=== PATIENT | male | born 1990 | race Caucasian/White ===

== ENCOUNTER 2016-05-31 17:53 | Emergency (ER) | payer MEDICAID ==
[2016-05-31] MEDS ORDERED: SULFAMETH/TRIMETH DS 800/160 MG TABLET PO STA (18:11)
[2016-05-31] MEDS ORDERED: CEPHALEXIN 250 MG CAPSULE PO STA (18:11)
[2016-05-31] MEDS ORDERED: SULFAMETH/TRIMETH DS 800/160 MG TABLET PO ONE (18:14)
[2016-05-31] MEDS ORDERED: CEPHALEXIN 250 MG CAPSULE PO ONE (18:14)
== END 2016-05-31 18:27 | disposition home or self-care (01) ==
DX: L03.114 Cellulitis of left upper limb (principal); L98.9 Disorder of the skin and subcutaneous tissue, unspecified; F17.200 Nicotine dependence, unspecified, uncomplicated
CPT/HCPCS: 99283; A9270

== ENCOUNTER 2016-07-19 13:03 | Emergency (ER) | payer MEDICAID ==
[2016-07-19 13:16] VITALS: BP 138/80
--- NOTE | 2016-07-19 13:48 | ED Physician Documentation ---
PD HPI SKIN - Stated complaint Stated Complaint: SWOLLEN RT EYE - Chief complaint Chief Complaint: Heent - History obtained from History obtained from: Patient - History of Present Illness Timing - onset: How many days ago (2-3) Timing - duration: Days Timing - details: Gradual onset, Still present Location: Face (right upper eyelid with redness and local swelling, then started with some purulence last night and eyelid/periorbital redness today.) Quality / character: Painful, Discolored (red), Draining Similar symptoms before: Diagnosis (has had skin infections in other places.) Review of Systems Constitutional: denies: Fever, Chills Eyes: denies: Loss of vision, Decreased vision, Photophobia : denies: Dysuria, Discharge PD PAST MEDICAL HISTORY - Past Medical History Cardiovascular: Deep vein thrombosis, Other Respiratory: Asthma Neuro: Seizure disorder Endocrine/Autoimmune: None GI: None : None HEENT: None Psych: Depression Musculoskeletal: Chronic back pain Derm: None - Past Surgical History Past Surgical History: Yes General: Other - Present Medications Home Medications: Ambulatory Orders Medication Instructions Recorded Confirmed Chlorhexidine Gluconate [Hibiclens] 10 ml TP DAILY #473 ml 07/19/16 Neomycin Hough/Bacitra/Polymyxin 1 applic OP QID #3.5 oint...g. 07/19/16 [Vqkmxb-Jrvti-Xfxsngh Eye Oint] Sulfamethox/Trimeth 800/160 1 each PO BID #14 tablet 07/19/16 [Bactrim Ds 800/160] Tramadol HCl 50 mg PO Q6H PRN #20 tablet 07/19/16 - Allergies Allergies/Adverse Reactions: Allergies Allergy/AdvReac Type Severity Reaction Status Date / Time acetaminophen [From Vicodin] AdvReac Nausea Verified 05/31/16 17:59 hydrocodone bitartrate * AdvReac Nausea Verified 05/31/16 17:59 [From Vicodin] - Social History Does the pt smoke?: Yes Smoking Status: Current every day smoker Does the pt drink ETOH?: Yes Does the pt have substance abuse?: No - Immunizations Immunizations are current?: No Immunizations: TDAP >10years/unknown, Other immun not current - POLST Patient has POLST: No PD ED PE NORMAL - Vitals Vital signs reviewed: Yes - General General: Alert and oriented X 3, No acute distress, Well developed/nourished - HEENT HEENT: PERRL, EOMI, Other (right eyelid with focal redness and swelling, mild drainage, c/w stye infectd, and eyelid and periorbital with redness as well. Good movement of eye without pain. ) - Neck Neck: Supple, no meningeal sign, No adenopathy Results - Vitals Vitals: Vital Signs - 24 hr 07/19/16 13:14 Temperature 36.6 C Heart Rate 82 Respiratory 16 Rate Blood Pressure 138/80 H O2 Saturation 98 Oxygen O2 Source Room air PD MEDICAL DECISION MAKING - ED course Complexity details: considered differential, d/w patient Departure - Departure Disposition: 01 Home, Self Care Clinical Impression: Cellulitis of right eyelid Hordeolum externum (stye) Qualifiers: Laterality: right Eyelid: upper Qualified Code(s): H00.011 - Hordeolum externum right upper eyelid Condition: Stable Record reviewed to determine appropriate education?: Yes Instructions: ED Staph Infec Abx Tx Only Prescriptions: Sulfamethox/Trimeth 800/160 [Bactrim Ds 800/160] 1 each PO BID #14 tablet Chlorhexidine Gluconate [Hibiclens] 10 ml TP DAILY #473 ml Neomycin Hough/Bacitra/Polymyxin [Ipzecm-Kgduf-Rsdmqjx Eye Oint] 1 applic OP QID # 3.5 oint...g. Tramadol HCl 50 mg PO Q6H PRN #20 tablet PRN Reason: Pain Comments: Cleanse the eye/eyelid with warm water 4 times daily and apply antibiotic eye ointment to lid and eye. Bactrim oral antibiotic twice daily for a week. Use Hibiclens body soap head to toe with showering daily for a week. Tylenol or Ibuprofen for pains; add Tramadol if needed. Recheck if not improved over the next couple of days. Discharge Date/Time: 07/19/16 14:23
[2016-07-19] MEDS ORDERED: traMADol 50 MG TABLET PO STA (14:03)
[2016-07-19] MEDS ORDERED: SULFAMETH/TRIMETH DS 800/160 MG TABLET PO STA (14:03)
[2016-07-19] MEDS ORDERED: IBUPROFEN 600 MG TABLET PO STA (14:03)
[2016-07-19] MEDS ORDERED: IBUPROFEN 600 MG TABLET PO ONE (14:05)
[2016-07-19] MEDS ORDERED: SULFAMETH/TRIMETH DS 800/160 MG TABLET PO ONE (14:05)
[2016-07-19] MEDS ORDERED: traMADol 50 MG TABLET PO ONE (14:05)
== END 2016-07-19 14:23 | disposition home or self-care (01) ==
LOC: ED 13:03
DX: H00.011 Hordeolum externum right upper eyelid (principal); H00.031 Abscess of right upper eyelid; J45.909 Unspecified asthma, uncomplicated; Z86.718 Personal history of other venous thrombosis and embolism; F17.200 Nicotine dependence, unspecified, uncomplicated
CPT/HCPCS: 87070; 87077; 87181; 99283; A9270

== ENCOUNTER 2016-09-19 11:05 | Emergency (ER) | payer MEDICAID ==
[2016-09-19] MEDS ORDERED: LIDOCAINE 2% 10 ML MDV SUBQ STA (12:13)
[2016-09-19] MEDS ORDERED: LIDOCAINE 2% 10 ML MDV ONE (12:13)
[2016-09-19] MEDS ORDERED: SULFAMETH/TRIMETH DS 800/160 MG TABLET PO STA (12:14)
[2016-09-19] MEDS ORDERED: CEPHALEXIN 250 MG CAPSULE PO STA (12:14)
[2016-09-19] MEDS ORDERED: SULFAMETH/TRIMETH DS 800/160 MG TABLET PO ONE (12:22)
[2016-09-19] MEDS ORDERED: CEPHALEXIN 250 MG CAPSULE PO ONE (12:22)
--- NOTE | 2016-09-19 12:34 | ED Physician Documentation ---
History of Present Illness - Stated complaint Stated Complaint: LT HAND SWOLLEN - Chief complaint Chief Complaint: Ext Problem - History obtained from History obtained from: Patient - History of Present Illness Timing: How many days ago (several) Pain level max: 8 Pain level now: 6 Improved by: nothing Worsened by: movement, palpation - Additonal information Additional information: states redness and swelling to the L index finger for several days. Came for eval today. States uses heroin daily, last use today. No fevers, no vomiting. Td UTD. Pt is right handed. Review of Systems Constitutional: denies: Fever, Chills Respiratory: denies: Cough GI: denies: Nausea, Vomiting, Diarrhea Skin: denies: Rash Musculoskeletal: denies: Neck pain, Back pain Neurologic: denies: Headache PD PAST MEDICAL HISTORY - Past Medical History Cardiovascular: Deep vein thrombosis, Other Respiratory: Asthma Neuro: Seizure disorder Endocrine/Autoimmune: None GI: None : None HEENT: None Psych: Depression Musculoskeletal: Chronic back pain Derm: None - Past Surgical History Past Surgical History: Yes General: Other - Present Medications Home Medications: Ambulatory Orders Medication Instructions Recorded Confirmed Cephalexin [Keflex] 500 mg PO Q6H #28 capsule 09/19/16 Ibuprofen [Motrin] 800 mg PO Q8H PRN #30 tablet 09/19/16 Sulfamethox/Trimeth 800/160 1 each PO BID #14 tablet 09/19/16 [Bactrim Ds 800/160] - Allergies Allergies/Adverse Reactions: Allergies Allergy/AdvReac Type Severity Reaction Status Date / Time acetaminophen [From Vicodin] AdvReac Nausea Verified 09/19/16 11:16 hydrocodone bitartrate * AdvReac Nausea Verified 09/19/16 11:16 [From Vicodin] - Social History Does the pt smoke?: Yes Smoking Status: Current every day smoker Does the pt drink ETOH?: Yes Does the pt have substance abuse?: No - Immunizations Immunizations are current?: Yes Immunizations: TDAP current <10years (2010 per pt), Other immun not current - POLST Patient has POLST: No PD ED PE NORMAL - Vitals Vital signs reviewed: Yes - General General: Alert and oriented X 3, No acute distress - HEENT HEENT: Moist mucous membranes - Neck Neck: Supple, no meningeal sign - Cardiac Cardiac: RRR, No murmur - Respiratory Respiratory: No respiratory distress, Clear bilaterally - Derm Derm: Warm and dry - Extremities Extremities: Other (L index finger swollen diffusely, but does have approx 50% ROM. Limited by swelling. NVI. Small abscess of the anterior aspect of the index finger, near DIP joint. No palmar tenderness. ) - Neuro Neuro: Alert and oriented X 3 - Psych Psych: Normal mood, Normal affect Results - Vitals Vitals: Vital Signs - 24 hr 09/19/16 09/19/16 11:07 12:56 Temperature 36.1 C L 37.0 C Heart Rate 92 69 Respiratory 18 20 Rate Blood Pressure 144/87 H 153/94 H O2 Saturation 99 99 Oxygen O2 Source Room air - Labs Labs: Microbiology 09/19/16 12:30 Wound Culture - Preliminary Abscess - Rads (name of study) L index finger xray Radiology: Prelim report reviewed, EMP read contemporaneously, See rad report ( normal finger xray, no FB) Procedures - Abscess I&D (location) L index finger Preparation: Confirmed with ultrasound, Alcohol, Lidocaine 2 % Incision: Needle aspiration, Purulent drainage, Culture obtained Other: Pt tolerated well, Dressing applied, Antibiotic prescribed PD MEDICAL DECISION MAKING - ED course Complexity details: reviewed results, re-evaluated patient, considered differential, d/w patient ED course: Patient is a 25-year-old male who presents to the emergency department with an abscess and cellulitis to the left index finger. No evidence of deep space infection in the hand. No fevers. No palmar tenderness. No tenderness along the flexor tendon sheath. Neurovascularly intact. Abscess drained. Wound culture sent. Will start on Bactrim and Keflex. Did discuss drug rehab for heroin, patient declines this at this time. Patient was counseled to stop using heroin. Patient counseled regarding signs and symptoms for which I believe and urgent re-evaluation would be necessary. Patient with good understanding of and agreement to plan and is comfortable going home at this time This document was made in part using voice recognition software. While efforts are made to proofread this document, sound alike and grammatical errors may occur. Departure - Departure Disposition: 01 Home, Self Care Clinical Impression: Abscess of finger Qualifiers: Laterality: left Qualified Code(s): L02.512 - Cutaneous abscess of left hand Cellulitis Qualifiers: Site of cellulitis: extremity Site of cellulitis of extremity: upper extremity Laterality: left Qualified Code(s): L03.114 - Cellulitis of left upper limb Condition: Good Instructions: ED Abscess IandD, ED Infec Skin Cellulitis Follow-Up: return,here in 2-3 days for wound check [Other] Prescriptions: Sulfamethox/Trimeth 800/160 [Bactrim Ds 800/160] 1 each PO BID #14 tablet Cephalexin [Keflex] 500 mg PO Q6H #28 capsule Ibuprofen [Motrin] 800 mg PO Q8H PRN #30 tablet PRN Reason: PAIN &/OR FEVER Comments: Return if you worsen. You should return here in 2-3 days for wound check. Return sooner if you are worsening. Keep the wound clean. Discharge Date/Time: 09/19/16 12:56
--- NOTE | 2016-09-19 12:55 | XRAY Preliminary Report ---
Exam: XR Finger(s) LT IMPRESSION: 1. No osseous abnormality. 2. Index finger soft tissue swelling. 3. No radiopaque foreign body demonstrated. [facility] SITE ID: [id number]
--- NOTE | 2016-09-19 12:57 | XRAY Report ---
EXAM: LEFT SECOND DIGIT RADIOGRAPHY EXAM DATE: 09/19/2016 12:42 PM. CLINICAL HISTORY: L index finger swelling, poss FB. COMPARISON: None. TECHNIQUE: 3 views. FINDINGS: Bones: Normal. No fracture or bone lesion. Joints: Normal. No subluxations. Soft Tissues: Index finger diffuse soft tissue swelling. No radiopaque foreign body or cassandra soft tis jose raul gas. IMPRESSION: 1. No osseous abnormality. 2. Index finger soft tissue swelling. 3. No radiopaque foreign body demonstrated. [facility] Referring Provider Line: [phone] SITE ID: [id number]
[2016-09-19 12:58] VITALS: BP 153/94
== END 2016-09-19 12:56 | disposition home or self-care (01) ==
LOC: ED 11:05
DX: L02.512 Cutaneous abscess of left hand (principal); F17.200 Nicotine dependence, unspecified, uncomplicated; F11.90 Opioid use, unspecified, uncomplicated; Z86.718 Personal history of other venous thrombosis and embolism
CPT/HCPCS: 10060; 73140; 87070; 87077; 87181; 87205; 99282; 99283; A9270

== ENCOUNTER 2016-09-20 10:58 | Outpatient (CLI) | payer MEDICAID | END 2016-09-20 10:59 | disposition critical access hospital (66) | LOC: EMS 10:58 | PROVIDERS: ATTEND Surgery | DX: M79.642 Pain in left hand (principal) | CPT/HCPCS: A0425; A0429 ==

== ENCOUNTER 2016-09-20 11:23 | Inpatient (IN) | payer MEDICAID ==
[2016-09-20] MEDS ORDERED: KETOROLAC 60 MG/2 ML VIAL IM STA (11:44)
--- NOTE | 2016-09-20 12:14 | ED Physician Documentation ---
History of Present Illness - Stated complaint Stated Complaint: HAND SWELLING - Chief complaint Chief Complaint: Ext Problem - Additonal information Additional information: hx from pt 25 y/o IVDA to ER for L index finger infection seen yesterday for same, xray neg, had ROM, has a small fexor side abscess drained, dc on bactrim and keflex which he did nit fell because he fell asleep when he got home pain swelling worse today Review of Systems Constitutional: denies: Fever Musculoskeletal: reports: Extremity pain PD PAST MEDICAL HISTORY - Past Medical History Cardiovascular: Deep vein thrombosis, Other Respiratory: Asthma Neuro: Seizure disorder Endocrine/Autoimmune: None GI: None : None HEENT: None Psych: Depression Musculoskeletal: Chronic back pain Derm: None - Past Surgical History Past Surgical History: Yes General: Other - Present Medications Home Medications: Ambulatory Orders Medication Instructions Recorded Confirmed Cephalexin [Keflex] 500 mg PO Q6H #28 capsule 09/19/16 Ibuprofen [Motrin] 800 mg PO Q8H PRN #30 tablet 09/19/16 Sulfamethox/Trimeth 800/160 1 each PO BID #14 tablet 09/19/16 [Bactrim Ds 800/160] - Allergies Allergies/Adverse Reactions: Allergies Allergy/AdvReac Type Severity Reaction Status Date / Time acetaminophen [From Vicodin] AdvReac Nausea Verified 09/19/16 11:16 hydrocodone bitartrate * AdvReac Nausea Verified 09/19/16 11:16 [From Vicodin] - Social History Does the pt smoke?: Yes Smoking Status: Current every day smoker Does the pt drink ETOH?: Yes Does the pt have substance abuse?: No - Immunizations Immunizations are current?: Yes Immunizations: TDAP current <10years, Other immun not current - POLST Patient has POLST: No PD ED PE NORMAL - Vitals Vital signs reviewed: Yes - Extremities Extremities: Other (L index red, fusiform swelling, held slightl felxed, anable to range, senation and cap refill intact, I and D site flexor surface, hands are extremely dirty) Results - Vitals Vitals: Vital Signs - 24 hr 09/20/16 11:27 Temperature 37 C Heart Rate 90 Respiratory 18 Rate Blood Pressure 124/85 H O2 Saturation 97 Oxygen O2 Source Room air PD MEDICAL DECISION MAKING - ED course ED course: worsened since yesterday, now with flexor tenosynovitis, seen by ortho Dr West who will admit pt for surgery and antibiotics - orders written by Dr West Departure - Departure Disposition: 66 [facility] DC/[facility] Clinical Impression: Flexor tenosynovitis of finger Condition: Fair
[2016-09-20] MEDS ORDERED: VANCOMYCIN INJ 1 GM in SODIUM CHLORIDE 0.9% 250 ML IV ONE ×2 (14:00→15:15)
[2016-09-20] MEDS ORDERED: LACTATED RINGERS 1,000 ML IV ONE ×2 (15:15→17:03)
[2016-09-20] MEDS ORDERED: fentaNYL 100 MCG/2 ML VIAL IVP ONE (17:39)
[2016-09-20] MEDS ORDERED: LIDOCAINE-MPF 2% 5 ML VIAL IM ONE (17:39)
[2016-09-20] MEDS ORDERED: METOCLOPRAMIDE 10 MG/2 ML VIAL IVP ONE (17:39)
[2016-09-20] MEDS ORDERED: PROPOFOL 200 MG/20 ML VIAL IVP ONE (17:39)
[2016-09-20] MEDS ORDERED: ONDANSETRON 4 MG/2 ML VIAL IVP ONE (17:39)
[2016-09-20] MEDS ORDERED: DEXAMETHASONE 4 MG/ML VIAL IVP ONE (17:39)
[2016-09-20] MEDS ORDERED: KETOROLAC 30 MG/ML VIAL IVP ONE (17:39)
[2016-09-20] MEDS ORDERED: MIDAZOLAM 2 MG/2 ML VIAL IVP ONE (17:39)
[2016-09-20] MEDS ORDERED: ONDANSETRON 4 MG/2 ML VIAL IVP PRN (17:53)
[2016-09-20] MEDS ORDERED: PROCHLORPERAZINE 10 MG/2 ML VIAL IVP PRN (17:53)
[2016-09-20] MEDS ORDERED: SODIUM CHLORIDE FLUSH 0.9% 10 ML SYRINGE IVP PRN (17:53)
--- NOTE | 2016-09-20 19:09 | OPERATIVE REPORT ---
DATE OF SURGERY: 09/20/2016 00:00:00 PREOPERATIVE DIAGNOSIS: Left index finger infected flexor tenosynovitis. POSTOPERATIVE DIAGNOSIS: Left index finger infected flexor tenosynovitis. NAME OF PROCEDURE: Incision and drainage of right index finger flexor tenosynovitis. SURGEON: Suleman West MD ANESTHESIA: General by Mandi eKlly MD INDICATIONS FOR SURGERY: The patient is a 25-year-old male who is a heroin user and addict who over t he past 3 days developed left index finger swelling, redness and pain with drainage from a small pinp oint area at the palmar base of the pulp of the index finger. He presented to the emergency room yest erday and then returned today by ambulance with increasing hand pain and swelling where he was diagno sed as having a flexor sheath infection. I was asked to consult at this point. FINDINGS AT SURGERY: The patient had thick, purulent light grover fluid draining from a small area at t he palmar base of the pulp of the index finger. The sheath was swollen leading into that area from th e proximal phalanx to the fingertip. The finger was held in slight flexion and when awake the patien t was unable to move it and had extreme pain along the sheath. On incision the purulence was an absce ssed cavity in the pulp and also infection in the exposed sheath. There was some necrosis of tissue around the abscess cavity. At the base of the finger at a counter incision there was not found pus. DESCRIPTION OF THE OPERATIVE PROCEDURE: The patient was taken to the operating room, was given a gene ral anesthetic. His hand was cleaned and sterilely prepped and draped in standard fashion. Two incisi ons were made, one was a transverse incision at the distal flexion crease of the index finger, the ot her at the distal palmar flexion crease. The purulence was encountered at the finger and cultures sen t. The abscess cavity was drained and slightly debrided of necrotic tissue and the sheath exposed wi th retractors so that irrigation could be done from the palmar incision out the distal incision. Ther e was some delamination of skin of the distal aspect and a very minimal debridement was done of necro tic skin. A flushing was performed with about 800 mL of fluid using a syringe and an 18 gauge cathete r tip and at the conclusion soft dressings were applied with Xeroform gauze in the wounds and 4 x 4's and fluffs in the hand followed by a volar splint. The patient was taken to the recovery room in sta ble condition. ESTIMATED BLOOD LOSS: Was minimal. COMPLICATIONS: None. SPONGE AND NEEDLE COUNTS: Correct. JOB #: [id number] EXT JOB #:[id number]
[2016-09-20] MEDS ORDERED: oxyCODONE 5 MG TABLET PO SCH (20:15)
[2016-09-20] MEDS: SODIUM CHLORIDE FLUSH 0.9% 10 ML SYRINGE IVP SCH (20:34)
[2016-09-20] MEDS: LACTATED RINGERS 1,000 ML IV SCH (20:35)
[2016-09-21] MEDS: ceFAZolin 2 GM/50 ML 50 ML IV SCH ×2 (00:19→08:35)
[2016-09-21] MEDS: oxyCODONE 5 MG TABLET PO PRN ×5 (00:28→20:10)
--- NOTE | 2016-09-21 03:28 | CONSULTATION NOTE ---
Referring Provider Name of Referring Provider:: Suleman West MD Consult Date: 09/20/16 Chief Complaint - Chief Complaint Chief Complaint: Pain and swelling of the left index finger History of Present Illness - Admitted From Admitted From:: Emergency Department - History Obtained From Records Reviewed: Yes History obtained from: Patient and medical records Exam Limitations: None - History of Present Illness HPI Comment/Other: The patient is a 25 year old male with past medical history of cardiac thrombus 3 years ago and IV drug abuse who presented to the emergency department with pain and swelling of his right index finger. The patient had had swelling of the finger that was worsening over 3 days and he began to develop redness and pain with drainage from a small pinpoint area at the palmar base of the pulp of the finger. He initially presented to the emergency room on 09/19/16 and then returned again on 09/20/16 as he had increasing pain and swelling. The patient was diagnosed with flexor sheath infection and was seen by orthopedics in the emergency department. The patient was taken to the OR for incision and drainage of the right index finger flexor tenosynovitis. The patient was found to have thick purulent light grover fluid draining from a small area at the palmar base of the pulp of the index finger. The sheath was swollen leading into that area from the proximal phalanx to the fingertip. The patient underwent incision of the finger and an abscessed cavity was found in the pulp and also infection was found in the exposed sheath. There was some necrosis of the tissue around the abscess cavity. The patient is a daily heroin user and had last used the night prior to presenting to the ED. Therefore there was concern for possible heroin withdrawal post procedure and Dr West asked that we consult to help treat any heroin withdrawal as well as pain. Post procedure the patient is stable but he does feels anxious and feels he maybe going into early stages of withdrawal from heroin. He denies any fevers or chills but was having fevers prior to coming to the ER. The patient denies any chest pain or shortness of breath. He denies any cough. He denies any muscle aches. He denies any focal neurological deficits. Review of Systems - Other Findings Other Findings: A comprehensive review of systems was performed and the pertinent positives and negatives are stated above in the HPI. History - Past Medical History Cardiovascular: reports: Deep vein thrombosis, Other Respiratory: reports: Asthma Neuro: reports: Seizure disorder Endocrine/Autoimmune: reports: None GI: reports: None : reports: None HEENT: reports: None Psych: reports: Depression Musculoskeletal: reports: Chronic back pain Derm: reports: None MRSA Hx?: Yes Other Past Medical History: 1. History of cardiac thrombus 3 years ago at [facility]. The patient states that he did not follow through on treatment. He only received blood thinners while hospitalized then took them for just 1 week post hospitalization. 2. Left upper arm DVT. Did not follow up with treatment. 3. History of IV drug abuse currently using heroin last use yesterday. 4. History of Tobacco abuse. - Past Surgical History General: reports: Other - Family & Social History Family History: Mother: CAD (Mom of cardiac arrest at age 34) Family History Comment/Other: Grandfather had a pulmonary embolism. Does not know fathers history. Living arrangement: Homeless Living Situation: Alone Social History Notes: The patient is homeless and lives [place] streets in [place]. He was born and [place] [facility]. His mother when she was only 34 years old. The patient has an older brother who lives in [facility]. The patient also has family in [place] including uncles and aunts. The patient has 3 kids who all live with their mom. The patient is an IV drug user and his drug of choice is heroin. He last used yesterday. He is a daily user. He also uses meth. He occasionally uses mushrooms and marijuana. He smokes a pack per day and has been smoking for more than 10 years. He denies any alcohol use. - Substance History Use: Uses substance without health or social issues: Tobacco Abuse: Recurrent use of substance despite neg consequences: Amphetamine, Opioid Dependence: Experiences withdrawal or developed tolerances: Opioid Dependence Issues: Withdrawal Tobacco Details: Cigarettes - POLST Patient has POLST: No POLST Status: Full Code Meds/Allgy - Home Medications Home Medications: Ambulatory Orders Medication Instructions Recorded Confirmed Cephalexin [Keflex] 500 mg PO Q6H #28 capsule 09/19/16 Ibuprofen [Motrin] 800 mg PO Q8H PRN #30 tablet 09/19/16 Sulfamethox/Trimeth 800/160 1 each PO BID #14 tablet 09/19/16 [Bactrim Ds 800/160] - Allergies Allergies/Adverse Reactions: Allergies Allergy/AdvReac Type Severity Reaction Status Date / Time acetaminophen [From Vicodin] AdvReac Nausea Verified 09/19/16 11:16 hydrocodone bitartrate * AdvReac Nausea Verified 09/19/16 11:16 [From Vicodin] Exam - Vital Signs Reviewed Vital Signs: Yes Vital Signs: Vital Signs x48h Temp Pulse Resp BP Pulse Ox 09/21/16 00:07 36.8 C 74 16 122/71 100 09/20/16 19:53 37.0 C 74 16 129/75 98 - Physical Exam General Appearance: positive: No acute distress, Alert, Other (Very thin, poor hygeine, poorly kept) Eyes Bilateral: positive: Normal inspection, PERRL, EOMI, No lid inflammation, Conjunctivae nml, No scleral icterus, Other (poor dentation) ENT: positive: ENT inspection nml, Pharynx nml, Dry mucous membranes. negative : Purulent nasal drainage, Pharyngeal erythema, Oral lesions Neck: positive: Nml inspection, Thyroid nml, No JVD, Trachea midline. negative : Thyromegaly, Lymphadenopathy (R), Lymphadenopathy (L), Carotid bruit, Tracheal deviation Respiratory: positive: Chest non-tender, No respiratory distress, Breath sounds nml. negative: Wheezes, Rales, Rhonchi Cardiovascular: positive: Regular rate & rhythm, No murmur, No gallop Peripheral Pulses: positive: 2+ Abdomen: positive: Non-tender, No organomegaly, Nml bowel sounds, No distention. negative: Guarding, Rebound, Hepatomegaly Back: positive: Nml inspection Skin: positive: Other (Left finger is dressed with some drainage, swollen with mild erythema) Extremities: positive: Non-tender, Full ROM, Nml appearance, No pedal edema, Pedal edema Neurologic/Psychiatric: positive: Oriented x3, CN's nml (2-12), Motor nml, Sensation nml, Depressed mood/affect (Not very talkative. Feels as though he maybe experiencing some withdrawal) Conclusion/Plan - Diagnosis Diagnosis: 1. Tenosynovitis of the left hand. 2. Heroin Abuse. 3. Tobacco Abuse - Plan Plan: 1. Plan: Status post I&D on IV vancomycin awaiting wound cultures to de- escalate antibiotics. Patient needs 7-10 days of antibiotics and could be transitioned to PO antibiotics if WBC is improving and patient is afebrile for 24 hours and stable. We will add ceftriaxone to vanco while we await blood cultures to improve empirical coverage. 2. Plan: Patient having mild withdrawal symptoms. Will place on PO oxycodone for pain control. Will place on ativan and clonidine for anxiety. Will place on zofran for nausea. Patient counselled and will get a social work consult. 3. Plan: Patient counselled and given nicotine patch. - Diagnostic Imaging Results Diagnostic Imaging Results: positive: Final report reviewed
[2016-09-21] MEDS: VANCOMYCIN INJ 1 GM in SODIUM CHLORIDE 0.9% 250 ML IV SCH ×2 (04:32→16:28)
[2016-09-21 05:35] LABS: BASOPHILS # (AUTO) 0.1 10^3/uL (0.0-0.1); BASOPHILS % (AUTO) 0.3 %; EOSINOPHILS % (AUTO) 0.2 %; HCT - HEMATOCRIT 37.2 % (42.0-52.0); HGB - HEMOGLOBIN 12.2 g/dL (14.0-18.0); LYMPHOCYTES # (AUTO) 2.4 10^3/uL (1.5-3.5); LYMPHOCYTES % (AUTO) 14.2 %; MEAN CORPUSCULAR HEMOGLOBIN 26.3 pg (27.0-31.0); MEAN CORPUSCULAR HGB CONC 32.9 g/dL (32.0-36.0); MEAN PLATELET VOLUME 7.2 fL (7.4-11.4); MONOCYTES # (AUTO) 1.1 10^3/uL (0.0-1.0); MONOCYTES % (AUTO) 6.2 %; NEUTROPHILS # (AUTO) 13.5 10^3/uL (1.5-6.6); NEUTROPHILS % (AUTO) 79.1 %; RED BLOOD COUNT 4.65 10^6/uL (4.70-6.10); RED CELL DISTRIBUTION WIDTH 14.4 % (12.0-15.0)
[2016-09-21] MEDS: SODIUM CHLORIDE FLUSH 0.9% 10 ML SYRINGE IVP SCH ×3 (06:38→16:28)
--- NOTE | 2016-09-21 07:35 | PROVIDER PROGRESS NOTE ---
Subjective - General Admit Date: 09/20/16 Procedure Date: 09/20/16 Post Op Days: 1 Procedure Performed: I + D of left index finger tendon sheath for infected tenosynovitis - Review of Systems Wound/Incisions: positive: Dressing dry and intact General: positive: No symptoms Musculoskeletal: positive: Hand pain, Joint pain Objective - Patient Data Reviewed Vital Signs: Yes Vital Signs: Vital Signs x48h Temp Pulse Resp BP Pulse Ox 09/21/16 07:30 37.0 C 69 18 129/73 96 09/21/16 00:07 36.8 C 74 16 122/71 100 Weight: Weight 09/19/16 09/20/16 09/21/16 23:59 23:59 23:59 Weight (kg) 61 kg Intake & Output: Intake and Output Totals x24h 09/19/16 09/20/16 09/21/16 23:59 23:59 23:59 Intake Total 600 Output Total 1175 Balance 600 -1175 - Lab Results Lab Results: 09/21/16 05:18 Other Lab Results: Lab Results x24hrs 09/21/16 09/21/16 09/21/16 Range/Units 05:18 05:18 05:18 WBC 17.0 H (4.8-10.8) x10^3/uL RBC 4.65 L (4.70-6.10) 10^6/uL Hgb 12.2 L (14.0-18.0) g/dL Hct 37.2 L (42.0-52.0) % MCV 80.0 (80.0-94.0) fL MCH 26.3 L (27.0-31.0) pg MCHC 32.9 (32.0-36.0) g/dL RDW 14.4 (12.0-15.0) % Plt Count 353 (130-450) 10^3/uL MPV 7.2 L (7.4-11.4) fL Neut # 13.5 H (1.5-6.6) 10^3/uL Lymph # 2.4 (1.5-3.5) 10^3/uL Mcintosh # 1.1 H (0.0-1.0) 10^3/uL Eos # 0.0 (0.0-0.7) 10^3/uL Baso # 0.1 (0.0-0.1) 10^3/uL Absolute Nucleated RBC 0.00 x10^3/uL Nucleated RBCs 0.0 /100WBC ESR 60 H (0-15) mm/Hr C-Reactive Protein 7.4 H (0-1.0) mg/dL - Current Medications Current Medications: Current Medications Generic Name Dose Route Start Last Admin Trade Name Freq PRN Reason Stop Dose Admin Cefazolin Sodium/Dextrose 50 mls @ 100 mls/hr 09/21/16 00:00 09/21/16 00:19 Ancef 2 Gm/50 Ml IV 09/21/16 08:29 100 mls/hr Q8H MICHA Administration Lactated Ringer's 1,000 mls @ 100 mls/hr 09/20/16 18:00 09/20/16 20:35 Lr IV 100 mls/hr .Q10H MICHA Administration Vancomycin HCl 1 gm/ Sodium 250 mls @ 167 mls/hr 09/21/16 04:00 09/21/16 04:32 Chloride IV 167 mls/hr Q12H MICHA Administration Oxycodone HCl 5 mg 09/20/16 23:26 09/21/16 00:28 Roxicodone PO 5 mg Q4HR PRN Administration PAIN Sodium Chloride 10 ml 09/20/16 22:00 09/21/16 06:38 Normal Saline Flush 0.9% IVP Not Given Q8HR MICHA - Physical Exam Wound/Incisions: positive: Dressing dry and intact General Appearance: positive: No acute distress Neurologic/Psychiatric: positive: Mood/affect nml Impression/Plan - Problem List Problem List: POD #1: Pt is not having severe pain. Finger is splinted and n/v intact Await culture results. Plan for wound care consult and dressing changes to begin tomorrow AM. I will be gone, but Dr. Horn will be covering the patient over the weekend. Expectation for D/C on Sat or Sun with oral meds and dressing changes, and return to clinic next week ().
[2016-09-21] MEDS: NICOTINE 21 MG PATCH TOP SCH (08:35)
[2016-09-21] MEDS: ENOXAPARIN 40 MG/0.4 ML SYRINGE SUBQ SCH (08:36)
[2016-09-21] MEDS: LACTATED RINGERS 1,000 ML IV SCH ×2 (08:36→13:42)
[2016-09-21] MEDS: cefTRIAXone 2 GM in SODIUM CHLORIDE 0.9% MINIBAG 100 ML IV SCH (09:52)
[2016-09-21] MEDS ORDERED: SODIUM CHLORIDE FLUSH 0.9% 10 ML SYRINGE IVP ONE (16:16)
[2016-09-21] MEDS: SILVER SULFADIAZINE CREAM 25 GM TUBE TOP SCH (20:10)
[2016-09-21] MEDS: MORPHINE ER 15 MG TABLET PO PRN (21:07)
[2016-09-22] MEDS: LACTATED RINGERS 1,000 ML IV SCH ×3 (00:25→19:52)
[2016-09-22] MEDS: oxyCODONE 5 MG TABLET PO PRN ×5 (00:35→19:28)
[2016-09-22] MEDS: VANCOMYCIN INJ 1 GM in SODIUM CHLORIDE 0.9% 250 ML IV SCH ×2 (03:56→17:31)
[2016-09-22 06:00] LABS: BASOPHILS # (AUTO) 0.1 10^3/uL (0.0-0.1); BASOPHILS % (AUTO) 0.9 %; EOSINOPHILS # (AUTO) 0.1 10^3/uL (0.0-0.7); EOSINOPHILS % (AUTO) 1.5 %; HCT - HEMATOCRIT 36.5 % (42.0-52.0); HGB - HEMOGLOBIN 12.1 g/dL (14.0-18.0); LYMPHOCYTES # (AUTO) 3.3 10^3/uL (1.5-3.5); LYMPHOCYTES % (AUTO) 34.6 %; MEAN CORPUSCULAR HEMOGLOBIN 26.7 pg (27.0-31.0); MEAN CORPUSCULAR HGB CONC 33.2 g/dL (32.0-36.0); MEAN CORPUSCULAR VOLUME 80.6 fL (80.0-94.0); MEAN PLATELET VOLUME 7.3 fL (7.4-11.4); MONOCYTES # (AUTO) 0.7 10^3/uL (0.0-1.0); MONOCYTES % (AUTO) 6.9 %; NEUTROPHILS # (AUTO) 5.4 10^3/uL (1.5-6.6); NEUTROPHILS % (AUTO) 56.1 %; NUCLEATED RED BLOOD CELLS AUTO 0.1 /100WBC; RED BLOOD COUNT 4.53 10^6/uL (4.70-6.10); RED CELL DISTRIBUTION WIDTH 14.9 % (12.0-15.0); UNCORRECTED WHITE BLOOD COUNT 9.5 x10^3/uL; WHITE BLOOD COUNT 9.5 x10^3/uL (4.8-10.8)
[2016-09-22] MEDS: SODIUM CHLORIDE FLUSH 0.9% 10 ML SYRINGE IVP SCH ×3 (06:02→19:28)
[2016-09-22 06:10] LABS: ALBUMIN/GLOBULIN RATIO 0.9 (1.0-2.2); BILIRUBIN,TOTAL 0.4 mg/dL (0.2-1.0); BUN - BLOOD UREA NITROGEN 13 mg/dL (6-20); CALCIUM 8.7 mg/dL (8.5-10.3); CARBON DIOXIDE - CO2 26 mmol/L (21-32); CHLORIDE 106 mmol/L (101-111); CREATININE 0.6 mg/dL (0.6-1.2); GFR - MDRD 164 (>89); GLUCOSE 101 mg/dL (70-100); POTASSIUM 4.4 mmol/L (3.5-5.0); SODIUM 140 mmol/L (135-145); TOTAL PROTEIN 6.4 g/dL (6.7-8.2)
[2016-09-22] MEDS: ENOXAPARIN 40 MG/0.4 ML SYRINGE SUBQ SCH (07:54)
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
[2016-09-22] MEDS: NICOTINE 21 MG PATCH TOP SCH (08:35)
[2016-09-22] MEDS: MORPHINE ER 15 MG TABLET PO PRN ×2 (08:37→21:26)
[2016-09-22] MEDS: cefTRIAXone 2 GM in SODIUM CHLORIDE 0.9% MINIBAG 100 ML IV SCH (10:42)
[2016-09-22] MEDS: SILVER SULFADIAZINE CREAM 25 GM TUBE TOP SCH ×2 (10:51→21:27)
[2016-09-23] MEDS: SULFAMETH/TRIMETH DS 800/160 MG TABLET PO SCH ×2 (00:16→08:54)
[2016-09-23 05:58] LABS: BASOPHILS # (AUTO) 0.1 10^3/uL (0.0-0.1); BASOPHILS % (AUTO) 0.8 %; EOSINOPHILS # (AUTO) 0.2 10^3/uL (0.0-0.7); EOSINOPHILS % (AUTO) 1.9 %; HCT - HEMATOCRIT 39.4 % (42.0-52.0); LYMPHOCYTES # (AUTO) 2.6 10^3/uL (1.5-3.5); LYMPHOCYTES % (AUTO) 32.2 %; MEAN CORPUSCULAR HEMOGLOBIN 26.6 pg (27.0-31.0); MEAN CORPUSCULAR VOLUME 80.6 fL (80.0-94.0); MEAN PLATELET VOLUME 7.4 fL (7.4-11.4); MONOCYTES # (AUTO) 0.6 10^3/uL (0.0-1.0); MONOCYTES % (AUTO) 6.8 %; NEUTROPHILS # (AUTO) 4.7 10^3/uL (1.5-6.6); NEUTROPHILS % (AUTO) 58.3 %; NUCLEATED RED BLOOD CELLS AUTO 0.1 /100WBC; RED BLOOD COUNT 4.89 10^6/uL (4.70-6.10); RED CELL DISTRIBUTION WIDTH 14.9 % (12.0-15.0); UNCORRECTED WHITE BLOOD COUNT 8.1 x10^3/uL; WHITE BLOOD COUNT 8.1 x10^3/uL (4.8-10.8)
[2016-09-23 06:09] LABS: ALBUMIN/GLOBULIN RATIO 0.8 (1.0-2.2); BILIRUBIN,TOTAL 0.5 mg/dL (0.2-1.0); BUN - BLOOD UREA NITROGEN 11 mg/dL (6-20); CARBON DIOXIDE - CO2 25 mmol/L (21-32); CHLORIDE 105 mmol/L (101-111); CREATININE 0.6 mg/dL (0.6-1.2); GFR - MDRD 164 (>89); GLUCOSE 93 mg/dL (70-100); SODIUM 139 mmol/L (135-145)
[2016-09-23] MEDS: SODIUM CHLORIDE FLUSH 0.9% 10 ML SYRINGE IVP SCH (06:42)
[2016-09-23 07:18] VITALS: BP 129/71
--- NOTE | 2016-09-23 07:49 | Discharge Plan ---
Discharge Plan Disposition: 01 Home, Self Care Condition: Fair Prescriptions: oxyCODONE [Roxicodone] 5 mg PO Q4HR PRN #30 tablet PRN Reason: Pain Sulfamethox/Trimeth 800/160 [Bactrim Ds] 1 tab PO BID #14 tablet Diet: Regular Activity Restrictions: Activity as Tolerated Shower Restrictions: Yes (keep hand dry, may clean with soap and water but dry immediately. no soakin) Additional Instructions or Follow Up instructions: You were added for a infection of the tendon of your left index finger. This required surgical debridement. the bacteria that was present in the infection was methicillin resisant Staph aureus (MRSA). Please complete the antibiotics we have given you to finish the treatment of the infection. Please refrain from using ANY opiates other than the once prescribed by a physician. We are asking you to stop using heroin and our Maintenance Department Manager in the hospital has given you some resources to use to help you stop. Follow up with Dr. Matteo West or Yosef Horn MD, the orthopedic surgeon who operated on your finger/hand. One of them will see you later on this week. We would strongly recommend that you find a primary care provider and establish yourself as a patient. Keep your affected hand clean and dry. Wash with soap and water on a daily basis. Do not soak your hand with things like washing dishes, cleaning a car, and do not keep it in a glove. No Smoking: If you smoke, Please STOP! Call for help. Follow-up with: Samir Horn MD [Provider Admit Priv/Credential] -
[2016-09-23] MEDS: ENOXAPARIN 40 MG/0.4 ML SYRINGE SUBQ SCH (08:00)
[2016-09-23] MEDS: SILVER SULFADIAZINE CREAM 25 GM TUBE TOP SCH (08:01)
[2016-09-23] MEDS: NICOTINE 21 MG PATCH TOP SCH (08:01)
[2016-09-23] MEDS: oxyCODONE 5 MG TABLET PO PRN (08:07)
--- NOTE | 2016-09-24 07:45 | DISCHARGE SUMMARY ---
DATE OF ADMISSION: 09/20/2016 DATE OF DISCHARGE: 09/23/2016 DISCHARGE DIAGNOSES 1. Left index finger tendon sheath flexor tenosynovitis with infection. 2. Methicillin-resistant Staphylococcus aureus infection. 3. Heroin abuse. 4. Tobacco abuse. DISCHARGE MEDICATIONS 1. Oxycodone 5 mg p.o. q.4 hours p.r.n. #30. 2. Bactrim double strength 1 p.o. b.i.d. 3. Motrin 800 mg p.o. q.8 hours p.r.n. PRINCIPAL PROCEDURES 1. Incision and debridement of infected flexor tenosynovitis of left index finger. 2. Wound cultures showing methicillin-resistant Staphylococcus aureus. HOSPITAL COURSE: The patient was seen in the emergency room 09/20/[address] Grant, and then admit nery by Dr. Suleman West. He asked us to consult on the patient while he was in the hospital. He h ad pain and swelling of the left index finger that had occurred 3 days prior to admission and was get ting steadily worse. He developed redness and pain with drainage of a small pinpoint area at the [place] base of the pulp of the finger. He came to the emergency room 09/19/2016, treated; then returned again 09/20/2016 because of increasing pain and swelling. He was diagnosed with a flexor sheath inf ection and was seen by Orthopedics in the emergency room. He was taken to the operating room for inc ision and drainage of the left index finger flexor tenosynovitis. An abscess cavity was found in the pulp, and infection found in the exposed sheath. Necrosis of tissue around the abscess cavity. The patient is a daily heroin user and last used the day before admission. Because of concern for heroin withdrawal post procedure, Dr. West asked that patient be consulted by our service, and for pain control. In the postoperative state, the patient remained afebrile. Pain was moderately controlled with oral opioids. Throughout his stay he remained afebrile. Initial white cell count was 17 and at discharge was 8.1 after IV vancomycin. Once cultures and sensitivities were obtained, the patient was transit ioned to oral antibiotics and had no further recurrence of his fever over 12-14 hours. He was sent h [facility] on minimum oral opioid use. Counseled to please stop heroin abuse. He spoke to [employer], who gave him numerous options for therapy and counseling. During his stay, nicotine withdrawal was also an issue, and he is doing a nicotine patch. PHYSICAL EXAMINATION VITAL SIGNS: On the day of discharge, temperature 36.5, pulse is 80, blood pressure 134/76, respirat ions 18, 99% on room air. GENERAL: He is a thin, cachectic, disheveled young white male who looks much older than stated age. HEENT: Severe dental caries, poor oral hygiene. NECK: Shotty neck adenopathy. LUNGS: Clear. HEART: Regular rate and rhythm. ABDOMEN: Benign. EXTREMITIES: His hand is covered in a bandage. Bandage itself is dry and clean. Patient was seen initially by Dr. West in the immediate postoperative setting, and then seen by Dr Ayla Horn. Orders for wound care changes were written by Orthopedic Surgery. Dr. Horn says that he would like to see the patient in the next week. Patient was told to keep the hand clean and dry. H e could use soap and water to wash it, but then dry it immediately; not to soak his hand or get it di rty in such things as dishwashing, gardening, et cetera. JOB #: [id number] EXT JOB #:[id number]
== END 2016-09-23 09:01 | disposition home or self-care (01) | DRG 513 ==
LOC: EDUNIT# → ED 11:23 → SDS 12:20 → MS2 12:20
PROVIDERS: ADMIT Orthopaedic Surgery; ATTEND Specialist
PROC: 0JBK0ZZ Excision of Left Hand Subcutaneous Tissue and Fascia, Open Approach (ICD-10-PCS; principal; 2016-09-20 15:30)
DX: M65.142 Other infective (teno)synovitis, left hand (principal); I96 Gangrene, not elsewhere classified; F11.23 Opioid dependence with withdrawal; A49.02 Methicillin resistant Staphylococcus aureus infection, unspecified site; T40.1X1A Poisoning by heroin, accidental (unintentional), initial encounter; F17.210 Nicotine dependence, cigarettes, uncomplicated; K02.9 Dental caries, unspecified; Z59.0 Homelessness
CPT/HCPCS: 36415; 80053; 80306; 85025; 85651; 86140; 87070; 87077; 87205; 87640; 96372; 99283; 99284

== ENCOUNTER 2017-01-12 14:43 | Outpatient (CLI) | payer MEDICAID | END 2017-01-12 14:44 | disposition critical access hospital (66) | LOC: EMS 14:43 | PROVIDERS: ATTEND Surgery | DX: R07.89 Other chest pain (principal); S80.211A Abrasion, right knee, initial encounter; V13.4XXA Pedal cycle driver injured in collision with car, pick-up truck or van in traffic accident, initial encounter; Y92.414 Local residential or business street as the place of occurrence of the external cause | CPT/HCPCS: A0425; A0429 ==

== ENCOUNTER 2017-01-12 15:01 | Emergency (ER) | payer MEDICAID ==
--- NOTE | 2017-01-12 16:07 | XRAY Preliminary Report ---
Exam: XR CHEST 1 VIEW IMPRESSION: Unremarkable single view chest. [facility] SITE ID: [id number]
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
--- NOTE | 2017-01-12 16:15 | XRAY Preliminary Report ---
Exam: XR KNEE 3 VIEW RT IMPRESSION: Normal knee radiography. [facility] SITE ID: [id number]
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
[2017-01-12 16:58] VITALS: BP 129/81
== END 2017-01-12 17:12 | disposition home or self-care (01) ==
LOC: EDUNIT# → ED 15:01
DX: S20.211A Contusion of right front wall of thorax, initial encounter (principal); S80.01XA Contusion of right knee, initial encounter; V13.4XXA Pedal cycle driver injured in collision with car, pick-up truck or van in traffic accident, initial encounter; Y92.488 Other paved roadways as the place of occurrence of the external cause; Z86.718 Personal history of other venous thrombosis and embolism; J45.909 Unspecified asthma, uncomplicated; F17.200 Nicotine dependence, unspecified, uncomplicated
CPT/HCPCS: 71010; 93005; 99283

== ENCOUNTER 2017-01-20 13:33 | Outpatient (CLI) | payer MEDICAID | END 2017-01-20 13:34 | disposition critical access hospital (66) | LOC: EMS 13:33 | PROVIDERS: ATTEND Surgery | DX: R07.9 Chest pain, unspecified (principal) | CPT/HCPCS: A0425; A0429 ==

== ENCOUNTER 2017-01-20 13:53 | Emergency (ER) | payer MEDICAID ==
--- NOTE | 2017-01-20 14:41 | XRAY Preliminary Report ---
Exam: XR CHEST 2 VIEW PA/LAT IMPRESSION: No acute cardiopulmonary abnormality. [facility] SITE ID: [id number]
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
--- NOTE | 2017-01-20 14:44 | XRAY Report ---
EXAM: CHEST RADIOGRAPHY EXAM DATE: 01/20/2017 02:28 PM. CLINICAL HISTORY: Chest pain . COMPARISON: 01/12/2017. TECHNIQUE: 2 views. FINDINGS: Lungs/Pleura: No focal opacities evident. No pleural effusion. No pneumothorax. Normal volumes. Mediastinum: Heart and mediastinal contours are unremarkable. Other: Pectus excavatum appears to be present. Old mid thoracic vertebral compression deformity. IMPRESSION: No acute cardiopulmonary abnormality. [facility] Referring Provider Line: [phone] SITE ID: [id number]
[2017-01-20] MEDS ORDERED: DEXAMETHASONE 10 MG/ML VIAL IVP STA (14:49)
[2017-01-20] MEDS ORDERED: KETOROLAC 60 MG/2 ML VIAL IVP STA (14:49)
[2017-01-20] MEDS ORDERED: cefTRIAXone 1 GM in SODIUM CHLORIDE 0.9% MINIBAG 100 ML IV STA (14:49)
[2017-01-20] MEDS ORDERED: SODIUM CHLORIDE 0.9% 1,000 ML IV ONE (14:49)
[2017-01-20] MEDS ORDERED: cefTRIAXone 1 GM VIAL ONE (15:08)
[2017-01-20] MEDS ORDERED: KETOROLAC 30 MG/ML VIAL ONE (15:08)
[2017-01-20] MEDS ORDERED: DEXAMETHASONE 10 MG/ML VIAL ONE (15:08)
[2017-01-20 15:16] LABS: ALBUMIN/GLOBULIN RATIO 0.9 (1.0-2.2); BILIRUBIN,TOTAL 0.6 mg/dL (0.2-1.0); CALCIUM 9.2 mg/dL (8.5-10.3); CREATININE 0.8 mg/dL (0.6-1.2); POTASSIUM 4.7 mmol/L (3.5-5.0); TOTAL PROTEIN 8.1 g/dL (6.7-8.2)
[2017-01-20 15:24] LABS: BASOPHILS % (AUTO) 0.6 %; EOSINOPHILS # (AUTO) 0.1 10^3/uL (0.0-0.7); HCT - HEMATOCRIT 43.6 % (42.0-52.0); LYMPHOCYTES # (AUTO) 0.7 10^3/uL (1.5-3.5); LYMPHOCYTES % (AUTO) 9.5 %; MEAN CORPUSCULAR HEMOGLOBIN 27.3 pg (27.0-31.0); MEAN CORPUSCULAR HGB CONC 34.4 g/dL (32.0-36.0); MEAN CORPUSCULAR VOLUME 79.3 fL (80.0-94.0); MEAN PLATELET VOLUME 7.6 fL (7.4-11.4); MONOCYTES # (AUTO) 0.5 10^3/uL (0.0-1.0); MONOCYTES % (AUTO) 7.2 %; NEUTROPHILS # (AUTO) 6.1 10^3/uL (1.5-6.6); NEUTROPHILS % (AUTO) 81.7 %; NUCLEATED RED BLOOD CELLS AUTO 0.1 /100WBC; RED CELL DISTRIBUTION WIDTH 15.5 % (12.0-15.0); UNCORRECTED WHITE BLOOD COUNT 7.4 x10^3/uL; WHITE BLOOD COUNT 7.4 x10^3/uL (4.8-10.8)
[2017-01-20 16:01] LABS: BILIRUBIN,URINE NEGATIVE (NEGATIVE)
[2017-01-20 16:11] LABS: UA CHARGE (STRIP ONLY) YES; UR CULTURE IF IND NOT INDICATED
[2017-01-20 16:16] VITALS: BP 120/68
== END 2017-01-20 16:17 | disposition home or self-care (01) ==
LOC: EDUNIT# → ED 13:53
DX: S20.211A Contusion of right front wall of thorax, initial encounter (principal); V13.4XXA Pedal cycle driver injured in collision with car, pick-up truck or van in traffic accident, initial encounter; H66.003 Acute suppurative otitis media without spontaneous rupture of ear drum, bilateral; R00.0 Tachycardia, unspecified; F17.200 Nicotine dependence, unspecified, uncomplicated
CPT/HCPCS: 36415; 71020; 80053; 81001; 81003; 83690; 84484; 85025; 87086; 93005; 96365; 96375; 99284

== ENCOUNTER 2017-04-29 16:54 | Emergency (ER) | payer MEDICAID ==
--- NOTE | 2017-04-29 17:42 | ED Physician Documentation ---
PD HPI SKIN - Stated complaint Stated Complaint: R ARM INFECTION - Chief complaint Chief Complaint: Wound - History obtained from History obtained from: Patient - History of Present Illness Timing - onset: How many days ago (1-2) Timing - duration: Days Timing - details: Gradual onset, Still present Location: RUE (nursing notes say left arm, but it is the right.) Quality / character: Painful, Discolored (red) Associated symptoms: Myalgias. No: Fever, Joint pain, N/V/D Contributing factors: Other (does do IV drugs often, last was a few days ago.) Similar symptoms before: Diagnosis (staph infections) Review of Systems Constitutional: reports: Myalgias. denies: Fever Cardiac: denies: Chest pain / pressure Respiratory: denies: Dyspnea GI: denies: Nausea, Vomiting, Diarrhea Skin: reports: Rash, Lesions PD PAST MEDICAL HISTORY - Past Medical History Past Medical History: No Cardiovascular: Deep vein thrombosis, Other Respiratory: Asthma Neuro: Seizure disorder Endocrine/Autoimmune: None GI: None : None HEENT: None Psych: Depression Musculoskeletal: Chronic back pain Derm: None Other Past Medical History: Last seizure a couple of years ago - Past Surgical History Past Surgical History: Yes General: Other - Present Medications Home Medications: Ambulatory Orders Medication Instructions Recorded Confirmed Chlorhexidine Gluconate [Hibiclens] 10 ml TP DAILY #473 ml 04/29/17 Mupirocin 1 applic TP TID #15 oint...g. 04/29/17 Oxycodone HCl/Acetaminophen 1 each PO Q6H PRN #15 tablet 04/29/17 [Percocet 5-325 mg Tablet] Sulfamethox/Trimeth 800/160 1 each PO BID #14 tablet 04/29/17 [Bactrim Ds 800/160] - Allergies Allergies/Adverse Reactions: Allergies Allergy/AdvReac Type Severity Reaction Status Date / Time acetaminophen [From Vicodin] AdvReac Nausea Verified 04/29/17 17:14 hydrocodone bitartrate * AdvReac Nausea Verified 04/29/17 17:14 [From Vicodin] - Social History Does the pt smoke?: Yes Smoking Status: Current every day smoker Does the pt drink ETOH?: No Does the pt have substance abuse?: No Substance Use and Type: Heroin - Immunizations Immunizations are current?: No Immunizations: TDAP current <10years, Other immun not current - POLST Patient has POLST: No POLST Status: Full Code PD ED PE NORMAL - Vitals Vital signs reviewed: Yes - General General: Alert and oriented X 3, Well developed/nourished, Other (appears in pain from arm) - Neck Neck: Supple, no meningeal sign, No adenopathy - Cardiac Cardiac: RRR, No murmur - Respiratory Respiratory: Clear bilaterally - Abdomen Abdomen: Soft, Non tender - Derm Derm: Normal color, Warm and dry, Other (right volar forearm with firm indurated area with central purple color, surrounded by redness of much of forearm. He is able to flex and extend wrist and fingers without much pain. Passive ROM of the fingers does not hurt. ) - Extremities Extremities: Other (abscess right forearm.) - Neuro Neuro: No motor deficit, No sensory deficit Results - Vitals Vitals: Oxygen O2 Source Room air Procedures - Abscess I&D (location) right forearm Preparation: Confirmed with ultrasound, Lidocaine 1%, Marcaine 0.5%, With epi Incision: Incised with scalpel, Purulent drainage, Irrigated. No: Packed, Culture obtained Other: Pt tolerated well, Dressing applied, Antibiotic prescribed PD MEDICAL DECISION MAKING - ED course Complexity details: considered differential (arm abscess and cellulitis but does not appear septic. Will try to manage outpatient, though I know his hygeine is not so good. ), d/w patient Departure - Departure Disposition: 01 Home, Self Care Clinical Impression: Abscess of forearm, right, Right forearm cellulitis Condition: Stable Record reviewed to determine appropriate education?: Yes Instructions: ED Abscess IandD Prescriptions: Chlorhexidine Gluconate [Hibiclens] 10 ml TP DAILY #473 ml Mupirocin 1 applic TP TID #15 oint...g. Oxycodone HCl/Acetaminophen [Percocet 5-325 mg Tablet] 1 each PO Q6H PRN #15 tablet PRN Reason: Pain Sulfamethox/Trimeth 800/160 [Bactrim Ds 800/160] 1 each PO BID #14 tablet Comments: Clean and dress the area of the infection 2-3 times a day and apply antibiotic ointment mupirocin at that time. Cleanse her whole body shower and bathe if you can with Hibiclens antiseptic. Bactrim twice daily antibiotic for the infection. Add Percocet if needed for pain. Recheck here in the ER in 1-2 days for reevaluation. Return sooner if worsening. Discharge Date/Time: 04/29/17 19:32
[2017-04-29] MEDS ORDERED: oxyCOD/ACETAMIN 5 MG/325 MG TABLET PO STA (17:59)
[2017-04-29] MEDS ORDERED: SULFAMETH/TRIMETH DS 800/160 MG TABLET PO STA (18:00)
[2017-04-29 19:29] VITALS: BP 121/69
== END 2017-04-29 19:32 | disposition home or self-care (01) ==
LOC: ED 16:54
DX: L02.413 Cutaneous abscess of right upper limb (principal); L03.113 Cellulitis of right upper limb; F17.200 Nicotine dependence, unspecified, uncomplicated
CPT/HCPCS: 10060; 99283; A9270

== ENCOUNTER 2017-07-12 09:02 | Emergency (ER) | payer MEDICAID ==
[2017-07-12 09:10] VITALS: BP 122/74
[2017-07-12] MEDS ORDERED: SULFAMETH/TRIMETH DS 800/160 MG TABLET PO STA (09:18)
[2017-07-12] MEDS ORDERED: BACITRACIN OINT TOP STA (09:18)
--- NOTE | 2017-07-12 09:20 | ED Physician Documentation ---
History of Present Illness - Stated complaint Stated Complaint: L ARM SWELLING - Chief complaint Chief Complaint: Laceration - History obtained from History obtained from: Patient - History of Present Illness Timing: How many days ago (several) Pain level max: 2 Pain level now: 2 Improved by: nothing Worsened by: nothing - Additonal information Additional information: L wrist wound for past several days. Does use IV drugs, but states has not injected at that site. He does not recall any injuries. No fevers. No drainage. States his tetanus is up-to-date Review of Systems Ten Systems: 10 systems reviewed and negative Constitutional: denies: Fever, Chills Ears: denies: Ear pain Nose: denies: Rhinorrhea / runny nose, Congestion Throat: denies: Sore throat Cardiac: denies: Chest pain / pressure Respiratory: denies: Cough GI: denies: Abdominal Pain, Nausea, Vomiting, Diarrhea Skin: denies: Rash Musculoskeletal: denies: Neck pain, Back pain Neurologic: denies: Headache PD PAST MEDICAL HISTORY - Past Medical History Cardiovascular: Deep vein thrombosis, Other Respiratory: Asthma Endocrine/Autoimmune: None GI: None : None HEENT: None Psych: Depression Musculoskeletal: Chronic back pain Derm: None - Past Surgical History Past Surgical History: Yes General: Other - Present Medications Home Medications: Ambulatory Orders Medication Instructions Recorded Confirmed Sulfamethox/Trimeth 800/160 1 each PO BID #14 tablet 07/12/17 [Bactrim Ds 800/160] - Allergies Allergies/Adverse Reactions: Allergies Allergy/AdvReac Type Severity Reaction Status Date / Time acetaminophen [From Vicodin] AdvReac Nausea Verified 07/12/17 09:11 hydrocodone bitartrate * AdvReac Nausea Verified 07/12/17 09:11 [From Vicodin] - Social History Does the pt smoke?: Yes Smoking Status: Current every day smoker Does the pt drink ETOH?: No Does the pt have substance abuse?: No - Immunizations Immunizations are current?: No Immunizations: TDAP current <10years, Other immun not current - POLST Patient has POLST: No POLST Status: Full Code PD ED PE NORMAL - Vitals Vital signs reviewed: Yes - General General: Alert and oriented X 3, No acute distress - Derm Derm: Warm and dry - Extremities Extremities: Other (L wrist - 1x1cm, open wound. mild cellulitis. no abscess. ) - Neuro Neuro: Alert and oriented X 3 Results - Vitals Vitals: Vital Signs - 24 hr 07/12/17 09:07 Temperature 36.0 C L Heart Rate 86 Respiratory 18 Rate Blood Pressure 122/74 O2 Saturation 100 Oxygen O2 Source Room air PD MEDICAL DECISION MAKING - ED course Complexity details: reviewed old records, considered differential, d/w patient ED course: Patient is a 26-year-old male with a wound to the left wrist. This was cleansed and bandaged. Tetanus is up-to-date. Mild cellulitis will place on antibiotics. We will have him follow-up closely with his doctor for repeat evaluation or return here if he is unable to be seen. He is well-appearing, nontoxic. No evidence of abscess. No evidence of deep space infection in the hand. NVI. Compartments are soft. Patient counseled regarding signs and symptoms for which I believe and urgent re-evaluation would be necessary. Patient with good understanding of and agreement to plan and is comfortable going home at this time This document was made in part using voice recognition software. While efforts are made to proofread this document, sound alike and grammatical errors may occur. Departure - Departure Disposition: 01 Home, Self Care Clinical Impression: Wound of skin Condition: Good Instructions: ED Wound Care Follow-Up: your,doctor in 3 days for wound check [Other] Prescriptions: Sulfamethox/Trimeth 800/160 [Bactrim Ds 800/160] 1 each PO BID #14 tablet Comments: Take all antibiotics until gone. Return if you worsen including redness, swelling or drainage from the wound. Also return for fevers. You should follow -up with your doctor in 3 days for a wound check or return here so we can reevaluate your wound at that time.
== END 2017-07-12 09:41 | disposition home or self-care (01) ==
LOC: ED 09:02
DX: S61.502A Unspecified open wound of left wrist, initial encounter (principal); X58.XXXA Exposure to other specified factors, initial encounter; L03.114 Cellulitis of left upper limb; F17.200 Nicotine dependence, unspecified, uncomplicated
CPT/HCPCS: 99283; A9270

== ENCOUNTER 2017-07-18 16:55 | Outpatient (CLI) | payer MEDICAID | END 2017-07-18 16:56 | disposition critical access hospital (66) | LOC: EMS 16:55 | PROVIDERS: ATTEND Surgery | DX: R07.89 Other chest pain (principal); R53.1 Weakness; M79.602 Pain in left arm; Z72.89 Other problems related to lifestyle | CPT/HCPCS: A0425; A0429 ==

== ENCOUNTER 2017-07-18 17:07 | Inpatient (IN) | payer MEDICAID ==
--- NOTE | 2017-07-18 17:17 | ED Physician Documentation ---
PD HPI OVERDOSE - Stated complaint Stated Complaint: OD - Chief complaint Chief Complaint: General - History obtained from History obtained from: Patient, EMS - History of Present Illness Timing - onset: How many days ago (few days not feeling well.) Subtance(s) ingested: Single, Narcotic (he injected heroin and just few minutes after he started feeling weak, shivering, lightheaded and nauseated. He does though say he has been feeling ill and nauseated the past few days as well.) Associated symptoms: Agitated, NVD Contributing factors: No: Depresssed, Suicidal Similar symptoms before: Has not had sx before (he does heroin regularly and does not get this type of reaction.) Recently seen: Emergency Dept (about a week ago for arm injury and skin infection.) Review of Systems Constitutional: reports: Fever (subjective over the past few days), Chills, Myalgias Nose: denies: Rhinorrhea / runny nose, Congestion Throat: denies: Sore throat Cardiac: denies: Chest pain / pressure Respiratory: reports: Dyspnea. denies: Cough GI: reports: Nausea. denies: Abdominal Pain, Vomiting, Diarrhea : denies: Dysuria, Frequency Skin: reports: Rash (redness right forearm for past few days) Musculoskeletal: denies: Neck pain, Back pain Neurologic: reports: Generalized weakness, Near syncope. denies: Focal weakness , Numbness, Syncope, Altered mental status, Headache Psychiatric: denies: Depressed, Suicidal PD PAST MEDICAL HISTORY - Past Medical History Cardiovascular: Deep vein thrombosis, Other Respiratory: Asthma Endocrine/Autoimmune: None GI: None : None HEENT: None Psych: Depression Musculoskeletal: Chronic back pain Derm: None - Past Surgical History Past Surgical History: Yes General: Other - Present Medications Home Medications: Ambulatory Orders Medication Instructions Recorded Confirmed Sulfamethox/Trimeth 800/160 1 each PO BID #14 tablet 07/12/17 [Bactrim Ds 800/160] - Allergies Allergies/Adverse Reactions: Allergies Allergy/AdvReac Type Severity Reaction Status Date / Time acetaminophen [From Vicodin] AdvReac Nausea Verified 07/12/17 09:11 hydrocodone bitartrate * AdvReac Nausea Verified 07/18/17 17:12 [From Vicodin] - Social History Does the pt smoke?: Yes Smoking Status: Current every day smoker Does the pt drink ETOH?: No Does the pt have substance abuse?: No - Immunizations Immunizations are current?: No Immunizations: TDAP current <10years, Other immun not current - POLST Patient has POLST: No POLST Status: Full Code PD ED PE NORMAL - Vitals Vital signs reviewed: Yes (very tachycardic and with minimal fever initially. ) - General General: Alert and oriented X 3. No: Well developed/nourished (somewhat thin and frail appearing) - HEENT HEENT: Moist mucous membranes, Pharynx benign. No: Dentition benign - Neck Neck: Supple, no meningeal sign, No adenopathy - Cardiac Cardiac: No murmur. No: RRR (tachycardic but regular) - Respiratory Respiratory: No: Clear bilaterally (some wheezing noted bilaterally. Mild coarse sounds left side. ) - Abdomen Abdomen: Normal bowel sounds, Soft, Non tender, Non distended - Male Male : Deferred - Rectal Rectal: Deferred - Back Back: No CVA TTP - Derm Derm: Normal color, Warm and dry - Extremities Extremities: No deformity, No tenderness to palpate, Normal ROM s pain, No edema , No calf tenderness / cord - Neuro Neuro: Alert and oriented X 3 (but is somewhat anxious and not focused. ), No motor deficit, Normal speech Results - Vitals Vitals: Vital Signs - 24 hr 07/18/17 07/18/17 07/18/17 17:07 17:31 19:16 Temperature 38 C H 38.2 C H Heart Rate 149 H 122 H 135 H Respiratory 24 20 33 H Rate Blood Pressure 163/87 H 152/51 H 159/78 H O2 Saturation 98 93 94 07/18/17 19:49 Temperature 40.6 C H Heart Rate 132 H Respiratory 33 H Rate Blood Pressure 151/64 H O2 Saturation 93 Oxygen O2 Source Room air - Labs Labs: Laboratory Tests 07/18/17 07/18/17 07/18/17 17:15 17:15 17:45 WBC 4.1 L RBC 4.68 L Hgb 12.5 L Hct 37.2 L MCV 79.6 L MCH 26.7 L MCHC 33.6 RDW 17.0 H Plt Count 222 MPV 7.7 Neut # 3.8 Lymph # 0.1 L [place] # 0.0 Eos # 0.1 Baso # 0.1 Absolute Nucleated RBC 0.01 Nucleated RBC % 0.2 Sodium 134 L Potassium 3.6 Chloride 102 Carbon Dioxide 22 Anion Gap 10.0 BUN 17 Creatinine 0.8 Estimated GFR (MDRD) 117 Glucose 124 H Lactic Acid 3.6 H* Calcium 8.5 Magnesium 1.3 L Total Bilirubin 1.1 H AST 55 H ALT 28 Alkaline Phosphatase 93 Total Protein 7.2 Albumin 3.6 Globulin 3.6 Albumin/Globulin Ratio 1.0 Lipase 39 Urine Color Urine Clarity Urine pH Ur Specific [place] Urine Protein Urine Glucose (UA) Urine Ketones Urine Occult Blood Urine Nitrite Urine Bilirubin Urine Urobilinogen Ur Leukocyte Esterase Ur Microscopic Review Urine Culture Comments Urine Opiates Screen Ur Oxycodone Screen Urine Methadone Screen Ur Propoxyphene Screen Ur Barbiturates Screen Ur Tricyclics Screen Ur Phencyclidine Scrn Ur Amphetamine Screen U Methamphetamines Scrn U Benzodiazepines Scrn Urine Cocaine Screen U Cannabinoids Screen 07/18/17 07/18/17 19:30 19:30 WBC RBC Hgb Hct MCV MCH MCHC RDW Plt Count MPV Neut # Lymph # [place] # Eos # Baso # Absolute Nucleated RBC Nucleated RBC % Sodium Potassium Chloride Carbon Dioxide Anion Gap BUN Creatinine Estimated GFR (MDRD) Glucose Lactic Acid Calcium Magnesium Total Bilirubin AST ALT Alkaline Phosphatase Total Protein Albumin Globulin Albumin/Globulin Ratio Lipase Urine Color YELLOW Urine Clarity CLEAR Urine pH 5.0 Ur Specific [place] 1.020 Urine Protein NEGATIVE Urine Glucose (UA) NEGATIVE Urine Ketones NEGATIVE Urine Occult Blood NEGATIVE Urine Nitrite NEGATIVE Urine Bilirubin NEGATIVE Urine Urobilinogen 0.2 (NORMAL) Ur Leukocyte Esterase NEGATIVE Ur Microscopic Review NOT INDICATED Urine Culture Comments NOT INDICATED Urine Opiates Screen POSITIVE H Ur Oxycodone Screen NEGATIVE Urine Methadone Screen NEGATIVE Ur Propoxyphene Screen NEGATIVE Ur Barbiturates Screen NEGATIVE Ur Tricyclics Screen NEGATIVE Ur Phencyclidine Scrn NEGATIVE Ur Amphetamine Screen POSITIVE H U Methamphetamines Scrn POSITIVE H U Benzodiazepines Scrn NEGATIVE Urine Cocaine Screen NEGATIVE U Cannabinoids Screen NEGATIVE - Rads (name of study) chest Radiology: Prelim report reviewed, EMP read contemporaneously (no infiltrates) PD MEDICAL DECISION MAKING - ED course Complexity details: re-evaluated patient (still tachy, and with elevating temp. Lactate elevated. Concern for sepsis. Onset after IVDU, so bacteremia or toxicity are possible. ), considered differential (he is tachycardic, anxious, with mild temp that increases soon in the ED to 40 degrees. He has redness of right arm, so consider cellulitis source for infection. Does not feel like abscess in the area and not having tenderness to suggest necfasc. Chest xray is clear despite some coughing. UA is clear. He has history of IVDU so bacteremia, endocarditis, septic phlebitis considerations. ), d/w patient Departure - Departure Disposition: 66 [facility] DC/Xfer Clinical Impression: Sepsis Qualifiers: Sepsis type: sepsis due to unspecified organism Qualified Code(s): A41.9 - Sepsis, unspecified organism Condition: Serious Record reviewed to determine appropriate education?: Yes Discharge Date/Time: 07/18/17 22:04
[2017-07-18] MEDS ORDERED: LORazepam 2 MG/ML VIAL IVP STA ×2 (17:19→18:28)
[2017-07-18] MEDS ORDERED: SODIUM CHLORIDE 0.9% 1,000 ML IV ONE ×3 (17:19→18:28)
[2017-07-18] MEDS ORDERED: ONDANSETRON 4 MG/2 ML VIAL IVP STA (17:19)
[2017-07-18] MEDS ORDERED: KETOROLAC 60 MG/2 ML VIAL IVP STA (17:20)
[2017-07-18 17:43] LABS: BASOPHILS # (AUTO) 0.1 10^3/uL (0.0-0.1); BASOPHILS % (AUTO) 2.6 %; EOSINOPHILS # (AUTO) 0.1 10^3/uL (0.0-0.7); EOSINOPHILS % (AUTO) 1.3 %; HGB - HEMOGLOBIN 12.5 g/dL (14.0-18.0); LYMPHOCYTES # (AUTO) 0.1 10^3/uL (1.5-3.5); LYMPHOCYTES % (AUTO) 2.8 %; MEAN CORPUSCULAR HEMOGLOBIN 26.7 pg (27.0-31.0); MEAN CORPUSCULAR HGB CONC 33.6 g/dL (32.0-36.0); MEAN CORPUSCULAR VOLUME 79.6 fL (80.0-94.0); MEAN PLATELET VOLUME 7.7 fL (7.4-11.4); MONOCYTES % (AUTO) 0.4 %; NEUTROPHILS # (AUTO) 3.8 10^3/uL (1.5-6.6); NEUTROPHILS % (AUTO) 92.9 %; PLT - PLATELET COUNT 222 10^3/uL (130-450); RED BLOOD COUNT 4.68 10^6/uL (4.70-6.10); WHITE BLOOD COUNT 4.1 x10^3/uL (4.8-10.8)
[2017-07-18 17:55] LABS: ALBUMIN 3.6 g/dL (3.2-5.5); BILIRUBIN,TOTAL 1.1 mg/dL (0.2-1.0); CALCIUM 8.5 mg/dL (8.5-10.3); CREATININE 0.8 mg/dL (0.6-1.2); MAGNESIUM 1.3 mg/dL (1.7-2.8); TOTAL PROTEIN 7.2 g/dL (6.7-8.2)
[2017-07-18] MEDS ORDERED: AMPICILLIN/SULBACTAM 1.5 GM in SODIUM CHLORIDE 0.9% MINIBAG 100 ML IV STA (19:33)
[2017-07-18 19:50] LABS: BILIRUBIN,URINE NEGATIVE (NEGATIVE); CLARITY,URINE CLEAR (CLEAR); GLUCOSE, URINE (UA) NEGATIVE (NEGATIVE); KETONES,URINE (UA) NEGATIVE (NEGATIVE); LEUKOCYTE ESTERASE, URINE NEGATIVE (NEGATIVE); NITRITE,URINE NEGATIVE (NEGATIVE); OCCULT BLOOD,URINE NEGATIVE (NEGATIVE); PROTEIN,URINE NEGATIVE (NEGATIVE); UROBILINOGEN,URINE 0.2 (NORMAL) E.U./dL (NORMAL)
[2017-07-18] MEDS ORDERED: VANCOMYCIN INJ 1 GM in SODIUM CHLORIDE 0.9% 500 ML IV STA (19:52)
[2017-07-18] MEDS ORDERED: ACETAMINOPHEN 1,000 MG/100 ML 100 ML IV STA (19:52)
[2017-07-18] MEDS ORDERED: ONDANSETRON 4 MG/2 ML VIAL IVP PRN (20:28)
[2017-07-18] MEDS ORDERED: ONDANSETRON ODT 4 MG TABLET TL PRN (20:28)
[2017-07-18] MEDS ORDERED: ACETAMINOPHEN 325 MG TABLET PO PRN (20:28)
--- NOTE | 2017-07-18 20:37 | HISTORY & PHYSICAL EXAMINATION ---
Chief Complaint - Chief Complaint Chief Complaint: nausea, "not feeling good" History of Present Illness - Admitted From Admitted From:: ER/Homeless - History Obtained From Records Reviewed: [facility] History obtained from: Dr. Ferrer and Patient Exam Limitations: none - History of Present Illness HPI Comment/Other: Mr. Pina is an unfortunate 26-year-old white male who is a heroin abuser, homeless. He was last admitted to the hospital with an infected finger and infected hand. It is unclear if he completed antibiotic therapy for that. He is still homeless and still injects heroin daily. He has not been feeling "good " in the last few days but can't be more specific. He was in the ER for a wrist wound 07/12 and it was found to be superficial. No infection. Tetanus up to date. He hurts all over. Has no appetite. Can't tell me if he has had fevers but denies rigors. Sometimes he gets DVT's of extremities but denies any new extremity swelling or pain, no joint pain. He has cuts and scratches on his legs and arms but none appear to bother him greatly. Denies dysuria, urgency, frequency, flank pain. Today he had severe nausea but no emesis. No change in BM and can't remember last BM. After injecting heroin that he "found in the [place]ogt" today he felt worse nausea, all over aches and came to ER thinking he injected "bad shit". In the ER he has glazed eyes, a fever to 40, tachypnea and waxing and waning alertness. Exam has the superficial abrasions on arms and legs. Lungs clear. Tachy RRR but no murmur. Abd benign. His CXR is clear of pneumonia. No signs of joint or skin infection. BP is sustained. Labs show elevated WBC and elevated lactic acid. Admit to Med Surg after empiric broad spectrum abx given in ER. 2 sets of blood cultures have been done. History - Past Medical History Cardiovascular: reports: Deep vein thrombosis, Other Respiratory: reports: Asthma Endocrine/Autoimmune: reports: None GI: reports: None : reports: None HEENT: reports: None Psych: reports: Depression Musculoskeletal: reports: Chronic back pain Derm: reports: None MRSA Hx?: Yes Other Past Medical History: 1. History of cardiac thrombus [address] [facility]. The patient states that he did not follow through on treatment. He only received blood thinners while hospitalized then took them for just 1 week post hospitalization. 2. Left upper arm DVT. Did not follow up with treatment. 3. History of IV drug abuse currently using heroin last use today 4. History of Tobacco abuse. - Past Surgical History General: reports: Other Ortho: reports: Other (left finger tendon sheath I&D 2018) - Family & Social History Family History Comment/Other: Mom of cardiac arrest in her 30's. Didn't know dad. Brother lives in [place]. 3 children live with their mom, he doesn't see them Living arrangement: Homeless Living Situation: Alone Social History Notes: The patient is homeless and lives [place] streets in [place]. He was born and raised on [facility]. His mother when she was only 34 years old. The patient has an older brother who lives in [place]. The patient also has family in [place] including uncles and aunts. The patient has 3 kids who all live with their mom. The patient is an IV drug user and his drug of choice is heroin. He last used yesterday. He is a daily user. He also uses meth. He occasionally uses mushrooms and marijuana. He smokes a pack per day and has been smoking for more than 10 years. He denies any alcohol use. - Substance History Use: Uses substance without health or social issues: Tobacco Abuse: Recurrent use of substance despite neg consequences: Opioid Abuse Issues: Intoxication Dependence: Experiences withdrawal or developed tolerances: Opioid - POLST Patient has POLST: No POLST Status: Full Code Meds/Allgy - Home Medications Home Medications: Ambulatory Orders Medication Instructions Recorded Confirmed Sulfamethox/Trimeth 800/160 1 each PO BID #14 tablet 07/12/17 [Bactrim Ds 800/160] - Allergies Allergies/Adverse Reactions: Allergies Allergy/AdvReac Type Severity Reaction Status Date / Time acetaminophen [From Vicodin] AdvReac Nausea Verified 07/12/17 09:11 hydrocodone bitartrate * AdvReac Nausea Verified 07/18/17 17:12 [From Vicodin] Review of Systems - Constitutional Constitutional: reports: Fatigue, Malaise, Weakness, Poor appetite, Diaphoresis - Eyes Eyes: reports: Blurred vision. denies: Pain, Irritation, Amaurosis - Ears, Nose & Throat Ears, Nose & Throat: denies: Ear pain, Vertigo, Nasal pain, Nasal discharge, Nasal obstruction, Nasal congestion - Cardiovascular Cariovascular: reports: Lightheadedness. denies: Palpitations, Chest pain, Edema, Exertional dyspnea - Respiratory Respiratory: denies: Cough, Sputum production, Wheezing, Hemoptysis - Gastrointestinal Gastrointestinal: denies: Abdominal pain, Abdominal distention, Constipation, Diarrhea, Change in bowel habits - Genitourinary Genitourinary: denies: Dysuria, Frequency, Urgency, Hematuria - Musculoskeletal Musculoskeletal: reports: Muscle pain, Back pain, Muscle aches - Integumentary Integumentary: reports: Pruritis (everywhere). denies: Rash - Neurological Neurological: reports: General weakness, Headache. denies: Focal weakness, Dizziness, Numbness - Psychiatric Psychiatric: reports: Depression, Anxiety - Endocrine Endocrine: denies: Polyuria, Polydypsia, Polyphagia - Hematologic/Lymphatic Hematologic/Lymphatic: reports: Bruising, Blood clots. denies: Anemia Exam - Vital Signs Reviewed Vital Signs: Yes Vital Signs: Vital Signs x48h Temp Pulse Resp BP Pulse Ox 07/18/17 19:49 40.6 C H 132 H 33 H 151/64 H 93 07/18/17 19:16 38.2 C H 135 H 33 H 159/78 H 94 07/18/17 17:31 122 H 20 152/51 H 93 07/18/17 17:07 38 C H 149 H 24 163/87 H 98 - Physical Exam General Appearance: positive: Mild distress, Lethargic, Other (thin white male, glazed eyes, incoherent murmuring alternating with eyes open, asking me for a Dr. Pepper but accepts a negotiated cola. It takes me multiple, multiple attempts to get him to do a ROS.) Eyes Bilateral: positive: PERRL, EOMI, Conjunctivae nml ENT: positive: Dry mucous membranes, Other (poor poor teeth) Neck: positive: No JVD, Lymphadenopathy (R) (shotty), Lymphadenopathy (L) ( shotty). negative: Stiff neck, Carotid bruit Respiratory: positive: Chest non-tender, Other (but fast shallow respiration with the high fever). negative: Wheezes, Rales, Rhonchi Cardiovascular: positive: Regular rate & rhythm, Tachycardia, Other (pectus excavatum. Accessory nipple right chest but true nipple gone? Sternum deformed and right anterior chest rises higher than left anterior chest wall.). negative : Systolic murmur, Gallop/S4, Friction rub Peripheral Pulses: positive: 1+ Abdomen: positive: Non-tender, No organomegaly, Nml bowel sounds, No distention. negative: Guarding, Rebound Skin: positive: Warm, Diaphoresis, Other (cheeks flushed. He has numerous scratches on his shins, around ankles. A few dime sized loss of skin abrasions on forearms, and left anterior auguste.) Extremities: positive: Full ROM (on passive ROM check). negative: Pedal edema, Calf tenderness, Joint swelling, Meredith's sign/cords Neurologic/Psychiatric: positive: CN's nml (2-12), Motor nml, Disoriented to time, Weakness, Slurred/abnml speech (at times.) Reflexes: Bicep (R): 1+, Bicep (L): 1+, Knee (R): 1+, Knee (L): 1+ Babinski Reflex: Right: Down, Left: Down Conclusion/Plan - Problem List (1) Sepsis Conclusion/Plan: Not finding a definite source in this young white male who uses heroin, metaphetamines. His previous HIV status was negative in 2016. Hep C positive at that time. HIs ROS doesn't point me towards an involved organ system. DD for him would include endocarditis. Plan: Admit inpatient status Watch closely for worsening status, specifically hypotension treat fever with IV tylenol and ibuprofen round the clock IVF at 125 cc/hr and he's received 3 liters in ER. empiric abx to cover for endocarditis with zosyn and vancomycin continue to do serial exams to see if source reveals itself. blood cultures x 2 sets done in ER before abx. Get UA Order ECHO Lactic acid q3h x 3 sets. Qualifiers: Sepsis type: sepsis due to unspecified organism Qualified Code(s): A41.9 - Sepsis, unspecified organism (2) Heroin abuse Conclusion/Plan: some of his symptoms worsened with recent injection. Plan: check urine tox screen. monitor for symptoms of withdrawal if worsens: methadone IM prn -clonidine prn anxiety, restlessness, dysphoria with elevated BP -diazepam prn anxiety -promethazine 25 IM prn nausea or emesis -loperamide for stomach cramps (3) Hepatitis C antibody positive in blood Conclusion/Plan: recheck hepatitis panel looking for B check liver US check Hep C RNA (4) Hypomagnesemia Conclusion/Plan: 1 gram of mag sulfate now. - Lab Results Fish Bones: 07/18/17 17:15 07/18/17 17:15 - Diagnostic Imaging Results Diagnostic Imaging Results: positive: Final report reviewed Diagnostic Imaging Results Comments: Chest xray negative. Core Measures - Anticipated LOS I expect patient to be DC'd or transferred within 96 hours.: Yes - DVT/VTE - Prophylaxis VTE/DVT Device ordered at admit?: Yes
--- NOTE | 2017-07-18 20:40 | XRAY Report ---
EXAM: CHEST RADIOGRAPHY EXAM DATE: 07/18/2017 07:53 PM. CLINICAL HISTORY: Fever and congestion. COMPARISON: 01/20/17. TECHNIQUE: 2 views. FINDINGS: Lungs/Pleura:Evaluation limited by AP technique and decreased inspiratory effort since the prior. Mil d increased hazy opacification in the medial upper lungs bilaterally most likely to be artifactual. N o large effusion or pneumothorax. No pulmonary edema. Mediastinum: Heart and mediastinal contours are unremarkable. Other: Pectus deformity is present. IMPRESSION: No definite acute radiographic abnormalities. [facility] Referring Provider Line: [phone] SITE ID: [id number]
[2017-07-18] MEDS ORDERED: VANCOMYCIN PER PHARMACY 0.1 GM in SODIUM CHLORIDE 0.9% 250 ML IV SCH (21:00)
[2017-07-18] MEDS ORDERED: MAGNESIUM SULFATE 1 GM in SODIUM CHLORIDE 0.9% 50 ML IV SCH (21:22)
[2017-07-18 21:51] LABS: MUDS CUTOFF CONCENTRATIONS CUTOFF CONC BELOW:
[2017-07-18 22:03] LABS: AMPHETAMINE SCREEN,URINE POSITIVE (NEGATIVE); BENZODIAZEPINES SCREEN, URINE NEGATIVE (NEGATIVE); COCAINE SCREEN URINE NEGATIVE (NEGATIVE); METHADONE SCREEN, URINE NEGATIVE (NEGATIVE); METHAMPHETAMINES SCREEN, URINE POSITIVE (NEGATIVE); OPIATE SCREEN, URINE POSITIVE (NEGATIVE); OXYCODONE SCREEN, URINE NEGATIVE (NEGATIVE); PROPOXYPHENE SCREEN, URINE NEGATIVE (NEGATIVE); TRICYCLIC ANTIDEPRESSANT,URINE NEGATIVE (NEGATIVE)
[2017-07-18] MEDS: ACETAMINOPHEN 1,000 MG/100 ML 100 ML IV SCH (22:30)
[2017-07-18] MEDS: SODIUM CHLORIDE 0.9% 1,000 ML IV SCH (22:44)
[2017-07-18] MEDS: PIPERACILLIN/TAZOBACTAM 3.375 GM in SODIUM CHLORIDE 0.9% MINIBAG 100 ML IV SCH (22:45)
[2017-07-18] MEDS: diphenhydrAMINE INJ 50 MG/ML VIAL IVP PRN (22:47)
[2017-07-18] MEDS: IBUPROFEN 600 MG TABLET PO SCH (22:47)
[2017-07-19] MEDS: SODIUM CHLORIDE FLUSH 0.9% 10 ML SYRINGE IVP SCH ×3 (02:51→17:31)
[2017-07-19] MEDS: PIPERACILLIN/TAZOBACTAM 3.375 GM in SODIUM CHLORIDE 0.9% MINIBAG 100 ML IV SCH ×4 (03:03→20:37)
[2017-07-19] MEDS ORDERED: VANCOMYCIN INJ 0.75 GM in SODIUM CHLORIDE 0.9% 250 ML IV SCH (04:00)
--- NOTE | 2017-07-19 04:04 | Ultrasound Preliminary Report ---
Exam: US ABDOMEN COMPLETE IMPRESSION: 1. Gallbladder wall thickening is noted. This could be due to third spacing of fluid and/or hepatocel lular dysfunction from known hepatitis C. 2. No gallstones are demonstrate. 3. No ultrasound evidence of cirrhosis at this time. Nonspecific moderate hepatomegaly. [facility] SITE ID: [id number]
--- NOTE | 2017-07-19 04:11 | Ultrasound Report ---
EXAM: ABDOMEN ULTRASOUND EXAM DATE: 07/19/2017 02:36 AM. CLINICAL HISTORY: Hepatitis C, elevated bilirubin. COMPARISON: No priors.. TECHNIQUE: Real-time scanning was performed with static images obtained. FINDINGS: Liver: Normal in size and echotexture. 20.4 cm. Main portal vein flow: Hepatopetal. Gallbladder: Partially contracted gallbladder. No evident gallstone. There is severe gallbladder wall thickening. Fundal adenomyomatosis. Biliary System: Common bile duct measures 2.0 mm. No intrahepatic or extrahepatic ductal dilatation. Pancreas: Visualized portion is unremarkable. Kidneys: Right: 11.9 cm longitudinally. Normal. No contour-deforming mass, stones, or hydronephrosis. Left: 12.5 cm longitudinally. Normal. No contour-deforming mass, stones, or hydronephrosis. Spleen: 13.5 x 4.5 x 8.9 cm. Mildly enlarged. No suspicious lesion. Aorta and Inferior Vena Cava: Unremarkable. Other: Small-volume ascites. IMPRESSION: 1. Gallbladder wall thickening is noted. This could be due to third spacing of fluid and/or hepatocel lular dysfunction from known hepatitis C. 2. No gallstones are demonstrated. 3. No ultrasound evidence of cirrhosis noted at this time. Nonspecific moderate hepatomegaly. [facility] Referring Provider Line: [phone] SITE ID: [id number]
[2017-07-19] MEDS: ACETAMINOPHEN 1,000 MG/100 ML 100 ML IV SCH ×4 (04:30→21:40)
[2017-07-19 04:36] LABS: BASOPHILS % (AUTO) 0.3 %; HGB - HEMOGLOBIN 11.2 g/dL (14.0-18.0); LYMPHOCYTES % (AUTO) 1.4 %; MEAN CORPUSCULAR HEMOGLOBIN 25.6 pg (27.0-31.0); MEAN CORPUSCULAR HGB CONC 32.5 g/dL (32.0-36.0); MEAN PLATELET VOLUME 7.7 fL (7.4-11.4); MONOCYTES % (AUTO) 2.4 %; NEUTROPHILS % (AUTO) 95.9 %; PLT - PLATELET COUNT 148 10^3/uL (130-450); RED BLOOD COUNT 4.36 10^6/uL (4.70-6.10); RED CELL DISTRIBUTION WIDTH 17.4 % (12.0-15.0); WHITE BLOOD COUNT 17.1 x10^3/uL (4.8-10.8)
[2017-07-19 04:38] LABS: ABNORMAL LYMPHS % (MANUAL) 0 %
[2017-07-19 04:39] LABS: CALCIUM 7.3 mg/dL (8.5-10.3); CREATININE 0.9 mg/dL (0.6-1.2)
[2017-07-19] MEDS: IBUPROFEN 600 MG TABLET PO SCH ×4 (05:41→23:36)
[2017-07-19 06:05] LABS: BAND NEUTROPHILS % (MANUAL) 20 %; DIFFERENTIAL COMMENT MANUAL DIFFERENTIAL; LYMPHOCYTES # (MANUAL) 0.9 10^3/uL (1.5-3.5); LYMPHOCYTES % (MANUAL) 5 %; MONOCYTES # (MANUAL) 1.2 10^3/uL (0.0-1.0); NEUTROPHILS % (MANUAL) 68 %; PLATELET ESTIMATE, MANUAL NORMAL (130-450,000) (NORMAL); RBC MORPHOLOGY (MULTIPLE) NORMAL APPEARANCE (NORMAL)
[2017-07-19] MEDS ORDERED: ENOXAPARIN 40 MG/0.4 ML SYRINGE SUBQ SCH (09:00)
[2017-07-19] MEDS: SODIUM CHLORIDE 0.9% 1,000 ML IV SCH (09:44)
[2017-07-19] MEDS: POLYETHYLENE GLYCOL 3350 17 GM PACKET PO SCH (10:19)
[2017-07-19] MEDS: VANCOMYCIN INJ 1 GM in SODIUM CHLORIDE 0.9% 250 ML IV SCH ×2 (10:48→17:41)
[2017-07-19] MEDS ORDERED: MAGNESIUM SULFATE 2 GRAM 2 GM/50 ML BAG IV ONE (14:36)
--- NOTE | 2017-07-19 14:40 | PROVIDER PROGRESS NOTE ---
Assessment/Plan - Problem List (1) Sepsis Qualifiers: Sepsis type: sepsis due to unspecified organism Qualified Code(s): A41.9 - Sepsis, unspecified organism Assessment/Plan: Lactic acid was elevated and HR elevated. Improved with iv saline hydration and starting antibiotics. Fever max was 40.6 and patient on iv Acetominophen. No positive cultures yet. Continue empiric antibiotics and await culture results. Echo also ordered (and pending) to check for endocarditis. (2) IV drug abuse Assessment/Plan: Pt has various scrapes and possible track fowler. None appear warm or fluctuant. Watch for Heroine, Meth withdrawal. Currently he is somnolent. Continue iv fluids. Advance diet when awake. Pt refused Lovenox. Will cancel and order SCDs. (3) Hypomagnesemia Assessment/Plan: Replace. (4) Dehydration Assessment/Plan: Will change saline to D5NS with KCl, since he is not taking in nutrition. Will increase rate, since mucosa dry. Monitor electrolytes, BUN/creat and Mg. (5) Hepatitis C antibody positive in blood Assessment/Plan: Noted in history, but normal LFTs. - Current Meds Current Meds: Current Medications Generic Name Dose Route Start Last Admin Trade Name Freq PRN Reason Stop Dose Admin Diphenhydramine HCl 25 mg 07/18/17 22:15 07/18/17 22:47 Benadryl Inj IVP 25 mg Q6H PRN Administration Allergy Symptoms Piperacillin Sod/Tazobactam 100 mls @ 200 mls/hr 07/18/17 21:00 07/19/17 09: 55 Sod 3.375 gm/ Sodium Chloride IV Infused Q6H MICHA Infusion Acetaminophen 100 mls @ 400 mls/hr 07/18/17 22:00 07/19/17 10:45 Ofirmev IV Infused Q6H MICHA Infusion Vancomycin HCl 1 gm/ Sodium 250 mls @ 166.667 mls/hr 07/19/17 10:00 07/19/17 12:25 Chloride IV Infused Q8H MICHA Infusion Ibuprofen 600 mg 07/18/17 22:00 07/19/17 11:57 Motrin PO Not Given Q6HR MICHA Polyethylene Glycol 17 gm 07/19/17 09:00 07/19/17 10:19 Miralax PO Not Given DAILY MICHA Sodium Chloride 10 ml 07/19/17 01:00 07/19/17 10:52 Normal Saline Flush 0.9% IVP Not Given 0100,0900,1700 MICHA - Lab Result Fish Bone Diagrams: 07/19/17 04:25 07/19/17 04:25 - Additional Planning My Orders: My Active Orders 07/19/17 14:34 SCDs [RC] QSHIFT 07/19/17 14:36 MAGNESIUM SULFATE 2 GRAMS IV X1 Magnesium Sulfate 2 Gram [Magnesium Sulfate] 2 gm in 50 ml IV ONCE 07/19/17 15:00 D5ns W/20 Meq KCl 1,000 ml IV 150 mls/hr 07/19/17 Dinner DIET [Dysphagia Puree Diet] [DIET] 07/20/17 09:30 VANCOMYCIN TROUGH [CHEM] Timed Subjective - Subjective Patient Reports: Resting Comfortably, Other (Some snoring. Was awoken and spoke briefly then returned to sleep.) Nursing Reports: Other (Pt asking for food, refused Lovenox.) Objective Vital Signs: Vital Signs - 24 hr 07/18/17 07/18/17 07/19/17 20:37 22:15 00:00 Temperature 38.2 C H 37.7 C H 36.3 C L Heart Rate 125 H Heart Rate [ 103 H 106 H Monitoring electrodes] Respiratory 19 20 16 Rate Blood Pressure 131/47 H Blood Pressure 103/55 L 108/52 L [Right Brachial artery] O2 Saturation 94 97 98 07/19/17 07/19/17 04:00 09:30 Temperature 36.7 C 37.2 C Heart Rate Heart Rate [ 98 77 Monitoring electrodes] Respiratory 19 13 Rate Blood Pressure Blood Pressure 107/70 95/55 L [Right Brachial artery] O2 Saturation 100 98 Oxygen O2 Source Room air I&O (Last 24 Hrs): Intake and Output Totals x24h 07/17/17 07/18/17 07/19/17 23:59 23:59 23:59 Intake Total 700 2078.667 Output Total 1140 Balance 700 938.667 General: Other (Somnolent but awakens. Disheveled.) HEENT: Other (Wide set eyes. Dry oral mucosa.) Neck: Supple, No JVD Neuro: Other (Lethargic, unable to assess, but moves all extremities.) Cardiovascular: Regular rate, No murmurs Respiratory: Chest non-tender, No respiratory distress, Breath sounds nml Abdomen: Soft Extremities: No edema, Other (Scattered scrapes, small dry ulcer over anterior R auguste.) - Results Results: Laboratory Results WBC 17.1 x10^3/uL (4.8-10.8) H 07/19/17 04:25 RBC 4.36 10^6/uL (4.70-6.10) L 07/19/17 04:25 Hgb 11.2 g/dL (14.0-18.0) L 07/19/17 04:25 Hct 34.4 % (42.0-52.0) L 07/19/17 04:25 MCV 79.0 fL (80.0-94.0) L 07/19/17 04:25 MCH 25.6 pg (27.0-31.0) L 07/19/17 04:25 MCHC 32.5 g/dL (32.0-36.0) 07/19/17 04:25 RDW 17.4 % (12.0-15.0) H 07/19/17 04:25 Plt Count 148 10^3/uL (130-450) 07/19/17 04:25 MPV 7.7 fL (7.4-11.4) 07/19/17 04:25 Neut # Not Reportable 07/19/17 04:25 Lymph # Not Reportable 07/19/17 04:25 Mason # Not Reportable 07/19/17 04:25 Eos # Not Reportable 07/19/17 04:25 Baso # Not Reportable 07/19/17 04:25 Absolute Nucleated RBC Not Reportable 07/19/17 04:25 Total Counted 100 07/19/17 04:25 Band Neuts % (Manual) 20 % (0-10) H 07/19/17 04:25 Abnorm Lymph % (Manual) 0 % 07/19/17 04:25 Nucleated RBC % Not Reportable 07/19/17 04:25 Neutrophils # (Manual) 15.0 10^3/uL (1.5-6.6) H 07/19/17 04:25 Lymphocytes # (Manual) 0.9 10^3/uL (1.5-3.5) L 07/19/17 04:25 Monocytes # (Manual) 1.2 10^3/uL (0.0-1.0) H 07/19/17 04:25 Eosinophils # (Manual) 0.0 10^3/uL (0-0.7) 07/19/17 04:25 Basophils # (Manual) 0.0 10^3/uL (0-0.1) 07/19/17 04:25 Differential Comment MANUAL DIFFERENTIAL 07/19/17 04:25 Platelet Estimate NORMAL (130-450,000) (NORMAL) 07/19/17 04:25 RBC Morph Micro Appear NORMAL APPEARANCE (NORMAL) 07/19/17 04:25 Sodium 137 mmol/L (135-145) 07/19/17 04:25 Potassium 3.8 mmol/L (3.5-5.0) 07/19/17 04:25 Chloride 110 mmol/L (101-111) 07/19/17 04:25 Carbon Dioxide 20 mmol/L (21-32) L 07/19/17 04:25 Anion Gap 7.0 (6-13) 07/19/17 04:25 BUN 16 mg/dL (6-20) 07/19/17 04:25 Creatinine 0.9 mg/dL (0.6-1.2) 07/19/17 04:25 Estimated GFR (MDRD) 102 (>89) 07/19/17 04:25 Glucose 120 mg/dL (70-100) H 07/19/17 04:25 Lactic Acid 2.2 mmol/L (0.5-2.2) 07/19/17 04:25 Calcium 7.3 mg/dL (8.5-10.3) L 07/19/17 04:25 Magnesium 1.6 mg/dL (1.7-2.8) L 07/19/17 04:15 Total Bilirubin 1.1 mg/dL (0.2-1.0) H 07/18/17 17:15 AST 55 IU/L (10-42) H 07/18/17 17:15 ALT 28 IU/L (10-60) 07/18/17 17:15 Alkaline Phosphatase 93 IU/L (42-121) 07/18/17 17:15 Total Protein 7.2 g/dL (6.7-8.2) 07/18/17 17:15 Albumin 3.6 g/dL (3.2-5.5) 07/18/17 17:15 Globulin 3.6 g/dL (2.1-4.2) 07/18/17 17:15 Albumin/Globulin Ratio 1.0 (1.0-2.2) 07/18/17 17:15 Lipase 39 U/L (22-51) 07/18/17 17:15 Urine Color YELLOW 07/18/17 19:30 Urine Clarity CLEAR (CLEAR) 07/18/17 19:30 Urine pH 5.0 PH (5.0-7.5) 07/18/17 19:30 Ur Specific [place] 1.020 (1.002-1.030) 07/18/17 19:30 Urine Protein NEGATIVE mg/dL (NEGATIVE) 07/18/17 19:30 Urine Glucose (UA) NEGATIVE mg/dL (NEGATIVE) 07/18/17 19:30 Urine Ketones NEGATIVE mg/dL (NEGATIVE) 07/18/17 19:30 Urine Occult Blood NEGATIVE (NEGATIVE) 07/18/17 19:30 Urine Nitrite NEGATIVE (NEGATIVE) 07/18/17 19:30 Urine Bilirubin NEGATIVE (NEGATIVE) 07/18/17 19:30 Urine Urobilinogen 0.2 (NORMAL) E.U./dL (NORMAL) 07/18/17 19:30 Ur Leukocyte Esterase NEGATIVE (NEGATIVE) 07/18/17 19:30 Ur Microscopic Review NOT INDICATED 07/18/17 19:30 Urine Culture Comments NOT INDICATED 07/18/17 19:30 Urine Opiates Screen POSITIVE (NEGATIVE) H 07/18/17 19:30 Ur Oxycodone Screen NEGATIVE (NEGATIVE) 07/18/17 19:30 Urine Methadone Screen NEGATIVE (NEGATIVE) 07/18/17 19:30 Ur Propoxyphene Screen NEGATIVE (NEGATIVE) 07/18/17 19:30 Ur Barbiturates Screen NEGATIVE (NEGATIVE) 07/18/17 19:30 Ur Tricyclics Screen NEGATIVE (NEGATIVE) 07/18/17 19:30 Ur Phencyclidine Scrn NEGATIVE (NEGATIVE) 07/18/17 19:30 Ur Amphetamine Screen POSITIVE (NEGATIVE) H 07/18/17 19:30 U Methamphetamines Scrn POSITIVE (NEGATIVE) H 07/18/17 19:30 U Benzodiazepines Scrn NEGATIVE (NEGATIVE) 07/18/17 19:30 Urine Cocaine Screen NEGATIVE (NEGATIVE) 07/18/17 19:30 U Cannabinoids Screen NEGATIVE (NEGATIVE) 07/18/17 19:30 - Procedures Procedures: Procedures EXCISION OF L HAND SUBCU/FASCIA, OPEN APPROACH (09/20/16)
[2017-07-19] MEDS: D5NS W/20 MEQ KCL 1,000 ML IV SCH ×2 (15:04→22:51)
[2017-07-20] MEDS: SODIUM CHLORIDE FLUSH 0.9% 10 ML SYRINGE IVP SCH ×4 (01:19→22:16)
[2017-07-20] MEDS: VANCOMYCIN INJ 1 GM in SODIUM CHLORIDE 0.9% 250 ML IV SCH ×3 (01:50→18:22)
[2017-07-20] MEDS: PIPERACILLIN/TAZOBACTAM 3.375 GM in SODIUM CHLORIDE 0.9% MINIBAG 100 ML IV SCH ×4 (03:37→20:29)
[2017-07-20] MEDS: ACETAMINOPHEN 1,000 MG/100 ML 100 ML IV SCH ×2 (04:47→09:50)
[2017-07-20 05:40] LABS: BASOPHILS # (AUTO) 0.1 10^3/uL (0.0-0.1); BASOPHILS % (AUTO) 0.4 %; EOSINOPHILS # (AUTO) 0.1 10^3/uL (0.0-0.7); EOSINOPHILS % (AUTO) 0.8 %; HGB - HEMOGLOBIN 10.7 g/dL (14.0-18.0); LYMPHOCYTES # (AUTO) 1.9 10^3/uL (1.5-3.5); LYMPHOCYTES % (AUTO) 10.4 %; MEAN CORPUSCULAR HEMOGLOBIN 25.8 pg (27.0-31.0); MEAN CORPUSCULAR HGB CONC 32.4 g/dL (32.0-36.0); MEAN CORPUSCULAR VOLUME 79.7 fL (80.0-94.0); MONOCYTES # (AUTO) 0.9 10^3/uL (0.0-1.0); MONOCYTES % (AUTO) 4.9 %; NEUTROPHILS # (AUTO) 15.3 10^3/uL (1.5-6.6); NEUTROPHILS % (AUTO) 83.5 %; PLT - PLATELET COUNT 126 10^3/uL (130-450); RED BLOOD COUNT 4.13 10^6/uL (4.70-6.10); WHITE BLOOD COUNT 18.3 x10^3/uL (4.8-10.8)
[2017-07-20 05:41] LABS: CALCIUM 7.7 mg/dL (8.5-10.3); CREATININE 0.8 mg/dL (0.6-1.2)
[2017-07-20] MEDS: IBUPROFEN 600 MG TABLET PO SCH (06:01)
[2017-07-20] MEDS: D5NS W/20 MEQ KCL 1,000 ML IV SCH (06:01)
[2017-07-20] MEDS: POLYETHYLENE GLYCOL 3350 17 GM PACKET PO SCH (08:30)
[2017-07-20] MEDS ORDERED: D5NS W/20 MEQ KCL 1,000 ML IV SCH (08:31)
[2017-07-20 09:23] LABS: VANCOMYCIN,TROUGH 13.4 ug/mL (5.0-15.0)
[2017-07-20] MEDS: MAGNESIUM OXIDE 400 MG TABLET PO SCH ×2 (10:43→20:28)
[2017-07-20] MEDS: CALCIUM CARBONATE CHEW 500 MG TABLET PO SCH ×2 (10:44→20:29)
[2017-07-20] MEDS: KETOROLAC 10 MG TABLET PO PRN ×2 (12:20→18:22)
[2017-07-20 12:52] LABS: HEPATITIS A IGM NON-REACTIVE (NON-REACTIVE); HEPATITIS B CORE ANTIBODY IGM NON-REACTIVE (NON-REACTIVE); HEPATITIS B SURFACE ANTIGEN NON-REACTIVE (NON-REACTIVE); HEPATITIS C ANTIBODY REACTIVE (NON-REACTIVE)
--- NOTE | 2017-07-20 13:29 | PROVIDER PROGRESS NOTE ---
Assessment/Plan - Problem List (1) Sepsis Qualifiers: Sepsis type: sepsis due to unspecified organism Qualified Code(s): A41.9 - Sepsis, unspecified organism Assessment/Plan: No growth on cultures, source of sepsis unclear. Echo showed low-normal LVEF and mild thickening of mitral valve, but no cassandra shaggy mass to suggest endocarditis. WBC has increased. HR no longer tachycardic. Continue empiric broad spectrum antibiotics. Follow WBC. (2) IV drug abuse Assessment/Plan: Pt's likeliest source is skin heriberto. He is on antibiotics for this. Meth and amphetamine was pos as well as narcotics. Pt has been sleeping 2 days, consistent with Meth withdrawal. Watch for narcotic withdrawal. "Body aches all over" will be treated with Toradol, acetominiphen was stopped due to Hepatitis. (3) Hypomagnesemia Assessment/Plan: Correct and monitor Mg daily. (4) Dehydration Assessment/Plan: Pt now hydrating po. Will decrease then stop iv fluid hydration today. (5) Hepatitis C antibody positive in blood Assessment/Plan: Noted in labs. Hepatotoxic meds held. - Current Meds Current Meds: Current Medications Generic Name Dose Route Start Last Admin Trade Name Freq PRN Reason Stop Dose Admin Calcium Carbonate/Glycine 500 mg 07/20/17 09:00 07/20/17 10:44 Tums PO 500 mg BID MICHA Administration Diphenhydramine HCl 25 mg 07/18/17 22:15 07/18/17 22:47 Benadryl Inj IVP 25 mg Q6H PRN Administration Allergy Symptoms Piperacillin Sod/Tazobactam 100 mls @ 200 mls/hr 07/18/17 21:00 07/20/17 08: 59 Sod 3.375 gm/ Sodium Chloride IV Infused Q6H MICHA Infusion Vancomycin HCl 1 gm/ Sodium 250 mls @ 166.667 mls/hr 07/19/17 10:00 07/20/17 12:14 Chloride IV Infused Q8H MICHA Infusion Ketorolac Tromethamine 10 mg 07/20/17 10:33 07/20/17 12:20 Toradol PO 07/25/17 10:32 10 mg Q6HR PRN Administration PAIN Magnesium Oxide 400 mg 07/20/17 09:00 07/20/17 10:43 Mag Ox PO 400 mg BID MICHA Administration Polyethylene Glycol 17 gm 07/19/17 09:00 07/20/17 08:30 Miralax PO 17 gm DAILY MICHA Administration Sodium Chloride 10 ml 07/19/17 01:00 07/20/17 08:07 Normal Saline Flush 0.9% IVP Not Given 0100,0900,1700 MICHA - Lab Result Fish Bone Diagrams: 07/20/17 05:03 07/20/17 05:03 - Additional Planning My Orders: My Active Orders 07/19/17 14:34 SCDs [RC] QSHIFT 07/19/17 Dinner DIET [Regular Diet] [DIET] 07/20/17 09:00 Calcium Carbonate [Tums] 500 mg PO BID Magnesium Oxide [Mag Ox] 400 mg PO BID 07/20/17 10:33 Ketorolac [Toradol] 10 mg PO Q6HR PRN 07/21/17 05:00 BMP - BASIC METABOLIC PANEL [CHEM] DAILYLAB CALCIUM [CHEM] DAILYLAB MAGNESIUM [CHEM] DAILYLAB 07/22/17 05:00 BMP - BASIC METABOLIC PANEL [CHEM] DAILYLAB CALCIUM [CHEM] DAILYLAB MAGNESIUM [CHEM] DAILYLAB 07/23/17 05:00 BMP - BASIC METABOLIC PANEL [CHEM] DAILYLAB CALCIUM [CHEM] DAILYLAB MAGNESIUM [CHEM] DAILYLAB Subjective - Subjective Patient Reports: Resting Comfortably Nursing Reports: Other (Sat up to eat Reg diet) Objective Vital Signs: Vital Signs - 24 hr 07/19/17 07/19/17 07/20/17 15:19 23:56 08:00 Temperature 37.1 C 37 C 36.5 C Heart Rate [ 92 90 Monitoring electrodes] Heart Rate [ 97 Pulse Ox] Respiratory 16 20 22 Rate Blood Pressure 110/76 102/64 138/99 H [Right Brachial artery] O2 Saturation 100 96 95 Oxygen O2 Source Room air I&O (Last 24 Hrs): Intake and Output Totals x24h 07/18/17 07/19/17 07/20/17 23:59 23:59 23:59 Intake Total 700 5155.000 3662.0 Output Total 2265 1075 Balance 700 2890.000 2587.0 General: Other (Somnolent but awakens) HEENT: Other (Dysmorphic facies with wide-set eyes) Neck: Supple Neuro: Non Focal Cardiovascular: Regular rate Respiratory: No respiratory distress, Breath sounds nml Abdomen: Soft Extremities: No edema, Other (Scattered scrapes) - Results Results: Laboratory Results WBC 18.3 x10^3/uL (4.8-10.8) H 07/20/17 05:03 RBC 4.13 10^6/uL (4.70-6.10) L 07/20/17 05:03 Hgb 10.7 g/dL (14.0-18.0) L 07/20/17 05:03 Hct 32.9 % (42.0-52.0) L 07/20/17 05:03 MCV 79.7 fL (80.0-94.0) L 07/20/17 05:03 MCH 25.8 pg (27.0-31.0) L 07/20/17 05:03 MCHC 32.4 g/dL (32.0-36.0) 07/20/17 05:03 RDW 18.0 % (12.0-15.0) H 07/20/17 05:03 Plt Count 126 10^3/uL (130-450) L 07/20/17 05:03 MPV 8.0 fL (7.4-11.4) 07/20/17 05:03 Neut # 15.3 10^3/uL (1.5-6.6) H 07/20/17 05:03 Lymph # 1.9 10^3/uL (1.5-3.5) 07/20/17 05:03 [place] # 0.9 10^3/uL (0.0-1.0) 07/20/17 05:03 Eos # 0.1 10^3/uL (0.0-0.7) 07/20/17 05:03 Baso # 0.1 10^3/uL (0.0-0.1) 07/20/17 05:03 Absolute Nucleated RBC 0.01 x10^3/uL 07/20/17 05:03 Total Counted 100 07/19/17 04:25 Band Neuts % (Manual) 20 % (0-10) H 07/19/17 04:25 Abnorm Lymph % (Manual) 0 % 07/19/17 04:25 Nucleated RBC % 0.1 /100WBC 07/20/17 05:03 Neutrophils # (Manual) 15.0 10^3/uL (1.5-6.6) H 07/19/17 04:25 Lymphocytes # (Manual) 0.9 10^3/uL (1.5-3.5) L 07/19/17 04:25 Monocytes # (Manual) 1.2 10^3/uL (0.0-1.0) H 07/19/17 04:25 Eosinophils # (Manual) 0.0 10^3/uL (0-0.7) 07/19/17 04:25 Basophils # (Manual) 0.0 10^3/uL (0-0.1) 07/19/17 04:25 Differential Comment MANUAL DIFFERENTIAL 07/19/17 04:25 Platelet Estimate NORMAL (130-450,000) (NORMAL) 07/19/17 04:25 RBC Morph Micro Appear NORMAL APPEARANCE (NORMAL) 07/19/17 04:25 Sodium 137 mmol/L (135-145) 07/20/17 05:03 Potassium 4.1 mmol/L (3.5-5.0) 07/20/17 05:03 Chloride 111 mmol/L (101-111) 07/20/17 05:03 Carbon Dioxide 20 mmol/L (21-32) L 07/20/17 05:03 Anion Gap 6.0 (6-13) 07/20/17 05:03 BUN 16 mg/dL (6-20) 07/20/17 05:03 Creatinine 0.8 mg/dL (0.6-1.2) 07/20/17 05:03 Estimated GFR (MDRD) 117 (>89) 07/20/17 05:03 Glucose 115 mg/dL (70-100) H 07/20/17 05:03 Lactic Acid 2.2 mmol/L (0.5-2.2) 07/19/17 04:25 Calcium 7.7 mg/dL (8.5-10.3) L 07/20/17 05:03 Magnesium 1.6 mg/dL (1.7-2.8) L 07/19/17 04:15 Total Bilirubin 1.1 mg/dL (0.2-1.0) H 07/18/17 17:15 AST 55 IU/L (10-42) H 07/18/17 17:15 ALT 28 IU/L (10-60) 07/18/17 17:15 Alkaline Phosphatase 93 IU/L (42-121) 07/18/17 17:15 Total Protein 7.2 g/dL (6.7-8.2) 07/18/17 17:15 Albumin 3.6 g/dL (3.2-5.5) 07/18/17 17:15 Globulin 3.6 g/dL (2.1-4.2) 07/18/17 17:15 Albumin/Globulin Ratio 1.0 (1.0-2.2) 07/18/17 17:15 Lipase 39 U/L (22-51) 07/18/17 17:15 Urine Color YELLOW 07/18/17 19:30 Urine Clarity CLEAR (CLEAR) 07/18/17 19:30 Urine pH 5.0 PH (5.0-7.5) 07/18/17 19:30 Ur Specific [place] 1.020 (1.002-1.030) 07/18/17 19:30 Urine Protein NEGATIVE mg/dL (NEGATIVE) 07/18/17 19:30 Urine Glucose (UA) NEGATIVE mg/dL (NEGATIVE) 07/18/17 19:30 Urine Ketones NEGATIVE mg/dL (NEGATIVE) 07/18/17 19:30 Urine Occult Blood NEGATIVE (NEGATIVE) 07/18/17 19:30 Urine Nitrite NEGATIVE (NEGATIVE) 07/18/17 19:30 Urine Bilirubin NEGATIVE (NEGATIVE) 07/18/17 19:30 Urine Urobilinogen 0.2 (NORMAL) E.U./dL (NORMAL) 07/18/17 19:30 Ur Leukocyte Esterase NEGATIVE (NEGATIVE) 07/18/17 19:30 Ur Microscopic Review NOT INDICATED 07/18/17 19:30 Urine Culture Comments NOT INDICATED 07/18/17 19:30 Last Dose Date UNKNOWN 07/20/17 09:10 Last Dose Time UNKNOWN 07/20/17 09:10 Vancomycin Trough 13.4 ug/mL (5.0-15.0) 07/20/17 09:10 Urine Opiates Screen POSITIVE (NEGATIVE) H 07/18/17 19:30 Ur Oxycodone Screen NEGATIVE (NEGATIVE) 07/18/17 19:30 Urine Methadone Screen NEGATIVE (NEGATIVE) 07/18/17 19:30 Ur Propoxyphene Screen NEGATIVE (NEGATIVE) 07/18/17 19:30 Ur Barbiturates Screen NEGATIVE (NEGATIVE) 07/18/17 19:30 Ur Tricyclics Screen NEGATIVE (NEGATIVE) 07/18/17 19:30 Ur Phencyclidine Scrn NEGATIVE (NEGATIVE) 07/18/17 19:30 Ur Amphetamine Screen POSITIVE (NEGATIVE) H 07/18/17 19:30 U Methamphetamines Scrn POSITIVE (NEGATIVE) H 07/18/17 19:30 U Benzodiazepines Scrn NEGATIVE (NEGATIVE) 07/18/17 19:30 Urine Cocaine Screen NEGATIVE (NEGATIVE) 07/18/17 19:30 U Cannabinoids Screen NEGATIVE (NEGATIVE) 07/18/17 19:30 Hepatitis A IgM Ab NON-REACTIVE (NON-REACTIVE) 07/18/17 17:15 Hep Bs Antigen NON-REACTIVE (NON-REACTIVE) 07/18/17 17:15 Hep B Core IgM Ab NON-REACTIVE (NON-REACTIVE) 07/18/17 17:15 Hepatitis C Antibody REACTIVE (NON-REACTIVE) A 07/18/17 17:15 Hep C Ab Signal/Cutoff 31.00 (<1.00) H 07/18/17 17:15 - Procedures Procedures: Procedures EXCISION OF L HAND SUBCU/FASCIA, OPEN APPROACH (09/20/16)
[2017-07-20] MEDS: oxyCODONE 5 MG TABLET PO PRN ×2 (15:36→20:01)
[2017-07-20 17:01] LABS: HIV AG/AB 4TH GEN NON-REACTIVE (NON-REACTIVE)
[2017-07-20] MEDS: NICOTINE 21 MG PATCH TOP SCH (17:33)
[2017-07-20] MEDS: SODIUM CHLORIDE FLUSH 0.9% 10 ML SYRINGE IVP PRN (18:22)
[2017-07-20] MEDS: diphenhydrAMINE INJ 50 MG/ML VIAL IVP PRN (20:01)
[2017-07-20] MEDS ORDERED: TEMAZEPAM 15 MG CAPSULE PO PRN (20:51)
[2017-07-21] MEDS: VANCOMYCIN INJ 1 GM in SODIUM CHLORIDE 0.9% 250 ML IV SCH ×2 (01:35→10:57)
[2017-07-21] MEDS: SODIUM CHLORIDE FLUSH 0.9% 10 ML SYRINGE IVP SCH ×2 (01:36→09:12)
[2017-07-21] MEDS: KETOROLAC 10 MG TABLET PO PRN ×2 (03:06→09:11)
[2017-07-21] MEDS: diphenhydrAMINE INJ 50 MG/ML VIAL IVP PRN (03:25)
[2017-07-21] MEDS: PIPERACILLIN/TAZOBACTAM 3.375 GM in SODIUM CHLORIDE 0.9% MINIBAG 100 ML IV SCH ×2 (03:30→09:12)
[2017-07-21 04:40] LABS: BASOPHILS # (AUTO) 0.1 10^3/uL (0.0-0.1); BASOPHILS % (AUTO) 0.5 %; EOSINOPHILS # (AUTO) 0.1 10^3/uL (0.0-0.7); HGB - HEMOGLOBIN 10.9 g/dL (14.0-18.0); LYMPHOCYTES # (AUTO) 2.2 10^3/uL (1.5-3.5); LYMPHOCYTES % (AUTO) 18.5 %; MEAN CORPUSCULAR HGB CONC 32.7 g/dL (32.0-36.0); MEAN CORPUSCULAR VOLUME 79.5 fL (80.0-94.0); MEAN PLATELET VOLUME 8.2 fL (7.4-11.4); MONOCYTES # (AUTO) 0.6 10^3/uL (0.0-1.0); MONOCYTES % (AUTO) 4.7 %; NEUTROPHILS # (AUTO) 8.9 10^3/uL (1.5-6.6); NEUTROPHILS % (AUTO) 75.3 %; PLT - PLATELET COUNT 147 10^3/uL (130-450); RED BLOOD COUNT 4.19 10^6/uL (4.70-6.10); RED CELL DISTRIBUTION WIDTH 18.1 % (12.0-15.0); WHITE BLOOD COUNT 11.8 x10^3/uL (4.8-10.8)
[2017-07-21 04:50] LABS: CALCIUM 8.2 mg/dL (8.5-10.3); CREATININE 0.7 mg/dL (0.6-1.2); MAGNESIUM 1.7 mg/dL (1.7-2.8)
[2017-07-21] MEDS ORDERED: IOPAMIDOL-300 100 ML VIAL ONE (06:51)
[2017-07-21] MEDS ORDERED: IOPAMIDOL-300 100 ML VIAL IVP ONE (07:22)
--- NOTE | 2017-07-21 08:18 | CT Report ---
EXAM: CT ANGIOGRAM CHEST EXAM DATE: 07/21/2017 07:22 AM. CLINICAL HISTORY: C/o chest pain, shortness of breath. COMPARISON: Chest radiographs 07/18/2017.. TECHNIQUE: Routine helical imaging was performed through the chest in the pulmonary arterial phase. I V Contrast: 80 cc Isovue 300. Reconstructions: Coronal 3-D MIP reconstructions.Sagittal and coronal. In accordance with CT protocol optimization, one or more of the following dose reduction techniques w ere utilized for this exam: automated exposure control, adjustment of mA and/or KV based on patient s ize, or use of iterative reconstructive technique. FINDINGS: Pulmonary Arteries: Diagnostic quality: Adequate through the segmental arteries. No evidence for acute or chronic pulmona ry emboli. RV/LV is within normal limits. There is no interventricular septal bowing. There is no reflux of cont rast material in the IVC. Lungs/Pleura: There are moderate bilateral pleural effusions with bilateral basilar compressive atele ctasis. There are multifocal bilateral patchy and nodular groundglass opacities. No pneumothorax. Mediastinum: Normal. No cardiac enlargement or adenopathy. Thoracic Aorta: Unremarkable. Upper Abdomen: Unremarkable. Other: No acute osseous abnormality. IMPRESSION: 1. No pulmonary emboli through the level of the segmental pulmonary arteries. 2. Multifocal bilateral patchy and nodular groundglass opacities suspicious for multifocal pneumonia or septic emboli. 3. Moderate bilateral pleural effusions. [facility] Referring Provider Line: [phone] SITE ID: [id number]
--- NOTE | 2017-07-21 08:18 | CT Preliminary Report ---
Exam: CT CHEST ANGIO (PE) IMPRESSION: 1. No pulmonary emboli through the level of the segmental pulmonary arteries. 2. Multifocal bilateral patchy and nodular groundglass opacities suspicious for multifocal pneumonia or septic emboli. 3. Moderate bilateral pleural effusions. [facility] SITE ID: [id number]
[2017-07-21] MEDS ORDERED: HYDROmorphone 1 MG/ML SYRINGE IVP STA (09:10)
[2017-07-21] MEDS ORDERED: PROCHLORPERAZINE INJ 10 MG in SODIUM CHLORIDE 0.9% 50 ML IV PRN (09:11)
[2017-07-21] MEDS: POLYETHYLENE GLYCOL 3350 17 GM PACKET PO SCH (09:12)
[2017-07-21] MEDS: CALCIUM CARBONATE CHEW 500 MG TABLET PO SCH (09:12)
[2017-07-21] MEDS: NICOTINE 21 MG PATCH TOP SCH (09:12)
[2017-07-21] MEDS: MAGNESIUM OXIDE 400 MG TABLET PO SCH (09:12)
[2017-07-21] MEDS ORDERED: PROCHLORPERAZINE 10 MG/2 ML VIAL IVP PRN (09:13)
[2017-07-21] MEDS: SODIUM CHLORIDE FLUSH 0.9% 10 ML SYRINGE IVP PRN (10:59)
--- NOTE | 2017-07-21 11:27 | Discharge Plan ---
Discharge Plan Disposition: 02 Transfer Acute Care Hosp Condition: Serious No Smoking: If you smoke, Please STOP! Call for help.
[2017-07-21 12:03] VITALS: BP 143/88
--- NOTE | 2017-07-21 13:19 | XRAY Preliminary Report ---
Exam: XR CHEST 1 VIEW X-RAY IMPRESSION: 1. Mild pulmonary vascular congestion. 2. New bilateral diffuse interstitial opacities with perihilar predominance suggestive of interstitia l edema. 3. New small left pleural effusion. [facility] SITE ID: [id number]
--- NOTE | 2017-07-21 13:19 | XRAY Report ---
EXAM: CHEST RADIOGRAPHY EXAM DATE: 07/21/2017 10:16 AM. CLINICAL HISTORY: Desaturations, R pleuritic chest pain. COMPARISON: 07/18/2017. TECHNIQUE: 1 view. FINDINGS: Lungs/Pleura: There is mild pulmonary vascular congestion. There are new bilateral diffuse interstiti al opacities with perihilar predominance, suggestive of edema. There is a new small left pleural effu alberto. No pneumothorax. Mediastinum: Within exam limitations, the cardiomediastinal contour is normal. Other: No acute osseous abnormality. IMPRESSION: 1. Mild pulmonary vascular congestion. 2. New bilateral diffuse interstitial opacities with perihilar predominance suggestive of interstitia l edema. 3. New small left pleural effusion. [facility] Referring Provider Line: [phone] SITE ID: [id number]
--- NOTE | 2017-07-25 02:52 | DISCHARGE SUMMARY ---
Physician: Yasmeen Nunez MD DATE OF ADMISSION: 07/18/2017 DATE OF DISCHARGE: 07/21/2017 HISTORY OF PRESENT ILLNESS: This is a 26-year-old white male who has a history of IV drug abuse with heroin, prior DVT of the left arm, homeless, admitted here in the past for infection of his fingers. The patient presented at this time with complaints of "hurting all over" and a fever of 40.6 centigrade. He was tachypneic; his alertness was waxing and waning and he was tachycardic. He was admitted for management of sepsis. HOSPITAL COURSE AND DISCHARGE DIAGNOSES 1. Pleuritic chest pain. On the day of transfer to [facility], he began to complain of right pleuritic chest pain and his exam showed diminished breath sounds in the right base. A D-dimer was greater than [address] angio of his chest that morning. The results showed no evidence of pulmonary emboli, but presence of multiple nodular opacities suspicious for multifocal pneumonia or septic emboli. The chest x-ray at admission was within normal limits and the chest x-ray on day of discharge showed mild pulmonary vascular congestion, bilateral diffuse interstitial opacities with perihilar predominance suggesting interstitial edema and a new small left pleural effusion. Because of probable septic emboli, possible right-sided endocarditis as the source and worsening saturations that day, with tachypnea and symptomatic pleuritic pain, he was accepted and transferred to [facility] for higher level of care. 2. Septic pulmonary emboli. This was noted by imaging on the day of transfer after his complaints as above. 3. Ectopic atrial/bradycardic rhythm. On the day of admission, he was tachycardic with heart rates of 150, which then slowly improved to 120s, 100 and 70-90. However, on the day of transfer, he was found to have ectopic atrial bradycardia at a rate of 44. This was concerning for a possible mycotic infection near his sinus node. He was transferred via [facility] ambulance on telemetry. 4. Intravenous drug abuse. His admission urine toxicology was positive for opiates, amphetamines and methamphetamines. The patient had multiple scrapes and abrasions on his body diffusely as well as small track fowler, mostly of the left upper extremity. None appeared infected. 5. Pulmonary hypertension. Part of the initial workup for source of fever was an Echocardiogram to rule out endocarditis. The Echo showed mildly thickened mitral and tricuspid valves with mild mitral and tricuspid regurgitation and pulmonary pressure elevated at 50 mmHg (this was reported to be increased slightly from a prior exam of 42 mmHg). The right heart had normal size and function. The left ventricle had a low normal EF of 50%, which was also different than a prior echo done in 2016 when the EF was reported at 60-65% previously. We have no FAVIOLA at this facility to evaluate more closely for endocarditis. 6. Hepatitis C. The patient underwent blood tests, which showed a white count of 4.1, which increased to 18.3 two days later. Hemoglobin was 12.5, which decreased to 10.9 after IV fluids at the time of transfer. Platelet count was normal. His serology was positive for hepatitis C antibody. HIV was negative. Hepatitis A and B were negative. LABORATORY AND IMAGING: Reviewed and summarized above. ALLERGIES: HYDROCODONE. MEDICATIONS AT THE TIME OF TRANSFER 1. IV saline 2. Ativan p.r.n. 3. Zofran p.r.n. 4. Toradol p.r.n. 5. Unasyn 1.5 grams iv daily. 6. Ofirmev p.r.n. 7. Vancomycin IV q8h. 8. Tylenol p.o. p.r.n. 9. Roxicodone p.r.n. 10. Zosyn 3.375 mg IV q6h. 11. Magnesium sulfate. 12. Motrin p.r.n. 13. Benadryl p.r.n. 14. Lovenox 40 mg subcutaneous daily. 15. MiraLAX daily. 16. Tums 500 mg b.i.d. 17. Nicotine patch 21 mg topically daily. 18. Restoril p.r.n. 19. Compazine p.r.n. PHYSICAL EXAMINATION AT THE TIME OF DISCHARGE VITAL SIGNS: Blood pressure 140/80, heart rate 44 in sinus bradycardia or ectopic atrial rhythm with a short [place] interval. HEENT: Unremarkable except that he has low and wide set eyes. Oral mucosa shows poor dentition. NECK: Without JVD or carotid bruits. CHEST: Diminished breath sounds on the right. The left is clear. 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 Cardiac sounds are normal. No audible murmur. ABDOMEN: Soft, nontender. EXTREMITIES: No edema. There are various abrasions and scars and the fowler as described above. NEUROLOGIC: He is obtunded, but awakens and grossly intact. FOLLOWUP: This will be determined after his stay at [facility]. CODE STATUS: FULL CODE. Time required to complete this entire discharge, chart review, medication orders , referral to [facility]: 60 minutes. TD: 07/24/2017 16:57 [place]
== END 2017-07-21 13:40 | disposition short-term general hospital (02) | DRG 871 ==
LOC: EDUNIT# → ED 17:07 → ICU 20:28
PROVIDERS: ADMIT Specialist; ATTEND Internal Medicine
DX: A41.9 Sepsis, unspecified organism (principal); I26.90 Septic pulmonary embolism without acute cor pulmonale; I38 Endocarditis, valve unspecified; F11.10 Opioid abuse, uncomplicated; I27.22 Pulmonary hypertension due to left heart disease; B19.20 Unspecified viral hepatitis C without hepatic coma; F32.9 Major depressive disorder, single episode, unspecified; E83.42 Hypomagnesemia; E86.0 Dehydration; R78.4 Finding of other drugs of addictive potential in blood; J45.909 Unspecified asthma, uncomplicated; G89.29 Other chronic pain; M54.9 Dorsalgia, unspecified; F17.210 Nicotine dependence, cigarettes, uncomplicated; S80.812D Abrasion, left lower leg, subsequent encounter; S80.811D Abrasion, right lower leg, subsequent encounter; S40.812D Abrasion of left upper arm, subsequent encounter; S40.811D Abrasion of right upper arm, subsequent encounter; Z91.19 Patient's noncompliance with other medical treatment and regimen; Z59.0 Homelessness; Z86.718 Personal history of other venous thrombosis and embolism; I25.2 Old myocardial infarction
CPT/HCPCS: 36415; 71045; 71046; 71275; 76700; 80048; 80053; 80074; 80306; 81001; 81003; 83605; 83690; 83735; 84484; 85025; 85379; 87040; 87086; 87389; 87640; 93005; 93306; 96361; 96365; 96367; 96375; 96376; 99284; 99285

== ENCOUNTER 2017-07-23 22:04 | Outpatient (CLI) | payer MEDICAID | END 2017-07-23 22:05 | disposition critical access hospital (66) | LOC: EMS 22:04 | PROVIDERS: ATTEND Surgery | DX: R07.89 Other chest pain (principal) | CPT/HCPCS: A0425; A0429 ==

== ENCOUNTER 2017-07-23 22:22 | Emergency (ER) | payer MEDICAID ==
[2017-07-23] MEDS ORDERED: MORPHINE 2 MG/ML SYRINGE IVP STA (23:04)
[2017-07-23] MEDS ORDERED: KETOROLAC 60 MG/2 ML VIAL IVP STA (23:32)
[2017-07-23 23:41] LABS: BASOPHILS # (AUTO) 0.1 10^3/uL (0.0-0.1); BASOPHILS % (AUTO) 0.7 %; EOSINOPHILS # (AUTO) 0.2 10^3/uL (0.0-0.7); EOSINOPHILS % (AUTO) 2.1 %; HGB - HEMOGLOBIN 11.8 g/dL (14.0-18.0); LYMPHOCYTES # (AUTO) 2.7 10^3/uL (1.5-3.5); LYMPHOCYTES % (AUTO) 26.5 %; MEAN CORPUSCULAR HEMOGLOBIN 25.5 pg (27.0-31.0); MEAN CORPUSCULAR HGB CONC 32.5 g/dL (32.0-36.0); MEAN CORPUSCULAR VOLUME 78.4 fL (80.0-94.0); MEAN PLATELET VOLUME 8.4 fL (7.4-11.4); MONOCYTES # (AUTO) 0.8 10^3/uL (0.0-1.0); MONOCYTES % (AUTO) 7.5 %; NEUTROPHILS # (AUTO) 6.4 10^3/uL (1.5-6.6); NEUTROPHILS % (AUTO) 63.2 %; PLT - PLATELET COUNT 219 10^3/uL (130-450); RED BLOOD COUNT 4.62 10^6/uL (4.70-6.10); RED CELL DISTRIBUTION WIDTH 17.4 % (12.0-15.0); WHITE BLOOD COUNT 10.1 x10^3/uL (4.8-10.8)
[2017-07-23 23:45] LABS: ALBUMIN 3.2 g/dL (3.2-5.5); ALBUMIN/GLOBULIN RATIO 0.9 (1.0-2.2); BILIRUBIN,TOTAL 0.6 mg/dL (0.2-1.0); CALCIUM 8.5 mg/dL (8.5-10.3); TOTAL PROTEIN 6.9 g/dL (6.7-8.2)
--- NOTE | 2017-07-23 23:52 | XRAY Report ---
EXAM: CHEST RADIOGRAPHY EXAM DATE: 07/23/2017 11:17 PM. CLINICAL HISTORY: Chest pain. COMPARISON: 07/21/2017. TECHNIQUE: 1 view. FINDINGS: Lungs/Pleura: Left retrocardiac haziness, otherwise no focal opacities evident. No pleural effusion. No pneumothorax. Mediastinum: Within exam limitations, the cardiomediastinal contour is normal. Other: No bony abnormality noted. IMPRESSION: Persistent left retrocardiac atelectasis/infiltrate. [facility] Referring Provider Line: [phone] SITE ID: [id number]
[2017-07-24] MEDS ORDERED: LIDOCAINE 1% 2 ML VIAL SUBQ ONE (00:34)
[2017-07-24] MEDS ORDERED: SULFAMETH/TRIMETH DS 800/160 MG TABLET PO STA (00:34)
[2017-07-24] MEDS ORDERED: metroNIDAZOLE 250 MG TABLET PO STA (00:34)
[2017-07-24] MEDS ORDERED: cefTRIAXone 1 GM VIAL IM STA (00:34)
--- NOTE | 2017-07-24 00:39 | ED Physician Documentation ---
History of Present Illness - Stated complaint Stated Complaint: SOA, INCREASING CHEST PAIN S/P AMA - Chief complaint Chief Complaint: Resp - History obtained from History obtained from: Patient - History of Present Illness Timing: How many weeks ago (1) Pain level max: 8 Pain level now: 6 Improved by: rest Worsened by: walking - Additonal information Additional information: Patient with continued shortness of breath and not feeling well since leaving [facility] today. He states that he was admitted to the hospital here for pneumonia and possible sepsis. He states that they transferred him to [facility] for possible blood clots in the lungs. He states that he was not treated well by the nursing staff there and so left [facility] this morning. He states he is not feeling well tonight. No fevers, but has increased pain. Review of Systems Ten Systems: 10 systems reviewed and negative Constitutional: denies: Fever, Chills Ears: denies: Ear pain Nose: denies: Rhinorrhea / runny nose, Congestion Throat: denies: Sore throat Cardiac: reports: Chest pain / pressure (states hurts to cough). denies: Palpitations Respiratory: reports: Cough, Hemoptysis. denies: Wheezing GI: denies: Abdominal Pain, Nausea, Vomiting : denies: Dysuria Skin: denies: Rash Musculoskeletal: denies: Neck pain, Back pain Neurologic: denies: Headache PD PAST MEDICAL HISTORY - Past Medical History Past Medical History: Yes Cardiovascular: Deep vein thrombosis, Other Respiratory: Asthma Endocrine/Autoimmune: None GI: None : None HEENT: None Psych: Depression Musculoskeletal: Chronic back pain Derm: None - Past Surgical History Past Surgical History: Yes General: Other Ortho: Other - Present Medications Home Medications: Ambulatory Orders Medication Instructions Recorded Confirmed Sulfamethox/Trimeth 800/160 1 each PO BID #14 tablet 18 07/19/17 [Bactrim Ds 800/160] Cefdinir 300 mg PO BID #14 capsule 07/24/17 Meloxicam [Mobic] 15 mg PO DAILY PRN #20 tablet 07/24/17 Metronidazole [Flagyl] 500 mg PO TID #21 tablet 07/24/17 Sulfamethox/Trimeth 800/160 1 each PO BID #14 tablet 07/24/17 [Bactrim Ds 800/160] - Allergies Allergies/Adverse Reactions: Allergies Allergy/AdvReac Type Severity Reaction Status Date / Time hydrocodone bitartrate * AdvReac Nausea Verified 07/18/17 17:12 [From Vicodin] - Social History Does the pt smoke?: Yes Smoking Status: Current every day smoker Does the pt drink ETOH?: No Does the pt have substance abuse?: No - Immunizations Immunizations are current?: No Immunizations: TDAP current <10years, Other immun not current - POLST Patient has POLST: No POLST Status: Full Code PD ED PE NORMAL - Vitals Vital signs reviewed: Yes - General General: Alert and oriented X 3, No acute distress, Well developed/nourished - HEENT HEENT: PERRL, Moist mucous membranes - Neck Neck: Supple, no meningeal sign - Cardiac Cardiac: RRR, Strong equal pulses - Respiratory Respiratory: No respiratory distress, Clear bilaterally - Abdomen Abdomen: Soft, Non tender, Non distended - Derm Derm: Warm and dry, No rash - Extremities Extremities: No edema, No calf tenderness / cord - Neuro Neuro: Alert and oriented X 3 - Psych Psych: Normal mood, Normal affect Results - Vitals Vitals: Vital Signs - 24 hr 07/23/17 07/23/17 07/23/17 22:25 22:40 22:47 Temperature 36.7 C Heart Rate 62 65 80 Respiratory 18 18 25 H Rate Blood Pressure 158/92 H 134/84 H 148/91 H O2 Saturation 98 98 97 07/23/17 07/23/17 07/24/17 23:39 23:51 00:25 Temperature Heart Rate 76 73 71 Respiratory 23 26 H 16 Rate Blood Pressure 141/90 H 141/90 H 147/88 H O2 Saturation 95 95 95 07/24/17 01:13 Temperature 36.0 C L Heart Rate 72 Respiratory 20 Rate Blood Pressure 152/85 H O2 Saturation 96 Oxygen O2 Source Room air - Labs Labs: Laboratory Tests 07/23/17 07/23/17 07/23/17 23:24 23:24 23:24 WBC 10.1 RBC 4.62 L Hgb 11.8 L Hct 36.2 L MCV 78.4 L MCH 25.5 L MCHC 32.5 RDW 17.4 H Plt Count 219 MPV 8.4 Neut # 6.4 Lymph # 2.7 [place] # 0.8 Eos # 0.2 Baso # 0.1 Absolute Nucleated RBC 0.00 Nucleated RBC % 0.0 Sodium 140 Potassium 4.1 Chloride 105 Carbon Dioxide 26 Anion Gap 9.0 BUN 12 Creatinine 1.0 Estimated GFR (MDRD) 90 Glucose 84 Lactic Acid 1.0 Calcium 8.5 Total Bilirubin 0.6 AST 24 ALT 47 Alkaline Phosphatase 89 Total Protein 6.9 Albumin 3.2 Globulin 3.7 Albumin/Globulin Ratio 0.9 L Lipase 52 H - Rads (name of study) cxr Radiology: Prelim report reviewed, EMP read contemporaneously, See rad report ( Persistent left retrocardiac atelectasis/infiltrate. ) PD MEDICAL DECISION MAKING - ED course Complexity details: reviewed old records (No septic pulmonary emboli. No endocarditis. Negative blood cultures), reviewed results, re-evaluated patient, considered differential, d/w patient, d/w data security consultant ED course: Patient is a 26-year-old male who presents to the emergency department with continued chest pain and shortness of breath after leaving [facility] AGAINST MEDICAL ADVICE earlier today. I was able to obtain records from [facility] and reviewed these along with the records from here with the hospitalist, Dr. Sheridan. It appears that [facility] in [place] did not feel he had septic pulmonary emboli and were not even sure if there was a infection present. They were considering discharging him without antibiotics, but he signed out AMA before the final decision was made. Here he is very well- appearing, nontoxic. Afebrile. White count is normal. No hypoxia. No respiratory distress. Pain well controlled with Toradol. Infectious disease at one point have discussing how he progressed on a regimen of vancomycin, cefepime and Flagyl. Therefore we will place him on Bactrim, cefdinir and Flagyl as an outpatient. We will also prescribe meloxicam for pain. Does not appear to require admission at this time. Patient counseled regarding signs and symptoms for which I believe and urgent re-evaluation would be necessary. Patient with good understanding of and agreement to plan and is comfortable going home at this time This document was made in part using voice recognition software. While efforts are made to proofread this document, sound alike and grammatical errors may occur. Departure - Departure Disposition: 01 Home, Self Care Clinical Impression: Heroin abuse Pneumonia Qualifiers: Pneumonia type: due to unspecified organism Laterality: left Lung location: lower lobe of lung Qualified Code(s): J18.1 - Lobar pneumonia, unspecified organism Condition: Good Instructions: ED Pneumonia Adult Follow-Up: your,doctor in 3 days [Other] Prescriptions: Cefdinir 300 mg PO BID #14 capsule Meloxicam [Mobic] 15 mg PO DAILY PRN #20 tablet PRN Reason: pain Metronidazole [Flagyl] 500 mg PO TID #21 tablet Sulfamethox/Trimeth 800/160 [Bactrim Ds 800/160] 1 each PO BID #14 tablet Comments: Return if you worsen. Take all antibiotics as prescribed. Follow up with your doctor in 3 days for recheck. Discharge Date/Time: 07/24/17 01:19
[2017-07-24 01:15] VITALS: BP 152/85
== END 2017-07-24 01:19 | disposition home or self-care (01) ==
LOC: EDUNIT# → ED 22:22
DX: J18.9 Pneumonia, unspecified organism (principal); F11.10 Opioid abuse, uncomplicated; J45.909 Unspecified asthma, uncomplicated; F17.200 Nicotine dependence, unspecified, uncomplicated; Z86.718 Personal history of other venous thrombosis and embolism
CPT/HCPCS: 36415; 71045; 80053; 83605; 83690; 85025; 96372; 96374; 96375; 99284; A9270; J2270

== ENCOUNTER 2017-08-12 17:47 | Emergency (ER) | payer MEDICAID ==
[2017-08-12 17:56] VITALS: BP 127/80
[2017-08-12] MEDS ORDERED: cephALEXin 250 MG CAPSULE PO STA (18:18)
[2017-08-12] MEDS ORDERED: SULFAMETH/TRIMETH DS 800/160 MG TABLET PO STA (18:18)
[2017-08-12] MEDS ORDERED: BACITRACIN OINT TOP STA (18:18)
[2017-08-12] MEDS ORDERED: IBUPROFEN 800 MG TABLET PO STA (18:22)
--- NOTE | 2017-08-12 18:23 | ED Physician Documentation ---
History of Present Illness - Stated complaint Stated Complaint: ANKLE PX - Chief complaint Chief Complaint: Ext Problem - History obtained from History obtained from: Patient - History of Present Illness Timing: How many days ago (several) Pain level max: 7 Pain level now: 4 - Additonal information Additional information: Patient is a 26-year-old male with a right leg wound that he has scratched and now is concerned it is becoming infected. This is been ongoing for the past several days. No fevers. No vomiting. Review of Systems Constitutional: denies: Fever, Chills Ears: denies: Ear pain Nose: denies: Rhinorrhea / runny nose, Congestion Throat: denies: Sore throat Respiratory: denies: Cough GI: denies: Nausea, Vomiting, Diarrhea Skin: denies: Rash Musculoskeletal: denies: Neck pain, Back pain Neurologic: denies: Headache PD PAST MEDICAL HISTORY - Past Medical History Past Medical History: Yes Cardiovascular: Deep vein thrombosis, Other Respiratory: Asthma Endocrine/Autoimmune: None GI: None : None HEENT: None Psych: Depression Musculoskeletal: Chronic back pain Derm: None - Past Surgical History Past Surgical History: Yes General: Other Ortho: Other - Present Medications Home Medications: Ambulatory Orders Medication Instructions Recorded Confirmed Cephalexin [Keflex] 500 mg PO Q6H #28 capsule 08/12/17 Ibuprofen [Motrin] 800 mg PO Q8H PRN #30 tablet 08/12/17 Sulfamethox/Trimeth 800/160 1 each PO BID #14 tablet 08/12/17 [Bactrim Ds 800/160] - Allergies Allergies/Adverse Reactions: Allergies Allergy/AdvReac Type Severity Reaction Status Date / Time hydrocodone bitartrate * AdvReac Nausea Verified 08/12/17 17:56 [From Vicodin] - Social History Does the pt smoke?: Yes Smoking Status: Current every day smoker Does the pt drink ETOH?: No Does the pt have substance abuse?: No - Immunizations Immunizations are current?: No Immunizations: TDAP current <10years, Other immun not current - POLST Patient has POLST: No POLST Status: Full Code PD ED PE NORMAL - Vitals Vital signs reviewed: Yes - General General: Alert and oriented X 3 - HEENT HEENT: Moist mucous membranes - Neck Neck: Supple, no meningeal sign - Cardiac Cardiac: RRR - Respiratory Respiratory: No respiratory distress, Clear bilaterally - Derm Derm: Warm and dry - Extremities Extremities: Other (2x2cm open wound with surrounding cellulitis lower R leg. no drainage. no fluctuance.) - Neuro Neuro: Alert and oriented X 3 Results - Vitals Vitals: Vital Signs - 24 hr 08/12/17 17:51 Temperature 36.4 C L Heart Rate 86 Respiratory 16 Rate Blood Pressure 127/80 O2 Saturation 97 Oxygen O2 Source Room air PD MEDICAL DECISION MAKING - ED course Complexity details: considered differential, d/w patient ED course: Patient is a 26-year-old male with an open wound to the right lower extremity. Cleansed and bandaged. Will place on antibiotics for home. No abscess. No necrotizing infection. No fevers. No evidence of osteomyelitis. Patient counseled regarding signs and symptoms for which I believe and urgent re- evaluation would be necessary. Patient with good understanding of and agreement to plan and is comfortable going home at this time This document was made in part using voice recognition software. While efforts are made to proofread this document, sound alike and grammatical errors may occur. - Sepsis Event Vital Signs: Vital Signs - 24 hr 08/12/17 17:51 Temperature 36.4 C L Heart Rate 86 Respiratory 16 Rate Blood Pressure 127/80 O2 Saturation 97 Oxygen O2 Source Room air Departure - Departure Disposition: 01 Home, Self Care Clinical Impression: Cellulitis Qualifiers: Site of cellulitis: extremity Site of cellulitis of extremity: lower extremity Laterality: right Qualified Code(s): L03.115 - Cellulitis of right lower limb Condition: Good Instructions: ED Infec Skin Cellulitis Follow-Up: your,doctor in 1 week [Other] Prescriptions: Cephalexin [Keflex] 500 mg PO Q6H #28 capsule Ibuprofen [Motrin] 800 mg PO Q8H PRN #30 tablet PRN Reason: PAIN &/OR FEVER Sulfamethox/Trimeth 800/160 [Bactrim Ds 800/160] 1 each PO BID #14 tablet Comments: Take all antibiotics until gone. Return if you worsen. Discharge Date/Time: 08/12/17 18:34
== END 2017-08-12 18:34 | disposition home or self-care (01) ==
LOC: ED 17:47
DX: L03.115 Cellulitis of right lower limb (principal); J45.909 Unspecified asthma, uncomplicated; Z86.718 Personal history of other venous thrombosis and embolism; F17.200 Nicotine dependence, unspecified, uncomplicated
CPT/HCPCS: 99283; A9270

== ENCOUNTER 2017-08-21 11:04 | Outpatient (CLI) | payer MEDICAID | END 2017-08-21 11:05 | disposition critical access hospital (66) | LOC: EMS 11:04 | PROVIDERS: ATTEND Surgery | DX: S91.051A Open bite, right ankle, initial encounter (principal) | CPT/HCPCS: A0425; A0427 ==

== ENCOUNTER 2017-08-21 11:26 | Inpatient (IN) | payer MEDICAID ==
[2017-08-21] MEDS ORDERED: KETOROLAC 60 MG/2 ML VIAL IVP STA (12:31)
--- NOTE | 2017-08-21 12:43 | ED Physician Documentation ---
History of Present Illness - Stated complaint Stated Complaint: ANKLE PX - Chief complaint Chief Complaint: Wound - History obtained from History obtained from: Patient - History of Present Illness Timing: How many weeks ago (2) Pain level max: 10 Pain level now: 10 Quality: "it hurts" Improved by: nothing Worsened by: palpation, walking - Additonal information Additional information: 27 year old male with a longstanding history of heroin abuse, presents with 2 weeks of R LE wound, worsening per patient. Increasing pain. States was on bactrim and keflex for past week without improvement in his symptoms. No fevers. No chills. No vomiting. no diarrhea. Review of Systems Ten Systems: 10 systems reviewed and negative Constitutional: denies: Fever, Chills Ears: denies: Ear pain Nose: denies: Rhinorrhea / runny nose, Congestion Throat: denies: Sore throat Cardiac: denies: Chest pain / pressure GI: denies: Nausea, Vomiting, Diarrhea Musculoskeletal: denies: Neck pain, Back pain Neurologic: denies: Headache PD PAST MEDICAL HISTORY - Past Medical History Cardiovascular: Deep vein thrombosis, Other Respiratory: Asthma Endocrine/Autoimmune: None GI: None : None HEENT: None Psych: Depression Musculoskeletal: Chronic back pain Derm: None - Past Surgical History Past Surgical History: Yes General: Other Ortho: Other - Present Medications Home Medications: Ambulatory Orders Medication Instructions Recorded Confirmed Ibuprofen [Motrin] 800 mg PO Q8H PRN #30 tablet 08/12/17 08/21/17 - Allergies Allergies/Adverse Reactions: Allergies Allergy/AdvReac Type Severity Reaction Status Date / Time hydrocodone bitartrate * AdvReac Nausea Verified 08/21/17 11:40 [From Vicodin] - Social History Does the pt smoke?: Yes Smoking Status: Current every day smoker Does the pt drink ETOH?: No Does the pt have substance abuse?: No - Immunizations Immunizations are current?: No Immunizations: TDAP current <10years, Other immun not current - POLST Patient has POLST: No POLST Status: Full Code PD ED PE NORMAL - Vitals Vital signs reviewed: Yes - General General: Alert and oriented X 3, Other (appears in pain) - HEENT HEENT: PERRL, Moist mucous membranes - Neck Neck: Supple, no meningeal sign - Cardiac Cardiac: RRR, Strong equal pulses - Respiratory Respiratory: No respiratory distress, Clear bilaterally - Abdomen Abdomen: Soft, Non tender, Non distended - Derm Derm: Warm and dry - Extremities Extremities: Other (R LE - 8x6cm erythematous scaling area with yellow drainage. mild surrounding cellulitis. ) - Neuro Neuro: Alert and oriented X 3 Results - Vitals Vitals: Vital Signs - 24 hr 08/21/17 11:35 Temperature 37.1 C Heart Rate 98 Respiratory 18 Rate Blood Pressure 151/79 H O2 Saturation 99 Oxygen O2 Source Room air - Labs Labs: Laboratory Tests 08/21/17 08/21/17 08/21/17 12:40 12:40 12:40 WBC 11.4 H RBC 5.11 Hgb 13.4 L Hct 40.8 L MCV 79.8 L MCH 26.2 L MCHC 32.8 RDW 16.0 H Plt Count 308 MPV 7.4 Neut # (Auto) 9.0 H Lymph # (Auto) 1.7 Story # (Auto) 0.5 Eos # (Auto) 0.0 Baso # (Auto) 0.1 Absolute Nucleated RBC 0.00 Nucleated RBC % 0.0 ESR 23 H Sodium 137 Potassium 3.9 Chloride 103 Carbon Dioxide 24 Anion Gap 10.0 BUN 9 Creatinine 0.6 Estimated GFR (MDRD) 163 Glucose 92 Calcium 8.8 Total Bilirubin 0.7 AST 21 ALT 16 Alkaline Phosphatase 85 C-Reactive Protein 8.7 H Total Protein 8.2 Albumin 3.9 Globulin 4.3 H Albumin/Globulin Ratio 0.9 L Lipase 35 - Rads (name of study) tib/fib xray Radiology: Prelim report reviewed, EMP read contemporaneously, See rad report ( No acute osseous abnormality) PD MEDICAL DECISION MAKING - ED course Complexity details: reviewed old records, reviewed results, re-evaluated patient , considered differential, d/w patient ED course: Patient is a 26-year-old male with a nonhealing wound appears to be worsening despite being on antibiotics for the past week. We will admit him for IV antibiotics at this point. Does have a leukocytosis as well. The wound was cultured. Discussed the case with the hospitalist, Dr. Ramirez who accepts. This document was made in part using voice recognition software. While efforts are made to proofread this document, sound alike and grammatical errors may occur. - Sepsis Event Vital Signs: Vital Signs - 24 hr 08/21/17 11:35 Temperature 37.1 C Heart Rate 98 Respiratory 18 Rate Blood Pressure 151/79 H O2 Saturation 99 Oxygen O2 Source Room air Departure - Departure Disposition: 66 [facility] DC/Xfer Clinical Impression: Wound of skin Cellulitis Qualifiers: Site of cellulitis: extremity Site of cellulitis of extremity: lower extremity Laterality: right Qualified Code(s): L03.115 - Cellulitis of right lower limb Leukocytosis Qualifiers: Leukocytosis type: unspecified Qualified Code(s): D72.829 - Elevated white blood cell count, unspecified Discharge Date/Time: 08/21/17 15:19
[2017-08-21 12:45] LABS: BASOPHILS # (AUTO) 0.1 10^3/uL (0.0-0.1); BASOPHILS % (AUTO) 0.6 %; EOSINOPHILS % (AUTO) 0.1 %; HGB - HEMOGLOBIN 13.4 g/dL (14.0-18.0); LYMPHOCYTES # (AUTO) 1.7 10^3/uL (1.5-3.5); LYMPHOCYTES % (AUTO) 14.8 %; MEAN CORPUSCULAR HEMOGLOBIN 26.2 pg (27.0-31.0); MEAN CORPUSCULAR HGB CONC 32.8 g/dL (32.0-36.0); MEAN CORPUSCULAR VOLUME 79.8 fL (80.0-94.0); MEAN PLATELET VOLUME 7.4 fL (7.4-11.4); MONOCYTES # (AUTO) 0.5 10^3/uL (0.0-1.0); MONOCYTES % (AUTO) 4.8 %; NEUTROPHILS % (AUTO) 79.7 %; PLT - PLATELET COUNT 308 10^3/uL (130-450); RED BLOOD COUNT 5.11 10^6/uL (4.70-6.10); WHITE BLOOD COUNT 11.4 x10^3/uL (4.8-10.8)
[2017-08-21] MEDS ORDERED: MORPHINE 10 MG/ML VIAL IVP STA (12:58)
[2017-08-21 13:05] LABS: ALBUMIN 3.9 g/dL (3.2-5.5); ALBUMIN/GLOBULIN RATIO 0.9 (1.0-2.2); BILIRUBIN,TOTAL 0.7 mg/dL (0.2-1.0); CALCIUM 8.8 mg/dL (8.5-10.3); CREATININE 0.6 mg/dL (0.6-1.2); CRP - C-REACTIVE PROTEIN 8.7 mg/dL (0-1.0); TOTAL PROTEIN 8.2 g/dL (6.7-8.2)
[2017-08-21] MEDS ORDERED: VANCOMYCIN INJ 1 GM in SODIUM CHLORIDE 0.9% 500 ML IV STA (13:30)
[2017-08-21] MEDS ORDERED: AMPICILLIN/SULBACTAM 3 GM in SODIUM CHLORIDE 0.9% MINIBAG 100 ML IV STA (13:30)
--- NOTE | 2017-08-21 13:44 | XRAY Report ---
Procedure Date: 08/21/2017 Accession Number: [id number] / [id number] Procedure: XR - Tib/Fib RT CPT Code: FULL RESULT: EXAM: RIGHT TIBIA/FIBULA RADIOGRAPHY EXAM DATE: 08/21/2017 01:23 PM. CLINICAL HISTORY: R LE pain, wound. COMPARISON: None. TECHNIQUE: 2 views. FINDINGS: Bones: No acute fracture. Joints: Normally aligned. Soft Tissues: Mild soft tissue swelling. IMPRESSION: No acute osseus abnormality. RADIA
[2017-08-21] MEDS ORDERED: ONDANSETRON 4 MG/2 ML VIAL IVP PRN (14:16)
--- NOTE | 2017-08-21 14:21 | HISTORY & PHYSICAL EXAMINATION ---
Chief Complaint - Chief Complaint Chief Complaint: right low extremity wound infection History of Present Illness - Admitted From Admitted From:: ER - History Obtained From History obtained from: Pt - History of Present Illness HPI Comment/Other: Mr. Patel is a 26-year-old white male with hx of heroin abuser, homeless, who present ER complaint of wound infetion at the auguste of right lower extremity close to ankle area. He state he was bited by a insect. The area became itching , and he scratched the area and then he became infected. He report this happened couples of week ago. He report he is still homeless and still injects heroin daily, and smokes cigarette as well. He denies he had fever, chill. He was last admitted to the hospital with an infected finger and infected hand. He has not been feeling "good" in the last few days but can't be more specific. he denies chest pain, shortness of breath, cough, headache, abdominal pain, nausea , vomiting, diarrhea. Today in ER, pt is afebrile, pt has slight elevated WBC at 11.4. Xray of right lower extremity reveals no bony infection, and mild soft tissue swelling, no abscess. Pt is admitted for wound infection. History - Past Medical History Cardiovascular: reports: Deep vein thrombosis, Other Respiratory: reports: Asthma Endocrine/Autoimmune: reports: None GI: reports: None : reports: None HEENT: reports: None Psych: reports: Depression Musculoskeletal: reports: Chronic back pain Derm: reports: None MRSA Hx?: Yes - Past Surgical History General: reports: Other Ortho: reports: Other - Family & Social History Family History: Mother: (pt did not know his father condition), CAD Family History Comment/Other: Mom of cardiac arrest in her 30's. Didn't know dad. Brother lives in [place]. 3 children live with their mom, he doesn't see them Social History Notes: The patient is homeless and lives on streets in [place]. He was born and raised on [facility]. His mother when she was only 34 years old. The patient has an older brother who lives in [place]. The patient also has family in [place] including uncles and aunts. The patient has 3 kids who all live with their mom. The patient is an IV drug user and his drug of choice is heroin. He last used yesterday. He is a daily user. He also uses meth. He occasionally uses mushrooms and marijuana. He smokes a pack per day and has been smoking for more than 10 years. He denies any alcohol use. - Substance History Use: Uses substance without health or social issues: Tobacco Abuse: Recurrent use of substance despite neg consequences: Other (heroin) - POLST Patient has POLST: No POLST Status: Full Code Meds/Allgy - Home Medications Home Medications: Ambulatory Orders Medication Instructions Recorded Confirmed Ibuprofen [Motrin] 800 mg PO Q8H PRN #30 tablet 08/12/17 08/21/17 - Allergies Allergies/Adverse Reactions: Allergies Allergy/AdvReac Type Severity Reaction Status Date / Time hydrocodone bitartrate * AdvReac Nausea Verified 08/21/17 11:40 [From Vicodin] Review of Systems - Constitutional Constitutional: denies: Fatigue, Fever, Chills, Malaise, Weakness, Poor appetite , Diaphoresis, Night sweats - Eyes Eyes: denies: Pain, Irritation, Amaurosis, Blurred vision, Spots in vision, Field loss, Vision loss, Dipolpia - Ears, Nose & Throat Ears, Nose & Throat: denies: Ear pain, Hearing loss, Tinnitus, Vertigo, Nasal pain, Nasal discharge, Nosebleeds, Nasal obstruction, Nasal congestion, Postnasal drainage, Dentures, Sore throat, Mouth lesions, Bleeding gums - Cardiovascular Cariovascular: denies: Irregular heart rate, Palpitations, Chest pain, Edema, Lightheadedness, Syncope, Exertional dyspnea, Decr. exercise tolerance - Respiratory Respiratory: denies: Cough, Sputum production, Wheezing, Snoring, Hemoptysis, Orthopnea, SOB at rest, SOB with exertion - Gastrointestinal Gastrointestinal: denies: Abdominal pain, Abdominal distention, Constipation, Diarrhea, Change in bowel habits, Rectal bleeding, Black stools, Nausea, Vomiting, Bile emesis, Lam blood emesis, Coffee grounds emesis, Reflux/ heartburn, Bloating, Poor appetite - Genitourinary Genitourinary: denies: Dysuria, Frequency, Urgency, Hematuria, Incontinence, Flank pain - Musculoskeletal Musculoskeletal: denies: Muscle pain, Back pain, Muscle aches, Stiffness, Limited range of motion, Muscle weakness, Gout, Joint pain - Integumentary Integumentary: reports: Lesions. denies: Rash, Pruritis, Acne, Pigment changes , Nail changes - Neurological Neurological: denies: General weakness, Focal weakness, Headache, Dizziness, Numbness, Memory problems, Pre-existing deficit, Abnormal gait, Seizures, Incoordination, Slurred speech - Psychiatric Psychiatric: denies: Depression, Anxiety, Suicidal, Delusions, Hallucinations, Homicidal - Endocrine Endocrine: denies: Polyuria, Polydypsia, Polyphagia, Intolerance to cold - Hematologic/Lymphatic Hematologic/Lymphatic: reports: Recurrent infections. denies: Anemia, Bruising , Petechiae, Blood clots, Lymphadenopathy, Bleeding tendencies Exam - Vital Signs Reviewed Vital Signs: Yes Vital Signs: Vital Signs x48h Temp Pulse Resp BP Pulse Ox 08/21/17 11:35 37.1 C 98 18 151/79 H 99 - Physical Exam General Appearance: positive: No acute distress, Alert. negative: Lethargic Eyes Bilateral: positive: Normal inspection, PERRL, No lid inflammation, Conjunctivae nml ENT: positive: ENT inspection nml, Pharynx nml, No signs of dehydration. negative: Purulent nasal drainage, Pharyngeal erythema, Oral lesions Neck: positive: Nml inspection, Thyroid nml, No JVD, Trachea midline. negative : Thyromegaly, Lymphadenopathy (R), Lymphadenopathy (L), Stiff neck, Swelling/ bruising, Tracheal deviation Respiratory: positive: Chest non-tender, No respiratory distress, Breath sounds nml. negative: Wheezes, Rales, Rhonchi Cardiovascular: positive: Regular rate & rhythm, No murmur, No gallop. negative : Irregularly irregular, Extrasystoles, Tachycardia, Bradycardia, JVD present, Systolic murmur, Diastolic murmur Peripheral Pulses: positive: 2+ Abdomen: positive: Non-tender, No organomegaly, Nml bowel sounds, No distention. negative: Tenderness, Guarding, Rebound Back: positive: Nml inspection. negative: CVA tenderness (R), CVA tenderness (L ) Skin: positive: Warm, Dry, Laceration (cm), Other (wound infection at the anterior of right lower extremity close to ankle area). negative: Cyanosis, Diaphoresis, Pallor Extremities: positive: Non-tender, Full ROM, Nml appearance. negative: Calf tenderness, Joint swelling, Meredith's sign/cords Neurologic/Psychiatric: positive: Oriented x3, Motor nml, Sensation nml. 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 advise and consult to pt to quit (3) Currently smokes tobacco Conclusion/Plan: advise pt quit and order Nicotin patch (4) DVT prophylaxis Conclusion/Plan: SCD, Lovenox (5) Full code status Conclusion/Plan: pt request full code status - Lab Results Fish Bones: 08/21/17 12:40 08/21/17 12:40 Core Measures - Anticipated LOS I expect patient to be DC'd or transferred within 96 hours.: Yes - DVT/VTE - Prophylaxis VTE/DVT Device ordered at admit?: Yes VTE/DVT Prophylaxis med ordered at admit?: Yes
[2017-08-21] MEDS ORDERED: VANCOMYCIN PER PHARMACY 1.5 GM in SODIUM CHLORIDE 0.9% 250 ML IV SCH (15:00)
[2017-08-21] MEDS: SODIUM CHLORIDE FLUSH 0.9% 10 ML SYRINGE IVP SCH ×2 (18:01→23:56)
[2017-08-21] MEDS: NICOTINE 14 MG PATCH TOP SCH (18:01)
[2017-08-21] MEDS: SODIUM CHLORIDE 0.9% 1,000 ML IV SCH (18:01)
[2017-08-21] MEDS: MORPHINE 2 MG/ML SYRINGE IVP PRN (18:09)
[2017-08-21] MEDS: ENOXAPARIN 40 MG/0.4 ML SYRINGE SUBQ SCH (18:09)
[2017-08-21] MEDS: ACETAMINOPHEN 325 MG TABLET PO PRN (18:10)
[2017-08-21] MEDS: KETOROLAC 15 MG/ML VIAL IVP PRN (18:10)
[2017-08-21] MEDS: AMPICILLIN/SULBACTAM 3 GM in SODIUM CHLORIDE 0.9% MINIBAG 100 ML IV SCH (19:10)
[2017-08-21 19:35] LABS: MUDS CUTOFF CONCENTRATIONS CUTOFF CONC BELOW:
[2017-08-21 19:44] LABS: AMPHETAMINE SCREEN,URINE NEGATIVE (NEGATIVE); BENZODIAZEPINES SCREEN, URINE NEGATIVE (NEGATIVE); COCAINE SCREEN URINE NEGATIVE (NEGATIVE); METHADONE SCREEN, URINE NEGATIVE (NEGATIVE); METHAMPHETAMINES SCREEN, URINE POSITIVE (NEGATIVE); OPIATE SCREEN, URINE POSITIVE (NEGATIVE); OXYCODONE SCREEN, URINE NEGATIVE (NEGATIVE); PROPOXYPHENE SCREEN, URINE NEGATIVE (NEGATIVE); TRICYCLIC ANTIDEPRESSANT,URINE NEGATIVE (NEGATIVE)
[2017-08-21] MEDS ORDERED: BACITRACIN OINT TOP PRN (19:57)
[2017-08-21] MEDS: VANCOMYCIN INJ 1 GM in SODIUM CHLORIDE 0.9% 250 ML IV SCH (22:12)
[2017-08-22] MEDS: SODIUM CHLORIDE FLUSH 0.9% 10 ML SYRINGE IVP PRN ×2 (00:05→05:41)
[2017-08-22] MEDS: MORPHINE 2 MG/ML SYRINGE IVP PRN ×8 (00:05→21:27)
[2017-08-22] MEDS: AMPICILLIN/SULBACTAM 3 GM in SODIUM CHLORIDE 0.9% MINIBAG 100 ML IV SCH ×4 (00:30→18:53)
[2017-08-22] MEDS: SODIUM CHLORIDE 0.9% 1,000 ML IV SCH ×3 (03:14→21:27)
[2017-08-22] MEDS: VANCOMYCIN INJ 1 GM in SODIUM CHLORIDE 0.9% 250 ML IV SCH ×2 (05:29→14:05)
[2017-08-22 06:00] LABS: BASOPHILS % (AUTO) 0.3 %; EOSINOPHILS # (AUTO) 0.1 10^3/uL (0.0-0.7); EOSINOPHILS % (AUTO) 0.9 %; HGB - HEMOGLOBIN 12.1 g/dL (14.0-18.0); LYMPHOCYTES # (AUTO) 1.6 10^3/uL (1.5-3.5); LYMPHOCYTES % (AUTO) 15.8 %; MEAN CORPUSCULAR HEMOGLOBIN 26.8 pg (27.0-31.0); MEAN CORPUSCULAR HGB CONC 33.2 g/dL (32.0-36.0); MEAN CORPUSCULAR VOLUME 80.8 fL (80.0-94.0); MEAN PLATELET VOLUME 7.5 fL (7.4-11.4); MONOCYTES # (AUTO) 0.6 10^3/uL (0.0-1.0); MONOCYTES % (AUTO) 6.2 %; NEUTROPHILS # (AUTO) 7.8 10^3/uL (1.5-6.6); NEUTROPHILS % (AUTO) 76.8 %; PLT - PLATELET COUNT 269 10^3/uL (130-450); RED BLOOD COUNT 4.53 10^6/uL (4.70-6.10); RED CELL DISTRIBUTION WIDTH 15.7 % (12.0-15.0); WHITE BLOOD COUNT 10.2 x10^3/uL (4.8-10.8)
[2017-08-22 06:10] LABS: ALBUMIN 2.9 g/dL (3.2-5.5); ALBUMIN/GLOBULIN RATIO 0.8 (1.0-2.2); BILIRUBIN,TOTAL 0.3 mg/dL (0.2-1.0); CALCIUM 8.5 mg/dL (8.5-10.3); CREATININE 0.7 mg/dL (0.6-1.2); MAGNESIUM 1.8 mg/dL (1.7-2.8); TOTAL PROTEIN 6.6 g/dL (6.7-8.2)
[2017-08-22] MEDS: FAMOTIDINE 20 MG TABLET PO SCH (08:05)
[2017-08-22] MEDS: NICOTINE 14 MG PATCH TOP SCH (08:05)
[2017-08-22] MEDS: ENOXAPARIN 40 MG/0.4 ML SYRINGE SUBQ SCH (08:05)
[2017-08-22] MEDS: POLYETHYLENE GLYCOL 3350 17 GM PACKET PO SCH (08:06)
[2017-08-22] MEDS: SODIUM CHLORIDE FLUSH 0.9% 10 ML SYRINGE IVP SCH ×2 (09:32→17:08)
[2017-08-22 13:43] LABS: VANCOMYCIN,TROUGH 9.4 ug/mL (10.0-20.0)
[2017-08-22] MEDS ORDERED: VANCOMYCIN INJ 500 MG in SODIUM CHLORIDE 0.9% MINIBAG 100 ML IV ONE (15:30)
[2017-08-22] MEDS: KETOROLAC 15 MG/ML VIAL IVP PRN (16:10)
--- NOTE | 2017-08-22 18:36 | PROVIDER PROGRESS NOTE ---
Subjective - Prog Note Date Prog Note Date: 08/22/17 - Subjective Pt reports feeling: Improved Subjective: pt is comfortable sleeping at the bed, no complaint. Current Medications - Current Medications Current Medications: Active Medications Acetaminophen (Tylenol) 650 mg PO Q4HR PRN PRN Reason: Pain 1 to 4 Last Admin: 08/21/17 18:10 Dose: 650 mg Bacitracin (Bacitracin) 1 packet TOP PRN PRN PRN Reason: Skin Care Last Admin: 08/22/17 00:13 Dose: 1 packet Famotidine (Pepcid) 20 mg PO DAILY [facility] Last Admin: 08/22/17 08:05 Dose: 20 mg Ampicillin Sodium/Sulbactam (Sodium 3 gm/ Sodium Chloride) 100 mls @ 200 mls/ hr IV Q6H [facility] Last Admin: 08/22/17 18:53 Dose: 200 mls/hr Sodium Chloride (Normal Saline 0.9%) 1,000 mls @ 100 mls/hr IV .Q10H [facility] Last Admin: 08/22/17 09:31 Dose: 100 mls/hr Vancomycin HCl 1 gm/Vancomycin HCl 500 mg/ Sodium Chloride 500 mls @ 250 mls/ hr IV Q8H [facility] Ketorolac Tromethamine (Toradol Inj (15mg)) 15 mg IVP Q6HR PRN PRN Reason: PAIN Stop: 08/26/17 14:18 Last Admin: 08/22/17 16:10 Dose: 15 mg Morphine Sulfate (Morphine) 2 mg IVP Q2H PRN PRN Reason: PAIN Last Admin: 08/22/17 18:54 Dose: 2 mg Nicotine (Nicoderm) 1 patch TOP DAILY [facility] Last Admin: 08/22/17 08:05 Dose: 1 patch Ondansetron HCl (Zofran Inj) 4 mg IVP Q6HR PRN PRN Reason: Nausea / Vomiting Polyethylene Glycol (Miralax) 17 gm PO DAILY [facility] Last Admin: 08/22/17 08:06 Dose: Not Given Sodium Chloride (Normal Saline Flush 0.9%) 10 ml IVP PRN PRN PRN Reason: NEEDED PER PROVIDER ORDERS Last Admin: 08/22/17 05:41 Dose: 10 ml Sodium Chloride (Normal Saline Flush 0.9%) 10 ml IVP 0100,0900,1700 [facility] Last Admin: 08/22/17 17:08 Dose: Not Given Objective - Vital Signs/Intake & Output Reviewed Vital Signs: Yes Vital Signs: Vital Signs x48h Temp Pulse Resp BP Pulse Ox 08/22/17 16:05 36.5 C 70 20 145/78 H 100 Intake & Output: Intake & Output 08/19/17 08/20/17 08/21/17 08/22/17 23:59 23:59 23:59 23:59 Intake Total 2395.000 3665 Output Total 400 3100 Balance 1995.000 565 - Objective General Appearance: positive: No acute distress, Alert. negative: Lethargic Eyes Bilateral: positive: Normal inspection, PERRL, No lid inflammation, Conjunctivae nml ENT: positive: ENT inspection nml, Pharynx nml, No signs of dehydration. negative: Purulent nasal drainage, Pharyngeal erythema, Oral lesions Neck: positive: Nml inspection, Thyroid nml, No JVD, Trachea midline. negative : Thyromegaly, Lymphadenopathy (R), Lymphadenopathy (L), Stiff neck, Carotid bruit, Swelling/bruising, Tracheal deviation Respiratory: positive: Chest non-tender, No respiratory distress, Breath sounds nml. negative: Wheezes, Rales, Rhonchi Cardiovascular: positive: Regular rate & rhythm, No murmur, No gallop. negative : Irregularly irregular, Extrasystoles, Tachycardia, Bradycardia, JVD present, Systolic murmur, Diastolic murmur Peripheral Pulses: 2+ Radial (R), 2+ Radial (L), 2+ Dorsalis pedis (R), 2+ Dorsalis pedis (L) Abdomen: positive: Non-tender, Nml bowel sounds, No distention. negative: Tenderness, Guarding, Rebound Back: positive: Nml inspection. negative: CVA tenderness (R), CVA tenderness (L ) Skin: positive: Warm, Dry, Laceration (cm). negative: Cyanosis, Diaphoresis, Pallor Extremities: positive: Non-tender, Full ROM, Nml appearance. negative: Calf tenderness, Joint swelling, Meredith's sign/cords Neurologic/Psychiatric: positive: Oriented x3, Motor nml, Sensation nml, Mood/ affect nml. negative: Sensory loss, Facial droop, Slurred/abnml speech, Depressed mood/affect - Lab Results Fish Bones: 08/22/17 05:44 08/22/17 05:44 Other Labs: Lab Results x24hrs 08/22/17 08/22/17 08/22/17 Range/Units 13:30 05:44 05:44 WBC 10.2 (4.8-10.8) x10^3/uL RBC 4.53 L (4.70-6.10) 10^6/uL Hgb 12.1 L (14.0-18.0) g/dL Hct 36.5 L (42.0-52.0) % MCV 80.8 (80.0-94.0) fL MCH 26.8 L (27.0-31.0) pg MCHC 33.2 (32.0-36.0) g/dL RDW 15.7 H (12.0-15.0) % Plt Count 269 (130-450) 10^3/uL MPV 7.5 (7.4-11.4) fL Neut # (Auto) 7.8 H (1.5-6.6) 10^3/uL Lymph # (Auto) 1.6 (1.5-3.5) 10^3/uL [place] # (Auto) 0.6 (0.0-1.0) 10^3/uL Eos # (Auto) 0.1 (0.0-0.7) 10^3/uL Baso # (Auto) 0.0 (0.0-0.1) 10^3/uL Absolute Nucleated RBC 0.00 x10^3/uL Nucleated RBC % 0.0 /100WBC Sodium 141 (135-145) mmol/L Potassium 3.5 (3.5-5.0) mmol/L Chloride 108 (101-111) mmol/L Carbon Dioxide 25 (21-32) mmol/L Anion Gap 8.0 (6-13) BUN 11 (6-20) mg/dL Creatinine 0.7 (0.6-1.2) mg/dL Estimated GFR (MDRD) 136 (>89) Glucose 119 H (70-100) mg/dL Calcium 8.5 (8.5-10.3) mg/dL Magnesium 1.8 (1.7-2.8) mg/dL Total Bilirubin 0.3 (0.2-1.0) mg/dL AST 20 (10-42) IU/L ALT 13 (10-60) IU/L Alkaline Phosphatase 65 (42-121) IU/L Total Protein 6.6 L (6.7-8.2) g/dL Albumin 2.9 L (3.2-5.5) g/dL Globulin 3.7 (2.1-4.2) g/dL Albumin/Globulin Ratio 0.8 L (1.0-2.2) Last Dose Date 08/22/17 Last Dose Time 0800 Vancomycin Trough 9.4 L (10.0-20.0) ug/mL Urine Opiates Screen (NEGATIVE) Ur Oxycodone Screen (NEGATIVE) Urine Methadone Screen (NEGATIVE) Ur Propoxyphene Screen (NEGATIVE) Ur Barbiturates Screen (NEGATIVE) Ur Tricyclics Screen (NEGATIVE) Ur Phencyclidine Scrn (NEGATIVE) Ur Amphetamine Screen (NEGATIVE) U Methamphetamines Scrn (NEGATIVE) U Benzodiazepines Scrn (NEGATIVE) Urine Cocaine Screen (NEGATIVE) U Cannabinoids Screen (NEGATIVE) 08/21/17 Range/Units 19:20 WBC (4.8-10.8) x10^3/uL RBC (4.70-6.10) 10^6/uL Hgb (14.0-18.0) g/dL Hct (42.0-52.0) % MCV (80.0-94.0) fL MCH (27.0-31.0) pg MCHC (32.0-36.0) g/dL RDW (12.0-15.0) % Plt Count (130-450) 10^3/uL MPV (7.4-11.4) fL Neut # (Auto) (1.5-6.6) 10^3/uL Lymph # (Auto) (1.5-3.5) 10^3/uL [place] # (Auto) (0.0-1.0) 10^3/uL Eos # (Auto) (0.0-0.7) 10^3/uL Baso # (Auto) (0.0-0.1) 10^3/uL Absolute Nucleated RBC x10^3/uL Nucleated RBC % /100WBC Sodium (135-145) mmol/L Potassium (3.5-5.0) mmol/L Chloride (101-111) mmol/L Carbon Dioxide (21-32) mmol/L Anion Gap (6-13) BUN (6-20) mg/dL Creatinine (0.6-1.2) mg/dL Estimated GFR (MDRD) (>89) Glucose (70-100) mg/dL Calcium (8.5-10.3) mg/dL Magnesium (1.7-2.8) mg/dL Total Bilirubin (0.2-1.0) mg/dL AST (10-42) IU/L ALT (10-60) IU/L Alkaline Phosphatase (42-121) IU/L Total Protein (6.7-8.2) g/dL Albumin (3.2-5.5) g/dL Globulin (2.1-4.2) g/dL Albumin/Globulin Ratio (1.0-2.2) Last Dose Date Last Dose Time Vancomycin Trough (10.0-20.0) ug/mL Urine Opiates Screen POSITIVE H (NEGATIVE) Ur Oxycodone Screen NEGATIVE (NEGATIVE) Urine Methadone Screen NEGATIVE (NEGATIVE) Ur Propoxyphene Screen NEGATIVE (NEGATIVE) Ur Barbiturates Screen NEGATIVE (NEGATIVE) Ur Tricyclics Screen NEGATIVE (NEGATIVE) Ur Phencyclidine Scrn NEGATIVE (NEGATIVE) Ur Amphetamine Screen NEGATIVE (NEGATIVE) U Methamphetamines Scrn POSITIVE H (NEGATIVE) U Benzodiazepines Scrn NEGATIVE (NEGATIVE) Urine Cocaine Screen NEGATIVE (NEGATIVE) U Cannabinoids Screen NEGATIVE (NEGATIVE) ABX Reporting Has patient been on IV antibiotics over the past 48 hours?: Yes Assessment/Plan - Problem List (1) Wound of skin Impression: Conclusion/Plan: 08/22 [facility] wound consult with pt's wound , will follow up WBC is normal. 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 advise and consult to pt to quit (3) Currently smokes tobacco Conclusion/Plan: advise pt quit and order Nicotin patch
[2017-08-22] MEDS: ACETAMINOPHEN 325 MG TABLET PO PRN (21:50)
[2017-08-22] MEDS: VANCOMYCIN INJ 1 GM, VANCOMYCIN INJ 500 MG in SODIUM CHLORIDE 0.9% 500 ML IV SCH (21:50)
[2017-08-23] MEDS: SODIUM CHLORIDE FLUSH 0.9% 10 ML SYRINGE IVP SCH ×3 (02:33→16:49)
[2017-08-23] MEDS: AMPICILLIN/SULBACTAM 3 GM in SODIUM CHLORIDE 0.9% MINIBAG 100 ML IV SCH ×4 (02:36→18:44)
[2017-08-23] MEDS: KETOROLAC 15 MG/ML VIAL IVP PRN ×2 (02:48→20:20)
[2017-08-23 05:58] LABS: BASOPHILS # (AUTO) 0.1 10^3/uL (0.0-0.1); BASOPHILS % (AUTO) 0.9 %; EOSINOPHILS # (AUTO) 0.2 10^3/uL (0.0-0.7); EOSINOPHILS % (AUTO) 2.4 %; HGB - HEMOGLOBIN 11.5 g/dL (14.0-18.0); LYMPHOCYTES # (AUTO) 2.3 10^3/uL (1.5-3.5); LYMPHOCYTES % (AUTO) 35.8 %; MEAN CORPUSCULAR HEMOGLOBIN 26.2 pg (27.0-31.0); MEAN PLATELET VOLUME 7.7 fL (7.4-11.4); MONOCYTES # (AUTO) 0.5 10^3/uL (0.0-1.0); MONOCYTES % (AUTO) 7.6 %; NEUTROPHILS # (AUTO) 3.5 10^3/uL (1.5-6.6); NEUTROPHILS % (AUTO) 53.3 %; PLT - PLATELET COUNT 224 10^3/uL (130-450); RED BLOOD COUNT 4.39 10^6/uL (4.70-6.10); RED CELL DISTRIBUTION WIDTH 16.3 % (12.0-15.0); WHITE BLOOD COUNT 6.5 x10^3/uL (4.8-10.8)
[2017-08-23] MEDS: VANCOMYCIN INJ 1 GM, VANCOMYCIN INJ 500 MG in SODIUM CHLORIDE 0.9% 500 ML IV SCH ×2 (06:04→16:09)
[2017-08-23] MEDS: MORPHINE 2 MG/ML SYRINGE IVP PRN ×6 (06:05→21:19)
[2017-08-23 06:10] LABS: ALBUMIN 2.9 g/dL (3.2-5.5); ALBUMIN/GLOBULIN RATIO 0.9 (1.0-2.2); BILIRUBIN,TOTAL 0.2 mg/dL (0.2-1.0); CALCIUM 8.3 mg/dL (8.5-10.3); CREATININE 0.7 mg/dL (0.6-1.2); TOTAL PROTEIN 6.1 g/dL (6.7-8.2)
[2017-08-23] MEDS: NICOTINE 14 MG PATCH TOP SCH (09:22)
[2017-08-23] MEDS: FAMOTIDINE 20 MG TABLET PO SCH (09:22)
[2017-08-23] MEDS: POLYETHYLENE GLYCOL 3350 17 GM PACKET PO SCH (09:23)
--- NOTE | 2017-08-23 14:43 | PROVIDER PROGRESS NOTE ---
Subjective - Prog Note Date Prog Note Date: 08/23/17 - Subjective Pt reports feeling: Improved Subjective: pt feels better, and no complaint. Ther is still some drainage in The wound site. dress changing instruction per MAC recommend. Current Medications - Current Medications Current Medications: Active Medications Acetaminophen (Tylenol) 650 mg PO Q4HR PRN PRN Reason: Pain 1 to 4 Last Admin: 08/22/17 21:50 Dose: 650 mg Bacitracin (Bacitracin) 1 packet TOP PRN PRN PRN Reason: Skin Care Last Admin: 08/22/17 00:13 Dose: 1 packet Famotidine (Pepcid) 20 mg PO DAILY [facility] Last Admin: 08/23/17 09:22 Dose: 20 mg Ampicillin Sodium/Sulbactam (Sodium 3 gm/ Sodium Chloride) 100 mls @ 200 mls/ hr IV Q6H [facility] Last Infusion: 08/23/17 15:18 Dose: Infused Sodium Chloride (Normal Saline 0.9%) 1,000 mls @ 100 mls/hr IV .Q10H [facility] Last Admin: 08/23/17 15:27 Dose: 100 mls/hr Vancomycin HCl 1 gm/Vancomycin HCl 500 mg/ Sodium Chloride 500 mls @ 250 mls/ hr IV Q8H [facility] Last Admin: 08/23/17 16:09 Dose: 250 mls/hr Ketorolac Tromethamine (Toradol Inj (15mg)) 15 mg IVP Q6HR PRN PRN Reason: PAIN Stop: 08/26/17 14:18 Last Admin: 08/23/17 02:48 Dose: 15 mg Morphine Sulfate (Morphine) 2 mg IVP Q2H PRN PRN Reason: PAIN Last Admin: 08/23/17 16:09 Dose: 2 mg Multivitamins (Theragran) 1 tab PO DAILYWM [facility] Last Admin: 08/23/17 15:27 Dose: 1 tab Mupirocin (Bactroban 2% Oint) 1 applic TOP BID [facility] Nicotine (Nicoderm) 1 patch TOP DAILY [facility] Last Admin: 08/23/17 09:22 Dose: 1 patch Ondansetron HCl (Zofran Inj) 4 mg IVP Q6HR PRN PRN Reason: Nausea / Vomiting Polyethylene Glycol (Miralax) 17 gm PO DAILY [facility] Last Admin: 06/29/18 09:23 Dose: Not Given Sodium Chloride (Normal Saline Flush 0.9%) 10 ml IVP PRN PRN PRN Reason: NEEDED PER PROVIDER ORDERS Last Admin: 08/22/17 05:41 Dose: 10 ml Sodium Chloride (Normal Saline Flush 0.9%) 10 ml IVP 0100,0900,1700 [facility] Last Admin: 08/23/17 09:23 Dose: Not Given Objective - Vital Signs/Intake & Output Reviewed Vital Signs: Yes Vital Signs: Vital Signs x48h Temp Pulse Resp BP Pulse Ox 08/23/17 12:09 36.5 C 65 20 139/96 H 99 Intake & Output: Intake & Output 08/20/17 08/21/17 08/22/17 08/23/17 23:59 23:59 23:59 23:59 Intake Total 2395.000 6408.333 700 Output Total 400 3600 2075 Balance 0195.838 6433.333 -1615 - Objective General Appearance: positive: No acute distress, Alert. negative: Lethargic Eyes Bilateral: positive: Normal inspection, PERRL, No lid inflammation, Conjunctivae nml ENT: positive: ENT inspection nml, Pharynx nml, No signs of dehydration. negative: Purulent nasal drainage, Pharyngeal erythema, Oral lesions Neck: positive: Nml inspection, Thyroid nml, No JVD, Trachea midline. negative : Thyromegaly, Lymphadenopathy (R), Lymphadenopathy (L), Stiff neck, Swelling/ bruising, Tracheal deviation Respiratory: positive: Chest non-tender, No respiratory distress, Breath sounds nml. negative: Wheezes, Rales, Rhonchi Cardiovascular: positive: Regular rate & rhythm, No murmur, No gallop. negative : Irregularly irregular, Extrasystoles, Tachycardia, Bradycardia, JVD present, Systolic murmur, Diastolic murmur Peripheral Pulses: 2+ Radial (R), 2+ Radial (L), 2+ Dorsalis pedis (R), 2+ Dorsalis pedis (L) Abdomen: positive: Non-tender, No organomegaly, Nml bowel sounds, No distention. negative: Tenderness, Guarding, Rebound Back: positive: Nml inspection. negative: CVA tenderness (R), CVA tenderness (L ) Skin: positive: Warm, Dry, Laceration (cm), Other (per MAC picture and prescribtion. There is still some drainage from the wound.). negative: Cyanosis , Diaphoresis, Pallor Extremities: positive: Non-tender, Full ROM, Nml appearance. negative: Calf tenderness, Joint swelling, Meredith's sign/cords Neurologic/Psychiatric: positive: Oriented x3, Motor nml, Sensation nml, Mood/ affect nml. negative: Weakness, Sensory loss, Facial droop, Slurred/abnml speech, Depressed mood/affect - Lab Results Fish Bones: 08/23/17 05:46 08/23/17 05:46 Other Labs: Lab Results x24hrs 08/23/17 08/23/17 08/23/17 Range/Units 05:46 05:46 05:46 WBC 6.5 (4.8-10.8) x10^3/uL RBC 4.39 L (4.70-6.10) 10^6/uL Hgb 11.5 L (14.0-18.0) g/dL Hct 36.0 L (42.0-52.0) % MCV 82.0 (80.0-94.0) fL MCH 26.2 L (27.0-31.0) pg MCHC 32.0 (32.0-36.0) g/dL RDW 16.3 H (12.0-15.0) % Plt Count 224 (130-450) 10^3/uL MPV 7.7 (7.4-11.4) fL Neut # (Auto) 3.5 (1.5-6.6) 10^3/uL Lymph # (Auto) 2.3 (1.5-3.5) 10^3/uL [place] # (Auto) 0.5 (0.0-1.0) 10^3/uL Eos # (Auto) 0.2 (0.0-0.7) 10^3/uL Baso # (Auto) 0.1 (0.0-0.1) 10^3/uL Absolute Nucleated RBC 0.00 x10^3/uL Nucleated RBC % 0.0 /100WBC ESR 28 H (0-15) mm/Hr Sodium 137 (135-145) mmol/L Potassium 4.1 (3.5-5.0) mmol/L Chloride 108 (101-111) mmol/L Carbon Dioxide 25 (21-32) mmol/L Anion Gap 4.0 L (6-13) BUN 11 (6-20) mg/dL Creatinine 0.7 (0.6-1.2) mg/dL Estimated GFR (MDRD) 136 (>89) Glucose 102 H (70-100) mg/dL Calcium 8.3 L (8.5-10.3) mg/dL Total Bilirubin 0.2 (0.2-1.0) mg/dL AST 15 (10-42) IU/L ALT 11 (10-60) IU/L Alkaline Phosphatase 59 (42-121) IU/L Total Protein 6.1 L (6.7-8.2) g/dL Albumin 2.9 L (3.2-5.5) g/dL Globulin 3.2 (2.1-4.2) g/dL Albumin/Globulin Ratio 0.9 L (1.0-2.2) ABX Reporting Has patient been on IV antibiotics over the past 48 hours?: Yes Assessment/Plan - Problem List (1) Wound of skin Impression: Impression: 08/23 would culture preliminary reveals heavy growth of staphy, following up susceptibility study order bactroban ointment, dressing change instruction per MAC recommend, dressing change per shift. Call [facility] clinic to assess pt as needed continue antibiotics 08/22 [facility] wound consult with pt's wound , will follow up WBC is normal. pt did not complaint pain when I assessed pt continue Unasyn and vancomycin dressing change consult with wound care, follow up dressing change antibiotics: Unasyn and vancomycin blood culture and wound culture, following up daily and vital monitor (2) Heroin abuse Conclusion/Plan: 08/23 discuss pt and advise pt quit illicit drug again. 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 advise and consult to pt to quit (3) Currently smokes tobacco Conclusion/Plan: advise pt quit and order Nicotin patch
[2017-08-23 15:00] LABS: VANCOMYCIN,TROUGH 18.4 ug/mL (10.0-20.0)
[2017-08-23] MEDS: MULTIVITAMIN TABLET PO SCH (15:27)
[2017-08-23] MEDS: SODIUM CHLORIDE 0.9% 1,000 ML IV SCH ×2 (15:27→16:49)
[2017-08-23] MEDS: MUPIROCIN 2% OINT 22 GM TUBE TOP SCH (16:48)
[2017-08-23] MEDS: SODIUM CHLORIDE FLUSH 0.9% 10 ML SYRINGE IVP PRN (21:19)
[2017-08-24] MEDS: VANCOMYCIN INJ 1 GM, VANCOMYCIN INJ 500 MG in SODIUM CHLORIDE 0.9% 500 ML IV SCH ×2 (00:06→10:22)
[2017-08-24] MEDS: SODIUM CHLORIDE FLUSH 0.9% 10 ML SYRINGE IVP SCH ×2 (00:19→08:41)
[2017-08-24] MEDS: MORPHINE 2 MG/ML SYRINGE IVP PRN ×3 (00:19→08:34)
[2017-08-24] MEDS: AMPICILLIN/SULBACTAM 3 GM in SODIUM CHLORIDE 0.9% MINIBAG 100 ML IV SCH ×2 (02:30→08:36)
[2017-08-24] MEDS: MUPIROCIN 2% OINT 22 GM TUBE TOP SCH ×2 (05:18→13:37)
[2017-08-24 05:45] LABS: BASOPHILS # (AUTO) 0.1 10^3/uL (0.0-0.1); BASOPHILS % (AUTO) 0.9 %; EOSINOPHILS # (AUTO) 0.1 10^3/uL (0.0-0.7); EOSINOPHILS % (AUTO) 2.3 %; HGB - HEMOGLOBIN 11.6 g/dL (14.0-18.0); LYMPHOCYTES # (AUTO) 2.3 10^3/uL (1.5-3.5); LYMPHOCYTES % (AUTO) 37.3 %; MEAN CORPUSCULAR HEMOGLOBIN 26.8 pg (27.0-31.0); MEAN CORPUSCULAR HGB CONC 33.2 g/dL (32.0-36.0); MEAN CORPUSCULAR VOLUME 80.8 fL (80.0-94.0); MEAN PLATELET VOLUME 7.5 fL (7.4-11.4); MONOCYTES # (AUTO) 0.4 10^3/uL (0.0-1.0); MONOCYTES % (AUTO) 6.7 %; NEUTROPHILS # (AUTO) 3.2 10^3/uL (1.5-6.6); NEUTROPHILS % (AUTO) 52.8 %; PLT - PLATELET COUNT 260 10^3/uL (130-450); RED BLOOD COUNT 4.32 10^6/uL (4.70-6.10); RED CELL DISTRIBUTION WIDTH 15.8 % (12.0-15.0); WHITE BLOOD COUNT 6.2 x10^3/uL (4.8-10.8)
[2017-08-24 06:01] LABS: ALBUMIN 2.7 g/dL (3.2-5.5); ALBUMIN/GLOBULIN RATIO 0.8 (1.0-2.2); BILIRUBIN,TOTAL 0.4 mg/dL (0.2-1.0); CALCIUM 8.2 mg/dL (8.5-10.3); CREATININE 0.9 mg/dL (0.6-1.2); TOTAL PROTEIN 5.9 g/dL (6.7-8.2)
[2017-08-24] MEDS: SODIUM CHLORIDE 0.9% 1,000 ML IV SCH (06:50)
[2017-08-24] MEDS: MULTIVITAMIN TABLET PO SCH (08:40)
[2017-08-24] MEDS: NICOTINE 14 MG PATCH TOP SCH (08:40)
[2017-08-24] MEDS: FAMOTIDINE 20 MG TABLET PO SCH (08:40)
[2017-08-24] MEDS: POLYETHYLENE GLYCOL 3350 17 GM PACKET PO SCH (08:41)
[2017-08-24 08:54] VITALS: BP 141/75
--- NOTE | 2017-08-24 10:51 | Discharge Plan ---
Discharge Plan Disposition: Home, Self Care Condition: Good Prescriptions: Clindamycin HCl [Clindamycin 150MG CAP] 450 mg PO TID 10 Days #90 capsule Multivitamin [Theragran] 1 tab PO DAILYWM #30 tablet Nicotine 14 mg Patch [Nicoderm] 1 patch TOP DAILY #7 patch oxyCODONE [Roxicodone] 5 mg PO Q4H PRN #12 tablet PRN Reason: Pain Saccharomyces Boulardii [Florastor] 250 mg PO BID #40 capsule Diet: Regular Activity Restrictions: No Restrictions Shower Restrictions: No Driving Restrictions: No Weight Bearing: Full Weight Instruction Topics: Infec Wound Recognize Tx, Wound Care Dc Additional Instructions or Follow Up instructions: You were admitted for a right leg wound that improved with IV antibiotics. You should continue daily wound care. You will need more antibiotics to be taken orally for another 10 days. You should also take a probiotic. You requested pain medications, and I suggest NSAIDS such as Naproxen, or ibuprofen. You need to see a regular, Primary doctor within one week to check on your wound and overall wellness. Wound cultures showed a +MRSA, so Clindamycin was sent to pharmacy. A message was left to [facility] pharmacy @ [phone] by me with this update to treatment AND to cancel the previous antibiotics that were sent earlier. Follow-Up Care: [facility] - Wound/Ostomy No Smoking: If you smoke, Please STOP! Call for help.
--- NOTE | 2017-08-24 11:31 | DISCHARGE SUMMARY ---
Discharge Summary Admit Date: 08/21/17 Discharge Date: 08/24/17 Discharging Provider: EUGENE Levi Primary Care Provider: none Code Status: Attempt Resuscitation Condition at Discharge: Good Discharge Disposition: 01 Home, Self Care - DIAGNOSES Admission Diagnoses: Cellulitis, unspecified (L03.90) Opioid abuse, uncomplicated (F11.10) Nicotine dependence, unspecified, uncomplicated (F17.200) Homelessness (Z59.0) Discharge Diagnoses with Status of Each Condition: Cellulitis of right lower extremity (L03.115) new on this admit, treatment to continue. Heroin abuse (F11.10) chronic, patient refused resources. Homeless (Z59.0) chronic, patient refused resources. Currently smokes tobacco (F17.200) chronic, refused nicotine patches. - HPI History of Present Illness: Misael Patel is a 26-year-old white male with history of heroin dependence, homelessness, and previous cellulitis. He presented to the ER complaints of wound infection that developed from a mosquito bite located on the anterior right leg extending down to the ankle area. He states that he spends most of his time out side and frequently gets insect bites. The area became irritated after he scratched the area and then he became infected. He report this happened couples of week ago. He report he is still homeless and still injects heroin daily, and smokes cigarettes as well. He was last admitted to the hospital with an infected finger and infected hand. He has not been feeling "good" in the last few days but can't be more specific. He denies chest pain, shortness of breath, cough, headache, abdominal pain, nausea, vomiting, diarrhea , fever or chills. Today in the ER, pt is afebrile, pt has slight elevated WBC at 11.4. Xray of right lower extremity reveals no bony infection, and mild soft tissue swelling, no abscess. Pt is admitted for wound infection. - HOSPITAL COURSE Hospital Course: The following diagnoses were prevalent during this hospital stay: (1) Wound of skin A wound culture was obtained on 08/23 would culture preliminary reveals heavy growth of staph, following up susceptibility study, which grew out +MRSA. Bacitracin ointment was ordered, dressing changes per MAC recommendations. The patient was started on Unasyn and vancomycin IV, and discharged on Clindamycin PO to be continued for at least 10 days. All blood cultures were negative. It is recommended that the patient follow up with PCP, although with is ongoing homelessness, the ED is often used for primary care. (2) Heroin abuse At the time of admission, the patient was counseled about his chronic heroin use , and was given resources for addition. He has a long history of this, and continues to remain in an environment conducive to use including social circles , living situation and lack of mental/medical care. (3) Currently smokes tobacco The patient admits to at least 10 years of tobacco dependence with no interest in cessation. He was offered a nicotine patch, but refused. Disposition: The patient was offered resources, and sent home with a few dressing supplies. Prescription for antibiotic was changed based on +MRSA wound culture results. - ALLERGIES Allergies/Adverse Reactions: Allergies Allergy/AdvReac Type Severity Reaction Status Date / Time hydrocodone bitartrate * AdvReac Nausea Verified 08/28/17 04:29 [From Vicodin] - MEDICATIONS Home Medications: Ambulatory Orders Medication Instructions Recorded Confirmed Ibuprofen [Motrin] 800 mg PO Q8H PRN #30 tablet 08/12/17 08/28/17 Clindamycin HCl [Clindamycin 150MG 450 mg PO TID 10 Days #90 capsule 08/24/17 CAP] Multivitamin [Theragran] 1 tab PO DAILYWM #30 tablet 08/24/17 08/28/17 Nicotine 14 mg Patch [Nicoderm] 1 patch TOP DAILY #7 patch 08/24/17 08/28/17 Saccharomyces Boulardii [Florastor] 250 mg PO BID #40 capsule 08/24/17 08/28/17 oxyCODONE [Roxicodone] 5 mg PO Q4H PRN #12 tablet 08/24/17 08/28/17 - PHYSICAL EXAM AT DISCHARGE General Appearance: positive: No acute distress, Alert, Lethargic Eyes Bilateral: positive: Normal inspection, PERRL ENT: positive: ENT inspection nml, Pharynx nml, No signs of dehydration Neck: positive: Nml inspection, Thyroid nml, No JVD, Trachea midline Respiratory: positive: Chest non-tender, No respiratory distress, Breath sounds nml Cardiovascular: positive: Regular rate & rhythm, No murmur, No gallop Peripheral Pulses: positive: 2+ Abdomen: positive: Non-tender, No organomegaly, Nml bowel sounds Back: positive: Nml inspection Skin: positive: No rash, Warm, Dry Extremities: positive: Full ROM, Other (generalized RLE swelling, due to acute infection, +pulses.) Neurologic/Psychiatric: positive: Oriented x3, CN's nml (2-12), Motor nml, Sensation nml, Depressed mood/affect Reflexes: Bicep (R): 3+, Bicep (L): 3+ - LABS Result Diagrams: 08/24/17 05:30 08/24/17 05:30 - DIAGNOSTIC IMAGING Diagnostic Imaging Results: Final report reviewed - FOLLOW UP Follow Up: Disposition: Home, Self Care Condition: Good Prescriptions: Clindamycin HCl [Clindamycin 150MG CAP] 450 mg PO TID 10 Days #90 capsule Multivitamin [Theragran] 1 tab PO DAILYWM #30 tablet Nicotine 14 mg Patch [Nicoderm] 1 patch TOP DAILY #7 patch oxyCODONE [Roxicodone] 5 mg PO Q4H PRN #12 tablet PRN Reason: Pain Saccharomyces Boulardii [Florastor] 250 mg PO BID #40 capsule Diet: Regular Activity Restrictions: No Restrictions Shower Restrictions: No Driving Restrictions: No Weight Bearing: Full Weight Instruction Topics: Infec Wound Recognize Tx, Wound Care Dc Additional Instructions or Follow Up instructions: You were admitted for a right leg wound that improved with IV antibiotics. You should continue daily wound care. You will need more antibiotics to be taken orally for another 10 days. You should also take a probiotic. You requested pain medications, and I suggest NSAIDS such as Naproxen, or ibuprofen. You need to see a regular, Primary doctor within one week to check on your wound and overall wellness. Wound cultures showed a +MRSA, so Clindamycin was sent to pharmacy. A message was left to [facility] pharmacy @ [phone] by me with this update to treatment AND to cancel the previous antibiotics that were sent earlier. - TIME SPENT Time Spent in Discharge (Minutes): 45
--- NOTE | 2017-08-24 13:46 | ED Physician Documentation ---
ED Addendum - Addendum Addendum: 08/24/17 13:46 Took call from [facility] regarding positive MRSA culture with heavy growth, note that it is resistant to Cipro, which is what he went home on a couple of hours ago. This information was passed to the hospitalist team, since he was an inpatient, specifically I told Dr. Young at 1:46 PM.
== END 2017-08-24 13:36 | disposition home or self-care (01) | DRG 603 ==
LOC: EDUNIT# → ED 11:26 → MS2 14:16
PROVIDERS: ADMIT Nurse Practitioner Gerontology; ATTEND Nurse Practitioner
DX: L03.115 Cellulitis of right lower limb (principal); F11.20 Opioid dependence, uncomplicated; B95.62 Methicillin resistant Staphylococcus aureus infection as the cause of diseases classified elsewhere; F17.210 Nicotine dependence, cigarettes, uncomplicated; G89.29 Other chronic pain; M54.9 Dorsalgia, unspecified; S90.561S Insect bite (nonvenomous), right ankle, sequela; W57.XXXS Bitten or stung by nonvenomous insect and other nonvenomous arthropods, sequela; Z59.0 Homelessness
CPT/HCPCS: 36415; 80053; 80202; 80306; 83690; 83735; 85025; 85651; 86140; 87040; 87640; 96365; 96375; 99283; 99284

== ENCOUNTER 2017-08-28 03:52 | Outpatient (CLI) | payer MEDICAID | END 2017-08-28 03:53 | disposition critical access hospital (66) | LOC: EMS 03:52 | PROVIDERS: ATTEND Surgery | DX: S80.811A Abrasion, right lower leg, initial encounter (principal); W22.8XXA Striking against or struck by other objects, initial encounter | CPT/HCPCS: A0425; A0429; A0999 ==

== ENCOUNTER 2017-08-28 04:10 | Emergency (ER) | payer MEDICAID ==
[2017-08-28 04:29] VITALS: BP 133/81
--- NOTE | 2017-08-28 04:54 | ED Physician Documentation ---
PD HPI LOWER EXT INJURY - Stated complaint Stated Complaint: ABRASION - Chief complaint Chief Complaint: Wound - History obtained from History obtained from: Patient - History of Present Illness PD HPI LOW EXT INJURY LOCATION: Right, Lower leg Type of injury: Other (abrasion) Where injury occurred: Street Timing - onset: How many hours ago (approximately 1-2 hours [employer]) Timing - details: Abrupt onset Recently seen: Admitted - Additional information Additional information: discharged from this hospital 4 days ago after inpatient stay to treat RLE cellulitis. He says that the wound had "scabbed over", but that tonight, he was walking on a sidewalk and his leg scraped against some rocks that caused the scab to tear off. Review of Systems Constitutional: denies: Fever, Chills Skin: reports: Abrasion (s) Neurologic: denies: Focal weakness, Numbness PD PAST MEDICAL HISTORY - Past Medical History Cardiovascular: Deep vein thrombosis, Other Respiratory: Asthma Endocrine/Autoimmune: None GI: None : None HEENT: None Psych: Depression Musculoskeletal: Chronic back pain Derm: None - Past Surgical History Past Surgical History: Yes General: Other Ortho: Other - Present Medications Home Medications: Ambulatory Orders Medication Instructions Recorded Confirmed Ibuprofen [Motrin] 800 mg PO Q8H PRN #30 tablet 08/12/17 08/28/17 Clindamycin HCl [Clindamycin 150MG 450 mg PO TID 10 Days #90 capsule 08/24/17 CAP] Multivitamin [Theragran] 1 tab PO DAILYWM #30 tablet 08/24/17 08/28/17 Nicotine 14 mg Patch [Nicoderm] 1 patch TOP DAILY #7 patch 08/24/17 08/28/17 Saccharomyces Boulardii [Florastor] 250 mg PO BID #40 capsule 08/24/17 08/28/17 oxyCODONE [Roxicodone] 5 mg PO Q4H PRN #12 tablet 08/24/17 08/28/17 - Allergies Allergies/Adverse Reactions: Allergies Allergy/AdvReac Type Severity Reaction Status Date / Time hydrocodone bitartrate * AdvReac Nausea Verified 08/28/17 04:29 [From Vicodin] - Social History Does the pt smoke?: Yes Smoking Status: Current every day smoker Does the pt drink ETOH?: No Does the pt have substance abuse?: No - Immunizations Immunizations are current?: No Immunizations: TDAP current <10years, Other immun not current - POLST Patient has POLST: No POLST Status: Full Code PD ED PE NORMAL - Vitals Vital signs reviewed: Yes - General General: Alert and oriented X 3, No acute distress, Well developed/nourished - Extremities Extremities: Normal ROM s pain, No edema PD ED PE EXPANDED - Extremities JASEN LE visual: 1 - abrasion (large abrasion with clean, sharp margins. there is no visible FB , dirt, or grit in the abrasion and the underlying dermis and the surrounding skin appears healthy and viable. no bony tenderness, erythema, fluctuance, or discharge.) Results - Vitals Vitals: Oxygen O2 Source Room air PD MEDICAL DECISION MAKING - ED course ED course: patient was concerned that the wound's scab had suddenly come off and wanted the wound evaluated. he does not have any pain c/o on my H+P, appears to be in NAD, and there is no evidence of infection of the RLE at this time. He says he is still taking antibiotics as prescribed when he was discharged from [facility]. I emphasized the importance of continuing to take the antibiotics as prescribed until the prescription is finished, and he acknowledges this and says he will do so. - Sepsis Event Vital Signs: Oxygen O2 Source Room air Departure - Departure Disposition: 01 Home, Self Care Clinical Impression: Abrasion Condition: Good Instructions: ED Abrasion Follow-Up: [facility] [Provider Group] [facility] [Provider Group] Comments: It is very important that you finish the antibiotics that were prescribed for you when you were discharged from the hospital. Discharge Date/Time: 08/28/17 08:51
[2017-08-28] MEDS ORDERED: BACITRACIN OINT TOP STA (05:05)
== END 2017-08-28 08:51 | disposition home or self-care (01) ==
LOC: EDUNIT# → ED 04:10
DX: S80.811A Abrasion, right lower leg, initial encounter (principal); X58.XXXA Exposure to other specified factors, initial encounter; Y92.410 Unspecified street and highway as the place of occurrence of the external cause; F17.200 Nicotine dependence, unspecified, uncomplicated; Z86.718 Personal history of other venous thrombosis and embolism
CPT/HCPCS: 99283; A9270

== ENCOUNTER 2017-09-06 21:36 | Emergency (ER) | payer MEDICAID ==
--- NOTE | 2017-09-06 21:46 | ED Physician Documentation ---
History of Present Illness - Stated complaint Stated Complaint: LEG PX - History obtained from History obtained from: Patient - History of Present Illness Timing: Yesterday Pain level now: 8 Improved by: rest Worsened by: movement, weight-bearing, palpation - Additonal information Additional information: recent inpatient [facility] stay for RLE cellulitis, d/c 08/24/17 and T+R from [facility] ED 08/28 for issue related to same, presents tonight due to worsening RLE pain since yesterday with discharge x 2 days from wound. Review of Systems Constitutional: reports: Reviewed and negative Cardiac: reports: Reviewed and negative Respiratory: reports: Reviewed and negative GI: reports: Reviewed and negative Skin: reports: Rash Musculoskeletal: reports: Extremity pain, Extremity swelling Neurologic: denies: Generalized weakness, Focal weakness, Numbness PD PAST MEDICAL HISTORY - Past Medical History Cardiovascular: Deep vein thrombosis, Other Respiratory: Asthma Endocrine/Autoimmune: None GI: None : None HEENT: None Psych: Depression Musculoskeletal: Chronic back pain Derm: None - Past Surgical History Past Surgical History: Yes General: Other Ortho: Other - Present Medications Home Medications: Ambulatory Orders Medication Instructions Recorded Confirmed Ibuprofen [Motrin] 800 mg PO Q8H PRN #30 tablet 08/12/17 08/28/17 Clindamycin HCl [Clindamycin 150MG 450 mg PO TID 10 Days #90 capsule 08/24/17 CAP] Multivitamin [Theragran] 1 tab PO DAILYWM #30 tablet 08/24/17 08/28/17 Nicotine 14 mg Patch [Nicoderm] 1 patch TOP DAILY #7 patch 08/24/17 08/28/17 Saccharomyces Boulardii [Florastor] 250 mg PO BID #40 capsule 08/24/17 08/28/17 oxyCODONE [Roxicodone] 5 mg PO Q4H PRN #12 tablet 08/24/17 08/28/17 Sulfamethox/Trimeth 800/160 1 each PO BID #19 tablet 09/06/17 [Bactrim Ds 800/160] oxyCODONE/ACET 5/325 [Percocet 5 1 - 2 each PO Q6H PRN #12 tablet 09/06/17 mg/325 mg] - Allergies Allergies/Adverse Reactions: Allergies Allergy/AdvReac Type Severity Reaction Status Date / Time hydrocodone bitartrate * AdvReac Nausea Verified 08/28/17 04:29 [From Vicodin] - Social History Does the pt smoke?: Yes Smoking Status: Current every day smoker Does the pt drink ETOH?: No Does the pt have substance abuse?: No - Immunizations Immunizations are current?: No Immunizations: TDAP current <10years, Other immun not current - POLST Patient has POLST: No POLST Status: Full Code PD ED PE NORMAL - Vitals Vital signs reviewed: Yes - General General: Alert and oriented X 3, No acute distress, Well developed/nourished - Cardiac Cardiac: RRR, No murmur - Respiratory Respiratory: No respiratory distress, Clear bilaterally - Extremities Extremities: No edema - Neuro Neuro: Alert and oriented X 3, No motor deficit, No sensory deficit PD ED PE EXPANDED - Extremities JASEN LE visual: 1 - tenderness (Sharply marginated erythema with early scarring and granulomatous tissue. There is scant/mild purple to discharge oozing from cranial aspect without fluctuance or abnormal tactile warmth/heat) Results - Vitals Vitals: Oxygen O2 Source Room air - Labs Labs: Microbiology 09/06/17 21:50 Wound Culture - Final Leg - Right Methicillin Resist S. Aureus Laboratory Tests 09/06/17 09/06/17 09/06/17 22:05 22:05 22:05 WBC 9.6 RBC 4.53 L Hgb 12.1 L Hct 35.8 L MCV 79.2 L MCH 26.8 L MCHC 33.9 RDW 15.6 H Plt Count 421 MPV 6.9 L Neut # (Auto) 6.1 Lymph # (Auto) 2.7 [place] # (Auto) 0.7 Eos # (Auto) 0.1 Baso # (Auto) 0.1 Absolute Nucleated RBC 0.01 Nucleated RBC % 0.1 Sodium 134 L Potassium 3.6 Chloride 100 L Carbon Dioxide 26 Anion Gap 8.0 BUN 11 Creatinine 0.7 Estimated GFR (MDRD) 136 Glucose 68 L Lactic Acid 1.2 Calcium 8.6 PD MEDICAL DECISION MAKING - ED course Complexity details: reviewed old records, reviewed results, re-evaluated patient , considered differential, d/w patient ED course: As with previous ED visit (I was ED physician that evaluated him 08/28 visit), he says he is taking antibiotic as prescribed. He says he does not have it on him; he is homeless and says it is in his tent. Discharge summary indicates 10 day course of Clindamycin had been prescribed at discharge, and thus he should have finished this by now had he taken it as prescribed. When I point this out to him , he says he may have missed some doses. He also says he ran out of wound care supplies until yesterday and thus wound dressing had not been changed for several days. There is scant/small pus discharge from cranial aspect of the wound but the wound margins are similar to previous visit and the tissue within the confines of the wound margins appear to be healing appropriately. Blood tests results are reassuring. Give bactrim in ED and rx for same. As with previous visit, I strongly emphasized the importance of taking this antibiotic exactly as prescribed. I instructed him to finish any doses of previous antibiotic as per the prescription labels instructions. He asked for pain medication late in ED stay, and give the purulence noted on exam (indicative of ongoing, possibly recurrent, infectious process), morphine and rx for percocet given. Patient was pleasant and cooperative during ED stay. - Sepsis Event Vital Signs: Oxygen O2 Source Room air Departure - Departure Disposition: 01 Home, Self Care Clinical Impression: Cellulitis of right leg Condition: Good Instructions: ED Infec Skin Cellulitis Follow-Up: [facility] [Provider Group] - Within 1 week Prescriptions: oxyCODONE/ACET 5/325 [Percocet 5 mg/325 mg] 1 - 2 each PO Q6H PRN #12 tablet PRN Reason: Pain Sulfamethox/Trimeth 800/160 [Bactrim Ds 800/160] 1 each PO BID #19 tablet Discharge Date/Time: 09/07/17 00:14
[2017-09-06] MEDS ORDERED: KETOROLAC 60 MG/2 ML VIAL IVP STA (22:03)
[2017-09-06 22:11] LABS: BASOPHILS # (AUTO) 0.1 10^3/uL (0.0-0.1); BASOPHILS % (AUTO) 0.6 %; EOSINOPHILS # (AUTO) 0.1 10^3/uL (0.0-0.7); EOSINOPHILS % (AUTO) 1.4 %; HGB - HEMOGLOBIN 12.1 g/dL (14.0-18.0); LYMPHOCYTES # (AUTO) 2.7 10^3/uL (1.5-3.5); LYMPHOCYTES % (AUTO) 28.2 %; MEAN CORPUSCULAR HEMOGLOBIN 26.8 pg (27.0-31.0); MEAN CORPUSCULAR HGB CONC 33.9 g/dL (32.0-36.0); MEAN CORPUSCULAR VOLUME 79.2 fL (80.0-94.0); MEAN PLATELET VOLUME 6.9 fL (7.4-11.4); MONOCYTES # (AUTO) 0.7 10^3/uL (0.0-1.0); MONOCYTES % (AUTO) 6.9 %; NEUTROPHILS # (AUTO) 6.1 10^3/uL (1.5-6.6); NEUTROPHILS % (AUTO) 62.9 %; PLT - PLATELET COUNT 421 10^3/uL (130-450); RED BLOOD COUNT 4.53 10^6/uL (4.70-6.10); RED CELL DISTRIBUTION WIDTH 15.6 % (12.0-15.0); WHITE BLOOD COUNT 9.6 x10^3/uL (4.8-10.8)
[2017-09-06 22:21] LABS: CALCIUM 8.6 mg/dL (8.5-10.3); CREATININE 0.7 mg/dL (0.6-1.2)
[2017-09-06] MEDS ORDERED: MORPHINE 10 MG/ML VIAL IVP STA (22:36)
[2017-09-06] MEDS ORDERED: SULFAMETH/TRIMETH DS 800/160 MG TABLET PO STA (23:05)
[2017-09-07] MEDS ORDERED: BACITRACIN OINT TOP STA (00:05)
[2017-09-07 00:14] VITALS: BP 148/82
== END 2017-09-07 00:14 | disposition home or self-care (01) ==
LOC: ED 21:36
DX: L03.115 Cellulitis of right lower limb (principal); F17.200 Nicotine dependence, unspecified, uncomplicated; Z86.718 Personal history of other venous thrombosis and embolism
CPT/HCPCS: 36415; 80048; 83605; 85025; 87070; 87181; 87205; 96374; 96375; 99283; 99284; A9270

== ENCOUNTER 2017-09-27 01:42 | Outpatient (CLI) | payer OTHER, MEDICAID | END 2017-09-27 01:43 | disposition home or self-care (01) | LOC: LAB 01:42 | PROVIDERS: ATTEND Pathology Blood Banking & Transfusion Medicine | DX: Z01.89 Encounter for other specified special examinations (principal) | CPT/HCPCS: 36415 ==

== ENCOUNTER 2017-11-03 02:20 | Outpatient (CLI) | payer MEDICAID | END 2017-11-03 02:21 | disposition critical access hospital (66) | LOC: EMS 02:20 | PROVIDERS: ATTEND Surgery | DX: M79.661 Pain in right lower leg (principal) | CPT/HCPCS: A0425; A0429; A0999 ==

== ENCOUNTER 2017-11-03 02:36 | Emergency (ER) | payer MEDICAID ==
[2017-11-03 02:46] VITALS: BP 138/82
[2017-11-03] MEDS ORDERED: DOXYCYCLINE 100 MG TABLET PO STA (02:49)
[2017-11-03] MEDS ORDERED: MUPIROCIN 2% OINT 1 GM TOP STA (02:50)
--- NOTE | 2017-11-03 02:54 | ED Physician Documentation ---
PD HPI LOWER EXT INJURY - Stated complaint Stated Complaint: RLE Infection - Chief complaint Chief Complaint: Ext Problem - History obtained from History obtained from: Patient - Additional information Additional information: 27-year-old male presents the emergency department for evaluation of chronic skin infection. The patient has chronic skin ulcers on his bilateral lower extremities the right greater than the left and his upper extremity. The patient scratches himself consistently secondary to his drug abuse. The patient presents the emergency department for evaluation of the chronic ulcers. The patient has no fever. No significant change in his chronic condition. No swelling of the extremities. No fever or chills. Symptoms are described as moderate. The patient has not followed up as recommended. No other associated symptoms Review of Systems Constitutional: denies: Fever, Chills Eyes: denies: Discharge Ears: denies: Ear pain Nose: denies: Congestion Throat: denies: Sore throat Cardiac: denies: Chest pain / pressure Respiratory: denies: Dyspnea, Cough GI: denies: Vomiting Skin: reports: Lesions Neurologic: denies: Generalized weakness PD PAST MEDICAL HISTORY - Past Medical History Cardiovascular: Deep vein thrombosis, Other Respiratory: Asthma Endocrine/Autoimmune: None GI: None : None HEENT: None Psych: Depression Musculoskeletal: Chronic back pain Derm: None - Past Surgical History Past Surgical History: Yes General: Other Ortho: Other - Present Medications Home Medications: Ambulatory Orders Medication Instructions Recorded Confirmed Ibuprofen [Motrin] 800 mg PO Q8H PRN #30 tablet 08/12/17 08/28/17 Clindamycin HCl [Clindamycin 150MG 450 mg PO TID 10 Days #90 capsule 08/24/17 CAP] Multivitamin [Theragran] 1 tab PO DAILYWM #30 tablet 08/24/17 08/28/17 Nicotine 14 mg Patch [Nicoderm] 1 patch TOP DAILY #7 patch 08/24/17 08/28/17 Saccharomyces Boulardii [Florastor] 250 mg PO BID #40 capsule 08/24/17 08/28/17 oxyCODONE [Roxicodone] 5 mg PO Q4H PRN #12 tablet 08/24/17 08/28/17 Sulfamethox/Trimeth 800/160 1 each PO BID #19 tablet 09/06/17 [Bactrim Ds 800/160] oxyCODONE/ACET 5/325 [Percocet 5 1 - 2 each PO Q6H PRN #12 tablet 09/06/17 mg/325 mg] Doxycycline Hyclate 100 mg PO BID #20 capsule 11/03/17 Mupirocin 22 gm TP BID 7 Days #1 oint...g. 11/03/17 - Allergies Allergies/Adverse Reactions: Allergies Allergy/AdvReac Type Severity Reaction Status Date / Time hydrocodone bitartrate * AdvReac Nausea Verified 11/03/17 02:39 [From Vicodin] - Social History Does the pt smoke?: Yes Smoking Status: Current every day smoker Does the pt drink ETOH?: No Does the pt have substance abuse?: No - Immunizations Immunizations are current?: No Immunizations: TDAP current <10years, Other immun not current - POLST Patient has POLST: No POLST Status: Full Code PD ED PE NORMAL - General General: Alert and oriented X 3, Other (27-year-old male who appears disheveled with extremely bad hygiene) - HEENT HEENT: Atraumatic, PERRL, EOMI, Ears normal - Neck Neck: Supple, no meningeal sign - Cardiac Cardiac: RRR, Strong equal pulses - Respiratory Respiratory: No respiratory distress - Derm Derm: Other (The patient has multiple areas of chronic ulcerations from picking of his skin. There is multiple areas of superimposed erythematous changes. The patient mostly has the ulcerations in the right lower extremity below the knee. But there is lesions on the left. The patient has areas of excoriation in the right shoulder and upper extremity. There is no evidence of abscess. The patient has no swelling of the extremities. There is no crepitus or subcutaneous emphysema. The patient has normal bilateral dorsalis pedis pulses and radial pulses. There is normal cap refill.) - Extremities Extremities: Normal ROM s pain, No edema - Neuro Neuro: Alert and oriented X 3 Results - Vitals Vitals: Vital Signs - 24 hr 11/03/17 02:39 Temperature 36.9 C Heart Rate 93 Respiratory 18 Rate Blood Pressure 138/82 H O2 Saturation 99 Oxygen O2 Source Room air PD MEDICAL DECISION MAKING - ED course ED course: The patient has chronic ulcerations which appear to have a superimposed infection. On physical exam there is no evidence of necrotizing fasciitis, abscess, sepsis, vascular involvement or bony involvement to suggest osteomyelitis. Currently, the patient appears appropriate for outpatient management. I have advised follow-up. I have advised smoking cessation. I discussed warning signs and recommended returning to the emergency department immediately for worsening or any concerns - Sepsis Event Vital Signs: Vital Signs - 24 hr 11/03/17 02:39 Temperature 36.9 C Heart Rate 93 Respiratory 18 Rate Blood Pressure 138/82 H O2 Saturation 99 Oxygen O2 Source Room air Departure - Departure Disposition: Home, Self Care Clinical Impression: Wound of skin Chronic ulcer of leg Qualifiers: Laterality: unspecified laterality Non-pressure ulcer stage: limited to breakdown of skin Qualified Code(s): L97.901 - Non-pressure chronic ulcer of unspecified part of unspecified lower leg limited to breakdown of skin Condition: Good Instructions: ED Wound Care Follow-Up: [facility] [Provider Group] Prescriptions: Doxycycline Hyclate 100 mg PO BID #20 capsule Mupirocin 22 gm TP BID 7 Days #1 oint...g. Comments: Please follow-up with primary care for further management of your chronic condition. Please return to the emergency department for any worsening or any concerns
== END 2017-11-03 03:08 | disposition home or self-care (01) ==
LOC: EDUNIT# → ED 02:36
DX: L97.819 Non-pressure chronic ulcer of other part of right lower leg with unspecified severity (principal); L98.9 Disorder of the skin and subcutaneous tissue, unspecified; F42.4 Excoriation (skin-picking) disorder; Z86.718 Personal history of other venous thrombosis and embolism; F17.200 Nicotine dependence, unspecified, uncomplicated
CPT/HCPCS: 99283; A9270

== ENCOUNTER 2017-11-19 00:44 | Outpatient (CLI) | payer MEDICAID | END 2017-11-19 00:45 | disposition critical access hospital (66) | LOC: EMS 00:44 | PROVIDERS: ATTEND Surgery | DX: M79.661 Pain in right lower leg (principal) | CPT/HCPCS: A0425; A0429; A0999 ==

== ENCOUNTER 2017-11-19 01:02 | Emergency (ER) | payer MEDICAID ==
[2017-11-19] MEDS ORDERED: hydrOXYzine PAMOATE 25 MG CAPSULE PO STA ×2 (01:32→02:29)
--- NOTE | 2017-11-19 02:20 | ED Physician Documentation ---
History of Present Illness - Stated complaint Stated Complaint: R LEG INFECTION - Chief complaint Chief Complaint: Ext Problem - History obtained from History obtained from: Patient - History of Present Illness Timing: Chronic (worse x past several hours) Pain level max: 10 Pain level now: 10 Improved by: nothing Worsened by: palpation - Additonal information Additional information: c/o ongoing RLE pain associated with recurrent/healing infection for which he has been evaluated several times in this ED as well as inpatient setting. he presents via ambulance c/o worsening pain over past several hours, no injury. 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 denies: Fever, Chills GI: reports: Reviewed and negative Skin: reports: Rash Musculoskeletal: reports: Extremity pain. denies: Pain with weight bearing Neurologic: denies: Focal weakness, Numbness PD PAST MEDICAL HISTORY - Past Medical History Cardiovascular: Deep vein thrombosis, Other Respiratory: Asthma Endocrine/Autoimmune: None GI: None : None HEENT: None Psych: Depression Musculoskeletal: Chronic back pain Derm: None - Past Surgical History Past Surgical History: Yes General: Other Ortho: Other - Present Medications Home Medications: Ambulatory Orders Medication Instructions Recorded Confirmed Ibuprofen [Motrin] 800 mg PO Q8H PRN #30 tablet 08/12/17 08/28/17 Clindamycin HCl [Clindamycin 150MG 450 mg PO TID 10 Days #90 capsule 08/24/17 08/28/17 CAP] Multivitamin [Theragran] 1 tab PO DAILYWM #30 tablet 08/24/17 08/28/17 Nicotine 14 mg Patch [Nicoderm] 1 patch TOP DAILY #7 patch 08/24/17 08/28/17 Saccharomyces Boulardii [Florastor] 250 mg PO BID #40 capsule 08/24/17 08/28/17 oxyCODONE [Roxicodone] 5 mg PO Q4H PRN #12 tablet 08/24/17 08/28/17 Sulfamethox/Trimeth 800/160 1 each PO BID #19 tablet 09/06/17 [Bactrim Ds 800/160] oxyCODONE/ACET 5/325 [Percocet 5 1 - 2 each PO Q6H PRN #12 tablet 09/06/17 mg/325 mg] Doxycycline Hyclate 100 mg PO BID #20 capsule 11/03/17 Mupirocin 22 gm TP BID 7 Days #1 oint...g. 11/03/17 Sulfamethoxazole/Trimethoprim 1 each PO BID #19 tablet 11/19/17 [Sulfamethoxazole-Tmp Ds Tablet] hydrOXYzine PAMOATE [Vistaril] 25 - 50 mg PO Q6H PRN #14 capsule 11/19/17 oxyCODONE/ACET 5/325 [Percocet 5 1 - 2 each PO Q6H PRN #10 tablet 11/19/17 mg/325 mg] - Allergies Allergies/Adverse Reactions: Allergies Allergy/AdvReac Type Severity Reaction Status Date / Time hydrocodone bitartrate * AdvReac Nausea Verified 11/19/17 01:08 [From Vicodin] - Social History Does the pt smoke?: Yes Smoking Status: Current every day smoker Does the pt drink ETOH?: No Does the pt have substance abuse?: Yes Substance Use and Type: Heroin - Immunizations Immunizations are current?: No Immunizations: TDAP current <10years, Other immun not current - POLST Patient has POLST: No POLST Status: Full Code PD ED PE NORMAL - Vitals Vital signs reviewed: Yes - General General: Alert and oriented X 3, Well developed/nourished, Other (frequently moaning in pain, occasionallly yells out briefly in pain; he is restless but cooperative and polite) - Cardiac Cardiac: RRR, No murmur - Respiratory Respiratory: No respiratory distress, Clear bilaterally - Extremities Extremities: No edema - Neuro Neuro: Alert and oriented X 3 PD ED PE EXPANDED - Extremities Extremities: Pedal Pulses Present (right DP pulse is strong with brisk toe capillary refill) JASEN LE visual: 1 - tenderness (patchy erythema and tenderness with healing ulcerations; no fluctuance, no discharge. erythema is more s/o healing wound than active infection. There is scant fresh blood on one of the ulcerations) Results - Vitals Vitals: Vital Signs - 24 hr 11/19/17 11/19/17 01:03 03:51 Temperature 36.6 C 36.8 C Heart Rate 100 71 Respiratory 16 14 Rate Blood Pressure 140/105 H 144/88 H O2 Saturation 99 99 Oxygen O2 Source Room air PD MEDICAL DECISION MAKING - ED course Complexity details: reviewed old records, considered differential, d/w patient ED course: compared to the last time I evaluated this patient (couple of months ago), the RLE looks significantly improved and, at this time, has appearance that is most c/w healing and scarring phase than active/acute infection. Will cover with antibiotic, as this patient has exhibited poor compliance with f/u and wound care. - Sepsis Event Vital Signs: Vital Signs - 24 hr 11/19/17 11/19/17 01:03 03:51 Temperature 36.6 C 36.8 C Heart Rate 100 71 Respiratory 16 14 Rate Blood Pressure 140/105 H 144/88 H O2 Saturation 99 99 Oxygen O2 Source Room air Departure - Departure Disposition: 01 Home, Self Care Clinical Impression: Cellulitis of right leg Condition: Good Instructions: ED Infec Skin Cellulitis Follow-Up: [facility] [Provider Group] [facility] [Provider Group] Prescriptions: hydrOXYzine PAMOATE [Vistaril] 25 - 50 mg PO Q6H PRN #14 capsule PRN Reason: Itching oxyCODONE/ACET 5/325 [Percocet 5 mg/325 mg] 1 - 2 each PO Q6H PRN #10 tablet PRN Reason: Pain Sulfamethoxazole/Trimethoprim [Sulfamethoxazole-Tmp Ds Tablet] 1 each PO BID #19 tablet Discharge Date/Time: 11/19/17 04:10
[2017-11-19] MEDS ORDERED: oxyCODONE 5 MG TABLET PO STA (02:28)
--- NOTE | 2017-11-19 03:06 | XRAY Report ---
Reason: chronic wound Procedure Date: 11/19/2017 Accession Number: [id number] / [id number] Procedure: XR - Tib/Fib RT CPT Code: FULL RESULT: EXAM: RIGHT TIBIA/FIBULA RADIOGRAPHY EXAM DATE: 11/19/2017 02:35 AM. CLINICAL HISTORY: Chronic wound. COMPARISON: LEG LOWER RT 08/21/2017 1:12 PM. TECHNIQUE: 2 views. FINDINGS: Bones: No fracture seen. No focal area of bone destruction. Joints: No dislocation seen. Joints appear intact as imaged. Soft Tissues: Soft tissue swelling. IMPRESSION: 1. No acute osseous abnormality seen. 2. Soft tissue swelling. RADIA
[2017-11-19] MEDS ORDERED: oxyCODONE/ACET 5/325 Prepack 4 PO STA (03:31)
[2017-11-19] MEDS ORDERED: SULFAMETH/TRIMETH DS 800/160 MG TABLET PO STA (03:32)
[2017-11-19 03:53] VITALS: BP 144/88
== END 2017-11-19 04:10 | disposition home or self-care (01) ==
LOC: EDUNIT# → ED 01:02
DX: L03.115 Cellulitis of right lower limb (principal); F17.200 Nicotine dependence, unspecified, uncomplicated; G89.29 Other chronic pain; Z86.718 Personal history of other venous thrombosis and embolism
CPT/HCPCS: 73590; 99283; 99284; A9270

== ENCOUNTER 2018-02-22 14:43 | Emergency (ER) | payer MEDICAID ==
[2018-02-22] MEDS ORDERED: IBUPROFEN 800 MG TABLET PO STA (15:02)
--- NOTE | 2018-02-22 15:08 | ED Physician Documentation ---
PD HPI UPPER EXT INJURY - Stated complaint Stated Complaint: MASS L ARM - Chief complaint Chief Complaint: Ext Problem - History obtained from History obtained from: Patient - History of Present Illness Location: Left, Arm Type of injury: Other (IVDA) Where injury occurred: Home Timing - onset: How many days ago (4) Timing - duration: Days (4) Timing - details: Gradual onset, Still present Pain level max: 8 Pain level now: 8 Improved by: Nothing Worsened by: Palpating Associated symptoms: Swelling. No: Weakness, Numbness, Tingling, Discolored Contributing factors: Other (IVDA heroin). 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 Patient stated he did inject heroin at this area 6 days ago. Denies any fever, shortness of breath. States has chronic intermittent chest discomfort related to his concave chest wall. Review of Systems Ten Systems: 10 systems reviewed and negative Constitutional: denies: Fever, Chills, Myalgias Cardiac: reports: Chest pain / pressure (Chronic). denies: Palpitations Respiratory: denies: Dyspnea, Cough Skin: reports: Lesions (Left arm). denies: Rash, Abrasion (s), Bite / sting Musculoskeletal: denies: Neck pain, Back pain, Extremity pain, Joint pain, Extremity swelling Neurologic: denies: Generalized weakness, Focal weakness, Numbness PD PAST MEDICAL HISTORY - Past Medical History Cardiovascular: Deep vein thrombosis, Other Respiratory: Asthma Endocrine/Autoimmune: None GI: None : None HEENT: None Psych: Depression Musculoskeletal: Chronic back pain Derm: None - Past Surgical History Past Surgical History: Yes General: Other Ortho: Other - Present Medications Home Medications: Ambulatory Orders Medication Instructions Recorded Confirmed Clindamycin HCl [Clindamycin 300MG 300 mg PO Q6H #28 capsule 02/22/18 CAP] - Allergies Allergies/Adverse Reactions: Allergies Allergy/AdvReac Type Severity Reaction Status Date / Time hydrocodone bitartrate * AdvReac Nausea Verified 02/22/18 15:20 [From Vicodin] - Social History Does the pt smoke?: Yes Smoking Status: Current every day smoker Does the pt drink ETOH?: No Does the pt have substance abuse?: Yes - Immunizations Immunizations are current?: No Immunizations: TDAP current <10years, Other immun not current - POLST Patient has POLST: No POLST Status: Full Code PD ED PE NORMAL - Vitals Vital signs reviewed: Yes - General General: Alert and oriented X 3, No acute distress, Well developed/nourished - HEENT HEENT: Pharynx benign - Neck Neck: Supple, no meningeal sign, No adenopathy - Cardiac Cardiac: RRR, No murmur - Respiratory Respiratory: Clear bilaterally - Abdomen Abdomen: Normal bowel sounds, Soft, Non tender, Non distended - Derm Derm: Normal color, Warm and dry, No rash, Other (Left Left arm with multiple needle tracks. Left bicep with hard mass that appears ecchymotic about 1 inch x 1-1/2 inches. Below this is a round pinkish with beach collar about less than 1 cm in size that is soft. There is no increase in warmth. Arm neurovascularly intact.) - Extremities Extremities: No deformity, Normal ROM s pain, No edema - Neuro Neuro: Alert and oriented X 3, Normal speech - Psych Psych: Normal mood, Normal affect Results - Vitals Vitals: Vital Signs - 24 hr 02/22/18 14:48 Temperature 36.1 C L Heart Rate 109 H Respiratory 18 Rate Blood Pressure 184/150 H O2 Saturation 99 Oxygen O2 Source Room air PD MEDICAL DECISION MAKING - ED course Complexity details: reviewed results, re-evaluated patient, considered differential (Hematoma, abscess, thrombophlebitis, DVT IVDA), d/w patient ED course: 1610 patient not in the room went for ultrasound. 1655 patient laying in bed in no acute distress and nontoxic-appearing. Patient stated that he had an ultrasound of his left arm only.Ultrasound is read as no DVT, hematoma versus abscess. Patient states only wants antibiotic And does not want I&D. We will discharged on clindamycin To cover for MRSA and history of IVDA.Instructed to return if having fever and left arm is getting worse.Patient stated his tetanus shot is up-to-date. Departure - Departure Disposition: 01 Home, Self Care Clinical Impression: Abscess, IV drug abuse, Hematoma Condition: Stable Instructions: ED Hematoma, ED Abscess Abx Tx Only Ch Prescriptions: Clindamycin HCl [Clindamycin 300MG CAP] 300 mg PO Q6H #28 capsule Comments: Stop using IV drugs that can cause infection on your veins that can go to your heart and blood. Take the antibiotic as prescribed. If your left arm is worse and you are having fever return to the emergency room. Otherwise follow-up with your primary doctor this week for reevaluation.
--- NOTE | 2018-02-22 16:39 | Ultrasound Report ---
Reason: left arm pain r/o dvt Procedure Date: 02/22/2018 Accession Number: [id number] / [id number] Procedure: US - Duplex Ext Veins Left CPT Code: FULL RESULT: EXAM: LEFT LOWER EXTREMITY VENOUS ULTRASOUND EXAM DATE: 02/22/2018 03:44 PM. CLINICAL HISTORY: Left arm pain. COMPARISON: None. TECHNIQUE: Real-time sonographic vascular imaging was performed by the elastic assembler through the lower extremity utilizing both color-flow and Doppler spectral analysis. Multiple special service representative static images were saved for review. FINDINGS: Common Femoral Vein (CFV): Normal. CFV-GSV Junction: Normal. Profunda Femoral Vein (PFV): Normal. Femoral Vein (FV) Prox: Normal. Femoral Vein (FV) Mid: Normal. Femoral Vein (FV) Dist: Normal. Popliteal Vein: Normal. Posterior Tibial Veins: Normal. Peroneal Veins: Normal. IMPRESSION: No evidence for deep venous thrombosis. RADIA
--- NOTE | 2018-02-22 16:42 | Ultrasound Report ---
Reason: left arm mass, hx IVDA r/o abscess vs hematoma Procedure Date: 02/22/2018 Accession Number: [id number] / [id number] Procedure: US - Ext Limited Non Vascular CPT Code: FULL RESULT: EXAM: LEFT UPPER EXTREMITY ULTRASOUND - LIMITED EXAM DATE: 02/22/2018 04:17 PM. CLINICAL HISTORY: Left arm mass. History of IVDA. Abscess vs hematoma. COMPARISON: None. TECHNIQUE: Real-time scanning was performed with static images obtained. FINDINGS: Complex hypoechoic abnormality without internal vascularity in the deep subcutaneous fat corresponding to the palpable mass 3.5 x 1.8 x 1.4 cm. IMPRESSION: Complex abnormality in the deep subcutaneous fat corresponding to the palpable mass, hematoma versus abscess. RADIA
[2018-02-22] MEDS ORDERED: CLINDAMYCIN 150 MG CAPSULE PO STA (17:07)
[2018-02-22 17:23] VITALS: BP 132/92
== END 2018-02-22 17:24 | disposition home or self-care (01) ==
LOC: ED 14:43
DX: L02.414 Cutaneous abscess of left upper limb (principal); S40.022A Contusion of left upper arm, initial encounter; Y28.8XXA Contact with other sharp object, undetermined intent, initial encounter; Y93.89 Activity, other specified; F11.10 Opioid abuse, uncomplicated; R07.9 Chest pain, unspecified; G89.29 Other chronic pain; F17.200 Nicotine dependence, unspecified, uncomplicated
CPT/HCPCS: 76882; 93971; 99283; A9270

== ENCOUNTER 2018-03-09 13:00 | Outpatient (CLI) | payer MEDICAID | END 2018-03-09 13:01 | disposition critical access hospital (66) | LOC: EMS 13:00 | PROVIDERS: ATTEND Surgery | DX: R07.9 Chest pain, unspecified (principal) | CPT/HCPCS: A0425; A0427; A0999 ==

== ENCOUNTER 2018-03-09 13:20 | Emergency (ER) | payer MEDICAID ==
[2018-03-09] MEDS ORDERED: MORPHINE 2 MG/ML CARPUJECT IVP STA (13:25)
--- NOTE | 2018-03-09 13:30 | ED Physician Documentation ---
PD HPI CHEST PAIN - Stated complaint Stated Complaint: CP - Chief complaint Chief Complaint: General - History obtained from History obtained from: Patient, EMS - History of Present Illness Timing - onset: Other (27-year-old gentleman with history of homelessness, heroin abuse, MRSA. He also says he has a history of pulmonary embolism and was at [facility] for same but signed out AMA. This was about 6 months ago. He is not currently anticoagulated. He has 3 days of constant sharp left-sided chest pain that is worse with deep breathing but he also has a productive cough. He denies fevers or chills and has no pedal edema or calf pain.) Review of Systems Ten Systems: 10 systems reviewed and negative Constitutional: denies: Fever, Chills Nose: denies: Rhinorrhea / runny nose, Congestion Throat: denies: Sore throat Cardiac: reports: Chest pain / pressure. denies: Palpitations, Pedal edema, Calf pain Respiratory: reports: Cough. denies: Dyspnea PD PAST MEDICAL HISTORY - Past Medical History Cardiovascular: Deep vein thrombosis, Other Respiratory: Asthma Endocrine/Autoimmune: None GI: None : None HEENT: None Psych: Depression Musculoskeletal: Chronic back pain Derm: None - Past Surgical History Past Surgical History: Yes General: Other Ortho: Other - Present Medications Home Medications: Ambulatory Orders Medication Instructions Recorded Confirmed Clindamycin HCl [Clindamycin 300MG 300 mg PO Q6H #28 capsule 02/22/18 CAP] Amoxicillin 500 mg PO TID #30 capsule 03/09/18 Azithromycin [Zithromax] 1 tab PO DAILY #6 tablet 03/09/18 - Allergies Allergies/Adverse Reactions: Allergies Allergy/AdvReac Type Severity Reaction Status Date / Time hydrocodone bitartrate * AdvReac Nausea Verified 02/22/18 15:20 [From Vicodin] - Social History Does the pt smoke?: Yes Smoking Status: Current every day smoker Does the pt drink ETOH?: No Does the pt have substance abuse?: Yes - Family History Family history: reports: Non contributory - Immunizations Immunizations are current?: No Immunizations: TDAP current <10years, Other immun not current - POLST Patient has POLST: No POLST Status: Full Code PD ED PE NORMAL - Vitals Vital signs reviewed: Yes - General General: Alert and oriented X 3, No acute distress - HEENT HEENT: PERRL, EOMI - Neck Neck: Supple, no meningeal sign, No bony TTP - Cardiac Cardiac: RRR, No murmur - Respiratory Respiratory: Other (Pectus excavatum, coarse crackles at the left base. Nonlabored.) - Abdomen Abdomen: Soft, Non tender - Back Back: No CVA TTP, No spinal TTP - Derm Derm: Normal color, Warm and dry - Extremities Extremities: No edema, No calf tenderness / cord - Neuro Neuro: Alert and oriented X 3, Normal speech Results - Vitals Vitals: Vital Signs - 24 hr 03/09/18 13:26 Temperature 36.9 C Heart Rate 98 Respiratory 16 Rate Blood Pressure 125/74 O2 Saturation 99 Oxygen O2 Source Room air - EKG (time done) 1326 Rate: Rate (enter#) (104) Rhythm: Sinus tachycardia (104) [place]: Normal Intervals: Normal [place] QRS: Normal Ischemia: ST elevation c/w repol Computer interpretation: Agree with computer - Labs Labs: Laboratory Tests 03/09/18 03/09/18 03/09/18 13:35 13:35 13:35 WBC 12.9 H RBC 4.63 L Hgb 11.2 L Hct 33.5 L MCV 72.4 L MCH 24.1 L MCHC 33.3 RDW 18.2 H Plt Count 349 MPV 7.4 Neut # (Auto) 11.4 H Lymph # (Auto) 0.7 L Gaines # (Auto) 0.7 Eos # (Auto) 0.0 Baso # (Auto) 0.0 Absolute Nucleated RBC 0.00 Nucleated RBC % 0.0 PT 15.8 H INR 1.4 H Sodium 134 L Potassium 4.0 Chloride 100 L Carbon Dioxide 24 Anion Gap 10.0 BUN 12 Creatinine 0.5 L Estimated GFR (MDRD) 199 Glucose 102 H Calcium 8.6 Total Bilirubin 0.3 AST 25 ALT 12 Alkaline Phosphatase 92 Troponin I Total Protein 7.8 Albumin 3.1 L Globulin 4.7 H Albumin/Globulin Ratio 0.7 L Lipase 35 03/09/18 13:35 WBC RBC Hgb Hct MCV MCH MCHC RDW Plt Count MPV Neut # (Auto) Lymph # (Auto) Gaines # (Auto) Eos # (Auto) Baso # (Auto) Absolute Nucleated RBC Nucleated RBC % PT INR Sodium Potassium Chloride Carbon Dioxide Anion Gap BUN Creatinine Estimated GFR (MDRD) Glucose Calcium Total Bilirubin AST ALT Alkaline Phosphatase Troponin I < 0.04 Total Protein Albumin Globulin Albumin/Globulin Ratio Lipase - Rads (name of study) CTPA Radiology: EMP read contemporaneously (Left lower lobe pneumonia with small pleural effusion) PD MEDICAL DECISION MAKING - ED course ED course: This is a 27-year-old gentleman with history of pulmonary embolism although I do not find evidence of this in our chart who presents with left-sided pleuritic chest pain of 3 days duration associated with a productive cough and clinical pneumonia. Pulmonary embolism was also in the differential and therefore a CT pulmonary angiogram was done showing only the pneumonia for which she was treated in the department with Rocephin and Zithromax. Departure - Departure Disposition: 01 Home, Self Care Clinical Impression: Cough Chest pain Qualifiers: Chest pain type: chest pain on breathing Qualified Code(s): R07.1 - Chest pain on breathing; R07.81 - Pleurodynia Pneumonia Qualifiers: Pneumonia type: due to unspecified organism Laterality: left Lung location: lower lobe of lung Qualified Code(s): J18.1 - Lobar pneumonia, unspecified organism Condition: Good Record reviewed to determine appropriate education?: Yes Instructions: ED Pneumonia Adult Prescriptions: Amoxicillin 500 mg PO TID #30 capsule Azithromycin [Zithromax] 1 tab PO DAILY #6 tablet Comments: Call your doctor to arrange a follow-up appointment, make the next available appointment. In the interim, return anytime if worse or if new symptoms develop.
[2018-03-09] MEDS ORDERED: IOVERSOL 320 100 ML VIAL IVP ONE ×2 (13:36→17:49)
[2018-03-09 13:42] LABS: BASOPHILS % (AUTO) 0.3 %; EOSINOPHILS % (AUTO) 0.1 %; HGB - HEMOGLOBIN 11.2 g/dL (14.0-18.0); LYMPHOCYTES # (AUTO) 0.7 10^3/uL (1.5-3.5); LYMPHOCYTES % (AUTO) 5.7 %; MEAN CORPUSCULAR HEMOGLOBIN 24.1 pg (27.0-31.0); MEAN CORPUSCULAR HGB CONC 33.3 g/dL (32.0-36.0); MEAN CORPUSCULAR VOLUME 72.4 fL (80.0-94.0); MEAN PLATELET VOLUME 7.4 fL (7.4-11.4); MONOCYTES # (AUTO) 0.7 10^3/uL (0.0-1.0); MONOCYTES % (AUTO) 5.2 %; NEUTROPHILS # (AUTO) 11.4 10^3/uL (1.5-6.6); NEUTROPHILS % (AUTO) 88.7 %; PLT - PLATELET COUNT 349 10^3/uL (130-450); RED BLOOD COUNT 4.63 10^6/uL (4.70-6.10); RED CELL DISTRIBUTION WIDTH 18.2 % (12.0-15.0); WHITE BLOOD COUNT 12.9 x10^3/uL (4.8-10.8)
[2018-03-09 13:48] LABS: INR 1.4 (0.8-1.2); PT - PROTHROMBIN TIME 15.8 secs (9.9-12.6)
[2018-03-09 13:54] LABS: ALBUMIN 3.1 g/dL (3.2-5.5); ALBUMIN/GLOBULIN RATIO 0.7 (1.0-2.2); BILIRUBIN,TOTAL 0.3 mg/dL (0.2-1.0); CALCIUM 8.6 mg/dL (8.5-10.3); CREATININE 0.5 mg/dL (0.6-1.2); TOTAL PROTEIN 7.8 g/dL (6.7-8.2)
[2018-03-09] MEDS ORDERED: cefTRIAXone 2 GM in SODIUM CHLORIDE 0.9% MINIBAG 100 ML IV STA (14:32)
[2018-03-09] MEDS ORDERED: AZITHROMYCIN 250 MG TABLET PO STA (14:32)
[2018-03-09] MEDS ORDERED: cefTRIAXone 2 GM VIAL ONE (14:46)
--- NOTE | 2018-03-09 14:56 | CT Report ---
Reason: chest pain, H/O PE Procedure Date: 03/09/2018 Accession Number: [id number] / [id number] Procedure: CT - Chest Angio (PE) CPT Code: FULL RESULT: EXAM: CT ANGIOGRAM CHEST EXAM DATE: 03/09/2018 02:17 PM. CLINICAL HISTORY: Chest pain, H/O PE. COMPARISON: CHEST ANGIO 07/21/2017 7:11 AM. TECHNIQUE: Routine helical imaging was performed through the chest in the pulmonary arterial phase. IV Contrast: OPTI 320 80mL. Reconstructions: Coronal 3-D MIP reconstructions.Sagittal and coronal. In accordance with CT protocol optimization, one or more of the following dose reduction techniques were utilized for this exam: automated exposure control, adjustment of mA and/or KV based on patient size, or use of iterative reconstructive technique. FINDINGS: Pulmonary Arteries: Diagnostic quality: Adequate through the segmental arteries. No evidence for acute or chronic pulmonary emboli. Lungs/Pleura: Extensive infiltrates are noted in the left lower lobe of the lung. There is a small left pleural effusion. Mediastinum: No mediastinal mass is identified. Thoracic Aorta: The thoracic aorta is without evidence of aneurysmal dilatation or dissection. Upper Abdomen: No enhancing lesion is seen within the upper abdomen. IMPRESSION: No evidence of a pulmonary embolus. Left lower lobe infiltrates that most likely represent pneumonia. Small left pleural effusion. RADIA
[2018-03-09 15:18] VITALS: BP 121/76
== END 2018-03-09 15:40 | disposition home or self-care (01) ==
LOC: EDUNIT# → ED 13:20
DX: J18.1 Lobar pneumonia, unspecified organism (principal); R00.0 Tachycardia, unspecified; R07.81 Pleurodynia; F17.200 Nicotine dependence, unspecified, uncomplicated; Z86.711 Personal history of pulmonary embolism
CPT/HCPCS: 36415; 71275; 80053; 83690; 84484; 85025; 85610; 93005; 96365; 96375; 99284; A9270; Q9967

== ENCOUNTER 2018-07-20 09:14 | Emergency (ER) | payer MEDICAID ==
[2018-07-20] MEDS ORDERED: KETOROLAC 30 MG/ML VIAL IVP STA (09:39)
[2018-07-20] MEDS ORDERED: IOVERSOL 320 100 ML VIAL IVP ONE ×2 (09:50→10:58)
[2018-07-20 10:19] LABS: BASOPHILS # (AUTO) 0.1 10^3/uL (0.0-0.1); BASOPHILS % (AUTO) 0.5 %; EOSINOPHILS # (AUTO) 0.1 10^3/uL (0.0-0.7); EOSINOPHILS % (AUTO) 0.4 %; HGB - HEMOGLOBIN 10.1 g/dL (14.0-18.0); LYMPHOCYTES # (AUTO) 2.4 10^3/uL (1.5-3.5); LYMPHOCYTES % (AUTO) 14.4 %; MEAN CORPUSCULAR HEMOGLOBIN 27.5 pg (27.0-31.0); MEAN CORPUSCULAR HGB CONC 33.9 g/dL (32.0-36.0); MEAN CORPUSCULAR VOLUME 81.3 fL (80.0-94.0); MONOCYTES % (AUTO) 6.2 %; NEUTROPHILS # (AUTO) 13.2 10^3/uL (1.5-6.6); NEUTROPHILS % (AUTO) 78.5 %; PLT - PLATELET COUNT 684 10^3/uL (130-450); RED BLOOD COUNT 3.67 10^6/uL (4.70-6.10); RED CELL DISTRIBUTION WIDTH 16.5 % (12.0-15.0); WHITE BLOOD COUNT 16.8 x10^3/uL (4.8-10.8)
[2018-07-20 10:30] LABS: ALBUMIN 3.1 g/dL (3.2-5.5); ALBUMIN/GLOBULIN RATIO 0.5 (1.0-2.2); BILIRUBIN,TOTAL 0.6 mg/dL (0.2-1.0); CREATININE 0.9 mg/dL (0.6-1.2); TOTAL PROTEIN 9.6 g/dL (6.7-8.2)
[2018-07-20] MEDS ORDERED: SULFAMETH/TRIMETH DS 800/160 MG TABLET PO STA (11:02)
--- NOTE | 2018-07-20 11:34 | CT Report ---
Reason: umbilical cellulitis, poss abscess? Procedure Date: 07/20/2018 Accession Number: [id number] / [id number] Procedure: CT - Abdomen/Pelvis W CPT Code: FULL RESULT: EXAM: CT ABDOMEN AND PELVIS EXAM DATE: 07/20/2018 10:56 AM. CLINICAL HISTORY: Umbilical cellulitis, poss abscess?. COMPARISONS: CT chest 07/21/2017. TECHNIQUE: Routine helical CT imaging was performed through the abdomen and pelvis. IV contrast: OPTI 320 80 ML. Enteric contrast: No. Reconstructions: Coronal and sagittal. In accordance with CT protocol optimization, one or more of the following dose reduction techniques were utilized for this exam: automated exposure control, adjustment of mA and/or KV based on patient size, or use of iterative reconstructive technique. FINDINGS: Lung Bases: Diffuse nodular opacities/reticulonodular opacities with alveolar tree-in-bud densities and hazy groundglass densities greatest inferiorly. This involves all of the visualized left lower lobe. A few faint tiny reticulonodular densities are seen elsewhere in lingula, right middle lobe and right lower lobe. Liver: Hepatomegaly with right lobe 19 cm superior to inferior. Mild central intrahepatic duct dilation. Otherwise unremarkable. Gallbladder/Bile Ducts: Gallbladder appears unremarkable. Extrahepatic ducts are nondilated. No radiopaque stone seen Spleen: Upper limits normal in size measuring 13 cm longitudinally. Otherwise unremarkable. Pancreas: Unremarkable Adrenal Glands: Unremarkable Kidneys: Unremarkable Peritoneal Cavity/Bowel: Large volume of stool is seen throughout the colon. No free fluid, free air or adenopathy. No masses or acute inflammatory process. Pelvic Organs: Normal. The bladder and visualized pelvic organs are within normal limits. Vasculature: No aneurysms or other significant abnormality. Bones: No significant abnormality. Other: Dermal thickening and increased attenuation in subdermal/subcutaneous fat at level of umbilicus. No abscess. No air in soft tissues. Underlying musculature unremarkable. IMPRESSION: 1. Soft tissue edema and dermal thickening around the umbilicus consistent with clinically submitted history of cellulitis. No abscess. 2. Diffusely abnormal appearance of left lower lobe with predominant reticulonodular/nodular pattern of both airspace and interstitial opacities. Minimal reticulonodular opacities are seen elsewhere in the visualized lungs. No pleural effusion. Pneumonia including atypical pneumonia is a primary consideration. Given nodular character of opacities, atypical infectious etiology including mycobacterial or fungal disease are potential considerations. Follow-up is recommended to assess for resolution. 3. Hepatomegaly with nonspecific mild intrahepatic duct dilation. No extrahepatic duct dilation, radiopaque gallstone or gallbladder inflammatory changes seen on CT. 4. Probable liver cyst or small hemangioma subcapsular adjacent to gallbladder fossa. This is incompletely characterized 5. Examination otherwise as detailed above. RADIA
[2018-07-20 11:36] VITALS: BP 126/66
--- NOTE | 2018-07-20 11:42 | ED Physician Documentation ---
History of Present Illness - Stated complaint Stated Complaint: ABD PX/BELLY BUTTON - Chief complaint Chief Complaint: Wound - History obtained from History obtained from: Patient - History of Present Illness Timing: How many weeks ago (2) Pain level max: 6 Pain level now: 5 - Additonal information Additional information: Patient states redness and swelling around his bellybutton for the past few weeks. Has been in long-term and has not had this looked at. He was placed on Augmentin 2 days ago for an ear infection. Nothing makes it better or worse. Review of Systems Constitutional: denies: Fever, Chills Respiratory: reports: Cough GI: denies: Vomiting, Diarrhea Skin: denies: Rash Musculoskeletal: denies: Neck pain, Back pain Neurologic: denies: Headache PD PAST MEDICAL HISTORY - Past Medical History Past Medical History: Yes Cardiovascular: Deep vein thrombosis, Other Respiratory: Asthma Neuro: None, Other Endocrine/Autoimmune: None GI: None : None HEENT: None Psych: Depression Musculoskeletal: Chronic back pain, Other Derm: None - Past Surgical History Past Surgical History: Yes General: Other Ortho: Other - Present Medications Home Medications: Ambulatory Orders Medication Instructions Recorded Confirmed Amox/Clav 875/125 [Augmentin 1 tab PO BID 07/20/18 07/20/18 875/125] Ciproflox/Dexameth Otic Drops 4 drops OT BID 07/20/18 07/20/18 [Ciprodex] Ibuprofen [Motrin] 800 mg PO Q8H PRN #30 tablet 07/20/18 Sulfamethox/Trimeth 800/160 1 each PO BID #20 tablet 07/20/18 [Bactrim Ds 800/160] - Allergies Allergies/Adverse Reactions: Allergies Allergy/AdvReac Type Severity Reaction Status Date / Time hydrocodone bitartrate * AdvReac Nausea Verified 07/20/18 09:25 [From Vicodin] - Social History Does the pt smoke?: Yes Smoking Status: Current every day smoker Does the pt drink ETOH?: No Does the pt have substance abuse?: No - Immunizations Immunizations are current?: Yes Immunizations: TDAP current <10years, Other immun not current - POLST Patient has POLST: No POLST Status: Full Code PD ED PE NORMAL - Vitals Vital signs reviewed: Yes - General General: Alert and oriented X 3, No acute distress, Well developed/nourished - HEENT HEENT: Moist mucous membranes - Neck Neck: Supple, no meningeal sign - Cardiac Cardiac: RRR - Respiratory Respiratory: No respiratory distress, Clear bilaterally - Abdomen Abdomen: Soft, Non distended, Other (Mild diffuse tenderness to palpation. Umbilicus is erythematous, swollen. No drainage. There is approximately 2 cm of erythema surrounding the umbilicus) - Derm Derm: Warm and dry - Neuro Neuro: Alert and oriented X 3 - Psych Psych: Normal mood, Normal affect Results - Vitals Vitals: Vital Signs - 24 hr 07/20/18 07/20/18 09:22 11:36 Temperature 36.0 C L 36.4 C L Heart Rate 65 104 H Respiratory 14 16 Rate Blood Pressure 114/84 H 126/66 O2 Saturation 95 94 Oxygen O2 Source Room air - Labs Labs: Laboratory Tests 07/20/18 07/20/18 10:19 10:19 WBC 16.8 H RBC 3.67 L Hgb 10.1 L Hct 29.8 L MCV 81.3 MCH 27.5 MCHC 33.9 RDW 16.5 H Plt Count 684 H MPV 7.0 L Neut # (Auto) 13.2 H Lymph # (Auto) 2.4 Martin # (Auto) 1.0 Eos # (Auto) 0.1 Baso # (Auto) 0.1 Absolute Nucleated RBC 0.00 Nucleated RBC % 0.0 Sodium 130 L Potassium 4.8 Chloride 91 L Carbon Dioxide 28 Anion Gap 11.0 BUN 31 H Creatinine 0.9 Estimated GFR (MDRD) 101 Glucose 113 H Calcium 9.0 Total Bilirubin 0.6 AST 38 ALT 16 Alkaline Phosphatase 78 Total Protein 9.6 H Albumin 3.1 L Globulin 6.5 H Albumin/Globulin Ratio 0.5 L Lipase 29 - Rads (name of study) CT abdomen pelvis Radiology: Prelim report reviewed, EMP read contemporaneously, See rad report (IMPRESSION: 1. Soft tissue edema and dermal thickening around the umbilicus consistent with clinically submitted history of cellulitis. No abscess. 2. Diffusely abnormal appearance of left lower lobe with predominant reticulonodular/nodular pattern of both airspace and interstitial opacities. Minimal reticulonodular opacities are seen elsewhere in the visualized lungs. No pleural effusion. Pneumonia including atypical pneumonia is a primary consideration. Given nodular character of opacities, atypical infectious etiology including mycobacterial or fungal disease are potential considerations. Follow-up is recommended to assess for resolution. 3. Hepatomegaly with nonspecific mild intrahepatic duct dilation. No extrahepatic duct dilation, radiopaque gallstone or gallbladder inflammatory changes seen on CT. 4. Probable liver cyst or small hemangioma subcapsular adjacent to gallbladder fossa. This is incompletely characterized 5. Examination otherwise as detailed above. ) PD MEDICAL DECISION MAKING - ED course Complexity details: reviewed results, re-evaluated patient, considered differential, d/w patient ED course: 27-year-old male with a umbilicus cellulitis. No abscess. He was counseled regarding the abnormal CT findings and the need for follow-up. We will add Bactrim to his Augmentin. We will follow-up with his doctor for repeat chest x- ray. Patient counseled regarding signs and symptoms for which I believe and urgent re-evaluation would be necessary. Patient with good understanding of and agreement to plan and is comfortable going home at this time This document was made in part using voice recognition software. While efforts are made to proofread this document, sound alike and grammatical errors may occur. Departure - Departure Disposition: 01 Home, Self Care Clinical Impression: Pneumonia Qualifiers: Pneumonia type: due to unspecified organism Laterality: right Lung location: lower lobe of lung Qualified Code(s): J18.1 - Lobar pneumonia, unspecified organism Cellulitis Qualifiers: Site of cellulitis: trunk Site of cellulitis of trunk: umbilicus Qualified Code(s): L03.316 - Cellulitis of umbilicus Condition: Good Instructions: ED Infec Skin Cellulitis, ED Pneumonia Adult Follow-Up: your,doctor in 3days [Other] Prescriptions: Ibuprofen [Motrin] 800 mg PO Q8H PRN #30 tablet PRN Reason: PAIN &/OR FEVER Sulfamethox/Trimeth 800/160 [Bactrim Ds 800/160] 1 each PO BID #20 tablet Comments: Continue the Augmentin at home. Add the Bactrim. Follow-up with your doctor for further care. You should have a repeat chest x-ray in about a week to ensure the pneumonia is clearing. You should be seen in 3 to 4 days by your doctor to ensure that your bellybutton is healing as well Discharge Date/Time: 07/20/18 11:58
== END 2018-07-20 11:58 | disposition home or self-care (01) ==
LOC: ED 09:14
DX: L03.316 Cellulitis of umbilicus (principal); J18.1 Lobar pneumonia, unspecified organism; F17.200 Nicotine dependence, unspecified, uncomplicated
CPT/HCPCS: 36415; 74177; 80053; 83690; 85025; 96374; 99283; 99284; A9270; Q9967

== ENCOUNTER 2018-09-25 08:51 | Emergency (ER) | payer MEDICAID ==
[2018-09-25 09:03] VITALS: BP 129/85
--- NOTE | 2018-09-25 09:17 | ED Physician Documentation ---
PD HPI GI BLEED - Stated complaint Stated Complaint: BLOOD IN STOOL - Chief complaint Chief Complaint: Abd Pain - History obtained from History obtained from: Patient - History of Present Illness Timing - onset: How many months ago (About one month.) Timing - details: Intermittant Associated symptoms: BRBPR Similar symptoms before: Has not had sx before - Additional information Additional information: Patient is a 27-year-old male who presents with bright red blood per rectum that has been occurring intermittently for the past month or more. This morning after straining to have a bowel movement he had another episode of bright red blood on the toilet paper. He denies any associated rectal pain. He does report mild lower abdominal discomfort. He reports mild nausea, without vomiting. He denies fever or dysuria. He denies history of similar symptoms in the past. Past surgical history is significant for hernia repair at age 3. He also has history of IV drug abuse. Review of Systems Constitutional: denies: Fever Nose: denies: Congestion Throat: denies: Sore throat Cardiac: denies: Chest pain / pressure Respiratory: denies: Dyspnea, Cough GI: reports: Abdominal Pain (mild lower abdomen), Nausea (mild), Constipation, Bloody / black stool. denies: Vomiting, Diarrhea : denies: Dysuria Skin: denies: Rash Musculoskeletal: denies: Neck pain Neurologic: denies: Headache PD PAST MEDICAL HISTORY - Past Medical History Cardiovascular: Deep vein thrombosis, Other Respiratory: Asthma Neuro: None, Other Endocrine/Autoimmune: None GI: None : None HEENT: None Psych: Depression Musculoskeletal: Chronic back pain, Other Derm: None - Past Surgical History Past Surgical History: Yes General: Other Ortho: Other - Allergies Allergies/Adverse Reactions: Allergies Allergy/AdvReac Type Severity Reaction Status Date / Time hydrocodone bitartrate * AdvReac Nausea Verified 09/25/18 09:03 [From Vicodin] - Social History Does the pt smoke?: Yes Smoking Status: Current every day smoker Does the pt drink ETOH?: No Does the pt have substance abuse?: No - Immunizations Immunizations are current?: Yes Immunizations: TDAP current <10years, Other immun not current - POLST Patient has POLST: No POLST Status: Full Code PD ED PE NORMAL - Vitals Vital signs reviewed: Yes (normal) - General General: Alert and oriented X 3, Well developed/nourished - HEENT HEENT: Atraumatic, Pharynx benign, Other (Widespread dental decay.) - Neck Neck: No adenopathy - Cardiac Cardiac: RRR - Respiratory Respiratory: No respiratory distress, Clear bilaterally - Abdomen Abdomen: Soft, Non tender - Rectal Rectal: Other (Rectal exam reveals heme-negative stool. No external hemorrhoids are detected.) - Back Back: No CVA TTP - Derm Derm: No rash - Extremities Extremities: No edema, No calf tenderness / cord - Neuro Neuro: Alert and oriented X 3, No motor deficit, Normal speech Results - Vitals Vitals: Vital Signs - 24 hr 09/25/18 09:01 Temperature 37.5 C Heart Rate 108 H Respiratory 20 Rate Blood Pressure 129/85 H O2 Saturation 97 Oxygen O2 Source Room air - Labs Labs: Laboratory Tests 09/25/18 09:28 WBC 7.0 RBC 5.01 Hgb 12.5 L Hct 39.4 L MCV 78.6 L MCH 25.0 L MCHC 31.7 L RDW 15.4 H Plt Count 257 MPV 9.6 Neut # (Auto) 4.9 Lymph # (Auto) 1.6 Ashe # (Auto) 0.5 Eos # (Auto) 0.0 Baso # (Auto) 0.0 Absolute Nucleated RBC 0.00 Nucleated RBC % 0.0 PD MEDICAL DECISION MAKING - ED course Complexity details: reviewed old records, reviewed results, re-evaluated patient, considered differential, d/w patient ED course: The patient's presentation is most consistent with internal hemorrhoid, causing painless rectal bleeding. There is no evidence of external hemorrhoid on physical examination. I doubt diverticular bleed. Constipation is a likely underlying risk factor for his developmental internal hemorrhoid. His chronic heroin use is the likely etiology of his constipation. I discussed with him the diagnosis, symptomatic treatment and outpatient follow-up, as well as potentially worrisome signs or symptoms that should prompt reevaluation in the emergency department. I discussed treatment options for his drug addiction, and he expressed a preference to seek help at the methadone clinic. Departure - Departure Disposition: 01 Home, Self Care Clinical Impression: Internal hemorrhoid, Heroin addiction Constipation Qualifiers: Constipation type: unspecified constipation type Qualified Code(s): K59.00 - Constipation, unspecified Condition: Stable Instructions: ED Constipation, ED Hemorrhoids Comments: Try to refrain from heroin and other opiate or narcotic medication. Drink plenty of fluids. Eat fruits and drink fruit juices. Follow-up with your primary physician within 2 weeks. Call to schedule appointment. Return to the emergency department if you develop increasing abdominal pain, increasing rectal bleeding, or otherwise worsening symptoms. Discharge Date/Time: 09/25/18 10:04
[2018-09-25 09:34] LABS: BASOPHILS % (AUTO) 0.3 %; EOSINOPHILS % (AUTO) 0.4 %; HGB - HEMOGLOBIN 12.5 g/dL (14.0-18.0); LYMPHOCYTES # (AUTO) 1.6 10^3/uL (1.5-3.5); LYMPHOCYTES % (AUTO) 22.2 %; MEAN CORPUSCULAR HGB CONC 31.7 g/dL (32.0-36.0); MEAN CORPUSCULAR VOLUME 78.6 fL (80.0-94.0); MEAN PLATELET VOLUME 9.6 fL (7.4-11.4); MONOCYTES # (AUTO) 0.5 10^3/uL (0.0-1.0); MONOCYTES % (AUTO) 6.8 %; NEUTROPHILS # (AUTO) 4.9 10^3/uL (1.5-6.6); PLT - PLATELET COUNT 257 10^3/uL (130-450); RED BLOOD COUNT 5.01 10^6/uL (4.70-6.10); RED CELL DISTRIBUTION WIDTH 15.4 % (12.0-15.0)
== END 2018-09-25 10:04 | disposition home or self-care (01) ==
LOC: ED 08:51
DX: K64.8 Other hemorrhoids (principal); K59.00 Constipation, unspecified; F11.20 Opioid dependence, uncomplicated; F17.200 Nicotine dependence, unspecified, uncomplicated
CPT/HCPCS: 36415; 85025; 99283; 99284

== ENCOUNTER 2019-05-28 00:14 | Emergency (ER) | payer MEDICAID ==
--- NOTE | 2019-05-28 00:30 | ED Physician Documentation ---
PD HPI CHEST PAIN - Stated complaint Stated Complaint: CP - Chief complaint Chief Complaint: Cardiac - History obtained from History obtained from: Patient - History of Present Illness Timing - onset: Enter time (729), Yesterday Timing - onset during: Rest Timing - duration: Hours Timing - details: Abrupt onset, Still present Quality: Sharp, Pain Location: Left chest Radiation: Back. No: Jaw, Neck, Abdominal, Left upper extremity, Right upper extremity Improved by: Rest Worsened by: Exertion, Inspiration, Movement, Palpation Associated symptoms: Cough. No: Shortness of air, Diaphoresis, Nausea, Vomiting, Feeling faint / dizzy, General Weakness, Palpitations Similar symptoms before: Diagnosis (pneumonia) Recently seen: Not recently seen - Additional information Additional information: 28-year-old male with a history of homelessness, heroin addiction and multiple medical problems related to heroin use including upper extremity DVT and pneumonia has developed a sharp pain in his left chest at about 7:30 in the morning. He was sitting at rest he states it was like a lightening bolt that hit him in the left chest. He has had persistent pain since that time. He has some increase with inspiration and some increase with movement and some increase with direct palpation. He thinks there may be a component of worsening with exertion. He has not had fever but he has had a cough and congestion. He states his last time he used heroin was 3 days ago and he has not been using on a regular basis. Review of Systems Constitutional: denies: Fever, Chills, Myalgias, Fatigue Eyes: denies: Decreased vision Ears: denies: Ear pain Nose: reports: Rhinorrhea / runny nose, Congestion Throat: denies: Sore throat Cardiac: reports: Chest pain / pressure. denies: Palpitations, Pedal edema, Calf pain Respiratory: reports: Cough. denies: Dyspnea GI: denies: Abdominal Pain, Nausea, Vomiting : denies: Dysuria, Frequency Skin: denies: Rash Musculoskeletal: denies: Neck pain, Back pain, Extremity pain Neurologic: denies: Generalized weakness, Focal weakness, Numbness PD PAST MEDICAL HISTORY - Past Medical History Past Medical History: Yes Cardiovascular: Deep vein thrombosis, Other Respiratory: Asthma Neuro: Other Endocrine/Autoimmune: None GI: None : None HEENT: None Psych: Depression Musculoskeletal: Chronic back pain, Other Derm: None - Past Surgical History Past Surgical History: Yes General: Other Ortho: Other - Present Medications Home Medications: Ambulatory Orders Medication Instructions Recorded Confirmed Azithromycin [Zithromax] 250 mg PO DAILY #4 tablet 05/28/19 Methadone 05/28/19 - Allergies Allergies/Adverse Reactions: Allergies Allergy/AdvReac Type Severity Reaction Status Date / Time hydrocodone bitartrate * AdvReac Nausea Verified 05/28/19 00:22 [From Vicodin] - Social History Does the pt smoke?: Yes Smoking Status: Current every day smoker Does the pt drink ETOH?: No Does the pt have substance abuse?: No - Immunizations Immunizations are current?: Yes Immunizations: TDAP current <10years, Other immun not current - POLST Patient has POLST: No POLST Status: Full Code PD ED PE NORMAL - Vitals Vital signs reviewed: Yes (hypertensive mild ) - General General: Alert and oriented X 3, Well developed/nourished, Other (Unkempt 28-year-old male with multiple scars on both of his arms and close that are in need of laundering is withdrawn and speaks quietly.) - HEENT HEENT: Atraumatic, PERRL, EOMI, Other (right TM is erthematous with distortion of the landmarks and the left is clear. The pharynx is with swelling to the right side only. ) - Neck Neck: Supple, no meningeal sign, No bony TTP - Cardiac Cardiac: RRR, No murmur - Respiratory Respiratory: No respiratory distress, Other (diminished breath sounds more so on the left base. 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, No motor deficit, No sensory deficit, Normal speech Eye Opening: Spontaneous Motor: Obeys Commands Verbal: Oriented GCS Score: 15 - Psych Psych: Other (mood is withdrawn and the affect is flat) Results - Vitals Vitals: Vital Signs - 24 hr 05/28/19 05/28/19 00:15 00:30 Temperature 36.5 C Heart Rate 73 86 Respiratory 18 18 Rate Blood Pressure 139/83 H 129/83 H O2 Saturation 100 100 Oxygen O2 Source Room air - EKG (time done) 0024 Rate: Rate (enter#) (78) Rhythm: NSR Compare to prior EKG: Changed from prior EKG (SPT 03-09-2018 rate has decreased ) Computer interpretation: Agree with computer - Labs Labs: Laboratory Tests 05/28/19 05/28/19 05/28/19 00:25 00:25 00:25 WBC 11.3 H RBC 4.89 Hgb 12.5 L Hct 39.0 L MCV 79.8 L MCH 25.6 L MCHC 32.1 RDW 15.4 H Plt Count 430 MPV 9.5 Neut # (Auto) 8.9 H Lymph # (Auto) 1.6 Crook # (Auto) 0.6 Eos # (Auto) 0.1 Baso # (Auto) 0.1 Absolute Nucleated RBC 0.00 Nucleated RBC % 0.0 D-Dimer Sodium 137 Potassium 4.5 Chloride 100 L Carbon Dioxide 28 Anion Gap 9.0 BUN 17 Creatinine 0.7 Estimated GFR (MDRD) 134 Glucose 108 H Calcium 8.8 Total Bilirubin 0.4 AST 18 ALT 13 Alkaline Phosphatase 100 Troponin I High Sens 2.5 Total Protein 8.4 H Albumin 3.7 Globulin 4.7 H Albumin/Globulin Ratio 0.8 L Lipase 34 05/28/19 00:25 WBC RBC Hgb Hct MCV MCH MCHC RDW Plt Count MPV Neut # (Auto) Lymph # (Auto) Crook # (Auto) Eos # (Auto) Baso # (Auto) Absolute Nucleated RBC Nucleated RBC % D-Dimer 391.6 H Sodium Potassium Chloride Carbon Dioxide Anion Gap BUN Creatinine Estimated GFR (MDRD) Glucose Calcium Total Bilirubin AST ALT Alkaline Phosphatase Troponin I High Sens Total Protein Albumin Globulin Albumin/Globulin Ratio Lipase - Rads (name of study) chest Radiology: Prelim report reviewed (Impression: Bilateral lower lung predominant airspace opacities likely represent an atypical viral infection.), EMP read indepedently, See rad report PD MEDICAL DECISION MAKING - ED course Complexity details: reviewed results, re-evaluated patient, considered differential, d/w patient ED course: 28-year-old male with acute onset of chest pain and dyspnea today has a chest x- ray concerning for atypical viral pneumonia. He has otitis on exam and he is administered Rocephin and Zithromax as well as dexamethasone. Departure - Departure Disposition: 01 Home, Self Care Clinical Impression: Atypical pneumonia Otitis media Qualifiers: Otitis media type: suppurative Chronicity: acute Laterality: bilateral Recurrence: non-recurrent Spontaneous tympanic membrane rupture: without spontaneous rupture Qualified Code(s): H66.003 - Acute suppurative otitis media without spontaneous rupture of ear drum, bilateral Condition: Stable Instructions: ED Otitis Media Acute Adult, ED Pneumonia Adult, COVID-19 [facility], COVID-19 [facility] Department Statement, Flu and Cold: Nutrition, Prevention and Treatment Tips Follow-Up: [facility] [Provider Group] Prescriptions: Azithromycin [Zithromax] 250 mg PO DAILY #4 tablet Comments: Today you were tested for coronavirus and your chest x-ray is concerning for the possibility of this viral infection. Follow the state guidelines for quarantine and expect results of your test in 2 to 3 days. If you worsen with increasing shortness of breath fever and difficulty breathing return to the emergency department. It is possible you could get sick with this illness.
--- NOTE | 2019-05-28 01:18 | XRAY Report ---
Reason: chest pain Procedure Date: 05/28/2019 Accession Number: [id number] / [id number] Procedure: XR - Chest 1 View X-Ray CPT Code: 99580 Final Report FULL RESULT: EXAM: CHEST RADIOGRAPHY EXAM DATE: 05/28/2019 01:06 AM. CLINICAL HISTORY: Chest pain. COMPARISON: CHEST 1 VIEW 07/23/2017 11:06 PM. TECHNIQUE: 1 view. FINDINGS: The mediastinal and cardiac silhouettes are normal. Airspace opacities are present in the right upper and bilateral lower lobes. There is no pleural effusion or pneumothorax. An upper thoracic levocurvature is seen. IMPRESSION: Bilateral lower lung predominant airspace opacities likely represents an atypical viral infection. RADIA
[2019-05-28 01:19] LABS: BASOPHILS # (AUTO) 0.1 10^3/uL (0.0-0.1); BASOPHILS % (AUTO) 0.5 %; EOSINOPHILS # (AUTO) 0.1 10^3/uL (0.0-0.7); EOSINOPHILS % (AUTO) 1.1 %; HGB - HEMOGLOBIN 12.5 g/dL (14.0-18.0); LYMPHOCYTES # (AUTO) 1.6 10^3/uL (1.5-3.5); LYMPHOCYTES % (AUTO) 14.1 %; MEAN CORPUSCULAR HEMOGLOBIN 25.6 pg (27.0-31.0); MEAN CORPUSCULAR HGB CONC 32.1 g/dL (32.0-36.0); MEAN CORPUSCULAR VOLUME 79.8 fL (80.0-94.0); MEAN PLATELET VOLUME 9.5 fL (7.4-11.4); MONOCYTES # (AUTO) 0.6 10^3/uL (0.0-1.0); MONOCYTES % (AUTO) 5.2 %; NEUTROPHILS # (AUTO) 8.9 10^3/uL (1.5-6.6); NEUTROPHILS % (AUTO) 78.6 %; PLT - PLATELET COUNT 430 10^3/uL (130-450); RED BLOOD COUNT 4.89 10^6/uL (4.70-6.10); RED CELL DISTRIBUTION WIDTH 15.4 % (12.0-15.0); WHITE BLOOD COUNT 11.3 x10^3/uL (4.8-10.8)
[2019-05-28 01:26] LABS: ALBUMIN 3.7 g/dL (3.2-5.5); ALBUMIN/GLOBULIN RATIO 0.8 (1.0-2.2); BILIRUBIN,TOTAL 0.4 mg/dL (0.2-1.0); CALCIUM 8.8 mg/dL (8.5-10.3); CREATININE 0.7 mg/dL (0.6-1.2); TOTAL PROTEIN 8.4 g/dL (6.7-8.2)
[2019-05-28] MEDS ORDERED: CHERRY SYRUP 10 ML UDC PO ONE (01:31)
[2019-05-28] MEDS ORDERED: DEXAMETHASONE 10 MG/ML VIAL PO STA (01:31)
[2019-05-28] MEDS ORDERED: cefTRIAXone 1 GM VIAL IM STA (01:34)
[2019-05-28] MEDS ORDERED: AZITHROMYCIN 250 MG TABLET PO STA (01:34)
[2019-05-28] MEDS ORDERED: LIDOCAINE 1% 2 ML VIAL MC ONE (01:34)
[2019-05-28 01:58] VITALS: BP 128/67
== END 2019-05-28 02:03 | disposition home or self-care (01) ==
LOC: ED 00:14
DX: J18.9 Pneumonia, unspecified organism (principal); H66.003 Acute suppurative otitis media without spontaneous rupture of ear drum, bilateral; F17.200 Nicotine dependence, unspecified, uncomplicated; Z59.0 Homelessness
CPT/HCPCS: 36415; 71045; 80053; 81599; 83690; 84484; 85025; 85379; 93005; 96372; 99284; A9270

== ENCOUNTER 2019-07-04 04:28 | Emergency (ER) | payer MEDICAID ==
--- NOTE | 2019-07-04 04:34 | ED Physician Documentation ---
History of Present Illness - Stated complaint Stated Complaint: ARM PX/REDNESS - History obtained from History obtained from: Patient (Patient is a 28-year-old male who is an IV drug user and reports multiple skin infections presents tonight with redness to his left upper extremity.Patient denies fevers.) Review of Systems Constitutional: reports: Reviewed and negative Eyes: reports: Reviewed and negative Ears: reports: Reviewed and negative Nose: reports: Reviewed and negative Throat: reports: Reviewed and negative Cardiac: reports: Reviewed and negative Respiratory: reports: Reviewed and negative GI: reports: Reviewed and negative : reports: Reviewed and negative Skin: reports: Lesions Musculoskeletal: reports: Reviewed and negative Neurologic: reports: Reviewed and negative Psychiatric: reports: Reviewed and negative Endocrine: reports: Reviewed and negative Immunocompromised: reports: Reviewed and negative PD PAST MEDICAL HISTORY - Past Medical History Cardiovascular: Deep vein thrombosis, Other Respiratory: Asthma Neuro: Other Endocrine/Autoimmune: None GI: None : None HEENT: None Psych: Depression Musculoskeletal: Chronic back pain, Other Derm: None - Past Surgical History Past Surgical History: Yes General: Other Ortho: Other - Present Medications Home Medications: Ambulatory Orders Medication Instructions Recorded Confirmed Methadone 05/28/19 Clindamycin HCl [Clindamycin 300MG 300 mg PO QID 10 Days #40 capsule 07/04/19 CAP] - Allergies Allergies/Adverse Reactions: Allergies Allergy/AdvReac Type Severity Reaction Status Date / Time hydrocodone bitartrate * AdvReac Nausea Verified 07/04/19 04:41 [From Vicodin] - Social History Does the pt smoke?: Yes Smoking Status: Current every day smoker Does the pt drink ETOH?: No Does the pt have substance abuse?: No - Immunizations Immunizations are current?: Yes Immunizations: TDAP current <10years, Other immun not current - POLST Patient has POLST: No POLST Status: Full Code PD ED PE NORMAL - Vitals Vital signs reviewed: Yes - General General: No acute distress, Well developed/nourished - HEENT HEENT: PERRL - Neck Neck: Supple, no meningeal sign - Cardiac Cardiac: RRR, Strong equal pulses - Respiratory Respiratory: No respiratory distress, Clear bilaterally - Abdomen Abdomen: Normal bowel sounds, Soft, Non tender, Non distended - Derm Derm: Other (Left upper extremity just proximal to the antecubital fossa has approximately 3 x 3 cm of erythema without fluctuance or streaking, compartments are soft neurovascularly intact radial pulses are 2+ and symmetric no axillary or supraclavicular lymphadenopathy. Radian, median, ulnar motor and sensory exam are intact flat cutter strength is 5 out of 5.) - Extremities Extremities: No deformity - Neuro Neuro: Alert and oriented X 3, bundler 2-12 intact, No motor deficit, No sensory deficit, Normal speech - Psych Psych: Normal mood, Normal affect Results - Vitals Vitals: Vital Signs - 24 hr 07/04/19 04:32 Temperature 36.8 C Heart Rate 102 H Respiratory 16 Rate Blood Pressure 138/86 H O2 Saturation 98 Oxygen O2 Source Room air PD MEDICAL DECISION MAKING - ED course Complexity details: considered differential (Exams consistent with cellulitis no obvious abscess for incision and drainage at this time will initiate treatment with clindamycin for cellulitis and encourage close follow-up.) Departure - Departure Disposition: 01 Home, Self Care Clinical Impression: Cellulitis Qualifiers: Site of cellulitis: extremity Site of cellulitis of extremity: upper extremity Laterality: left Qualified Code(s): L03.114 - Cellulitis of left upper limb Condition: Stable Instructions: ED Infec Skin Cellulitis Follow-Up: your, doctor [Other] Prescriptions: Clindamycin HCl [Clindamycin 300MG CAP] 300 mg PO QID 10 Days #40 capsule Comments: take antibiotics as directed.
[2019-07-04 04:41] VITALS: BP 138/86
[2019-07-04] MEDS ORDERED: CLINDAMYCIN 150 MG CAPSULE PO STA (05:05)
== END 2019-07-04 05:41 | disposition home or self-care (01) ==
LOC: ED 04:28
DX: L03.114 Cellulitis of left upper limb (principal); F17.200 Nicotine dependence, unspecified, uncomplicated
CPT/HCPCS: 99282; 99284; A9270

== ENCOUNTER 2019-10-21 14:08 | Emergency (ER) | payer MEDICAID ==
[2019-10-21 14:18] VITALS: BP 128/72
[2019-10-21] MEDS ORDERED: PROPARACAINE 0.5% OPHTH DROPS 15 ML RIGHTEYE STA (14:48)
[2019-10-21] MEDS ORDERED: cefTRIAXone 1 GM VIAL IM STA (15:20)
[2019-10-21] MEDS ORDERED: LIDOCAINE 1% 2 ML VIAL MC ONE (15:20)
--- NOTE | 2019-10-21 15:20 | ED Physician Documentation ---
History of Present Illness - Stated complaint Stated Complaint: FB LT EYE - Chief complaint Chief Complaint: Heent - Additonal information Additional information: 29-year-old male comes to the emergency department for evaluation of a left eye injury. He reports that 3 days ago he was chopping bushes in order to secure the straps for his tent. He felt something landed in between his left eye and the upper eyelid. He reports that he tried flushing the eye and the pain improved but over the last 3 days he has had progressive swelling of the upper eyelid as well as a large amount of mucopurulent drainage. The eyelid itself is quite tender to touch. He does not wear contacts or corrective lenses. No history of previous injury. He denies loss of vision. This gentleman has exceedingly poor hygiene and is currently living on a tent on a friend's property. Review of Systems Constitutional: denies: Fever, Chills Eyes: reports: Discharge, Irritation. denies: Loss of vision, Decreased vision, Photophobia Ears: denies: Loss of hearing Nose: denies: Rhinorrhea / runny nose, Congestion Throat: denies: Dental pain / toothache, Oral lesions / sores Cardiac: denies: Chest pain / pressure, Palpitations, Pedal edema, Calf pain Respiratory: denies: Dyspnea, Cough, Hemoptysis GI: denies: Abdominal Pain, Abdominal Swelling, Nausea, Constipation, Diarrhea : denies: Dysuria, Frequency Skin: denies: Rash, Lesions Musculoskeletal: denies: Neck pain, Back pain PD PAST MEDICAL HISTORY - Past Medical History Past Medical History: Yes Cardiovascular: Deep vein thrombosis, Other Respiratory: Asthma Neuro: Other Endocrine/Autoimmune: None GI: None : None HEENT: None Psych: Depression Musculoskeletal: Chronic back pain, Other Derm: None - Past Surgical History Past Surgical History: Yes General: Other Ortho: Other - Present Medications Home Medications: Ambulatory Orders Medication Instructions Recorded Confirmed Erythromycin Base [Erythromycin 3.5 gm OP TID #1 oint...g. 10/21/19 Ophthalmic Ointment] Sulfamethox/Trimeth 800/160 1 each PO BID #14 tablet 10/21/19 [Bactrim Ds 800/160] - Allergies Allergies/Adverse Reactions: Allergies Allergy/AdvReac Type Severity Reaction Status Date / Time hydrocodone bitartrate * AdvReac Nausea Verified 10/21/19 14:18 [From Vicodin] - Social History Does the pt smoke?: Yes Smoking Status: Current every day smoker Does the pt drink ETOH?: No Does the pt have substance abuse?: No - Immunizations Immunizations are current?: Yes Immunizations: TDAP current <10years, Other immun not current - POLST Patient has POLST: No POLST Status: Full Code PD ED PE NORMAL - HEENT HEENT: Atraumatic, EOMI, Ears normal, Moist mucous membranes, Pharynx benign, Dentition benign, Other (left upper eye lid erythematous with moderatous purulent drainage bialterally. Fluorsceine stain negative. EOMI intact withotu eye pain. no bulge of the eye) - Neck Neck: Supple, no meningeal sign, No adenopathy - Cardiac Cardiac: RRR, No murmur, No gallop - Respiratory Respiratory: No: No respiratory distress, Clear bilaterally Results - Vitals Vitals: Vital Signs - 24 hr 10/21/19 14:14 Temperature 36.5 C Heart Rate 75 Respiratory 16 Rate Blood Pressure 128/72 O2 Saturation 97 Oxygen O2 Source Room air PD MEDICAL DECISION MAKING - ED course Complexity details: reviewed results, considered differential, d/w patient ED course: 29-year-old male presents the emergency department with a left upper eyelid swelling and erythema after getting a debris from chopping up holguin bushes in his eye. A fluorescein stain was completed and there does not appear to be any corneal abrasion or ulceration. The left upper eyelid is markedly erythematous and he has been having some mucopurulent drainage. I do suspect that he has a cellulitis of the with antibiotics. I do not believe that this gentleman has an orbital cellulitis as he has no pain with no bulging of the eye itself. I will also prescribe some antibiotic ointment for the left eye to help soothe it. I spent quite a bit of time examining the eye and everting the lids without any findings of foreign body. I also did perform a little bit of irrigation of the eye without any negative findings seen Follow-up with this gentleman will be difficult as he does appear to be homeless. I have encouraged him to return to the emergency department if his symptoms are not markedly better Departure - Departure Disposition: 01 Home, Self Care Clinical Impression: Cellulitis of left upper eyelid Condition: Stable Record reviewed to determine appropriate education?: Yes Instructions: Cellulitis Dc Prescriptions: Sulfamethox/Trimeth 800/160 [Bactrim Ds 800/160] 1 each PO BID #14 tablet Erythromycin Base [Erythromycin Ophthalmic Ointment] 3.5 gm OP TID #1 oint...g. Comments: Misael I do not see a cut or ulceration on your eye itself. It does appear that you do have an infection of the upper eyelid. I have given you an injection of an antibiotic today and I am writing a prescription for some antibiotics for you to take twice a day for the next week. I do recommend that you place a warm compress over your left eye for 10 minutes 3 times a day. I also have prescribed an antibiotic ointment for you to use in your eye 3 times a day for the next week. If at any point you find that your eye pain is worsening you have increased swelling or redness despite these treatment measures return to the emergency department
== END 2019-10-21 15:36 | disposition home or self-care (01) ==
LOC: ED 14:08
DX: H00.034 Abscess of left upper eyelid (principal); F17.200 Nicotine dependence, unspecified, uncomplicated; Z59.0 Homelessness
CPT/HCPCS: 96372; 99283; 99284; J3490

== ENCOUNTER 2019-11-07 23:06 | Emergency (ER) | payer MEDICAID ==
--- NOTE | 2019-11-07 23:13 | ED Physician Documentation ---
History of Present Illness - Stated complaint Stated Complaint: L EYE SWELLING - History obtained from History obtained from: Patient - Additonal information Additional information: The patient is a 29-year-old male who presents with a chief complaint of left eye redness and discharge. The patient is a 29-year-old IV drug user who was seen here 20 days ago and was given a prescription for oral antibiotics and erythromycin ointment. He reports he did not use the ointment and did not fill his prescription for antibiotics. The patient reports that he currently is undomiciled.He denies any new injury to the eye. He reports initially he came in after his left eye was scratched by a branch.He reports that he supposed to wear corrective lenses but does not. He denies any visual loss or foreign body sensation.He denies any photophobia. Review of Systems Constitutional: reports: Reviewed and negative Eyes: reports: Discharge, Irritation Ears: reports: Reviewed and negative Nose: reports: Reviewed and negative Throat: reports: Reviewed and negative Cardiac: reports: Reviewed and negative Respiratory: reports: Reviewed and negative GI: reports: Reviewed and negative : reports: Reviewed and negative Skin: reports: Reviewed and negative Musculoskeletal: reports: Reviewed and negative Neurologic: reports: Reviewed and negative Psychiatric: reports: Reviewed and negative Endocrine: reports: Reviewed and negative Immunocompromised: reports: Reviewed and negative PD PAST MEDICAL HISTORY - Past Medical History Cardiovascular: Deep vein thrombosis, Other Respiratory: Asthma Neuro: Other Endocrine/Autoimmune: None GI: None : None HEENT: None Psych: Depression Musculoskeletal: Chronic back pain, Other Derm: None - Past Surgical History Past Surgical History: Yes General: Other Ortho: Other - Present Medications Home Medications: Ambulatory Orders Medication Instructions Recorded Confirmed Erythromycin Base [Erythromycin 3.5 gm OP TID #1 oint...g. 10/21/19 Ophthalmic Ointment] Sulfamethox/Trimeth 800/160 1 each PO BID #14 tablet 10/21/19 [Bactrim Ds 800/160] - Allergies Allergies/Adverse Reactions: Allergies Allergy/AdvReac Type Severity Reaction Status Date / Time hydrocodone bitartrate * AdvReac Nausea Verified 11/07/19 23:19 [From Vicodin] - Social History Does the pt smoke?: Yes Smoking Status: Current every day smoker Does the pt drink ETOH?: No Does the pt have substance abuse?: No - Immunizations Immunizations are current?: Yes Immunizations: TDAP current <10years, Other immun not current - POLST Patient has POLST: No POLST Status: Full Code PD ED PE NORMAL - Vitals Vital signs reviewed: Yes - General General: Alert and oriented X 3, No acute distress - HEENT HEENT: PERRL, EOMI - Neck Neck: Supple, no meningeal sign - Cardiac Cardiac: RRR, No murmur - Respiratory Respiratory: Clear bilaterally - Abdomen Abdomen: Normal bowel sounds, Soft, Non tender, Non distended - Derm Derm: Warm and dry - Extremities Extremities: No deformity - Neuro Neuro: Alert and oriented X 3 - Psych Psych: Normal mood, Normal affect - Free text exam Free text exam: Eye exam:Visual acuity is OD 20/50, OS 20/50, OU 20/50. pupils are equal and round and reactive to light, visual guo are all intact, extraocular movements within normal limits, lid lashes show purulent crusted discharge, conjunctiva and sclera are erythematous and injected, cornea shows no fluorescein uptake, anterior chambers deep and quiet, iris is round and reactive, lenses clear, retina sharp disc margins. Results - Vitals Vitals: Vital Signs - 24 hr 11/07/19 11/07/19 23:10 23:21 Temperature 36.7 C 36.7 C Heart Rate 99 99 Respiratory 18 18 Rate Blood Pressure 130/80 130/80 O2 Saturation 97 97 Oxygen O2 Source Room air PD MEDICAL DECISION MAKING - ED course Complexity details: reviewed results, re-evaluated patient, considered differential (Bacterial conjunctivitis.), d/w patient ED course: 29-year-old male who is undomiciled the drug abuser presents with left eye bacterial conjunctivitis. We will treat him empirically with Rocephin and azithromycin as well as topical Polytrim.Patient given a referral to ophthalmology as well. Departure - Departure Disposition: 01 Home, Self Care Clinical Impression: Bacterial conjunctivitis of left eye Condition: Stable Instructions: ED Conjunctivitis Bacterial Follow-Up: Michael Lind MD [Provider Admit [facility]] - Comments: call the Property Inspector on Saturday. Applied 1-2 antibiotic drops to your left eye every 3 hours while awake for the next 7 to 10 days.
[2019-11-07] MEDS ORDERED: PROPARACAINE 0.5% OPHTH DROPS 15 ML LEFTEYE STA (23:27)
[2019-11-07] MEDS ORDERED: POLYMYXIN B/TRIMETH OPHTH DROPS LEFTEYE STA (23:41)
[2019-11-07] MEDS ORDERED: AZITHROMYCIN 250 MG TABLET PO STA (23:42)
[2019-11-07] MEDS ORDERED: KETOROLAC 30 MG/ML VIAL IM STA (23:42)
[2019-11-07] MEDS ORDERED: LIDOCAINE 1% 2 ML VIAL MC ONE (23:52)
[2019-11-07] MEDS ORDERED: cefTRIAXone 1 GM VIAL IM STA (23:52)
[2019-11-08 00:07] VITALS: BP 132/78
== END 2019-11-08 00:07 | disposition home or self-care (01) ==
LOC: ED 23:06
DX: H10.89 Other conjunctivitis (principal); F19.10 Other psychoactive substance abuse, uncomplicated; F17.200 Nicotine dependence, unspecified, uncomplicated; Z59.0 Homelessness
CPT/HCPCS: 96372; 99283; 99284; A9270; J3490

== ENCOUNTER 2019-11-19 03:49 | Outpatient (CLI) | payer MEDICAID | END 2019-11-19 03:50 | disposition critical access hospital (66) | LOC: EMS 03:49 | PROVIDERS: ATTEND Surgery | DX: M25.569 Pain in unspecified knee (principal) | CPT/HCPCS: A0425; A0429 ==

== ENCOUNTER 2019-11-19 04:10 | Emergency (ER) | payer MEDICAID ==
[2019-11-19] MEDS ORDERED: KETOROLAC 60 MG/2 ML VIAL IM STA (04:27)
--- NOTE | 2019-11-19 04:32 | ED Physician Documentation ---
History of Present Illness - Stated complaint Stated Complaint: KNEE PX - Chief complaint Chief Complaint: Ext Problem - History obtained from History obtained from: Patient - Additonal information Additional information: Patient comes emergency department complaining of bilateral knee pain. He states that he just noticed it while lying in his tenths. He denies any specific trauma. No history of trauma previously. No swelling. He states both knees just hurt "inside". Patient states that he was possibly doing a little more walking yesterday than usual. He denies any fevers or chills. No body aches. No redness. No other complaints at this time. Review of Systems Ten Systems: 10 systems reviewed and negative Constitutional: reports: Reviewed and negative Eyes: reports: Reviewed and negative Ears: reports: Reviewed and negative Nose: reports: Reviewed and negative Throat: reports: Reviewed and negative Cardiac: reports: Reviewed and negative Respiratory: reports: Reviewed and negative GI: reports: Reviewed and negative : reports: Reviewed and negative Skin: reports: Reviewed and negative Musculoskeletal: reports: Joint pain. denies: Joint swelling Neurologic: reports: Reviewed and negative Psychiatric: reports: Reviewed and negative Endocrine: reports: Reviewed and negative Immunocompromised: reports: Reviewed and negative PD PAST MEDICAL HISTORY - Past Medical History Past Medical History: Yes Cardiovascular: Deep vein thrombosis, Other Respiratory: Asthma Neuro: Other Endocrine/Autoimmune: None GI: None : None HEENT: None Psych: Depression Musculoskeletal: Chronic back pain, Other Derm: None - Past Surgical History Past Surgical History: Yes General: Other Ortho: Other - Present Medications Home Medications: Ambulatory Orders Medication Instructions Recorded Confirmed Erythromycin Base [Erythromycin 3.5 gm OP TID #1 oint...g. 10/21/19 Ophthalmic Ointment] Sulfamethox/Trimeth 800/160 1 each PO BID #14 tablet 10/21/19 [Bactrim Ds 800/160] - Allergies Allergies/Adverse Reactions: Allergies Allergy/AdvReac Type Severity Reaction Status Date / Time hydrocodone bitartrate * AdvReac Nausea Verified 11/07/19 23:19 [From Vicodin] - Social History Does the pt smoke?: Yes Smoking Status: Current every day smoker Does the pt drink ETOH?: No Does the pt have substance abuse?: No - Immunizations Immunizations are current?: Yes Immunizations: TDAP current <10years, Other immun not current - POLST Patient has POLST: No POLST Status: Full Code PD ED PE NORMAL - Vitals Vital signs reviewed: Yes - General General: Alert and oriented X 3, No acute distress, Other (Disheveled) - HEENT HEENT: Atraumatic, PERRL, EOMI, Moist mucous membranes - Neck Neck: Supple, no meningeal sign - Cardiac Cardiac: RRR, No murmur, Strong equal pulses - Respiratory Respiratory: No respiratory distress, Clear bilaterally - Derm Derm: Normal color, Warm and dry, No rash - Extremities Extremities: No deformity, No edema, No calf tenderness / cord - Neuro Neuro: Alert and oriented X 3, No motor deficit, No sensory deficit - Psych Psych: Other (Patient is anxious and tearful) Results - Vitals Vitals: Vital Signs - 24 hr 11/19/19 04:17 Temperature 37.2 C Heart Rate 125 H Respiratory 18 Rate Blood Pressure 143/95 H O2 Saturation 100 Oxygen O2 Source Room air PD MEDICAL DECISION MAKING - ED course Complexity details: reviewed old records, considered differential, d/w patient ED course: I discussed with the patient That at this time, I do not know why he has knee pain. The patient has not had any trauma or even any excessive activity or repetitive movement that should cause his knees to hurt. He is 29 years old and should not have arthritis at this age. Additionally, he has no swelling and does not have any bruising to suggest trauma or erythema to suggest infection. I discussed with the patient that it may be that the heroin that he used yesterday afternoon has worn off to the point where his nerves are awakening, as patient is a chronic heroin user. I have discussed with the patient that I will give him a dose of Toradol, but that I will not be giving him any narcotic pain medication. He is advised to follow-up with his primary doctor. Departure - Departure Disposition: 01 Home, Self Care Clinical Impression: Knee pain, bilateral Qualifiers: Chronicity: acute Qualified Code(s): M25.561 - Pain in right knee; M25.562 - Pain in left knee Condition: Stable Instructions: Knee Pain
[2019-11-19 05:02] VITALS: BP 136/84
== END 2019-11-19 05:12 | disposition home or self-care (01) ==
LOC: EDBD → EDUNIT# → ED 04:10
DX: M25.561 Pain in right knee (principal); M25.562 Pain in left knee; F11.90 Opioid use, unspecified, uncomplicated; F17.200 Nicotine dependence, unspecified, uncomplicated; Z86.718 Personal history of other venous thrombosis and embolism
CPT/HCPCS: 96372; 99282; 99283

== ENCOUNTER 2020-03-24 08:29 | Emergency (ER) | payer MEDICAID ==
[2020-03-24 08:53] VITALS: BP 125/66
[2020-03-24] MEDS ORDERED: BACITRACIN ZINC OINT 1 PACKET TOP STA (09:05)
[2020-03-24] MEDS ORDERED: SULFAMETH/TRIMETH DS 800/160 MG TABLET PO STA (09:05)
--- NOTE | 2020-03-24 09:16 | ED Physician Documentation ---
PD HPI SKIN - Stated complaint Stated Complaint: LT ANKLE SWOLLEN/RASH - Chief complaint Chief Complaint: Wound - History obtained from History obtained from: Patient - Additional information Additional information: Patient comes emergency department chief complaint of left ankle wound, redness, and swelling that started over the last week. Patient states that the wound started small, but he believes his socks and boots rubbed on the area and made the wound bigger. He states that yesterday, he noticed that his ankle and foot had gotten quite swollen and red around the heel. Patient denies any fevers or chills. No redness or pain going up his leg. Patient had a history of methamphetamine abuse and does pick at his skin quite a bit. No other complaints at this time. Review of Systems Ten Systems: 10 systems reviewed and negative Constitutional: reports: Reviewed and negative Eyes: reports: Reviewed and negative Ears: reports: Reviewed and negative Nose: reports: Reviewed and negative Throat: reports: Reviewed and negative Cardiac: reports: Reviewed and negative Respiratory: reports: Reviewed and negative GI: reports: Reviewed and negative : reports: Reviewed and negative Skin: reports: Rash (Redness, swelling), Lesions, Abrasion (s) Musculoskeletal: reports: Reviewed and negative Neurologic: reports: Reviewed and negative Psychiatric: reports: Reviewed and negative Endocrine: reports: Reviewed and negative Immunocompromised: reports: Reviewed and negative PD PAST MEDICAL HISTORY - Past Medical History Past Medical History: Yes Cardiovascular: Deep vein thrombosis, Other Respiratory: Asthma Neuro: Other Endocrine/Autoimmune: None GI: None : None HEENT: None Psych: Depression Musculoskeletal: Chronic back pain, Other Derm: None - Past Surgical History Past Surgical History: Yes General: Other Ortho: Other - Present Medications Home Medications: Ambulatory Orders Medication Instructions Recorded Confirmed Sulfamethox/Trimeth 800/160 1 each PO BID #14 tablet 03/24/20 [Bactrim Ds 800/160] - Allergies Allergies/Adverse Reactions: Allergies Allergy/AdvReac Type Severity Reaction Status Date / Time hydrocodone bitartrate * AdvReac Nausea Verified 03/24/20 08:52 [From Vicodin] - Social History Does the pt smoke?: Yes Smoking Status: Current every day smoker Does the pt drink ETOH?: No Does the pt have substance abuse?: Yes Substance Use and Type: Heroin - Immunizations Immunizations are current?: Yes Immunizations: TDAP current <10years, Other immun not current - POLST Patient has POLST: No POLST Status: Full Code PD ED PE NORMAL - Vitals Vital signs reviewed: Yes - General General: Alert and oriented X 3, No acute distress - HEENT HEENT: Atraumatic, PERRL, EOMI, Moist mucous membranes - Neck Neck: Supple, no meningeal sign - Cardiac Cardiac: Strong equal pulses - Respiratory Respiratory: No respiratory distress - Derm Derm: Warm and dry, Other (Patient has multiple scabbed lesions of varying sizes over his exposed skin, but has a much larger abrasion/skin breakdown over the medial aspect of his left ankle. There is sanguinous drainage. Distal skin around the medial malleolus and heel shows moderate edema and erythema.) - Extremities Extremities: No deformity, Other (Moderate edema left ankle and posterior foot/heel.No fluctuance or induration.) - Neuro Neuro: Alert and oriented X 3 - Psych Psych: Normal mood, Normal affect Results - Vitals Vitals: Vital Signs - 24 hr 03/24/20 08:42 Temperature 36.5 C Heart Rate 97 Respiratory 16 Rate Blood Pressure 125/66 O2 Saturation 100 Oxygen O2 Source Room air PD MEDICAL DECISION MAKING - ED course Complexity details: considered differential, d/w patient ED course: The patient did appear to have developed a cellulitis associated with his left ankle abrasion, and I felt he should be started on antibiotics for this. He was given a dose of Bactrim here. His wounds were also dressed with bacitracin and a nonstick dressing. I have advised the patient that the dressing should be changed on a daily basis to prevent further breakdown of the skin and further environment for bacterial growth. We have discussed the need to take his antibiotics as directed until the course is complete. We have discussed the usual indications for return. Departure - Departure Disposition: 01 Home, Self Care Clinical Impression: Cellulitis Qualifiers: Site of cellulitis: extremity Site of cellulitis of extremity: lower extremity Laterality: left Qualified Code(s): L03.116 - Cellulitis of left lower limb Condition: Stable Instructions: ED Infec Skin Cellulitis Prescriptions: Sulfamethox/Trimeth 800/160 [Bactrim Ds 800/160] 1 each PO BID #14 tablet Comments: It appears that the wound around your ankle has developed some skin infection, as evidenced by the redness and swelling associated with it. It is very important that you keep the wound clean and dry, and keep it wrapped up Until the wound heals. Please change the dressing on a daily basis so that it does not harbor more bacteria. Please take your antibiotics every day, as directed, until the entire course is complete.
== END 2020-03-24 09:23 | disposition home or self-care (01) ==
LOC: ED 08:29
DX: L03.116 Cellulitis of left lower limb (principal); S90.512A Abrasion, left ankle, initial encounter; X58.XXXA Exposure to other specified factors, initial encounter; F17.200 Nicotine dependence, unspecified, uncomplicated
CPT/HCPCS: 99282; 99284; A9270

== ENCOUNTER 2020-04-14 11:28 | Emergency (ER) | payer MEDICAID ==
[2020-04-14 11:47] VITALS: BP 146/79
--- NOTE | 2020-04-14 12:16 | ED Physician Documentation ---
PD HPI LOWER EXT INJURY - Stated complaint Stated Complaint: RT KNEE PX - Chief complaint Chief Complaint: Wound - History obtained from History obtained from: Patient - History of Present Illness PD HPI LOW EXT INJURY LOCATION: Right, Knee Type of injury: Other (abscess has been unroofed.) Where injury occurred: Home Timing - onset: How many days ago (3) Timing - duration: Days (3) Timing - details: Gradual onset, Still present Improved by: Rest Worsened by: Moving, Palpating Contributing factors: No: Anticoagulated Similar symptoms before: Diagnosis (healing abcess) Recently seen: Not recently seen - Additional information Additional information: 29-year-old male with a history of methamphetamine abuse has developed an abscess on the lateral aspect of his right knee he has unroofed this and drained pus from it and today he is here in the emergency department with persistence of pain wanting treatment. He has been on antibiotics prior for a similar injury to his left ankle. He has not had fever cough or chills. Review of Systems Constitutional: denies: Fever Eyes: denies: Decreased vision Ears: denies: Ear pain Nose: denies: Congestion Throat: denies: Sore throat Cardiac: denies: Chest pain / pressure, Palpitations Respiratory: denies: Dyspnea, Cough GI: denies: Vomiting Skin: reports: Lesions Musculoskeletal: reports: Extremity pain. denies: Neck pain, Back pain PD PAST MEDICAL HISTORY - Past Medical History Cardiovascular: Deep vein thrombosis, Other Respiratory: Asthma Neuro: Other Endocrine/Autoimmune: None GI: None : None HEENT: None Psych: Depression Musculoskeletal: Chronic back pain, Other Derm: None - Past Surgical History Past Surgical History: Yes General: Other Ortho: Other - Present Medications Home Medications: Ambulatory Orders Medication Instructions Recorded Confirmed Sulfamethox/Trimeth 800/160 1 each PO BID #14 tab 04/14/20 [Bactrim Ds] - Allergies Allergies/Adverse Reactions: Allergies Allergy/AdvReac Type Severity Reaction Status Date / Time hydrocodone bitartrate * AdvReac Nausea Verified 04/14/20 12:06 [From Vicodin] - Social History Does the pt smoke?: Yes Smoking Status: Current every day smoker Does the pt drink ETOH?: No Does the pt have substance abuse?: Yes - Immunizations Immunizations are current?: Yes Immunizations: TDAP current <10years, Other immun not current - POLST Patient has POLST: No POLST Status: Full Code PD ED PE NORMAL - Vitals Vital signs reviewed: Yes (hypertensive ) - General General: No acute distress, Well developed/nourished, Other (quiet with avoident gaze, the patients clothes are covered in mud. ) - HEENT HEENT: Atraumatic, PERRL, EOMI - Respiratory Respiratory: No respiratory distress - Derm Derm: Normal color, Warm and dry, No rash - Extremities Extremities: Other (There is an area to the lateral aspect of the right knee with an open wound with granulation and surrounding erythema. There is tenderness to the middle of this without mass of fluctuance. 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, No motor deficit, No sensory deficit, Normal speech Eye Opening: Spontaneous Motor: Obeys Commands Verbal: Oriented GCS Score: 15 - Psych Psych: Normal mood, Normal affect Results - Vitals Vitals: Vital Signs - 24 hr 04/14/20 11:43 Temperature 36.9 C Heart Rate 83 Respiratory 16 Rate Blood Pressure 146/79 H O2 Saturation 97 Oxygen O2 Source Room air PD MEDICAL DECISION MAKING - ED course Complexity details: considered differential, d/w patient ED course: 29-year-old male with a history of methamphetamine abuse has an area to the right lateral aspect of the knee that appears to be a resolving abscess. There is granulation tissue there is an erythematous base and persistence of symptoms. We will put him back onto some antibiotic have him use warm compress and expect resolution. Departure - Departure Disposition: 01 Home, Self Care Clinical Impression: Abscess of skin of right knee Condition: Stable Instructions: ED Staph Infec Abx Tx Only Follow-Up: [facility] [Provider Group] Prescriptions: Sulfamethox/Trimeth 800/160 [Bactrim Ds] 1 each PO BID #14 tab
== END 2020-04-14 12:46 | disposition home or self-care (01) ==
LOC: ED 11:28
DX: L02.415 Cutaneous abscess of right lower limb (principal); F17.200 Nicotine dependence, unspecified, uncomplicated
CPT/HCPCS: 99282; 99284

== ENCOUNTER 2020-05-04 13:00 | Inpatient (IN) | payer MEDICAID ==
[2020-05-04] MEDS ORDERED: SODIUM CHLORIDE 0.9% 1,000 ML IV STA (14:38)
[2020-05-04] MEDS ORDERED: HYDROmorphone 1 MG/ML CARPUJECT IVP STA ×2 (14:38→16:39)
--- NOTE | 2020-05-04 14:38 | ED Physician Documentation ---
History of Present Illness - Stated complaint Stated Complaint: LFT LEG INFECTION - Chief complaint Chief Complaint: Ext Problem - Additonal information Additional information: 29-year-old male presents the emergency department for evaluation of the right leg pain and knee pain. He has been seen similarly for knee and leg cellulitis the last few weeks. He was seen 04/14/2020 and started on a 14-day course of Bactrim. Patient reports that he finished the full course of Bactrim last week but since then has had progressive pain in the knee and inability to bear weight. Denies fevers. This gentleman has an extensive history of intravenous methamphetamine abuse. Reports last use 3 to 4 days ago. He appears homeless with very poor hygiene and disheveled clothing. Review of Systems Constitutional: reports: Myalgias. denies: Fever Eyes: reports: Reviewed and negative Nose: reports: Reviewed and negative Throat: reports: Reviewed and negative Cardiac: denies: Chest pain / pressure, Palpitations Respiratory: denies: Dyspnea, Cough GI: denies: Abdominal Pain, Nausea, Vomiting : denies: Dysuria, Frequency, Hesitancy Skin: reports: Rash, Lesions (Right lateral knee lower leg with multiple open shallow wounds in various stages of healing with white and yellow eschar. Significant surrounding erythema and tenderness.) Musculoskeletal: reports: Joint pain (right knee) PD PAST MEDICAL HISTORY - Past Medical History Cardiovascular: Deep vein thrombosis, Other Respiratory: Asthma Neuro: Other Endocrine/Autoimmune: None GI: None : None HEENT: None Psych: Depression Musculoskeletal: Chronic back pain, Other Derm: None - Past Surgical History Past Surgical History: Yes General: Other Ortho: Other - Present Medications Home Medications: Ambulatory Orders Medication Instructions Recorded Confirmed Sulfamethox/Trimeth 800/160 1 each PO BID #14 tab 04/14/20 [Bactrim Ds] - Allergies Allergies/Adverse Reactions: Allergies Allergy/AdvReac Type Severity Reaction Status Date / Time hydrocodone bitartrate * AdvReac Nausea Verified 05/04/20 13:18 [From Vicodin] - Social History Does the pt smoke?: Yes Smoking Status: Current every day smoker Does the pt drink ETOH?: No Does the pt have substance abuse?: Yes - Immunizations Immunizations are current?: Yes Immunizations: TDAP current <10years, Other immun not current - POLST Patient has POLST: No POLST Status: Full Code PD ED PE EXPANDED - General General: Disheveled, poorly kept, In Pain, In distress, Other (poor hygeine, homeless appearance) - HEENT HEENT: PERRL - Neck Neck: Supple w/out meningeal sx. No: Adenopathy - Cardiac Cardiac: Regular Rate, Radial strong equal, Pedal strong equal, Cap refill < 2 sec. No: Murmur Present - Respiratory Respiratory: Clear to ausultation lakshmi. No: Distress, Labored - Abdomen Abdomen: Normal Bowel sounds. No: Tender to palpation - Extremities Extremities: Right knee (Swelling of the right knee with micromotion tenderness. Patient unable to bear weight on the right knee.), Right leg (Multiple open shallow lesions on the right lateral leg in various stages of healing with white and yellow eschar base. Significant surrounding erythema and induration.) - Neuro Neuro: Alert and Oriented X 3, CNII-XII intact - GCS Eye Opening: Spontaneous Motor: Obeys Commands Verbal: Oriented Total: 15 Results - Vitals Vitals: Vital Signs - 24 hr 05/04/20 05/04/20 05/04/20 13:13 14:48 15:00 Temperature 36.8 C Heart Rate 90 97 103 H Respiratory 16 16 16 Rate Blood Pressure 152/84 H 160/118 H 160/118 H O2 Saturation 99 99 99 05/04/20 05/04/20 05/04/20 15:30 16:00 16:30 Temperature Heart Rate 76 81 82 Respiratory 14 15 18 Rate Blood Pressure 127/96 H 153/99 H 148/94 H O2 Saturation 99 99 100 05/04/20 17:30 Temperature Heart Rate 80 Respiratory 19 Rate Blood Pressure 156/94 H O2 Saturation 100 Oxygen O2 Source Room air - Labs Labs: Microbiology 05/04/20 15:58 Body Fluid Culture - Preliminary Other - Wound Laboratory Tests 05/04/20 05/04/20 05/04/20 14:56 14:56 14:56 WBC 10.1 RBC 4.32 L Hgb 10.7 L Hct 33.9 L MCV 78.5 L MCH 24.8 L MCHC 31.6 L RDW 15.9 H Plt Count 385 MPV 9.1 Neut # (Auto) 7.1 H Lymph # (Auto) 1.9 Collin # (Auto) 0.8 Eos # (Auto) 0.2 Baso # (Auto) 0.1 Absolute Nucleated RBC 0.00 Nucleated RBC % 0.0 ESR Sodium 139 Potassium 3.9 Chloride 104 Carbon Dioxide 26 Anion Gap 9.0 BUN 16 Creatinine 0.7 Estimated GFR (MDRD) 133 Glucose 80 Lactic Acid 1.5 Calcium 8.6 Total Bilirubin 0.2 AST 18 ALT 16 Alkaline Phosphatase 80 C-Reactive Protein Total Protein 7.9 Albumin 3.5 Globulin 4.4 H Albumin/Globulin Ratio 0.8 L Fluid Source Fluid Color Fluid Clarity Fluid WBC Fluid RBC Fluid Neutrophils % Fluid Lymphocytes % Fld Mesothelial Cell % Fluid Crystals 05/04/20 05/04/20 05/04/20 14:56 15:00 15:58 WBC RBC Hgb Hct MCV MCH MCHC RDW Plt Count MPV Neut # (Auto) Lymph # (Auto) Collin # (Auto) Eos # (Auto) Baso # (Auto) Absolute Nucleated RBC Nucleated RBC % ESR 77 H Sodium Potassium Chloride Carbon Dioxide Anion Gap BUN Creatinine Estimated GFR (MDRD) Glucose Lactic Acid Calcium Total Bilirubin AST ALT Alkaline Phosphatase C-Reactive Protein 6.2 H Total Protein Albumin Globulin Albumin/Globulin Ratio Fluid Source KNEE Fluid Color BLOODY Fluid Clarity BLOODY Fluid WBC TNP Fluid RBC TNP Fluid Neutrophils % 58.0 Fluid Lymphocytes % 42.0 Fld Mesothelial Cell % 0 Fluid Crystals 05/04/20 15:58 WBC RBC Hgb Hct MCV MCH MCHC RDW Plt Count MPV Neut # (Auto) Lymph # (Auto) Collin # (Auto) Eos # (Auto) Baso # (Auto) Absolute Nucleated RBC Nucleated RBC % ESR Sodium Potassium Chloride Carbon Dioxide Anion Gap BUN Creatinine Estimated GFR (MDRD) Glucose Lactic Acid Calcium Total Bilirubin AST ALT Alkaline Phosphatase C-Reactive Protein Total Protein Albumin Globulin Albumin/Globulin Ratio Fluid Source Fluid Color Fluid Clarity Fluid WBC Fluid RBC Fluid Neutrophils % Fluid Lymphocytes % Fld Mesothelial Cell % Fluid Crystals NONE SEEN - Rads (name of study) right knee Radiology: Final report received (Mild to moderate effusion. No visualized acu te fracture or dislocation) CT right leg Radiology: Final report received (no abscess. moderate subcutaneous edema vs cellulitis. no osseous abnormality) Procedures - Arthrocentesis Joint: Knee Preparation: Consent obtained, Sterile prep and drape Anesthesia: Lidocaine 1% Fluid: Sent for cell count, Sent for crystals, Fluid obtained - cc (2.5), Sent for gram stain Aftercare: Dressing applied, No complications PD MEDICAL DECISION MAKING - ED course Complexity details: reviewed results, re-evaluated patient, considered differential, d/w patient ED course: 29 year old male presents to the ED with cc of worsening right leg pain and knee pain. Unable to bear weight on the right knee. recently tx with a course of bactrim for right leg cellulitis. completed abx last week. he has multiple open sores on the lateral leg with surrounding erythema. In addition micromotion tenderness right knee. CRP elevated at 6.5 and sed rate > 70. . I did perform an arthrocentesis of the right knee. It was initially clear viscous fluid, but then became bloody. Unfortunately the differential could not be completed as it clotted in the lavender tube. Gram stain shows Rare wbc's and no organisms. My suspicion given the clear arthrocentesis as well as the Gram stain is that this gentleman does not have an infected joint. However he has failed 2 courses of outpatient antibiotics for treatment of this right leg cellulitis. CT of the right leg c/w cellulitis. We will bring him into the hospital for further evaluation and treatment. Initial dose of IV vancomycin has been ordered. I have spoken with Dr. Valente pena who agrees to see and evaluate the patient. Departure - Departure Disposition: 66 [facility] DC/[facility] Clinical Impression: Cellulitis of right leg, Methamphetamine abuse
[2020-05-04 15:07] LABS: BASOPHILS # (AUTO) 0.1 10^3/uL (0.0-0.1); BASOPHILS % (AUTO) 0.5 %; EOSINOPHILS # (AUTO) 0.2 10^3/uL (0.0-0.7); EOSINOPHILS % (AUTO) 1.6 %; HCT - HEMATOCRIT 33.9 % (42.0-52.0); HGB - HEMOGLOBIN 10.7 g/dL (14.0-18.0); LYMPHOCYTES # (AUTO) 1.9 10^3/uL (1.5-3.5); LYMPHOCYTES % (AUTO) 18.8 %; MEAN CORPUSCULAR HEMOGLOBIN 24.8 pg (27.0-31.0); MEAN CORPUSCULAR HGB CONC 31.6 g/dL (32.0-36.0); MEAN CORPUSCULAR VOLUME 78.5 fL (80.0-94.0); MEAN PLATELET VOLUME 9.1 fL (7.4-11.4); MONOCYTES # (AUTO) 0.8 10^3/uL (0.0-1.0); MONOCYTES % (AUTO) 7.7 %; NEUTROPHILS # (AUTO) 7.1 10^3/uL (1.5-6.6); PLT - PLATELET COUNT 385 10^3/uL (130-450); RED BLOOD COUNT 4.32 10^6/uL (4.70-6.10); RED CELL DISTRIBUTION WIDTH 15.9 % (12.0-15.0); WHITE BLOOD COUNT 10.1 x10^3/uL (4.8-10.8)
[2020-05-04 15:22] LABS: ALBUMIN 3.5 g/dL (3.2-5.5); ALBUMIN/GLOBULIN RATIO 0.8 (1.0-2.2); BILIRUBIN,TOTAL 0.2 mg/dL (0.2-1.0); CALCIUM 8.6 mg/dL (8.5-10.3); CREATININE 0.7 mg/dL (0.6-1.2); POTASSIUM 3.9 mmol/L (3.5-5.0); TOTAL PROTEIN 7.9 g/dL (6.7-8.2)
--- NOTE | 2020-05-04 15:29 | XRAY Report ---
PROCEDURE: Knee 2 View RT INDICATIONS: eval for effusion TECHNIQUE: 2 views of the right knee(s) were acquired. COMPARISON: X-ray knee 01/12/2017 FINDINGS: Bones: No fractures or dislocations. No suspicious bony lesions. Soft tissues: Mild to moderate joint effusion. No suspicious soft tissue calcifications. IMPRESSION: Mild to moderate effusion. No visualized acute fracture or dislocation. However, occult injury cannot be excluded. Recommend short interval imaging follow-up in 7-10 days as clinically naif cated for additional evaluation. Reviewed by: Gita Morel MD on 05/04/2020 3:28 PM PST Approved by: Gita Morel MD on 05/04/2020 3:28 PM PST Station ID: [id number]
[2020-05-04] MEDS ORDERED: diphenhydrAMINE INJ 50 MG/ML VIAL IVP STA (16:29)
[2020-05-04] MEDS ORDERED: IOVERSOL 320 100 ML VIAL IVP ONE ×2 (16:52→17:46)
[2020-05-04 16:54] LABS: BF CLARITY BLOODY; BF SOURCE KNEE
[2020-05-04 16:55] LABS: BF COLOR BLOODY
[2020-05-04 17:24] LABS: MESOTHELIAL %, BF 0 %
[2020-05-04] MEDS ORDERED: VANCOMYCIN INJ 1.25 GM in SODIUM CHLORIDE 0.9% 500 ML IV STA (17:47)
[2020-05-04 17:48] LABS: BILIRUBIN,URINE NEGATIVE (NEGATIVE); GLUCOSE, URINE (UA) NEGATIVE (NEGATIVE); KETONES,URINE (UA) NEGATIVE (NEGATIVE); LEUKOCYTE ESTERASE, URINE NEGATIVE (NEGATIVE); NITRITE,URINE NEGATIVE (NEGATIVE); OCCULT BLOOD,URINE NEGATIVE (NEGATIVE); PROTEIN,URINE NEGATIVE (NEGATIVE); UROBILINOGEN,URINE 0.2 (NORMAL) E.U./dL (NORMAL)
[2020-05-04] MEDS ORDERED: VANCOMYCIN INJ 1.5 GM in SODIUM CHLORIDE 0.9% 500 ML IV STA (17:53)
[2020-05-04] MEDS ORDERED: ACETAMINOPHEN 325 MG TABLET PO PRN (17:53)
[2020-05-04] MEDS ORDERED: HYDROmorphone 0.5 MG/0.5 ML SYRINGE IVP PRN (17:53)
[2020-05-04] MEDS ORDERED: SODIUM CHLORIDE FLUSH 0.9% 10 ML SYRINGE IVP PRN (17:53)
[2020-05-04] MEDS ORDERED: ONDANSETRON 4 MG/2 ML VIAL IVP PRN (17:53)
[2020-05-04] MEDS ORDERED: oxyCODONE 5 MG TABLET PO PRN (17:53)
--- NOTE | 2020-05-04 17:53 | CT Report ---
PROCEDURE: LOWER EXTREMITY W - RT INDICATIONS: eval for cellulitis TECHNIQUE: IV contrast-enhanced CT of the right lower extremity is performed. COMPARISON: None. FINDINGS: No fracture nor osseous lesion is present. No fluid collections. Moderate diffuse subcutaneous fat st randing is present. IMPRESSION: 1. No abscess. 2. Moderate diffuse subcutaneous edema versus cellulitis. 3. No osseous abnormality. Reviewed by: Monalisa Parham MD on 05/04/2020 5:51 PM PST Approved by: Monalisa Parham MD on 05/04/2020 5:51 PM PST Station ID: [id number]
[2020-05-04 17:57] LABS: MUDS CUTOFF CONCENTRATIONS CUTOFF CONC BELOW:
[2020-05-04 18:00] LABS: CLARITY,URINE CLEAR (CLEAR); RBC,URINE None Seen /HPF (0-5); WBC,URINE 0-3 /HPF (0-3)
[2020-05-04 18:01] LABS: BACTERIA,URINE None Seen /HPF (None Seen); SQUAMOUS EPITHELIAL CELL,UR NONE SEEN (<= Few)
--- NOTE | 2020-05-04 18:07 | HISTORY & PHYSICAL EXAMINATION ---
Chief Complaint - Chief Complaint Chief Complaint: right lower extremity cellulitis History of Present Illness - Admitted From Admitted From:: ER - History Obtained From Records Reviewed: [facility] History obtained from: pt - History of Present Illness HPI Comment/Other: Mr. Patel is a 29-year-old white male with hx of heroin abuser, hepatitis C, rig ht lower extremity infection, asthma, homeless, who present ER complaint of right lower extremity infection and pain at right lower extremity. pt has been failed twice out-patient oral antibiotics treatment. His right lower extremity is mild to moderate erythema, mild swelling and warmness, with multiple location skin tears. He report his low extremity infection worsening about one week ago. The area became itching, and he scratched the area and then he became infected. He report he still injects heroin, his last injection is 4 days ago and smokes cigarette daily as well. He denies he had fever, chill. He has not been feeling "good" in the last few days but can't be more specific. He report his lower extremity pain is 7 out of 10. he report he usually inject heroin into his arm not to his legs. he denies chest pain, cough, shortness of breath, headache, abdominal pain, nausea, vomiting, diarrhea. Pt also report he has right knee pain but the knee has no swelling or erythema. Aspiration fluid from right knee done by ER provider had gram staining which did not reveal Organism, did not show WBC or crystal. Today in ER, pt is afebrile, pt has normal arrange of WBC. CT of right lower extremity reveals no bony abnormality, but with cellulitis, no abscess. Xray of right knee show Mild to moderate effusion, no visualized acute fracture or dislocation. Given above medical condition, medical team was consulted for admission. Discussed the care goal with the patient, patient clearly state he want to have full code. History - Past Medical History Cardiovascular: reports: Deep vein thrombosis, Other Respiratory: reports: Asthma Neuro: reports: Other Endocrine/Autoimmune: reports: None GI: reports: None : reports: None HEENT: reports: None Psych: reports: Depression Musculoskeletal: reports: Chronic back pain, Other Derm: reports: None MRSA Hx?: Yes - Past Surgical History General: reports: Other Ortho: reports: Other - Family & Social History Family History: Mother: , CAD Family History Comment/Other: Mom of cardiac arrest in her 30's. Didn't know dad. Brother lives in [place]. 3 children live with their mom, he doesn't see them Social History Notes: The patient is homeless and lives on streets in [place]. He was born and raised on [facility]. His mother when she was only 34 years old. The patient has an older brother who lives in [place]. The patient also has family in [place] including uncles and aunts. The patient has 3 kids who all live with their mom. The patient is an IV drug user and his drug of choice is heroin. He last used yesterday. He is a daily user. He also uses meth. He occasionally uses mushrooms and marijuana. He smokes a pack per day and has been smoking for more than 10 years. He denies any alcohol use. - Substance History Use: Uses substance without health or social issues: Tobacco - POLST Patient has POLST: No POLST Status: Full Code Meds/Allgy - Home Medications Home Medications: Ambulatory Orders Medication Instructions Recorded Confirmed Sulfamethox/Trimeth 800/160 1 each PO BID #14 tab 04/14/20 [Bactrim Ds] - Allergies Allergies/Adverse Reactions: Allergies Allergy/AdvReac Type Severity Reaction Status Date / Time hydrocodone bitartrate * AdvReac Nausea Verified 05/04/20 13:18 [From Vicodin] Review of Systems - Constitutional Constitutional: denies: Fever, Chills, Weakness, Poor appetite, Diaphoresis - Eyes Eyes: denies: Pain, Blurred vision, Field loss, Vision loss - Ears, Nose & Throat Ears, Nose & Throat: denies: Ear pain, Tinnitus, Nosebleeds, Bleeding gums - Cardiovascular Cariovascular: denies: Irregular heart rate, Palpitations, Chest pain, Edema, Lightheadedness, Syncope, Exertional dyspnea, Decr. exercise tolerance - Respiratory Respiratory: denies: Cough, Wheezing, Snoring, Hemoptysis, Orthopnea, SOB at rest, SOB with exertion - Gastrointestinal Gastrointestinal: denies: Abdominal pain, Constipation, Diarrhea, Black stools, Bloody stools, Nausea, Vomiting - Genitourinary Genitourinary: denies: Dysuria, Urgency, Incontinence - Musculoskeletal Musculoskeletal: denies: Muscle pain, Muscle aches, Limited range of motion - Integumentary Integumentary: reports: Rash. denies: Lesions, Lumps, Pigment changes - Neurological Neurological: denies: General weakness, Focal weakness, Headache, Dizziness, Numbness, Pre-existing deficit, Abnormal gait, Seizures, Incoordination, Slurred speech - Psychiatric Psychiatric: denies: Suicidal, Delusions - Endocrine Endocrine: denies: Polyuria - Hematologic/Lymphatic Hematologic/Lymphatic: denies: Anemia, Blood clots Prior Level of Functionality: homeless Exam - Vital Signs Vital Signs: Vital Signs x48h Temp Pulse Resp BP Pulse Ox 05/04/20 18:00 64 14 141/92 H 99 05/04/20 17:30 80 19 156/94 H 100 05/04/20 16:30 82 18 148/94 H 100 05/04/20 16:00 81 15 153/99 H 99 05/04/20 15:30 76 14 127/96 H 99 05/04/20 15:00 103 H 16 160/118 H 99 05/04/20 14:48 97 16 160/118 H 99 05/04/20 13:13 36.8 C 90 16 152/84 H 99 - Physical Exam General Appearance: positive: Alert, Mild distress. negative: Lethargic Eyes Bilateral: positive: Normal inspection, PERRL, No lid inflammation ENT: positive: ENT inspection nml, No signs of dehydration. negative: Purulent nasal drainage Neck: positive: Nml inspection, Trachea midline. negative: Thyromegaly, Tracheal deviation Respiratory: positive: Chest non-tender, No respiratory distress. negative: Wheezes, Rales Cardiovascular: positive: Regular rate & rhythm, No murmur. negative: Tachycardia, Bradycardia, Systolic murmur, Diastolic murmur Peripheral Pulses: positive: 2+ Abdomen: positive: Non-tender, Nml bowel sounds, No distention. negative: Tenderness, Guarding, Rebound Back: positive: Nml inspection Skin: positive: Warm, Dry. negative: Cyanosis, Diaphoresis, Pallor Extremities: positive: Non-tender, Full ROM (right lower extremity with erythema, warmness, skin tears, and mild swelling), Other. negative: Calf tenderness Neurologic/Psychiatric: positive: Oriented x3, Motor nml, Sensation nml. negative: Weakness, Sensory loss, Facial droop, Slurred/abnml speech, Depressed mood/affect Conclusion/Plan - Problem List (1) Cellulitis of right leg Conclusion/Plan: Patient failed twice outpatient with oral antibiotics treatment. Patient still present right lower extremity with erythema, swelling, warmness, Elevated ESR and CRP. CT of the right lower extremity show cellulitis, no abscess, no bony infection. This is recurrent right lower extremity infection. Patient also is homeless status, patient is easy to get infection again. Patient has history of MRSA. We will order vancomycin, Unasyn, vital signs monitor, dental laboratory manager, skin care for pt (2) Right knee pain Conclusion/Plan: Patient complaint right knee pain, but there is no erythema or swollen knee. X- rays show mild to moderate effusion but without bony fracture or dislocation. At Aspiration of right knee show no organism in the gram staining, no WBC or crystal. It does not indicate infection knee. We will continue pain control, order patient out of bed walk, We may consult with orthopedic surgeon as needed (3) Illicit drug use, continuous Conclusion/Plan: Patient continue Heroin injection, Discussed with the patient, advised the patient quit illicit, will give low dosage of Methadon to prevention of his withdrawal. (4) Current smoker Conclusion/Plan: Patient still is cigarette smoker, He request nicotine patch, we will order (5) Homeless Conclusion/Plan: Patient still is a homeless status, consult with social work to help patient - Lab Results Fish Bones: 05/04/20 14:56 05/04/20 14:56 Core Measures - Anticipated LOS I expect patient to be DC'd or transferred within 96 hours.: Yes - DVT/VTE - Prophylaxis VTE/DVT Device ordered at admit?: Yes VTE/DVT Prophylaxis med ordered at admit?: Yes
[2020-05-04 18:15] LABS: BARBITURATE SCREEN,UR NEGATIVE (NEGATIVE); BENZODIAZEPINES SCREEN, URINE NEGATIVE (NEGATIVE); COCAINE SCREEN URINE NEGATIVE (NEGATIVE); METHADONE SCREEN, URINE NEGATIVE (NEGATIVE); METHAMPHETAMINES SCREEN, URINE POSITIVE (NEGATIVE); OPIATE SCREEN, URINE POSITIVE (NEGATIVE); OXYCODONE SCREEN, URINE NEGATIVE (NEGATIVE); PROPOXYPHENE SCREEN, URINE NEGATIVE (NEGATIVE); THC CANNABINOID SCREEN, URINE POSITIVE (NEGATIVE); TRICYCLIC ANTIDEPRESSANT,URINE NEGATIVE (NEGATIVE)
[2020-05-04 18:16] LABS: AMPHETAMINE SCREEN,URINE POSITIVE (NEGATIVE)
[2020-05-04] MEDS ORDERED: NICOTINE 14 MG PATCH TOP STA (18:32)
--- NOTE | 2020-05-04 18:37 | PHARMACY PROGRESS NOTE ---
- Therapy Status Vancomycin regimen day #: 1 Therapy status: Awaiting steady state Basis for treatment: Empirical Treatment indication: Cellulitis, pt failed outpatient bactrim therapy, hx of ivdu Trough goal: 15-20 until bacteremia ruled out - FRANCOIS Risk Risk level for Acute Kidney Injury: Low Acute Kidney Injury risk factors: Goal trough >15 - Monitoring and Recommendation Clinical response to treatment: I&O Previous 24 hours 05/02/20 05/03/20 05/04/20 23:59 23:59 23:59 Intake Total 1000 Balance 1000 Lab Results 05/04/20 05/04/20 15:00 14:56 ESR 77 H BUN 16 Creatinine 0.7 Estimated GFR (MDRD) 133 Cultures 05/04/20 15:58 Other - Wound Body Fluid Culture - Preliminary Vancomycin 1500 mg x1 load (23.8 mg/kg), then 1250 mg iv q8h (19.6 mg/kg). Follow up culture results and level prior to 5th dose Monitoring plan: Daily serum creatinine
[2020-05-04 19:16] LABS: B. PARAPERTUSSIS- RESP PCR PAN NOT DETECTED; B. PERTUSSIS- RESP PCR PANEL NOT DETECTED; C. PNEUMONIAE- RESP PCR PANEL NOT DETECTED; CORONAVIRUS 229E-RESP PCR NOT DETECTED; CORONAVIRUS HKU1-RESP PCR NOT DETECTED; CORONAVIRUS NL63-RESP PCR NOT DETECTED; CORONAVIRUS OC43-RESP PCR NOT DETECTED; HUMAN METAPNEUMOVIRUS NOT DETECTED; INFLUENZA A- RESP PCR PANEL NOT DETECTED; INFLUENZA B - RESP PCR PANEL NOT DETECTED; M. PNEUMONIAE- RESP PCR PANEL NOT DETECTED; PARAINFLUENZA VIRUS 1 NOT DETECTED; PARAINFLUENZA VIRUS 2 NOT DETECTED; PARAINFLUENZA VIRUS 3 NOT DETECTED; PARAINFLUENZA VIRUS 4 NOT DETECTED; RHINOVIRUS/ENTEROVIRUS NOT DETECTED; RSV- RESP PCR PANEL NOT DETECTED; SARS-CoV-2 -RESP PCR PANEL NOT DETECTED
[2020-05-04] MEDS: AMPICILLIN/SULBACTAM 1.5 GM in SODIUM CHLORIDE 0.9% MINIBAG 100 ML IV SCH ×2 (20:02→23:47)
[2020-05-04] MEDS: SODIUM CHLORIDE 0.9% 1,000 ML IV SCH (20:02)
[2020-05-04] MEDS: METHADONE 5 MG TABLET PO SCH (21:13)
[2020-05-04] MEDS: SODIUM CHLORIDE FLUSH 0.9% 10 ML SYRINGE IVP SCH (23:47)
[2020-05-05] MEDS: VANCOMYCIN INJ 1 GM, VANCOMYCIN INJ 250 MG in SODIUM CHLORIDE 0.9% 250 ML IV SCH ×3 (02:03→18:14)
[2020-05-05] MEDS: METHADONE 5 MG TABLET PO SCH ×3 (06:00→21:15)
[2020-05-05] MEDS: SODIUM CHLORIDE 0.9% 1,000 ML IV SCH ×2 (06:00→21:15)
[2020-05-05] MEDS: AMPICILLIN/SULBACTAM 1.5 GM in SODIUM CHLORIDE 0.9% MINIBAG 100 ML IV SCH ×4 (06:00→23:42)
[2020-05-05] MEDS ORDERED: PANTOPRAZOLE 40 MG TABLET PO SCH (07:00)
[2020-05-05] MEDS: SACCHAROMYCES BOULARDII 250 MG CAPSULE PO SCH ×2 (08:19→16:48)
[2020-05-05] MEDS: SODIUM CHLORIDE FLUSH 0.9% 10 ML SYRINGE IVP SCH ×3 (08:19→23:43)
[2020-05-05] MEDS: ENOXAPARIN 40 MG/0.4 ML SYRINGE SUBQ SCH (08:19)
[2020-05-05] MEDS ORDERED: ALBUTEROL NEB 2.5 MG/3 ML INH PRN (10:24)
--- NOTE | 2020-05-05 11:12 | PHARMACY PROGRESS NOTE ---
- Best Possible Medication History Admit Date and Time: 05/04/20 1592 Processed by: Pharmacy Medication History completed: Yes Patient Interview: Pt unable to participate (PATIENT UNABLE TO PARTICIPATE IN INTERVIEW. MED REC COMPLETED USING INSURANCE RECORDS, NO HOME MEDICATIONS) Secondary Source(s): Physician records, Pharmacy records, Insurance records (PATIENT UNABLE TO PAR) As the person ultimately responsible for medication therapy, providers are able to order a medication from an existing home medication list in [facility] via the "Reconcile Routine" prior to Confirmation of that medication by network desktop support specialist. Such practice is discouraged except when the physician, in their clinical judgment, deems that a medical need exists for a medication without regard to previous use.
--- NOTE | 2020-05-05 11:52 | PROVIDER PROGRESS NOTE ---
Assessment/Plan - Problem List (1) Cellulitis of right leg Assessment/Plan: 05/05 Improved clinically. Right lower extremity swelling, erythema, warmness all are significantly reduced. But patient refused to have laboratory test, will continue antibiotics, blood culture is pending. Discussed with pt, if he continue to refuse lab monitor, we might d/c him on tomorrow because we just can not monitor pt and can not treat more for him, he understood that. Patient failed twice outpatient with oral antibiotics treatment. Patient still present right lower extremity with erythema, swelling, warmness, Elevated ESR and CRP. CT of the right lower extremity show cellulitis, no abscess, no bony infection. This is recurrent right lower extremity infection. Patient also is homeless status, patient is easy to get infection again. Patient has history of MRSA. 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 X- rays show mild to moderate effusion but without bony fracture or dislocation. At Aspiration of right knee show no organism in the gram staining, no WBC or crystal. It does not indicate infection knee. We will continue pain control, order patient out of bed walk, We may consult with orthopedic surgeon as needed (3) Illicit drug use, continuous Conclusion/Plan: 05/05 since pt has lot of sleep, reduce methadone dosage. Patient continue Heroin injection, Discussed with the patient, advised the patient quit illicit, will give low dosage of Methadon to prevention of his withdrawal. (4) Current smoker Conclusion/Plan: Patient still is cigarette smoker, He request nicotine patch, we will order (5) Homeless Conclusion/Plan: Patient still is a homeless status, consult with social work to help patient - Current Meds Current Meds: Current Medications Generic Name Dose Route Start Last Admin Trade Name Freq PRN Reason Stop Dose Admin Enoxaparin Sodium 40 mg 05/05/20 09:00 05/05/20 08:19 Enoxaparin 40 Mg/0.4 Ml Syringe SUBQ Not Given DAILY MICHA Sodium Chloride 1,000 mls @ 100 mls/hr 05/04/20 18:00 05/05/20 06:00 Normal Saline 0.9% IV 100 mls/hr .Q10H MICHA Administration Vancomycin HCl 1 gm/ 250 mls @ 200 mls/hr 05/05/20 02:00 05/05/20 10:31 Vancomycin HCl 250 mg/ Sodium IV 05/05/20 13:00 200 mls/hr Chloride Q8H MICHA Administration Ampicillin Sodium/Sulbactam 100 mls @ 200 mls/hr 05/04/20 19:00 05/05/20 08:48 Sodium 1.5 gm/ Sodium Chloride IV Infused Q6HR MICHA Infusion Saccharomyces Boulardii 250 mg 05/05/20 08:00 05/05/20 08:19 Saccharomyces Boulardii 250 Mg Capsule PO 250 mg BIDWM MICHA Administration Sodium Chloride 10 ml 05/05/20 01:00 05/05/20 08:19 Sodium Chloride Flush 0.9% 10 Ml Syringe IVP 10 ml 0100,0900,1700 MICHA Administration - Lab Result Fish Bone Diagrams: 05/04/20 14:56 05/04/20 14:56 - Additional Planning My Orders: My Active Orders 05/04/20 Dinner Regular Diet [DIET] 05/04/20 17:53 Activity Orders [RC] Q2HR IO [RC] IOSHIFT Initiate Bowel Care Protocol [RC] .protocol Initiate Line Care Protocol [RC] QSHIFT Initiate Personal Care Protoco [RC] .protocol Vital Signs [RC] Q4HR Acetaminophen [Tylenol] 650 mg PO Q4HR PRN Ondansetron Inj [Zofran Inj] 4 mg IVP Q6HR PRN Sodium Chloride Flush 0.9% [Normal Saline Flush 0.9%] 10 ml IVP PRN PRN Code Status [OTHERS] Routine Condition of Patient [OTHERS] Routine DVT Prophylaxis [OTHERS] Routine 05/04/20 17:55 IV Insert [RC] .ONCE 05/04/20 17:57 Social Work Consult [CONS] Routine 05/04/20 18:00 Sodium Chloride 0.9% [Normal Saline 0.9%] 1,000 ml IV 100 mls/hr 05/04/20 18:32 Telemetry- [RC] Q4HR 05/04/20 18:33 Chest 1 View X-Ray [XR] Routine 05/04/20 19:00 Ampicillin/Sulbactam [Unasyn] 1.5 gm Sodium Chloride 0.9% Minibag [Normal Chance ine 0.9% Minibag] 100 ml IV Q6HR 05/04/20 20:09 Nutrition Consult [CONS] Routine 05/05/20 01:00 Sodium Chloride Flush 0.9% [Normal Saline Flush 0.9%] 10 ml IVP 0100,0900,1700 05/05/20 02:00 Vancomycin Inj [Vancomycin] 1 gm Vancomycin Inj [Vancomycin Hcl] 250 mg Sodium Chloride 0.9% [Normal Saline 0.9%] 250 ml IV Q8H 05/05/20 05:00 BMP - BASIC METABOLIC PANEL [CHEM] DAILYLAB CBC - COMP BLD CT W/AUTO DIFF [HEME] DAILYLAB CRP - C-REACTIVE PROTEIN [CHEM] DAILYLAB 05/05/20 07:40 Isolation [Infection Precautions] [RC] QSHIFT 05/05/20 08:00 Saccharomyces Boulardii [Florastor] 250 mg PO BIDWM 05/05/20 08:21 MRSA (NASAL) PCR SCREEN Stat 05/05/20 09:00 Enoxaparin [Lovenox] 40 mg SUBQ DAILY 05/05/20 10:24 Nebulizer/MDI Tx. [RC] .Q4 PRN Albuterol 2.5 mg INH RTQ4H PRN 05/05/20 10:39 Out of bed 4+ hours [RC] QID 05/05/20 14:00 Methadone [Methadone Hcl] 2.5 mg PO TID 05/05/20 18:00 Vancomycin Inj [Vancomycin] 1 gm Vancomycin Inj [Vancomycin Hcl] 250 mg Sodium Chloride 0.9% [Normal Saline 0.9%] 250 ml IV Q8H 05/06/20 05:00 BMP - BASIC METABOLIC PANEL [CHEM] DAILYLAB CBC - COMP BLD CT W/AUTO DIFF [HEME] DAILYLAB CRP - C-REACTIVE PROTEIN [CHEM] DAILYLAB 05/07/20 05:00 BMP - BASIC METABOLIC PANEL [CHEM] DAILYLAB CBC - COMP BLD CT W/AUTO DIFF [HEME] DAILYLAB CRP - C-REACTIVE PROTEIN [CHEM] DAILYLAB 05/08/20 05:00 BMP - BASIC METABOLIC PANEL [CHEM] DAILYLAB CBC - COMP BLD CT W/AUTO DIFF [HEME] DAILYLAB CRP - C-REACTIVE PROTEIN [CHEM] DAILYLAB 05/09/20 05:00 BMP - BASIC METABOLIC PANEL [CHEM] DAILYLAB CBC - COMP BLD CT W/AUTO DIFF [HEME] DAILYLAB CRP - C-REACTIVE PROTEIN [CHEM] DAILYLAB Subjective - Subjective Patient Reports: Feeling Better Objective Vital Signs: Vital Signs - 24 hr 05/04/20 05/04/20 05/04/20 13:13 14:48 15:00 Temperature 36.8 C Heart Rate 90 97 103 H Heart Rate [ Brachial] Respiratory 16 16 16 Rate Blood Pressure 152/84 H 160/118 H 160/118 H Blood Pressure [Right Brachial artery] O2 Saturation 99 99 99 05/04/20 05/04/20 05/04/20 15:30 16:00 16:30 Temperature Heart Rate 76 81 82 Heart Rate [ Brachial] Respiratory 14 15 18 Rate Blood Pressure 127/96 H 153/99 H 148/94 H Blood Pressure [Right Brachial artery] O2 Saturation 99 99 100 05/04/20 05/04/20 05/04/20 17:30 18:00 18:50 Temperature 36.5 C Heart Rate 80 64 Heart Rate [ 68 Brachial] Respiratory 19 14 20 Rate Blood Pressure 156/94 H 141/92 H Blood Pressure 141/91 H [Right Brachial artery] O2 Saturation 100 99 100 05/04/20 05/04/20 05/05/20 20:24 23:47 08:00 Temperature 37.0 C 37 C 37.1 C Heart Rate Heart Rate [ 79 65 75 Brachial] Respiratory 20 20 24 Rate Blood Pressure Blood Pressure 140/82 H 147/80 H 146/85 H [Right Brachial artery] O2 Saturation 100 98 98 05/05/20 05/05/20 11:07 11:16 Temperature 36.4 C L 36.4 C L Heart Rate 72 Heart Rate [ 71 Brachial] Respiratory 22 20 Rate Blood Pressure Blood Pressure 132/69 H [Right Brachial artery] O2 Saturation 98 98 Oxygen O2 Source Room air I&O (Last 24 Hrs): Intake and Output Totals x24h 05/03/20 05/04/20 05/05/20 23:59 23:59 23:59 Intake Total 2062.667 1905 Output Total 1400 Balance 2063.667 505 General: Alert, Oriented x3, No acute distress HEENT: Atraumatic Neck: Supple Lymphatic: no adenopathy Neuro: Alert, Non Focal, Oriented Times 3 Cardiovascular: Regular rate, Normal S1, Normal S2 Respiratory: Chest non-tender, No respiratory distress Abdomen: Normal bowel sounds, Soft, No tenderness Extremities: Normal pulses - Results Results: Laboratory Results WBC 10.1 x10^3/uL (4.8-10.8) 05/04/20 14:56 RBC 4.32 10^6/uL (4.70-6.10) L 05/04/20 14:56 Hgb 10.7 g/dL (14.0-18.0) L 05/04/20 14:56 Hct 33.9 % (42.0-52.0) L 05/04/20 14:56 MCV 78.5 fL (80.0-94.0) L 05/04/20 14:56 MCH 24.8 pg (27.0-31.0) L 05/04/20 14:56 MCHC 31.6 g/dL (32.0-36.0) L 05/04/20 14:56 RDW 15.9 % (12.0-15.0) H 05/04/20 14:56 Plt Count 385 10^3/uL (130-450) 05/04/20 14:56 MPV 9.1 fL (7.4-11.4) 05/04/20 14:56 Neut # (Auto) 7.1 10^3/uL (1.5-6.6) H 05/04/20 14:56 Lymph # (Auto) 1.9 10^3/uL (1.5-3.5) 05/04/20 14:56 [place] # (Auto) 0.8 10^3/uL (0.0-1.0) 05/04/20 14:56 Eos # (Auto) 0.2 10^3/uL (0.0-0.7) 05/04/20 14:56 Baso # (Auto) 0.1 10^3/uL (0.0-0.1) 05/04/20 14:56 Absolute Nucleated RBC 0.00 x10^3/uL 05/04/20 14:56 Nucleated RBC % 0.0 /100WBC 05/04/20 14:56 ESR 77 mm/Hr (0-15) H 05/04/20 15:00 Sodium 139 mmol/L (135-145) 05/04/20 14:56 Potassium 3.9 mmol/L (3.5-5.0) 05/04/20 14:56 Chloride 104 mmol/L (101-111) 05/04/20 14:56 Carbon Dioxide 26 mmol/L (21-32) 05/04/20 14:56 Anion Gap 9.0 (6-13) 05/04/20 14:56 BUN 16 mg/dL (6-20) 05/04/20 14:56 Creatinine 0.7 mg/dL (0.6-1.2) 05/04/20 14:56 Estimated GFR (MDRD) 133 (>89) 05/04/20 14:56 Glucose 80 mg/dL (70-100) 05/04/20 14:56 Lactic Acid 1.5 mmol/L (0.5-2.2) 05/04/20 14:56 Calcium 8.6 mg/dL (8.5-10.3) 05/04/20 14:56 Total Bilirubin 0.2 mg/dL (0.2-1.0) 05/04/20 14:56 AST 18 IU/L (10-42) 05/04/20 14:56 ALT 16 IU/L (10-60) 05/04/20 14:56 Alkaline Phosphatase 80 IU/L (42-121) 05/04/20 14:56 C-Reactive Protein 6.2 mg/dL (0-1.0) H 05/04/20 14:56 Total Protein 7.9 g/dL (6.7-8.2) 05/04/20 14:56 Albumin 3.5 g/dL (3.2-5.5) 05/04/20 14:56 Globulin 4.4 g/dL (2.1-4.2) H 05/04/20 14:56 Albumin/Globulin Ratio 0.8 (1.0-2.2) L 05/04/20 14:56 Urine Color YELLOW 05/04/20 17:42 Urine Clarity CLEAR (CLEAR) 05/04/20 17:42 Urine pH 6.0 PH (5.0-7.5) 05/04/20 17:42 Ur Specific [place] 1.020 (1.002-1.030) 05/04/20 17:42 Urine Protein NEGATIVE mg/dL (NEGATIVE) 05/04/20 17:42 Urine Glucose (UA) NEGATIVE mg/dL (NEGATIVE) 05/04/20 17:42 Urine Ketones NEGATIVE mg/dL (NEGATIVE) 05/04/20 17:42 Urine Occult Blood NEGATIVE (NEGATIVE) 05/04/20 17:42 Urine Nitrite NEGATIVE (NEGATIVE) 05/04/20 17:42 Urine Bilirubin NEGATIVE (NEGATIVE) 05/04/20 17:42 Urine Urobilinogen 0.2 (NORMAL) E.U./dL (NORMAL) 05/04/20 17:42 Ur Leukocyte Esterase NEGATIVE (NEGATIVE) 05/04/20 17:42 Urine RBC None Seen /HPF (0-5) 05/04/20 17:42 Urine WBC 0-3 /HPF (0-3) 05/04/20 17:42 Ur Squamous Epith Cells NONE SEEN (<= Few) 05/04/20 17:42 Urine Bacteria None Seen /HPF (None Seen) 05/04/20 17:42 Urine Culture Comments NOT INDICATED 05/04/20 17:42 Fluid Source KNEE 05/04/20 15:58 Fluid Color BLOODY 05/04/20 15:58 Fluid Clarity BLOODY 05/04/20 15:58 Fluid WBC TNP 05/04/20 15:58 Fluid RBC TNP 05/04/20 15:58 Fluid Neutrophils % 58.0 % 05/04/20 15:58 Fluid Lymphocytes % 42.0 % 05/04/20 15:58 Fld Mesothelial Cell % 0 % 05/04/20 15:58 Fluid Crystals NONE SEEN (N) 05/04/20 15:58 Nasal Adenovirus (PCR) NOT DETECTED 05/04/20 18:10 Nasal B. parapertussis DNA (PCR) NOT DETECTED 05/04/20 18:10 Nasal Coronavir 229E PCR NOT DETECTED 05/04/20 18:10 Nasal Coronavir HKU1 PCR NOT DETECTED 05/04/20 18:10 Nasal Coronavir NL63 PCR NOT DETECTED 05/04/20 18:10 Nasal Coronavir OC43 PCR NOT DETECTED 05/04/20 18:10 Nasal Enterovir/Rhinovir PCR NOT DETECTED 05/04/20 18:10 Nasal Influenza B PCR NOT DETECTED 05/04/20 18:10 Nasal Influenza A PCR NOT DETECTED 05/04/20 18:10 Nasal Parainfluen 1 PCR NOT DETECTED 05/04/20 18:10 Nasal Parainfluen 2 PCR NOT DETECTED 05/04/20 18:10 Nasal Parainfluen 3 PCR NOT DETECTED 05/04/20 18:10 Nasal Parainfluen 4 PCR NOT DETECTED 05/04/20 18:10 Nasal RSV (PCR) NOT DETECTED 05/04/20 18:10 Nasal B.pertussis DNA PCR NOT DETECTED 05/04/20 18:10 Nasal C.pneumoniae (PCR) NOT DETECTED 05/04/20 18:10 Yan Human Metapneumo PCR NOT DETECTED 05/04/20 18:10 Nasal M.pneumoniae (PCR) NOT DETECTED 05/04/20 18:10 Nasal SARS-CoV-2 (PCR) NOT DETECTED 05/04/20 18:10 Urine Opiates Screen POSITIVE (NEGATIVE) H 05/04/20 17:42 Ur Oxycodone Screen NEGATIVE (NEGATIVE) 05/04/20 17:42 Urine Methadone Screen NEGATIVE (NEGATIVE) 05/04/20 17:42 Ur Propoxyphene Screen NEGATIVE (NEGATIVE) 05/04/20 17:42 Ur Barbiturates Screen NEGATIVE (NEGATIVE) 05/04/20 17:42 Ur Tricyclics Screen NEGATIVE (NEGATIVE) 05/04/20 17:42 Ur Phencyclidine Scrn NEGATIVE (NEGATIVE) 05/04/20 17:42 Ur Amphetamine Screen POSITIVE (NEGATIVE) H 05/04/20 17:42 U Methamphetamines Scrn POSITIVE (NEGATIVE) H 05/04/20 17:42 U Benzodiazepines Scrn NEGATIVE (NEGATIVE) 05/04/20 17:42 Urine Cocaine Screen NEGATIVE (NEGATIVE) 05/04/20 17:42 U Cannabinoids Screen POSITIVE (NEGATIVE) H 05/04/20 17:42 Ethyl Alcohol < 5.0 mg/dL 05/04/20 14:56 - Procedures Procedures: Procedures EXCISION OF L HAND SUBCU/FASCIA, OPEN APPROACH (09/20/16) ABX Reporting Has patient been on IV antibiotics over the past 48 hours?: Yes Current Medications - Current Medications Current Medications: Active Medications Acetaminophen (Acetaminophen 325 Mg Tablet) 650 mg PO Q4HR PRN PRN Reason: Pain 1 to 4 Albuterol (Albuterol Neb 2.5 Mg/3 Ml) 2.5 mg INH RTQ4H PRN PRN Reason: Wheezing Enoxaparin Sodium (Enoxaparin 40 Mg/0.4 Ml Syringe) 40 mg SUBQ DAILY MICHA Last Admin: 05/05/20 08:19 Dose: Not Given Documented by: Sodium Chloride (Normal Saline 0.9%) 1,000 mls @ 100 mls/hr IV .Q10H [facility] [place] Last Admin: 05/05/20 06:00 Dose: 100 mls/hr Documented by: Vancomycin HCl 1 gm/Vancomycin HCl 250 mg/ Sodium Chloride 250 mls @ 200 mls/hr IV Q8H [facility] [place] Stop: 05/05/20 13:00 Last Admin: 05/05/20 10:31 Dose: 200 mls/hr Documented by: Ampicillin Sodium/Sulbactam (Sodium 1.5 gm/ Sodium Chloride) 100 mls @ 200 mls/hr IV Q6HR [facility] [place] Last Infusion: 05/05/20 08:48 Dose: Infused Documented by: Vancomycin HCl 1 gm/Vancomycin HCl 250 mg/ Sodium Chloride 250 mls @ 167 mls/hr IV Q8H [facility] [place] Methadone HCl (Methadone 5 Mg Tablet) 2.5 mg PO TID [facility] [place] Ondansetron HCl (Ondansetron 4 Mg/2 Ml Vial) 4 mg IVP Q6HR PRN PRN Reason: Nausea / Vomiting Saccharomyces Boulardii (Saccharomyces Boulardii 250 Mg Capsule) 250 mg PO BIDWM [facility] [place] Last Admin: 05/05/20 08:19 Dose: 250 mg Documented by: Sodium Chloride (Sodium Chloride Flush 0.9% 10 Ml Syringe) 10 ml IVP PRN PRN PRN Reason: NEEDED PER PROVIDER ORDERS Sodium Chloride (Sodium Chloride Flush 0.9% 10 Ml Syringe) 10 ml IVP 01 00,0900,1700 [facility] [place] Last Admin: 05/05/20 08:19 Dose: 10 ml Documented by: No Known Home Medications 05/05/20
[2020-05-05] MEDS: ethyl alcohoL 62% SWAB AMPULE NAS SCH ×2 (13:49→21:15)
[2020-05-05 14:40] LABS: BASOPHILS # (AUTO) 0.1 10^3/uL (0.0-0.1); BASOPHILS % (AUTO) 0.6 %; EOSINOPHILS # (AUTO) 0.3 10^3/uL (0.0-0.7); EOSINOPHILS % (AUTO) 3.3 %; HCT - HEMATOCRIT 34.8 % (42.0-52.0); LYMPHOCYTES # (AUTO) 1.8 10^3/uL (1.5-3.5); MEAN CORPUSCULAR HEMOGLOBIN 24.8 pg (27.0-31.0); MEAN CORPUSCULAR HGB CONC 31.6 g/dL (32.0-36.0); MEAN CORPUSCULAR VOLUME 78.4 fL (80.0-94.0); MEAN PLATELET VOLUME 8.8 fL (7.4-11.4); MONOCYTES # (AUTO) 0.5 10^3/uL (0.0-1.0); MONOCYTES % (AUTO) 5.7 %; NEUTROPHILS # (AUTO) 5.9 10^3/uL (1.5-6.6); NEUTROPHILS % (AUTO) 69.1 %; PLT - PLATELET COUNT 358 10^3/uL (130-450); RED BLOOD COUNT 4.44 10^6/uL (4.70-6.10); RED CELL DISTRIBUTION WIDTH 15.9 % (12.0-15.0); WHITE BLOOD COUNT 8.6 x10^3/uL (4.8-10.8)
[2020-05-05 14:55] LABS: CALCIUM 8.3 mg/dL (8.5-10.3); CREATININE 0.8 mg/dL (0.6-1.2); CRP - C-REACTIVE PROTEIN 4.4 mg/dL (0-1.0); POTASSIUM 3.8 mmol/L (3.5-5.0)
--- NOTE | 2020-05-05 16:32 | XRAY Report ---
PROCEDURE: Chest 1 View X-Ray INDICATIONS: sob TECHNIQUE: One view of the chest was acquired. COMPARISON: Prior chest plain film 05/28/2019. FINDINGS: Surgical changes and devices: None. Lungs and pleura: No pleural effusions or pneumothorax. Lungs are abnormal with an alveolar infiltr ation pattern, without cardiomegaly. Inflammatory etiology is presumed.. Mediastinum: Mediastinal contours appear normal. Heart size is normal. Bones and chest wall: No suspicious bony lesions. Overlying soft tissues appear unremarkable. IMPRESSION: Bilateral mild or early pneumonia appears present, comprised of alveolar infiltration best seen in th e perihilar distribution. Atypical/viral pneumonia should be considered. No suspicion for presence of CHF in this young patient. Reviewed by: Davis Bauman MD on 05/05/2020 3:31 PM [facility] Approved by: Davis Bauman MD on 05/05/2020 3:31 PM [facility] Station ID: [id number]
[2020-05-06] MEDS: VANCOMYCIN INJ 1 GM, VANCOMYCIN INJ 250 MG in SODIUM CHLORIDE 0.9% 250 ML IV SCH ×3 (02:19→18:14)
[2020-05-06 05:10] LABS: BASOPHILS # (AUTO) 0.1 10^3/uL (0.0-0.1); BASOPHILS % (AUTO) 0.7 %; EOSINOPHILS # (AUTO) 0.2 10^3/uL (0.0-0.7); HCT - HEMATOCRIT 34.2 % (42.0-52.0); HGB - HEMOGLOBIN 10.8 g/dL (14.0-18.0); LYMPHOCYTES # (AUTO) 2.2 10^3/uL (1.5-3.5); LYMPHOCYTES % (AUTO) 29.2 %; MEAN CORPUSCULAR HEMOGLOBIN 24.4 pg (27.0-31.0); MEAN CORPUSCULAR HGB CONC 31.6 g/dL (32.0-36.0); MEAN CORPUSCULAR VOLUME 77.4 fL (80.0-94.0); MEAN PLATELET VOLUME 9.5 fL (7.4-11.4); MONOCYTES # (AUTO) 0.5 10^3/uL (0.0-1.0); MONOCYTES % (AUTO) 6.3 %; NEUTROPHILS # (AUTO) 4.6 10^3/uL (1.5-6.6); NEUTROPHILS % (AUTO) 60.5 %; PLT - PLATELET COUNT 327 10^3/uL (130-450); RED BLOOD COUNT 4.42 10^6/uL (4.70-6.10); RED CELL DISTRIBUTION WIDTH 15.7 % (12.0-15.0); WHITE BLOOD COUNT 7.7 x10^3/uL (4.8-10.8)
[2020-05-06 05:24] LABS: CALCIUM 8.3 mg/dL (8.5-10.3); CREATININE 0.7 mg/dL (0.6-1.2); CRP - C-REACTIVE PROTEIN 2.7 mg/dL (0-1.0); POTASSIUM 3.9 mmol/L (3.5-5.0)
[2020-05-06] MEDS: METHADONE 5 MG TABLET PO SCH ×3 (06:31→22:39)
[2020-05-06] MEDS: AMPICILLIN/SULBACTAM 1.5 GM in SODIUM CHLORIDE 0.9% MINIBAG 100 ML IV SCH ×4 (06:31→23:43)
[2020-05-06] MEDS: SODIUM CHLORIDE 0.9% 1,000 ML IV SCH ×3 (06:36→23:45)
[2020-05-06 07:41] LABS: ABSOLUTE RETICS # AUTO 0.059 10^6/uL (0.020-0.110); RED BLOOD COUNT 4.46 10^6/uL (4.70-6.10); RETICULOCYTE COUNT % (AUTO) 1.33 % (0.5-2.3)
[2020-05-06 08:03] LABS: % IRON SATURATION 7 % (20-50); IRON 22 ug/dL (45-182); TOTAL IRON BINDING CAPACITY 308 ug/dL (250-450); TRANSFERRIN 220 mg/dL (180-329)
[2020-05-06 08:30] LABS: FERRITIN 21.3 ng/mL (23.9-336.2)
[2020-05-06] MEDS: SACCHAROMYCES BOULARDII 250 MG CAPSULE PO SCH ×2 (09:04→17:37)
[2020-05-06] MEDS: FERROUS GLUCONATE 324 MG TABLET PO SCH (09:04)
[2020-05-06] MEDS: MULTIVITAMIN W/MINERALS TABLET PO SCH (09:04)
[2020-05-06] MEDS: ethyl alcohoL 62% SWAB AMPULE NAS SCH ×2 (09:04→22:39)
[2020-05-06] MEDS: ENOXAPARIN 40 MG/0.4 ML SYRINGE SUBQ SCH (09:07)
[2020-05-06 09:33] LABS: VANCOMYCIN,TROUGH 18.1 ug/mL (10.0-20.0)
[2020-05-06] MEDS: SODIUM CHLORIDE FLUSH 0.9% 10 ML SYRINGE IVP SCH ×3 (10:33→23:43)
--- NOTE | 2020-05-06 14:21 | PROVIDER PROGRESS NOTE ---
Assessment/Plan - Problem List (1) Cellulitis of right leg Assessment/Plan: 05/06 continue improved. erythema and swelling are reduced. CRP is down 2.7. pt has no fever and WB is normal. Because the patient has homeless living status, he is at difficulty to get oral antibiotics, we will continue treatment with IV antibiotics in hospital today, plan to d/c tomorrow. 05/05 Improved clinically. Right lower extremity swelling, erythema, warmness all are significantly reduced. But patient refused to have laboratory test, will continue antibiotics, blood culture is pending. Discussed with pt, if he contin ue to refuse lab monitor, we might d/c him on tomorrow because we just can not monitor pt and can not treat more for him, he understood that. Patient failed twice outpatient with oral antibiotics treatment. Patient still present right lower extremity with erythema, swelling, warmness, Elevated ESR and CRP. CT of the right lower extremity show cellulitis, no abscess, no bony infection. This is recurrent right lower extremity infection. Patient also is homeless status, patient is easy to get infection again. Patient has history of MRSA. 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 X- rays show mild to moderate effusion but without bony fracture or dislocation. At Aspiration of right knee show no organism in the gram staining, no WBC or crystal. It does not indicate infection knee. We will continue pain control, order patient out of bed walk, We may consult with orthopedic surgeon as needed (3) Illicit drug use, continuous Conclusion/Plan: 05/05 since pt has lot of sleep, reduce methadone dosage. Patient continue Heroin injection, Discussed with the patient, advised the patient quit illicit, will give low dosage of Methadon to prevention of his withdrawal. (4) Current smoker Conclusion/Plan: Patient still is cigarette smoker, He request nicotine patch, we will order (5) Homeless Conclusion/Plan: Patient still is a homeless status, consult with social work to help patient - Current Meds Current Meds: Current Medications Generic Name Dose Route Start Last Admin Trade Name Freq PRN Reason Stop Dose Admin Alcohol 1 amp 05/05/20 14:00 05/06/20 09:04 Ethyl Alcohol 62% Swab Ampule DONTRELL 1 amp BID MICHA Administration Enoxaparin Sodium 40 mg 05/05/20 09:00 05/06/20 09:07 Enoxaparin 40 Mg/0.4 Ml Syringe SUBQ Not Given DAILY MICHA Ferrous Gluconate 324 mg 05/06/20 09:00 05/06/20 09:04 Ferrous Gluconate 324 Mg Tablet PO 324 mg DAILYWM MICHA Administration Sodium Chloride 1,000 mls @ 100 mls/hr 05/04/20 18:00 05/06/20 10:33 Normal Saline 0.9% IV Not Given .Q10H MICHA Ampicillin Sodium/Sulbactam 100 mls @ 200 mls/hr 05/04/20 19:00 05/06/20 13:40 Sodium 1.5 gm/ Sodium Chloride IV Infused Q6HR MICHA Infusion Vancomycin HCl 1 gm/ 250 mls @ 167 mls/hr 05/05/20 18:00 05/06/20 12:10 Vancomycin HCl 250 mg/ Sodium IV Infused Chloride Q8H MICHA Infusion Methadone HCl 2.5 mg 05/05/20 14:00 05/06/20 13:41 Methadone 5 Mg Tablet PO 2.5 mg TID MICHA Administration Multivitamins/Minerals 1 tab 05/06/20 08:00 05/06/20 09:04 Multivitamin W/Minerals Tablet PO 1 tab DAILYWM MICHA Administration Saccharomyces Boulardii 250 mg 05/05/20 08:00 05/06/20 09:04 Saccharomyces Boulardii 250 Mg Capsule PO 250 mg BIDWM MICHA Administration Sodium Chloride 10 ml 05/05/20 01:00 05/06/20 10:33 Sodium Chloride Flush 0.9% 10 Ml Syringe IVP 10 ml 0100,0900,1700 MICHA Administration - Lab Result Fish Bone Diagrams: 05/06/20 04:38 05/06/20 04:38 - Additional Planning My Orders: My Active Orders 05/05/20 14:00 Methadone [Methadone Hcl] 2.5 mg PO TID ethyl alcohoL 62% swab [NoZin] 1 amp DONTRELL BID 05/05/20 18:00 Vancomycin Inj [Vancomycin] 1 gm Vancomycin Inj [Vancomycin Hcl] 250 mg Sodium Chloride 0.9% [Normal Saline 0.9%] 250 ml IV Q8H 05/06/20 Breakfast Regular Diet [DIET] 03/12/21 08:00 Multivitamin W/Minerals [Theragran M] 1 tab PO DAILYWM 05/06/20 09:00 Ferrous Gluconate [Fergon] 324 mg PO DAILYWM 05/07/20 05:00 BMP - BASIC METABOLIC PANEL [CHEM] DAILYLAB CBC - COMP BLD CT W/AUTO DIFF [HEME] DAILYLAB CRP - C-REACTIVE PROTEIN [CHEM] DAILYLAB 05/08/20 05:00 BMP - BASIC METABOLIC PANEL [CHEM] DAILYLAB CBC - COMP BLD CT W/AUTO DIFF [HEME] DAILYLAB CRP - C-REACTIVE PROTEIN [CHEM] DAILYLAB 05/09/20 05:00 BMP - BASIC METABOLIC PANEL [CHEM] DAILYLAB CBC - COMP BLD CT W/AUTO DIFF [HEME] DAILYLAB CRP - C-REACTIVE PROTEIN [CHEM] DAILYLAB Subjective - Subjective Patient Reports: Feeling Better Objective Vital Signs: Vital Signs - 24 hr 05/05/20 05/05/20 05/06/20 16:03 21:00 00:14 Temperature 36.4 C L 37.0 C 37.1 C Heart Rate [ 68 76 70 Brachial] Respiratory 20 20 16 Rate Blood Pressure 146/77 H 128/77 121/68 [Right Brachial artery] O2 Saturation 98 96 97 05/06/20 05/06/20 05/06/20 04:11 08:20 11:44 Temperature 37 C 36.9 C 36.4 C L Heart Rate [ 64 75 72 Brachial] Respiratory 16 22 20 Rate Blood Pressure 125/81 H 135/85 H 124/82 H [Right Brachial artery] O2 Saturation 100 99 99 Oxygen O2 Source Room air I&O (Last 24 Hrs): Intake and Output Totals x24h 05/04/20 05/05/20 05/06/20 23:59 23:59 23:59 Intake Total 2062.667 4521.667 2730.333 Output Total 4000 3275 Balance 3.667 521.667 -544.667 General: Alert, Oriented x3, Cooperative, No acute distress HEENT: Atraumatic Neck: Supple Lymphatic: no adenopathy Neuro: Alert, Non Focal, Oriented Times 3 Cardiovascular: Regular rate, Normal S1 Respiratory: Chest non-tender, No respiratory distress Abdomen: Normal bowel sounds, Soft, No tenderness Extremities: Normal pulses - Results Results: Laboratory Results WBC 7.7 x10^3/uL (4.8-10.8) 05/06/20 04:38 RBC 4.42 10^6/uL (4.70-6.10) L 05/06/20 04:38 RBC 4.46 10^6/uL (4.70-6.10) L 05/06/20 04:38 Hgb 10.8 g/dL (14.0-18.0) L 05/06/20 04:38 Hct 34.2 % (42.0-52.0) L 05/06/20 04:38 MCV 77.4 fL (80.0-94.0) L 05/06/20 04:38 MCH 24.4 pg (27.0-31.0) L 05/06/20 04:38 MCHC 31.6 g/dL (32.0-36.0) L 05/06/20 04:38 RDW 15.7 % (12.0-15.0) H 05/06/20 04:38 Plt Count 327 10^3/uL (130-450) 05/06/20 04:38 MPV 9.5 fL (7.4-11.4) 05/06/20 04:38 Reticulocyte % (Auto) 1.33 % (0.5-2.3) 05/06/20 04:38 Neut # (Auto) 4.6 10^3/uL (1.5-6.6) 05/06/20 04:38 Lymph # (Auto) 2.2 10^3/uL (1.5-3.5) 05/06/20 04:38 [place] # (Auto) 0.5 10^3/uL (0.0-1.0) 05/06/20 04:38 Eos # (Auto) 0.2 10^3/uL (0.0-0.7) 05/06/20 04:38 Baso # (Auto) 0.1 10^3/uL (0.0-0.1) 05/06/20 04:38 Absolute Nucleated RBC 0.00 x10^3/uL 05/06/20 04:38 Nucleated RBC % 0.0 /100WBC 05/06/20 04:38 ESR 77 mm/Hr (0-15) H 05/04/20 15:00 Absolute Retic 0.059 10^6/uL (0.020-0.110) 05/06/20 04:38 Sodium 139 mmol/L (135-145) 05/06/20 04:38 Potassium 3.9 mmol/L (3.5-5.0) 05/06/20 04:38 Chloride 108 mmol/L (101-111) 05/06/20 04:38 Carbon Dioxide 23 mmol/L (21-32) 05/06/20 04:38 Anion Gap 8.0 (6-13) 05/06/20 04:38 BUN 10 mg/dL (6-20) 05/06/20 04:38 Creatinine 0.7 mg/dL (0.6-1.2) 05/06/20 04:38 Estimated GFR (MDRD) 133 (>89) 05/06/20 04:38 Glucose 100 mg/dL (70-100) 05/06/20 04:38 Lactic Acid 1.5 mmol/L (0.5-2.2) 05/04/20 14:56 Calcium 8.3 mg/dL (8.5-10.3) L 05/06/20 04:38 Iron 22 ug/dL (45-182) L 05/06/20 04:38 TIBC 308 ug/dL (250-450) 05/06/20 04:38 % Saturation 7 % (20-50) L 05/06/20 04:38 Transferrin 220 mg/dL (180-329) 05/06/20 04:38 Total Bilirubin 0.2 mg/dL (0.2-1.0) 05/04/20 14:56 Ferritin 21.3 ng/mL (23.9-336.2) L 05/06/20 04:38 AST 18 IU/L (10-42) 05/04/20 14:56 ALT 16 IU/L (10-60) 05/04/20 14:56 Alkaline Phosphatase 80 IU/L (42-121) 05/04/20 14:56 Lactate Dehydrogenase 129 IU/L (91-225) 05/06/20 04:38 C-Reactive Protein 2.7 mg/dL (0-1.0) H 05/06/20 04:38 Total Protein 7.9 g/dL (6.7-8.2) 05/04/20 14:56 Albumin 3.5 g/dL (3.2-5.5) 05/04/20 14:56 Globulin 4.4 g/dL (2.1-4.2) H 05/04/20 14:56 Albumin/Globulin Ratio 0.8 (1.0-2.2) L 05/04/20 14:56 Vitamin B12 289 pg/mL (180-914) 05/06/20 04:38 Urine Color YELLOW 05/04/20 17:42 Urine Clarity CLEAR (CLEAR) 05/04/20 17:42 Urine pH 6.0 PH (5.0-7.5) 05/04/20 17:42 Ur Specific [place] 1.020 (1.002-1.030) 05/04/20 17:42 Urine Protein NEGATIVE mg/dL (NEGATIVE) 05/04/20 17:42 Urine Glucose (UA) NEGATIVE mg/dL (NEGATIVE) 05/04/20 17:42 Urine Ketones NEGATIVE mg/dL (NEGATIVE) 05/04/20 17:42 Urine Occult Blood NEGATIVE (NEGATIVE) 05/04/20 17:42 Urine Nitrite NEGATIVE (NEGATIVE) 05/04/20 17:42 Urine Bilirubin NEGATIVE (NEGATIVE) 05/04/20 17:42 Urine Urobilinogen 0.2 (NORMAL) E.U./dL (NORMAL) 05/04/20 17:42 Ur Leukocyte Esterase NEGATIVE (NEGATIVE) 05/04/20 17:42 Urine RBC None Seen /HPF (0-5) 05/04/20 17:42 Urine WBC 0-3 /HPF (0-3) 05/04/20 17:42 Ur Squamous Epith Cells NONE SEEN (<= Few) 05/04/20 17:42 Urine Bacteria None Seen /HPF (None Seen) 05/04/20 17:42 Urine Culture Comments NOT INDICATED 05/04/20 17:42 Fluid Source KNEE 05/04/20 15:58 Fluid Color BLOODY 05/04/20 15:58 Fluid Clarity BLOODY 05/04/20 15:58 Fluid WBC TNP 05/04/20 15:58 Fluid RBC TNP 05/04/20 15:58 Fluid Neutrophils % 58.0 % 05/04/20 15:58 Fluid Lymphocytes % 42.0 % 05/04/20 15:58 Fld Mesothelial Cell % 0 % 05/04/20 15:58 Fluid Crystals NONE SEEN (N) 05/04/20 15:58 Nasal Adenovirus (PCR) NOT DETECTED 05/04/20 18:10 Nasal B. parapertussis DNA (PCR) NOT DETECTED 05/04/20 18:10 Nasal Coronavir 229E PCR NOT DETECTED 05/04/20 18:10 Nasal Coronavir HKU1 PCR NOT DETECTED 05/04/20 18:10 Nasal Coronavir NL63 PCR NOT DETECTED 05/04/20 18:10 Nasal Coronavir OC43 PCR NOT DETECTED 05/04/20 18:10 Nasal Enterovir/Rhinovir PCR NOT DETECTED 05/04/20 18:10 Nasal Influenza B PCR NOT DETECTED 05/04/20 18:10 Nasal Influenza A PCR NOT DETECTED 05/04/20 18:10 Nasal Parainfluen 1 PCR NOT DETECTED 05/04/20 18:10 Nasal Parainfluen 2 PCR NOT DETECTED 05/04/20 18:10 Nasal Parainfluen 3 PCR NOT DETECTED 05/04/20 18:10 Nasal Parainfluen 4 PCR NOT DETECTED 05/04/20 18:10 Nasal RSV (PCR) NOT DETECTED 05/04/20 18:10 Nasal B.pertussis DNA PCR NOT DETECTED 05/04/20 18:10 Nasal C.pneumoniae (PCR) NOT DETECTED 05/04/20 18:10 Dontrell Human Metapneumo PCR NOT DETECTED 05/04/20 18:10 Nasal M.pneumoniae (PCR) NOT DETECTED 05/04/20 18:10 Nasal SARS-CoV-2 (PCR) NOT DETECTED 05/04/20 18:10 Nasal Screen MRSA (PCR) POSITIVE (NEGATIVE) A* 05/05/20 08:21 Last Dose Date UNK 05/06/20 09:20 Last Dose Time UNK 05/06/20 09:20 Vancomycin Trough 18.1 ug/mL (10.0-20.0) 05/06/20 09:20 Urine Opiates Screen POSITIVE (NEGATIVE) H 05/04/20 17:42 Ur Oxycodone Screen NEGATIVE (NEGATIVE) 05/04/20 17:42 Urine Methadone Screen NEGATIVE (NEGATIVE) 05/04/20 17:42 Ur Propoxyphene Screen NEGATIVE (NEGATIVE) 05/04/20 17:42 Ur Barbiturates Screen NEGATIVE (NEGATIVE) 05/04/20 17:42 Ur Tricyclics Screen NEGATIVE (NEGATIVE) 05/04/20 17:42 Ur Phencyclidine Scrn NEGATIVE (NEGATIVE) 05/04/20 17:42 Ur Amphetamine Screen POSITIVE (NEGATIVE) H 05/04/20 17:42 U Methamphetamines Scrn POSITIVE (NEGATIVE) H 05/04/20 17:42 U Benzodiazepines Scrn NEGATIVE (NEGATIVE) 05/04/20 17:42 Urine Cocaine Screen NEGATIVE (NEGATIVE) 05/04/20 17:42 U Cannabinoids Screen POSITIVE (NEGATIVE) H 05/04/20 17:42 Ethyl Alcohol < 5.0 mg/dL 05/04/20 14:56 - Procedures Procedures: Procedures EXCISION OF L HAND SUBCU/FASCIA, OPEN APPROACH (09/20/16) ABX Reporting Has patient been on IV antibiotics over the past 48 hours?: Yes Current Medications - Current Medications Current Medications: Active Medications Acetaminophen (Acetaminophen 325 Mg Tablet) 650 mg PO Q4HR PRN PRN Reason: Pain 1 to 4 Albuterol (Albuterol Neb 2.5 Mg/3 Ml) 2.5 mg INH RTQ4H PRN PRN Reason: Wheezing Alcohol (Ethyl Alcohol 62% Swab Ampule) 1 amp DONTRELL BID [facility] Last Admin: 05/06/20 09:04 Dose: 1 amp Documented by: Enoxaparin Sodium (Enoxaparin 40 Mg/0.4 Ml Syringe) 40 mg SUBQ DAILY [facility] Last Admin: 05/06/20 09:07 Dose: Not Given Documented by: Ferrous Gluconate (Ferrous Gluconate 324 Mg Tablet) 324 mg PO DAILYWM [facility] Last Admin: 05/06/20 09:04 Dose: 324 mg Documented by: Sodium Chloride (Normal Saline 0.9%) 1,000 mls @ 100 mls/hr IV .Q10H [facility] Last Admin: 05/06/20 10:33 Dose: Not Given Documented by: Ampicillin Sodium/Sulbactam (Sodium 1.5 gm/ Sodium Chloride) 100 mls @ 200 mls/hr IV Q6HR [facility] Last Infusion: 05/06/20 13:40 Dose: Infused Documented by: Vancomycin HCl 1 gm/Vancomycin HCl 250 mg/ Sodium Chloride 250 mls @ 167 mls/hr IV Q8H [facility] Last Infusion: 05/06/20 12:10 Dose: Infused Documented by: Methadone HCl (Methadone 5 Mg Tablet) 2.5 mg PO TID [facility] Last Admin: 05/06/20 13:41 Dose: 2.5 mg Documented by: Multivitamins/Minerals (Multivitamin W/Minerals Tablet) 1 tab PO DAILYWM [facility] Last Admin: 05/06/20 09:04 Dose: 1 tab Documented by: Ondansetron HCl (Ondansetron 4 Mg/2 Ml Vial) 4 mg IVP Q6HR PRN PRN Reason: Nausea / Vomiting Saccharomyces Boulardii (Saccharomyces Boulardii 250 Mg Capsule) 250 mg PO BIDWM [facility] Last Admin: 05/06/20 09:04 Dose: 250 mg Documented by: Sodium Chloride (Sodium Chloride Flush 0.9% 10 Ml Syringe) 10 ml IVP PRN PRN PRN Reason: NEEDED PER PROVIDER ORDERS Sodium Chloride (Sodium Chloride Flush 0.9% 10 Ml Syringe) 10 ml IVP 0100,0900,1700 [facility] Last Admin: 05/06/20 10:33 Dose: 10 ml Documented by: No Known Home Medications 05/05/20
[2020-05-07] MEDS: VANCOMYCIN INJ 1 GM, VANCOMYCIN INJ 250 MG in SODIUM CHLORIDE 0.9% 250 ML IV SCH ×2 (02:06→09:03)
[2020-05-07] MEDS: METHADONE 5 MG TABLET PO SCH (05:52)
[2020-05-07] MEDS: AMPICILLIN/SULBACTAM 1.5 GM in SODIUM CHLORIDE 0.9% MINIBAG 100 ML IV SCH (05:52)
[2020-05-07 07:33] LABS: BASOPHILS # (AUTO) 0.1 10^3/uL (0.0-0.1); BASOPHILS % (AUTO) 0.7 %; EOSINOPHILS # (AUTO) 0.2 10^3/uL (0.0-0.7); EOSINOPHILS % (AUTO) 2.3 %; HCT - HEMATOCRIT 36.1 % (42.0-52.0); HGB - HEMOGLOBIN 11.4 g/dL (14.0-18.0); LYMPHOCYTES % (AUTO) 29.1 %; MEAN CORPUSCULAR HEMOGLOBIN 24.2 pg (27.0-31.0); MEAN CORPUSCULAR HGB CONC 31.6 g/dL (32.0-36.0); MEAN CORPUSCULAR VOLUME 76.6 fL (80.0-94.0); MEAN PLATELET VOLUME 9.5 fL (7.4-11.4); MONOCYTES # (AUTO) 0.4 10^3/uL (0.0-1.0); MONOCYTES % (AUTO) 5.1 %; NEUTROPHILS # (AUTO) 4.4 10^3/uL (1.5-6.6); NEUTROPHILS % (AUTO) 62.4 %; PLT - PLATELET COUNT 347 10^3/uL (130-450); RED BLOOD COUNT 4.71 10^6/uL (4.70-6.10); RED CELL DISTRIBUTION WIDTH 15.5 % (12.0-15.0)
--- NOTE | 2020-05-07 07:47 | PHARMACY PROGRESS NOTE ---
- Therapy Status Vancomycin regimen day #: 3 Therapy status: Trough therapeutic Basis for treatment: Empirical Treatment indication: RLE cellulitis in history of IV drug abuse and prior MRSA infections Trough goal: 15-20 until bacteremia ruled out - FRANCOIS Risk Risk level for Acute Kidney Injury: Low Acute Kidney Injury risk factors: Goal trough >15 - Monitoring and Recommendation Clinical response to treatment: I&O Previous 24 hours 05/05/20 05/06/20 05/07/20 23:59 23:59 23:59 Intake Total 4521.667 5240.333 450 Output Total 4000 5875 1100 Balance 521.667 -634.667 -650 Lab Results 05/06/20 05/05/20 05/04/20 04:38 14:31 15:00 ESR 77 H BUN 10 9 Creatinine 0.7 0.8 Estimated GFR (MDRD) 133 114 05/04/20 14:56 ESR BUN 16 Creatinine 0.7 Estimated GFR (MDRD) 133 Vancomycin Monitoring 05/06/20 09:20 Vancomycin Trough 18.1 Cultures 05/04/20 15:00 Blood Blood Culture - Preliminary NO GROWTH AFTER 2 DAYS 05/04/20 14:56 Blood Blood Culture - Preliminary NO GROWTH AFTER 2 DAYS 05/04/20 15:58 Other - Wound Body Fluid Culture - Preliminary Monitoring plan: Daily serum creatinine Areas for additional monitoring: IV to PO when appropriate, Therapy de- escalation based on culture results Pharmacy recommendation: Continue current regime
[2020-05-07 07:51] LABS: CALCIUM 8.5 mg/dL (8.5-10.3); CREATININE 0.7 mg/dL (0.6-1.2); CRP - C-REACTIVE PROTEIN 1.4 mg/dL (0-1.0)
[2020-05-07 08:03] VITALS: BP 105/60
[2020-05-07] MEDS: FERROUS GLUCONATE 324 MG TABLET PO SCH (08:07)
[2020-05-07] MEDS: MULTIVITAMIN W/MINERALS TABLET PO SCH (08:07)
[2020-05-07] MEDS: SODIUM CHLORIDE FLUSH 0.9% 10 ML SYRINGE IVP SCH (08:07)
[2020-05-07] MEDS: ethyl alcohoL 62% SWAB AMPULE NAS SCH (08:07)
[2020-05-07] MEDS: ENOXAPARIN 40 MG/0.4 ML SYRINGE SUBQ SCH (08:07)
[2020-05-07] MEDS: SACCHAROMYCES BOULARDII 250 MG CAPSULE PO SCH (08:07)
[2020-05-07] MEDS ORDERED: polyethylene glycoL 3350 17 GM PACKET PO SCH (09:00)
--- NOTE | 2020-05-07 11:07 | Discharge Plan ---
Discharge Plan Problem Reviewed?: Yes Disposition: Home, Self Care Condition: Stable Prescriptions: Ferrous Gluconate [Fergon] 324 mg PO DAILYWM #30 tablet Saccharomyces Boulardii [Florastor] 250 mg PO BIDWM #8 cap cephALEXin [Keflex] 500 mg PO Q6H #16 cap Multivitamin W/Minerals [Theragran M] 1 tab PO DAILYWM #30 tablet Diet: Regular Activity Restrictions: Activity as Tolerated Shower Restrictions: No (fall precaution) Instruction Topics: Cellulitis Ch, ED Infec Skin Cellulitis, Cephalexin tablets or capsules Health Concerns: cellulitis, illicit drug abuse Plan of Treatment: You are prescribed antibiotics Keflex to continue the treatment course. Advise you keep personal hygiene, and keep hydration. Strongly advise you quit illicit drug usage. Care Goals: stabilization and improvement/resolve of your medical condition Assessment: discussed the care plan with you, answered your questions, you understood Additional Instructions or Follow Up instructions: You may followup with your PCP in two weeks. Should your symptoms return or worsen, you may present ER or call 911 for help. No Smoking: If you smoke, Please STOP! Call for help.
--- NOTE | 2020-05-07 11:21 | DISCHARGE SUMMARY ---
Discharge Summary Admit Date: 05/04/20 Discharge Date: 05/07/20 Discharging Provider: Sarthak Coats Condition at Discharge: Stable Discharge Disposition: 01 Home, Self Care Discharge Facility Name: home - DIAGNOSES Discharge Diagnoses with Status of Each Condition: (1) Cellulitis of right leg Clinically significantly improved, No erythema or swelling. CRP is close normal. WBC is normal range. Has no fever, he is hemodynamic stable. Patient is prescribed antibiotics to finish the treatment course. Advised the patient keep personal hygiene and keep hydration (2) Right knee pain Resolved, patient has no right knee pain, Has no erythema or swelling on right knee. Aspiration fluids show no evidence for infection. (3) Illicit drug use, continuous Strongly advised the patient quit illicit drug use (4) Current smoker Advised the patient quit cigarette smoking (5) Homeless Consult with social work to try help patient (6)Iron deficiency anemia prescript of iron pill - HPI History of Present Illness: Mr. Patel is a 29-year-old white male with hx of heroin abuser, hepatitis C, right lower extremity infection, asthma, homeless, who present ER complaint of right lower extremity infection and pain at right lower extremity. pt has been failed twice out-patient oral antibiotics treatment. His right lower extremity is mild to moderate erythema, mild swelling and warmness, with multiple location skin tears. He report his low extremity infection worsening about one week ago. The area became itching, and he scratched the area and then he became infected. He report he still injects heroin, his last injection is 4 days ago and smokes cigarette daily as well. He denies he had fever, chill. He has not been feeling "good" in the last few days but can't be more specific. He report his lower extremity pain is 7 out of 10. he report he usually inject heroin into his arm not to his legs. he denies chest pain, cough, shortness of breath, headache, abdominal pain, nausea, vomiting, diarrhea. Pt also report he has right knee pain but the knee has no swelling or erythema. Aspiration fluid from right knee done by ER provider had gram staining which did not reveal Organism, did not chavo w WBC or crystal. Today in ER, pt is afebrile, pt has normal arrange of WBC. CT of right lower extremity reveals no bony abnormality, but with cellulitis, no abscess. Xray of right knee show Mild to moderate effusion, no visualized acute fracture or dislocation. Given above medical condition, medical team was consulted for admission. Discussed the care goal with the patient, patient clearly state he want to have full code. - HOSPITAL COURSE Hospital Course: Patient was admitted for right lower extremity cellulitis. After treated with intravenous antibiotics, Patient's cellulitis has significantly improved. There is no erythema or swelling in his right lower extremity. Patient has no fever, blood culture come back negative. WBC is in normal range, CRP is down close to normal. Patient is discharge at hemodynamic condition. - ALLERGIES Allergies/Adverse Reactions: Allergies Allergy/AdvReac Type Severity Reaction Status Date / Time hydrocodone bitartrate * AdvReac Nausea Verified 05/04/20 13:18 [From Vicodin] - MEDICATIONS Home Medications: Ambulatory Orders Medication Instructions Recorded Confirmed Ferrous Gluconate [Fergon] 324 mg PO DAILYWM #30 tablet 05/07/20 Multivitamin W/Minerals [Theragran 1 tab PO DAILYWM #30 tablet 05/07/20 M] Saccharomyces Boulardii [Florastor] 250 mg PO BIDWM #8 cap 05/07/20 cephALEXin [Keflex] 500 mg PO Q6H #16 cap 05/07/20 - PHYSICAL EXAM AT DISCHARGE General Appearance: positive: No acute distress, Alert. negative: Lethargic Eyes Bilateral: positive: Normal inspection, PERRL, No lid inflammation ENT: positive: ENT inspection nml, No signs of dehydration. negative: Purulent nasal drainage Neck: positive: Nml inspection, Trachea midline. negative: Thyromegaly, T femi deviation Respiratory: positive: Chest non-tender, No respiratory distress. negative: Wheezes, Rales Cardiovascular: positive: Regular rate & rhythm, No murmur. negative: Tachycardia, Bradycardia, Systolic murmur, Diastolic murmur Peripheral Pulses: positive: 2+ Abdomen: positive: Non-tender, Nml bowel sounds, No distention. negative: Tenderness, Guarding, Rebound Back: positive: Nml inspection. negative: CVA tenderness (R), CVA tenderness (L) Skin: positive: Warm, Dry, Other (no erythema or swelling on right lower extremity. pt denies pain. pt walk normally). negative: Cyanosis, Diaphoresis, Pallor Extremities: positive: Non-tender, Full ROM. negative: Calf tenderness Neurologic/Psychiatric: positive: Oriented x3, Motor nml, Sensation nml, Mood/affect nml. negative: Weakness, Sensory loss, Facial droop, Slurred/abnml speech - LABS Result Diagrams: 05/07/20 07:07 05/07/20 07:07 - FOLLOW UP Follow Up: You are prescribed antibiotics Keflex to continue the treatment course. Advise you keep personal hygiene, and keep hydration. Strongly advise you quit illicit drug usage. You may followup with your PCP in two weeks. Should your symptoms return or worsen, you may present ER or call 911 for help. - TIME SPENT Time Spent in Discharge (Minutes): 30
== END 2020-05-07 12:34 | disposition home or self-care (01) | DRG 603 ==
LOC: ED 13:00 → MS2 17:53
PROVIDERS: ADMIT Nurse Practitioner Gerontology; ATTEND Nurse Practitioner Gerontology
DX: L03.115 Cellulitis of right lower limb (principal); F11.10 Opioid abuse, uncomplicated; F15.10 Other stimulant abuse, uncomplicated; F17.210 Nicotine dependence, cigarettes, uncomplicated; M25.561 Pain in right knee; Z59.0 Homelessness; B19.20 Unspecified viral hepatitis C without hepatic coma; D50.9 Iron deficiency anemia, unspecified; Z20.822 Contact with and (suspected) exposure to COVID-19; Z86.718 Personal history of other venous thrombosis and embolism; Z86.14 Personal history of Methicillin resistant Staphylococcus aureus infection
CPT/HCPCS: 0202U; 20610; 36415; 71045; 73560; 73701; 80048; 80053; 80202; 80306; 80320; 81001; 82607; 82728; 83540; 83605; 83615; 84466; 85025; 85045; 85651; 86140; 87040; 87070; 87205; 87640; 89051; 89060; 96374; 96375; 96376; 99284; 99285; A9270; J1170; J1200; J3370; Q9967; 83690; 87086

== ENCOUNTER 2020-08-18 17:26 | Outpatient (CLI) | payer MEDICAID | END 2020-08-18 17:27 | disposition critical access hospital (66) | LOC: EMS 17:26 | DX: R07.9 Chest pain, unspecified (principal) | CPT/HCPCS: A0425; A0427; A0999 ==

== ENCOUNTER 2020-08-18 17:47 | Inpatient (IN) | payer MEDICAID ==
[2020-08-18] MEDS ORDERED: SODIUM CHLORIDE 0.9% 1,769.01 ML IV STA (18:10)
--- NOTE | 2020-08-18 18:13 | XRAY Report ---
PROCEDURE: Chest 1 View X-Ray INDICATIONS: chest pain TECHNIQUE: One view of the chest was acquired. COMPARISON: 05/04/2020 FINDINGS: Surgical changes and devices: None. Lungs and pleura: No pleural effusions or pneumothorax. Lungs are clear. Mediastinum: Mediastinal contours appear normal. Heart size is normal. Bones and chest wall: No suspicious bony lesions. Overlying soft tissues appear unremarkable. IMPRESSION: No acute process. Reviewed by: Monalisa Pahram MD on 08/18/2020 6:12 PM PDT Approved by: Monalisa Parham MD on 08/18/2020 6:12 PM PDT Station ID: [id number]
[2020-08-18] MEDS ORDERED: VANCOMYCIN INJ 1.5 GM in SODIUM CHLORIDE 0.9% 500 ML IV STA (18:15)
--- NOTE | 2020-08-18 18:18 | ED Physician Documentation ---
History of Present Illness - Stated complaint Stated Complaint: CP/FEVER - Chief complaint Chief Complaint: General - Additonal information Additional information: 29-year-old male is brought to the emergency department via EMS after he was f ound behind a dumpster passed out. Patient admits to recently using heroin. He arrives tachycardic with a heart rate of 118 as well as a temperature of 39 1. Patient reports that he does not feel well and has chest pain. This gentleman is well-known to our system. He has a history of intermittent injection drug use, hepatitis C and is homeless. He did have an admission in April for cellulitis. On exam patient appears very ill. He has a left conjunctivitis. He is tachypneic. He has multiple sores and abrasions on his arms and legs. Most dominant one is on his left wrist with surrounding erythema and cellulitis. Review of Systems Constitutional: reports: Fever, Chills, Myalgias Eyes: denies: Loss of vision, Decreased vision Ears: reports: Reviewed and negative Nose: reports: Reviewed and negative Throat: reports: Reviewed and negative Cardiac: reports: Chest pain / pressure Respiratory: reports: Cough. denies: Dyspnea GI: denies: Abdominal Pain, Nausea, Vomiting : denies: Dysuria, Frequency, Hesitancy Skin: reports: Lesions. denies: Rash Musculoskeletal: reports: Reviewed and negative PD PAST MEDICAL HISTORY - Past Medical History Past Medical History: Yes Cardiovascular: Deep vein thrombosis, Other Respiratory: Asthma Neuro: Other Endocrine/Autoimmune: None GI: None : None HEENT: None Psych: Depression Musculoskeletal: Chronic back pain, Other Derm: None - Past Surgical History Past Surgical History: Yes General: Other Ortho: Other - Allergies Allergies/Adverse Reactions: Allergies Allergy/AdvReac Type Severity Reaction Status Date / Time hydrocodone bitartrate * AdvReac Nausea Verified 08/18/20 17:56 [From Vicodin] - Social History Does the pt smoke?: Yes Smoking Status: Current every day smoker Does the pt drink ETOH?: No Does the pt have substance abuse?: Yes Substance Use and Type: Heroin - Immunizations Immunizations are current?: Yes Immunizations: TDAP current <10years, Other immun not current - POLST Patient has POLST: No POLST Status: Full Code PD ED PE EXPANDED - General General: Disheveled, poorly kept, In Pain, Other (ill appearing) - Neck Neck: Supple w/out meningeal sx. No: Bruit present - Cardiac Cardiac: Tachy, Radial strong equal, Pedal strong equal, Cap refill < 2 sec. No: Murmur Present - Respiratory Respiratory: Clear to ausultation lakshmi. No: Distress, Labored - Abdomen Abdomen: Normal Bowel sounds. No: Tender to palpation - Derm Derm: Track fowler, Pick fowler, Other (Extensive amount of pick fowler and abrasions on arms and legs. Most dominant is the left wrist with ulceration and significant surrounding erythema.) - Neuro Neuro: Alert and Oriented X 3, CNII-XII intact, Normal speech - GCS Eye Opening: Spontaneous Motor: Obeys Commands Verbal: Oriented Total: 15 Results - Vitals Vitals: Vital Signs - 24 hr 08/18/20 08/18/20 08/18/20 17:50 18:42 19:40 Temperature 39.1 C H 38.4 C H Heart Rate 118 H 111 H 106 H Respiratory 28 H 25 H Rate Blood Pressure 152/87 H 139/97 H 145/86 H O2 Saturation 97 100 99 08/18/20 08/18/20 08/18/20 20:00 20:01 22:00 Temperature 38.4 C H 39.5 C H Heart Rate 106 H 106 H 102 H Respiratory 24 24 23 Rate Blood Pressure 145/86 H 145/86 H 151/81 H O2 Saturation 98 99 98 Oxygen O2 Source Room air - EKG (time done) 1749 Rate: Rate (enter#) (118) Rhythm: Sinus tachycardia [place]: Normal Intervals: Normal MN. No: Prolonged QT Ischemia: Non specific changes Compare to prior EKG: Changed from prior EKG (now fast rate) - Labs Labs: Laboratory Tests 08/18/20 08/18/20 08/18/20 18:13 18:13 18:13 WBC 16.0 H RBC 4.89 Hgb 11.7 L Hct 34.7 L MCV 71.0 L MCH 23.9 L MCHC 33.7 RDW 16.6 H Plt Count 208 MPV 9.3 Neut # (Auto) 14.5 H Lymph # (Auto) 0.5 L [place] # (Auto) 0.7 Eos # (Auto) 0.1 Baso # (Auto) 0.1 Absolute Nucleated RBC 0.00 Nucleated RBC % 0.0 Sodium 133 L Potassium 3.2 L Chloride 99 L Carbon Dioxide 21 Anion Gap 13.0 BUN 14 Creatinine 0.9 Estimated GFR (MDRD) 100 Glucose 90 Lactic Acid 0.9 Calcium 8.3 L Total Bilirubin 1.5 H AST 29 ALT 18 Alkaline Phosphatase 73 Total Creatine Kinase Troponin I High Sens Total Protein 8.1 Albumin 3.5 Globulin 4.6 H Albumin/Globulin Ratio 0.8 L Lipase 21 L Urine Color Urine Clarity Urine pH Ur Specific Center Urine Protein Urine Glucose (UA) Urine Ketones Urine Occult Blood Urine Nitrite Urine Bilirubin Urine Urobilinogen Ur Leukocyte Esterase Urine RBC Urine WBC Ur Squamous Epith Cells Urine Bacteria Urine Mucus Urine Culture Comments Nasal Adenovirus (PCR) Nasal B. parapertussis DNA (PCR) Nasal Coronavir 229E PCR Nasal Coronavir HKU1 PCR Nasal Coronavir NL63 PCR Nasal Coronavir OC43 PCR Nasal Enterovir/Rhinovir PCR Nasal Influenza B PCR Nasal Influenza A PCR Nasal Parainfluen 1 PCR Nasal Parainfluen 2 PCR Nasal Parainfluen 3 PCR Nasal Parainfluen 4 PCR Nasal RSV (PCR) Nasal B.pertussis DNA PCR Nasal C.pneumoniae (PCR) Yan Human Metapneumo PCR Nasal M.pneumoniae (PCR) Nasal SARS-CoV-2 (PCR) Urine Opiates Screen Ur Oxycodone Screen Urine Methadone Screen Ur Propoxyphene Screen Ur Barbiturates Screen Ur Tricyclics Screen Ur Phencyclidine Scrn Ur Amphetamine Screen U Methamphetamines Scrn U Benzodiazepines Scrn Urine Cocaine Screen U Cannabinoids Screen 08/18/20 08/18/20 08/18/20 18:13 18:13 19:05 WBC RBC Hgb Hct MCV MCH MCHC RDW Plt Count MPV Neut # (Auto) Lymph # (Auto) [place] # (Auto) Eos # (Auto) Baso # (Auto) Absolute Nucleated RBC Nucleated RBC % Sodium Potassium Chloride Carbon Dioxide Anion Gap BUN Creatinine Estimated GFR (MDRD) Glucose Lactic Acid Calcium Total Bilirubin AST ALT Alkaline Phosphatase Total Creatine Kinase 356 H Troponin I High Sens 95.2 H* Total Protein Albumin Globulin Albumin/Globulin Ratio Lipase Urine Color Urine Clarity Urine pH Ur Specific Center Urine Protein Urine Glucose (UA) Urine Ketones Urine Occult Blood Urine Nitrite Urine Bilirubin Urine Urobilinogen Ur Leukocyte Esterase Urine RBC Urine WBC Ur Squamous Epith Cells Urine Bacteria Urine Mucus Urine Culture Comments Nasal Adenovirus (PCR) NOT DETECTED Nasal B. parapertussis DNA (PCR) NOT DETECTED Nasal Coronavir 229E PCR NOT DETECTED Nasal Coronavir HKU1 PCR NOT DETECTED Nasal Coronavir NL63 PCR NOT DETECTED Nasal Coronavir OC43 PCR NOT DETECTED Nasal Enterovir/Rhinovir PCR NOT DETECTED Nasal Influenza B PCR NOT DETECTED Nasal Influenza A PCR NOT DETECTED Nasal Parainfluen 1 PCR NOT DETECTED Nasal Parainfluen 2 PCR NOT DETECTED Nasal Parainfluen 3 PCR NOT DETECTED Nasal Parainfluen 4 PCR NOT DETECTED Nasal RSV (PCR) NOT DETECTED Nasal B.pertussis DNA PCR NOT DETECTED Nasal C.pneumoniae (PCR) NOT DETECTED Yan Human Metapneumo PCR NOT DETECTED Nasal M.pneumoniae (PCR) NOT DETECTED Nasal SARS-CoV-2 (PCR) NOT DETECTED Urine Opiates Screen Ur Oxycodone Screen Urine Methadone Screen Ur Propoxyphene Screen Ur Barbiturates Screen Ur Tricyclics Screen Ur Phencyclidine Scrn Ur Amphetamine Screen U Methamphetamines Scrn U Benzodiazepines Scrn Urine Cocaine Screen U Cannabinoids Screen 08/18/20 08/18/20 19:33 21:32 WBC RBC Hgb Hct MCV MCH MCHC RDW Plt Count MPV Neut # (Auto) Lymph # (Auto) [place] # (Auto) Eos # (Auto) Baso # (Auto) Absolute Nucleated RBC Nucleated RBC % Sodium Potassium Chloride Carbon Dioxide Anion Gap BUN Creatinine Estimated GFR (MDRD) Glucose Lactic Acid Calcium Total Bilirubin AST ALT Alkaline Phosphatase Total Creatine Kinase Troponin I High Sens 79.4 H* Total Protein Albumin Globulin Albumin/Globulin Ratio Lipase Urine Color YELLOW Urine Clarity CLEAR Urine pH 6.0 Ur Specific Center >=1.030 H Urine Protein TRACE Urine Glucose (UA) NEGATIVE Urine Ketones 40 H Urine Occult Blood LARGE H Urine Nitrite NEGATIVE Urine Bilirubin NEGATIVE Urine Urobilinogen 0.2 (NORMAL) Ur Leukocyte Esterase NEGATIVE Urine RBC 6-10 H Urine WBC 0-3 Ur Squamous Epith Cells RARE Squamous Urine Bacteria Rare Urine Mucus Few Strands Urine Culture Comments NOT INDICATED Nasal Adenovirus (PCR) Nasal B. parapertussis DNA (PCR) Nasal Coronavir 229E PCR Nasal Coronavir HKU1 PCR Nasal Coronavir NL63 PCR Nasal Coronavir OC43 PCR Nasal Enterovir/Rhinovir PCR Nasal Influenza B PCR Nasal Influenza A PCR Nasal Parainfluen 1 PCR Nasal Parainfluen 2 PCR Nasal Parainfluen 3 PCR Nasal Parainfluen 4 PCR Nasal RSV (PCR) Nasal B.pertussis DNA PCR Nasal C.pneumoniae (PCR) Yan Human Metapneumo PCR Nasal M.pneumoniae (PCR) Nasal SARS-CoV-2 (PCR) Urine Opiates Screen POSITIVE H Ur Oxycodone Screen NEGATIVE Urine Methadone Screen NEGATIVE Ur Propoxyphene Screen NEGATIVE Ur Barbiturates Screen NEGATIVE Ur Tricyclics Screen NEGATIVE Ur Phencyclidine Scrn NEGATIVE Ur Amphetamine Screen POSITIVE H U Methamphetamines Scrn POSITIVE H U Benzodiazepines Scrn NEGATIVE Urine Cocaine Screen NEGATIVE U Cannabinoids Screen NEGATIVE - Rads (name of study) CXR Radiology: Final report received (No acute cardiopulmonary process) left wrist xr Radiology: Final report received (No acute findings) Chest CT wo Radiology: Final report received (Multifocal pneumonia) CT abdomen wo Radiology: Final report received (Negative noncontrast evaluation of the abdomen and pelvis. Bibasilar pulmonary opacities consistent with multifocal pneumonia.) PD MEDICAL DECISION MAKING - ED course Complexity details: reviewed results, re-evaluated patient, d/w patient ED course: 29-year-old gentleman who is homeless and has a history of injection drug use comes to the emergency department after being found passed out behind a dumpster. On arrival he was noted to be fairly tachycardic febrile temperature 39.1. This gentleman was undressed and he has multiple skin sores and abrasions throughout his body. The most dominant one is on his left wrist and forearm with some extensive swelling and erythema beyond it. This gentleman admits to very recent energy venous drug use. He does meet the criteria for sepsis with an elevated white count source of infection including the skin. Screening labs do show moderate leukocytosis of 16,000. Lactate is not elevated. He is noted to have an elevated CK of about 350. His high-sensitivity troponin initially was greater than 90 but on repeat was 70. This likely represents a demand ischemia. Given his hx of IVDU, bacteremia and endocarditis have not at this time been ruled out. Blood cultures are pending Pt was given 30 mils per kilo crystalloid per sepsis protocol though he was never hypotensive. Vancomycin was ordered presuming a cellulitis picture. 1944: I did discuss the case with nighttime hospitalist Dr. Sood who agrees to admit the patient to the hospital but would like CT imaging of the left arm first to rule out a necrotizing fasciitis. He is also requesting noncontrast CT of the chest and abdomen. 1045: CT of the chest and abdomen without contrast suggests a multifocal pneumonia. No acute abdominal process is seen. CT of the left arm with contrast was completed to rule out necrotizing fasciitis and reassuringly no such findings are found. These imaging findings were discussed with Dr. Peterson who will be admitting the patient to the hospital for further evaluation and treatment of his sepsis. - Sepsis Event Sepsis Onset Date: 08/18/20 Sepsis Onset Time: 18:00 Current Stage of Sepsis: Sepsis Initial Hypotension: Not hypotensive Possible source of Sepsis: Skin/soft tissue, Other (? septicemia, endocarditis) Mental/Cognitive Status: Alert/Oriented X3, Lethargic Capillary refill: Less than 2 seconds Peripheral Pulse Strength: 2+ Slightly Diminished Peripheral Pulse Location: Pedal Bedside ultrasound performed: No Departure - Departure Disposition: 66 [facility] DC/Xfer Clinical Impression: Elevated troponin, IVDU (intravenous drug user), Cellulitis of left upper extremity Sepsis Qualifiers: Sepsis type: sepsis due to unspecified organism Sepsis acute organ dysfunction status: without acute organ dysfunction Qualified Code(s): A41.9 - Sepsis, unspecified organism
[2020-08-18 18:26] LABS: BASOPHILS # (AUTO) 0.1 10^3/uL (0.0-0.1); BASOPHILS % (AUTO) 0.4 %; EOSINOPHILS # (AUTO) 0.1 10^3/uL (0.0-0.7); EOSINOPHILS % (AUTO) 0.5 %; HCT - HEMATOCRIT 34.7 % (42.0-52.0); HGB - HEMOGLOBIN 11.7 g/dL (14.0-18.0); LYMPHOCYTES # (AUTO) 0.5 10^3/uL (1.5-3.5); LYMPHOCYTES % (AUTO) 3.3 %; MEAN CORPUSCULAR HEMOGLOBIN 23.9 pg (27.0-31.0); MEAN CORPUSCULAR HGB CONC 33.7 g/dL (32.0-36.0); MEAN PLATELET VOLUME 9.3 fL (7.4-11.4); MONOCYTES # (AUTO) 0.7 10^3/uL (0.0-1.0); MONOCYTES % (AUTO) 4.6 %; NEUTROPHILS # (AUTO) 14.5 10^3/uL (1.5-6.6); NEUTROPHILS % (AUTO) 90.8 %; PLT - PLATELET COUNT 208 10^3/uL (130-450); RED BLOOD COUNT 4.89 10^6/uL (4.70-6.10); RED CELL DISTRIBUTION WIDTH 16.6 % (12.0-15.0)
[2020-08-18 18:32] LABS: ALBUMIN 3.5 g/dL (3.2-5.5); ALBUMIN/GLOBULIN RATIO 0.8 (1.0-2.2); BILIRUBIN,TOTAL 1.5 mg/dL (0.2-1.0); CALCIUM 8.3 mg/dL (8.5-10.3); CREATININE 0.9 mg/dL (0.6-1.2); POTASSIUM 3.2 mmol/L (3.5-5.0); TOTAL PROTEIN 8.1 g/dL (6.7-8.2)
[2020-08-18 20:19] LABS: B. PARAPERTUSSIS- RESP PCR PAN NOT DETECTED; B. PERTUSSIS- RESP PCR PANEL NOT DETECTED; C. PNEUMONIAE- RESP PCR PANEL NOT DETECTED; CORONAVIRUS 229E-RESP PCR NOT DETECTED; CORONAVIRUS HKU1-RESP PCR NOT DETECTED; CORONAVIRUS NL63-RESP PCR NOT DETECTED; CORONAVIRUS OC43-RESP PCR NOT DETECTED; HUMAN METAPNEUMOVIRUS NOT DETECTED; INFLUENZA A- RESP PCR PANEL NOT DETECTED; INFLUENZA B - RESP PCR PANEL NOT DETECTED; M. PNEUMONIAE- RESP PCR PANEL NOT DETECTED; PARAINFLUENZA VIRUS 1 NOT DETECTED; PARAINFLUENZA VIRUS 2 NOT DETECTED; PARAINFLUENZA VIRUS 3 NOT DETECTED; PARAINFLUENZA VIRUS 4 NOT DETECTED; RHINOVIRUS/ENTEROVIRUS NOT DETECTED; RSV- RESP PCR PANEL NOT DETECTED; SARS-CoV-2 -RESP PCR PANEL NOT DETECTED
[2020-08-18] MEDS ORDERED: IOVERSOL 320 100 ML VIAL IVP ONE ×2 (20:46→21:37)
--- NOTE | 2020-08-18 21:26 | XRAY Report ---
PROCEDURE: Wrist 2 View LT INDICATIONS: cellulitis TECHNIQUE: 2 views of the wrist were acquired. COMPARISON: No FINDINGS: Bones: No fractures or dislocations. No suspicious bony lesions. Scaphoid view: Not requested Soft tissues: No suspicious soft tissue calcifications. IMPRESSION: No acute fracture. No osseous lesion. If symptoms and/or clinical suspicion for pathology continue, f urther assessment with repeat plain films, or advanced imaging (e.g., CT, MRI, or bone scan) is recom mended for further assessment. Reviewed by: Monalisa Parham MD on 08/18/2020 9:25 PM PDT Approved by: Monalisa Parham MD on 08/18/2020 9:25 PM PDT Station ID: [id number]
[2020-08-18 21:54] LABS: MUDS CUTOFF CONCENTRATIONS CUTOFF CONC BELOW:
[2020-08-18 21:58] LABS: BILIRUBIN,URINE NEGATIVE (NEGATIVE); GLUCOSE, URINE (UA) NEGATIVE (NEGATIVE); KETONES,URINE (UA) 40 mg/dL (NEGATIVE); LEUKOCYTE ESTERASE, URINE NEGATIVE (NEGATIVE); NITRITE,URINE NEGATIVE (NEGATIVE); OCCULT BLOOD,URINE LARGE (NEGATIVE); PROTEIN,URINE TRACE mg/dL (NEGATIVE); UROBILINOGEN,URINE 0.2 (NORMAL) E.U./dL (NORMAL)
--- NOTE | 2020-08-18 21:59 | CT Report ---
PROCEDURE: CHEST WO INDICATIONS: sepsis TECHNIQUE: Noncontrast 5 mm thick sections acquired from the pulmonary apices to the posterior costophrenic angl es. 7 mm thick coronal and sagittal MIP reformats were then acquired. For radiation dose reduction, the following was used: automated exposure control, adjustment of mA and/or kV according to patient size. COMPARISON: Chest CT dated 03/09/2018 FINDINGS: Image quality: Excellent. Lungs and pleura: Multifocal patchy rounded bilateral peripheral pulmonary opacities are present with in the bilateral upper and lower lobes. No pleural effusions or pneumothorax. Central and peripheral airways are patent and normal in caliber. Mediastinum: Heart size is normal. No pericardial effusion. No mediastinal adenopathy by size crit eria. Thoracic aorta and central pulmonary arteries are normal in size. Esophagus is normal in [place]. No hiatal hernia. Bones and chest wall: Pectus cavum. No suspicious bony lesions. No vertebral body compression fract ures. No axillary or supraclavicular adenopathy by size criteria. The thyroid is normal in size and there are no incidental findings. Abdomen: Visualized upper abdominal solid organs and bowel loops appear normal in the absence of con trast. IMPRESSION: 1. Multifocal pneumonia. CLINICAL RECOMMENDATION STATEMENTS: In patients <35 years with an ITN detected on CT, MRI, or extrathyroidal ultrasound, the Committee re commends further evaluation with dedicated thyroid ultrasound if the nodule is ?1 cm and has no suspi cious imaging features, and if the patient has normal life expectancy. In patients ?35 years with an ITN detected on CT, MRI, or extrathyroidal ultrasound, the Committee re commends further evaluation with dedicated thyroid ultrasound if the nodule is ?1.5 cm and has no haley picious imaging features, and if the patient has normal life expectancy. (ACR, 2014) Reviewed by: Monalisa Parham MD on 08/18/2020 9:57 PM PDT Approved by: Monalisa Parham MD on 08/18/2020 9:57 PM PDT Station ID: [id number]
--- NOTE | 2020-08-18 22:00 | CT Report ---
PROCEDURE: Abdomen/Pelvis WO INDICATIONS: pain, sepsis TECHNIQUE: Noncontrast 5 mm thick sections acquired from the diaphragms to the symphysis. 5 mm coronal and sagi ttal reformats were then performed. For radiation dose reduction, the following was used: automated exposure control, adjustment of mA and/or kV according to patient size. COMPARISON: None. FINDINGS: Image quality: Excellent. ABDOMEN: Lung bases: Multifocal patchy bibasilar ill-defined pulmonary opacities. Heart size is normal. Solid organs: Liver and spleen are normal in size. Gallbladder Pancreas is normal in contours. N o adrenal nodules. Kidneys are normal in size, without hydronephrosis or nephrolithiasis. Peritoneum and bowel: Unenhanced bowel loops demonstrate normal wall thickness and caliber. No free fluid or air. Nodes and vessels: No retroperitoneal or mesenteric adenopathy by size criteria. Aorta and inferior vena cava are normal in caliber. Miscellaneous: No ventral hernias. PELVIS: Genitourinary: Bladder wall thickness is normal. Miscellaneous: No inguinal hernias or adenopathy. Bones: No suspicious bony lesions. No vertebral body compression fractures. IMPRESSION: 1. Negative noncontrast evaluation of the abdomen and pelvis. 2. Bibasilar pulmonary opacities, consistent with multifocal pneumonia. Reviewed by: Monalisa Parham MD on 08/18/2020 9:58 PM PDT Approved by: Monalisa Parham MD on 08/18/2020 9:58 PM PDT Station ID: [id number]
[2020-08-18 22:10] LABS: BACTERIA,URINE Rare /HPF (None Seen); CLARITY,URINE CLEAR (CLEAR); MUCUS,URINE Few Strands; SQUAMOUS EPITHELIAL CELL,UR RARE Squamous (<= Few); WBC,URINE 0-3 /HPF (0-3)
[2020-08-18 22:11] LABS: AMPHETAMINE SCREEN,URINE POSITIVE (NEGATIVE); BARBITURATE SCREEN,UR NEGATIVE (NEGATIVE); BENZODIAZEPINES SCREEN, URINE NEGATIVE (NEGATIVE); COCAINE SCREEN URINE NEGATIVE (NEGATIVE); METHADONE SCREEN, URINE NEGATIVE (NEGATIVE); METHAMPHETAMINES SCREEN, URINE POSITIVE (NEGATIVE); OPIATE SCREEN, URINE POSITIVE (NEGATIVE); OXYCODONE SCREEN, URINE NEGATIVE (NEGATIVE); PROPOXYPHENE SCREEN, URINE NEGATIVE (NEGATIVE); THC CANNABINOID SCREEN, URINE NEGATIVE (NEGATIVE); TRICYCLIC ANTIDEPRESSANT,URINE NEGATIVE (NEGATIVE)
[2020-08-18] MEDS ORDERED: ONDANSETRON 4 MG/2 ML VIAL IVP PRN (22:48)
[2020-08-18] MEDS ORDERED: ONDANSETRON ODT 4 MG TABLET TL PRN (22:48)
--- NOTE | 2020-08-18 23:02 | HISTORY & PHYSICAL EXAMINATION ---
Chief Complaint - Chief Complaint Chief Complaint: Chest pain History of Present Illness - Admitted From Admitted From:: Home - History Obtained From Records Reviewed: Yes History obtained from: Patient, ER Provider, EMR - History of Present Illness HPI Comment/Other: This is a 29-year-old male with a past medical history significant for hepatitis C, heroin and methamphetamine use who presents today complaining of chest pain after he was found by EMS passed out. He states his chest pain began today and it is a pressure like in nature. He reports his chest is tender to palpation. He admits to using heroin yesterday. He states that about 85% of the time he will use a dirty needle. He last injected in his left upper extremity above the elbow. He complains of left wrist pain that he believes began today. He is able to move his fingers but does have pain on palpation. He is also noticed some erythema over the wrist. He denies any shortness of breath or cough. He does complain of some abdominal pain but no nausea or vomiting. He reports no fevers or chills. Just feels very fatigued. He does complain of lower back pain. Denies any weakness in his lower extremities In the emergency department, he was found to be febrile with a temperature of 39.1. He was tachycardic with a heart rate in the 110s. Hypertensive with systolic in the 150s. He was tachypneic with respiratory rate in the low 20s but was saturating well on room air. Labs were significant for white count of 16,000 with a left shift. Sodium was 133. Potassium was 3.2. He had a normal lactic acid. Initial troponin was 95.2 and recheck an hour later had decreased to 79.4. His CKs were mildly elevated in the 300s. His chest x-ray is unremarkable. CT of the chest was concerning for multifocal pneumonia. CT of the abdomen and pelvis was unremarkable. CT the left upper extremity revealed no fluid collection or evidence necrotizing fasciitis. He received vancomycin in the emergency department. Given the concern for sepsis secondary to left upper extremity cellulitis, medicine was consulted for admission. History - Past Medical History Cardiovascular: reports: Deep vein thrombosis Respiratory: reports: Asthma Endocrine/Autoimmune: reports: None GI: reports: Hepatitis : reports: None HEENT: reports: None Psych: reports: Depression Musculoskeletal: reports: Chronic back pain MRSA Hx?: Yes - Past Surgical History Ortho: reports: Other (I&D of left hand in August 2016.) - Family & Social History Family History: Mother: , CAD Family History Comment/Other: His mother in her early 30s. He is unaware of his father's history. Living arrangement: Homeless Living Situation: Alone Social History Notes: The patient reports being homeless and living on [address]. He reports he has an aunt who lives here on [address]. He does admit to heroin use with the last use being yesterday. He also is a history of methamphetamine use. He continues to smoke a pack a day and has been doing so for more than 10 years. - Substance History Use: Uses substance without health or social issues: Tobacco - POLST Patient has POLST: No POLST Status: Full Code Meds/Allgy - Allergies Allergies/Adverse Reactions: Allergies Allergy/AdvReac Type Severity Reaction Status Date / Time hydrocodone bitartrate * AdvReac Nausea Verified 08/18/20 17:56 [From Vicodin] Review of Systems - Constitutional Constitutional: reports: Fatigue, Malaise. denies: Fever, Chills - Eyes Eyes: denies: Blurred vision - Cardiovascular Cariovascular: reports: Chest pain. denies: Edema, Exertional dyspnea, Decr. exercise tolerance - Respiratory Respiratory: denies: Cough, SOB at rest, SOB with exertion - Gastrointestinal Gastrointestinal: reports: Abdominal pain. denies: Diarrhea, Bloody stools, N ausea, Vomiting - Genitourinary Genitourinary: denies: Dysuria, Frequency, Hematuria - Musculoskeletal Musculoskeletal: reports: Back pain, Joint pain - Integumentary Integumentary: reports: Lesions, Pigment changes - Neurological Neurological: denies: Numbness - Hematologic/Lymphatic Hematologic/Lymphatic: denies: Bleeding tendencies - All Other Systems All Other Systems: reports: Reviewed and negative Prior Level of Functionality: He is independent with ADLs. Exam - Vital Signs Reviewed Vital Signs: Yes Vital Signs: Vital Signs x48h Temp Pulse Resp BP Pulse Ox 08/18/20 22:00 39.5 C H 102 H 23 151/81 H 98 08/18/20 20:01 38.4 C H 106 H 24 145/86 H 99 08/18/20 20:00 106 H 24 145/86 H 98 08/18/20 19:40 38.4 C H 106 H 145/86 H 99 08/18/20 18:42 111 H 25 H 139/97 H 100 08/18/20 17:50 39.1 C H 118 H 28 H 152/87 H 97 - Physical Exam General Appearance: positive: Other (He appears lethargic and in mild distress.) Eyes Bilateral: positive: PERRL, Other (Mild bilateral conjunctivitis.) ENT: positive: Dry mucous membranes. negative: Pharyngeal erythema Neck: positive: Nml inspection Respiratory: positive: No respiratory distress. negative: Wheezes, Rales Cardiovascular: positive: No murmur, Tachycardia. negative: Irregularly irregular, Systolic murmur Abdomen: positive: No distention, Tenderness (Diffuse abdominal tenderness.). negative: Non-tender, Guarding, Rebound, Abnml bowel sounds Back: positive: Other (No lumber, thoracic, cervical spine tenderness.) Skin: positive: Warm, Dry, Other (There is an area of erythema over the medial aspect of the left forearm with surrounding edema that is tender to palpation and quite warm to touch. No obvious fluctuance. He has multiple areas of excoriations all over his extremities as well scabs) Extremities: positive: No pedal edema, Other (He is able to move his left hand freely. No obvious focal deficits. Less than 2 seconds for capillary refill. Sensation is intact.) Neurologic/Psychiatric: positive: Other (No obviosu focal deficits). negative: Disoriented to person, Disoriented to place, Disoriented to time Sepsis Event Note (H) - Evaluation Current Stage of Sepsis: Sepsis Possible source of Sepsis: positive: Skin/soft tissue, Other (Suspect bacteremia and possible endocaraditis) - Sepsis Criteria Sepsis Criteria: Recorded Temperature greater than 38.3C or Less than 36C, Recorded Heart Rate greater than 90 bpm, WBC count greater than 12,000 or less than 4000 Conclusion/Plan - Problem List (1) Sepsis Conclusion/Plan: This is secondary to left upper extremity cellulitis but there is also concern for potential endocarditis given his IV drug use and high-grade fevers. I suspect he likely is bacteremic. Presents with a fever, leukocytosis and tachycardia. CT the chest was concerning for atypical pneumonia. Otherwise imaging has been unremarkable. We will place on vancomycin and ceftriaxone for the left upper extremity cellulitis. Follow-up blood cultures. We will obtain echocardiogram to look for vegetation. Check ESR and CRP. Qualifiers: Sepsis type: sepsis due to unspecified organism Sepsis acute organ dysfunction status: without acute organ dysfunction Qualified Code(s): A41.9 - Sepsis, unspecified organism (2) Cellulitis of left upper extremity Conclusion/Plan: This appears be contributing to his sepsis although as mentioned above, there is concern for potential endocarditis. CT left upper extremity revealed no obvious abscess and no evidence of air/gas to suggest necrotizing fasciitis. We will place him empirically on vancomycin and ceftriaxone given his history of IV drug use. Follow-up blood cultures as I suspect he is bacteremic. (3) CAP (community acquired pneumonia) Conclusion/Plan: Although his chest x-ray is unremarkable, CT of the chest was concerning for multifocal pneumonia. He denies dyspnea or cough. I do wonder if this could potentially be septic emboli given his IV drug use and suspected bacteremia. He is on vancomycin and ceftriaxone empirically for his left upper extremity cellulitis. We will also add 3 days of azithromycin to cover for atypicals. (4) Elevated troponin Conclusion/Plan: Troponin was elevated in the 90s but is decreasing. His EKG does not suggest ischemia. Suspect this is likely demand ischemia given his drug use. He does have chest pain but low suspicion for ACS at this time. We will continue to trend his troponin. Check echocardiogram. (5) IVDU (intravenous drug user) Conclusion/Plan: He admits to intravenous drug use and his urine tract is positive for opiates and methamphetamines. He does admit to heroin use just yesterday. Will monitor for evidence of withdrawal and treat symptomatically. We will ask social service manager to see him to discuss potential treatment options for his IV drug use. - Lab Results Lab results reviewed: Yes Fish Bones: 08/19/20 05:49 08/19/20 05:30 - Diagnostic Imaging Results Diagnostic Imaging Results: positive: Prelim report reviewed, Final report reviewed
[2020-08-18 23:36] LABS: CRP - C-REACTIVE PROTEIN 29.2 mg/dL (0-1.0); MAGNESIUM 1.7 mg/dL (1.7-2.8); PHOSPHORUS 2.5 mg/dL (2.5-4.6)
[2020-08-19] MEDS: SODIUM CHLORIDE FLUSH 0.9% 10 ML SYRINGE IVP SCH ×3 (00:35→22:26)
[2020-08-19] MEDS: LACTATED RINGERS 1,000 ML IV SCH ×2 (00:35→11:29)
[2020-08-19] MEDS: cefTRIAXone 2 GM in SODIUM CHLORIDE 0.9% MINIBAG 100 ML IV SCH (00:45)
[2020-08-19] MEDS: AZITHROMYCIN INJ 500 MG in SODIUM CHLORIDE 0.9% 250 ML IV SCH (01:23)
[2020-08-19] MEDS ORDERED: cefTRIAXone 2 GM in SODIUM CHLORIDE 0.9% MINIBAG 100 ML IV SCH (02:00)
[2020-08-19] MEDS: oxyCODONE 5 MG TABLET PO PRN ×3 (02:04→21:07)
[2020-08-19 05:55] LABS: CALCIUM 8.1 mg/dL (8.5-10.3); CREATININE 0.8 mg/dL (0.6-1.2); MAGNESIUM 1.9 mg/dL (1.7-2.8); POTASSIUM 3.2 mmol/L (3.5-5.0)
[2020-08-19 05:56] LABS: BASOPHILS % (AUTO) 0.3 %; EOSINOPHILS % (AUTO) 0.3 %; HCT - HEMATOCRIT 33.3 % (42.0-52.0); LYMPHOCYTES % (AUTO) 4.9 %; MEAN CORPUSCULAR HEMOGLOBIN 23.8 pg (27.0-31.0); MEAN CORPUSCULAR VOLUME 71.9 fL (80.0-94.0); MEAN PLATELET VOLUME 9.1 fL (7.4-11.4); MONOCYTES % (AUTO) 4.7 %; NEUTROPHILS % (AUTO) 89.3 %; PLT - PLATELET COUNT 173 10^3/uL (130-450); RED BLOOD COUNT 4.63 10^6/uL (4.70-6.10); RED CELL DISTRIBUTION WIDTH 16.9 % (12.0-15.0)
[2020-08-19 05:57] LABS: ABNORMAL LYMPHS % (MANUAL) 0 %
[2020-08-19] MEDS ORDERED: VANCOMYCIN INJ 1 GM in SODIUM CHLORIDE 0.9% 250 ML IV SCH (06:00)
[2020-08-19 06:10] LABS: BAND NEUTROPHILS % (MANUAL) 6 %; DIFFERENTIAL COMMENT MANUAL DIFFERENTIAL; LYMPHOCYTES # (MANUAL) 0.9 10^3/uL (1.5-3.5); LYMPHOCYTES % (MANUAL) 6 %; MONOCYTES # (MANUAL) 0.8 10^3/uL (0.0-1.0); NEUTROPHILS # (MANUAL) 13.4 10^3/uL (1.5-6.6); PLATELET ESTIMATE, MANUAL NORMAL (130-450,000) (NORMAL); PLATELET MORPHOLOGY NORMAL APPEARANCE (NORMAL); RBC MORPHOLOGY (MULTIPLE) NORMAL APPEARANCE (NORMAL); WBC MORPHOLOGY (MULTIPLE) NORMAL APPEARANCE (NORMAL)
[2020-08-19 06:50] LABS: CRP - C-REACTIVE PROTEIN 30.4 mg/dL (0-1.0)
[2020-08-19 06:51] LABS: PHOSPHORUS 2.8 mg/dL (2.5-4.6)
--- NOTE | 2020-08-19 08:30 | CT Report ---
PROCEDURE: UPPER EXTREMITY W - LT INDICATIONS: ? nec fasc TECHNIQUE: After IV contrast infusion, 1 mm axial sections acquired of the left upper extremity from the level o f mid humeral shaft through left hand, with coronal and sagittal reformats. COMPARISON: Wrist radiograph dated 08/18/2020. FINDINGS: Image quality: Excellent. Bones: Alignment of left upper extremity osseous structures are anatomic. No fracture or dislocation . No suspicious intraosseous lesion. No bony erosive changes or cortical destruction. Soft tissues: Diffuse visualized upper extremity soft tissue edema and mild swelling is seen, sugges tive of mild cellulitis. No discrete drainable fluid collection is seen. No intramuscular mass or flu id collection is identified. No subcutaneous emphysema or soft tissue calcifications. No significant joint effusion or intra-articular loose body. IMPRESSION: 1. Suggestion of cellulitis in visualized left upper extremity. No CT evidence of necrotizing fasciit is. No discrete drainable abscess collection. 2. No left upper extremity fracture or dislocation. No CT evidence of osteomyelitis. Agree with preliminary reading. Reviewed by: Harinder Hernandez MD on 08/19/2020 8:29 AM PDT Approved by: Harinder Hernandez MD on 08/19/2020 8:29 AM PDT Station ID: [id number]
[2020-08-19] MEDS: MORPHINE 2 MG/ML CARPUJECT IVP PRN (08:38)
[2020-08-19] MEDS: ENOXAPARIN 40 MG/0.4 ML SYRINGE SUBQ SCH ×2 (08:38→08:44)
[2020-08-19] MEDS ORDERED: AZITHROMYCIN INJ 500 MG in SODIUM CHLORIDE 0.9% 250 ML IV SCH (09:00)
[2020-08-19] MEDS: POTASSIUM CHLOR 10 MEQ/100 ML 10 MEQ/100 ML BAG IV SCH ×3 (11:29→14:12)
--- NOTE | 2020-08-19 11:29 | PROVIDER PROGRESS NOTE ---
Subjective - Prog Note Date Prog Note Date: 08/19/20 Prog Note Time: 11:27 - Subjective Pt reports feeling: Improved (Patient sleeping and very lethargic during my exam, did not answer my questions when I asked him if he was feeling any better but previously had had some vomiting earlier in the morning.) Current Medications - Current Medications Current Medications: Current Medications Generic Name Dose Route Start Last Admin Trade Name Freq PRN Reason Stop Dose Admin Enoxaparin Sodium 40 mg 08/19/20 09:00 08/19/20 08:44 Enoxaparin 40 Mg/0.4 Ml Syringe SUBQ Not Given DAILY MICHA Lactated Ringer's 1,000 mls @ 100 mls/hr 08/18/20 23:00 08/19/20 00:35 Lr IV 08/19/20 18:59 100 mls/hr .Q10H MICHA Administration Ceftriaxone Sodium 2 gm/ 100 mls @ 200 mls/hr 08/19/20 01:00 08/19/20 01:15 Sodium Chloride IV Infused Q24H MICHA Infusion Azithromycin 500 mg/ Sodium 250 mls @ 250 mls/hr 08/19/20 02:00 08/19/20 02:23 Chloride IV 08/21/20 02:59 Infused Q24H MICHA Infusion Morphine Sulfate 2 mg 08/18/20 22:48 08/19/20 08:38 Morphine 2 Mg/Ml Carpuject IVP 2 mg Q2HR PRN Administration Pain 8 to 10 Ondansetron HCl 4 mg 08/18/20 22:48 08/19/20 08:38 Ondansetron 4 Mg/2 Ml Vial IVP 4 mg Q6HR PRN Administration Nausea / Vomiting Oxycodone HCl 5 mg 08/18/20 22:48 08/19/20 02:04 Oxycodone 5 Mg Tablet PO 5 mg Q4HR PRN Administration Pain 5 to 7 Sodium Chloride 10 ml 08/19/20 01:00 08/19/20 00:35 Sodium Chloride Flush 0.9% 10 Ml Syringe IVP 10 ml 0100,0900,1700 MICHA Administration Objective - Vital Signs/Intake & Output Reviewed Vital Signs: Yes Vital Signs: Vital Signs x48h Temp Pulse Pulse Resp BP Pulse Ox 08/19/20 07:58 36.5 C 99 16 105/54 L 99 08/19/20 04:09 37.3 C 100 18 120/65 95 Intake & Output: Intake & Output 08/16/20 08/17/20 08/18/20 08/19/20 23:59 23:59 23:59 23:59 Intake Total 2269.01 600 Output Total 800 950 Balance 1469.01 -350 - Objective General Appearance: positive: Lethargic Eyes Bilateral: positive: Normal inspection ENT: positive: ENT inspection nml Neck: positive: Nml inspection Respiratory: positive: No respiratory distress, Breath sounds nml Cardiovascular: positive: Regular rate & rhythm, No murmur, No gallop Abdomen: positive: Non-tender, No organomegaly, Nml bowel sounds Skin: positive: Other (Multiple excoriations throughout the skin, track fowler, scars Minimal focal erythema of the distal left upper extremity) Extremities: positive: Other (Mild generalized circumferential edema of the left upper extremity) Neurologic/Psychiatric: positive: CN's nml (2-12) - Lab Results Fish Bones: 08/19/20 05:49 08/19/20 05:30 Other Labs: Lab Results x24hrs 08/19/20 08/19/20 08/19/20 Range/Units 06:12 05:49 05:49 WBC (4.8-10.8) x10^3/uL RBC (4.70-6.10) 10^6/uL Hgb (14.0-18.0) g/dL Hct (42.0-52.0) % MCV (80.0-94.0) fL MCH (27.0-31.0) pg MCHC (32.0-36.0) g/dL RDW (12.0-15.0) % Plt Count (130-450) 10^3/uL MPV (7.4-11.4) fL Neut # (Auto) (1.5-6.6) 10^3/uL Lymph # (Auto) (1.5-3.5) 10^3/uL [place] # (Auto) (0.0-1.0) 10^3/uL Eos # (Auto) (0.0-0.7) 10^3/uL Baso # (Auto) (0.0-0.1) 10^3/uL Absolute Nucleated RBC x10^3/uL Total Counted Band Neuts % (Manual) (0 - 10) % Abnorm Lymph % (Manual) % Nucleated RBC % /100WBC Neutrophils # (Manual) (1.5-6.6) 10^3/uL Lymphocytes # (Manual) (1.5-3.5) 10^3/uL Monocytes # (Manual) (0.0-1.0) 10^3/uL Eosinophils # (Manual) (0-0.7) 10^3/uL Basophils # (Manual) (0-0.1) 10^3/uL Differential Comment WBC Morphology (NORMAL) Platelet Estimate (NORMAL) Platelet Morphology (NORMAL) RBC Morph Micro Appear (NORMAL) ESR (0-15) mm/Hr Sodium (135-145) mmol/L Potassium (3.5-5.0) mmol/L Chloride (101-111) mmol/L Carbon Dioxide (21-32) mmol/L Anion Gap (6-13) BUN (6-20) mg/dL Creatinine (0.6-1.2) mg/dL Estimated GFR (MDRD) (>89) Glucose (70-100) mg/dL Lactic Acid (0.5-2.2) mmol/L Calcium (8.5-10.3) mg/dL Phosphorus (2.5-4.6) mg/dL Magnesium (1.7-2.8) mg/dL Iron (45-182) ug/dL TIBC (250-450) ug/dL % Saturation (20-50) % Transferrin (180-329) mg/dL Ferritin 99.5 (23.9-336.2) ng/mL Total Bilirubin (0.2-1.0) mg/dL AST (10-42) IU/L ALT (10-60) IU/L Alkaline Phosphatase (42-121) IU/L Total Creatine Kinase (22-269) IU/L Troponin I High Sens 87.5 H* (2.3-19.7) ng/L C-Reactive Protein (0-1.0) mg/dL Total Protein (6.7-8.2) g/dL Albumin (3.2-5.5) g/dL Globulin (2.1-4.2) g/dL Albumin/Globulin Ratio (1.0-2.2) Lipase (22-51) U/L Urine Color Urine Clarity (CLEAR) Urine pH (5.0-7.5) PH Ur Specific [place] (1.002-1.030) Urine Protein (NEGATIVE) mg/dL Urine Glucose (UA) (NEGATIVE) mg/dL Urine Ketones (NEGATIVE) mg/dL Urine Occult Blood (NEGATIVE) Urine Nitrite (NEGATIVE) Urine Bilirubin (NEGATIVE) Urine Urobilinogen (NORMAL) E.U./dL Ur Leukocyte Esterase (NEGATIVE) Urine RBC (0-5) /HPF Urine WBC (0-3) /HPF Ur Squamous Epith Cells (<= Few) Urine Bacteria (None Seen) /HPF Urine Mucus Urine Culture Comments Nasal Adenovirus (PCR) Nasal B. parapertussis DNA (PCR) Nasal Coronavir 229E PCR Nasal Coronavir HKU1 PCR Nasal Coronavir NL63 PCR Nasal Coronavir OC43 PCR Nasal Enterovir/Rhinovir PCR Nasal Influenza B PCR Nasal Influenza A PCR Nasal Parainfluen 1 PCR Nasal Parainfluen 2 PCR Nasal Parainfluen 3 PCR Nasal Parainfluen 4 PCR Nasal RSV (PCR) Nasal Screen MRSA (PCR) POSITIVE A* (NEGATIVE) Nasal B.pertussis DNA PCR Nasal C.pneumoniae (PCR) Yan Human Metapneumo PCR Nasal M.pneumoniae (PCR) Nasal SARS-CoV-2 (PCR) Urine Opiates Screen (NEGATIVE) Ur Oxycodone Screen (NEGATIVE) Urine Methadone Screen (NEGATIVE) Ur Propoxyphene Screen (NEGATIVE) Ur Barbiturates Screen (NEGATIVE) Ur Tricyclics Screen (NEGATIVE) Ur Phencyclidine Scrn (NEGATIVE) Ur Amphetamine Screen (NEGATIVE) U Methamphetamines Scrn (NEGATIVE) U Benzodiazepines Scrn (NEGATIVE) Urine Cocaine Screen (NEGATIVE) U Cannabinoids Screen (NEGATIVE) 08/19/20 08/19/20 08/19/20 Range/Units 05:49 05:30 00:25 WBC 15.0 H (4.8-10.8) x10^3/uL RBC 4.63 L (4.70-6.10) 10^6/uL Hgb 11.0 L (14.0-18.0) g/dL Hct 33.3 L (42.0-52.0) % MCV 71.9 L (80.0-94.0) fL MCH 23.8 L (27.0-31.0) pg MCHC 33.0 (32.0-36.0) g/dL RDW 16.9 H (12.0-15.0) % Plt Count 173 (130-450) 10^3/uL MPV 9.1 (7.4-11.4) fL Neut # (Auto) Not Reportable (1.5-6.6) 10^3/uL Lymph # (Auto) Not Reportable (1.5-3.5) 10^3/uL [place] # (Auto) Not Reportable (0.0-1.0) 10^3/uL Eos # (Auto) Not Reportable (0.0-0.7) 10^3/uL Baso # (Auto) Not Reportable (0.0-0.1) 10^3/uL Absolute Nucleated RBC Not Reportable x10^3/uL Total Counted 100 Band Neuts % (Manual) 6 (0 - 10) % Abnorm Lymph % (Manual) 0 % Nucleated RBC % Not Reportable /100WBC Neutrophils # (Manual) 13.4 H (1.5-6.6) 10^3/uL Lymphocytes # (Manual) 0.9 L (1.5-3.5) 10^3/uL Monocytes # (Manual) 0.8 (0.0-1.0) 10^3/uL Eosinophils # (Manual) 0.0 (0-0.7) 10^3/uL Basophils # (Manual) 0.0 (0-0.1) 10^3/uL Differential Comment MANUAL DIFFERENTIAL WBC Morphology NORMAL APPEARANCE (NORMAL) Platelet Estimate NORMAL (130-450,000) (NORMAL) Platelet Morphology NORMAL APPEARANCE (NORMAL) RBC Morph Micro Appear NORMAL APPEARANCE (NORMAL) ESR (0-15) mm/Hr Sodium 130 L (135-145) mmol/L Potassium 3.2 L (3.5-5.0) mmol/L Chloride 100 L (101-111) mmol/L Carbon Dioxide 19 L (21-32) mmol/L Anion Gap 11.0 (6-13) BUN 13 (6-20) mg/dL Creatinine 0.8 (0.6-1.2) mg/dL Estimated GFR (MDRD) 114 (>89) Glucose 103 H (70-100) mg/dL Lactic Acid (0.5-2.2) mmol/L Calcium 8.1 L (8.5-10.3) mg/dL Phosphorus 2.8 (2.5-4.6) mg/dL Magnesium 1.9 (1.7-2.8) mg/dL Iron 10 L (45-182) ug/dL TIBC 364 (250-450) ug/dL % Saturation 3 L (20-50) % Transferrin 260 (180-329) mg/dL Ferritin (23.9-336.2) ng/mL Total Bilirubin (0.2-1.0) mg/dL AST (10-42) IU/L ALT (10-60) IU/L Alkaline Phosphatase (42-121) IU/L Total Creatine Kinase (22-269) IU/L Troponin I High Sens 94.4 H* (2.3-19.7) ng/L C-Reactive Protein 30.4 H (0-1.0) mg/dL Total Protein (6.7-8.2) g/dL Albumin (3.2-5.5) g/dL Globulin (2.1-4.2) g/dL Albumin/Globulin Ratio (1.0-2.2) Lipase (22-51) U/L Urine Color Urine Clarity (CLEAR) Urine pH (5.0-7.5) PH Ur Specific [place] (1.002-1.030) Urine Protein (NEGATIVE) mg/dL Urine Glucose (UA) (NEGATIVE) mg/dL Urine Ketones (NEGATIVE) mg/dL Urine Occult Blood (NEGATIVE) Urine Nitrite (NEGATIVE) Urine Bilirubin (NEGATIVE) Urine Urobilinogen (NORMAL) E.U./dL Ur Leukocyte Esterase (NEGATIVE) Urine RBC (0-5) /HPF Urine WBC (0-3) /HPF Ur Squamous Epith Cells (<= Few) Urine Bacteria (None Seen) /HPF Urine Mucus Urine Culture Comments Nasal Adenovirus (PCR) Nasal B. parapertussis DNA (PCR) Nasal Coronavir 229E PCR Nasal Coronavir HKU1 PCR Nasal Coronavir NL63 PCR Nasal Coronavir OC43 PCR Nasal Enterovir/Rhinovir PCR Nasal Influenza B PCR Nasal Influenza A PCR Nasal Parainfluen 1 PCR Nasal Parainfluen 2 PCR Nasal Parainfluen 3 PCR Nasal Parainfluen 4 PCR Nasal RSV (PCR) Nasal Screen MRSA (PCR) (NEGATIVE) Nasal B.pertussis DNA PCR Nasal C.pneumoniae (PCR) Yan Human Metapneumo PCR Nasal M.pneumoniae (PCR) Nasal SARS-CoV-2 (PCR) Urine Opiates Screen (NEGATIVE) Ur Oxycodone Screen (NEGATIVE) Urine Methadone Screen (NEGATIVE) Ur Propoxyphene Screen (NEGATIVE) Ur Barbiturates Screen (NEGATIVE) Ur Tricyclics Screen (NEGATIVE) Ur Phencyclidine Scrn (NEGATIVE) Ur Amphetamine Screen (NEGATIVE) U Methamphetamines Scrn (NEGATIVE) U Benzodiazepines Scrn (NEGATIVE) Urine Cocaine Screen (NEGATIVE) U Cannabinoids Screen (NEGATIVE) 08/18/20 08/18/20 08/18/20 Range/Units 23:01 23:01 21:32 WBC (4.8-10.8) x10^3/uL RBC (4.70-6.10) 10^6/uL Hgb (14.0-18.0) g/dL Hct (42.0-52.0) % MCV (80.0-94.0) fL MCH (27.0-31.0) pg MCHC (32.0-36.0) g/dL RDW (12.0-15.0) % Plt Count (130-450) 10^3/uL MPV (7.4-11.4) fL Neut # (Auto) (1.5-6.6) 10^3/uL Lymph # (Auto) (1.5-3.5) 10^3/uL [place] # (Auto) (0.0-1.0) 10^3/uL Eos # (Auto) (0.0-0.7) 10^3/uL Baso # (Auto) (0.0-0.1) 10^3/uL Absolute Nucleated RBC x10^3/uL Total Counted Band Neuts % (Manual) (0 - 10) % Abnorm Lymph % (Manual) % Nucleated RBC % /100WBC Neutrophils # (Manual) (1.5-6.6) 10^3/uL Lymphocytes # (Manual) (1.5-3.5) 10^3/uL Monocytes # (Manual) (0.0-1.0) 10^3/uL Eosinophils # (Manual) (0-0.7) 10^3/uL Basophils # (Manual) (0-0.1) 10^3/uL Differential Comment WBC Morphology (NORMAL) Platelet Estimate (NORMAL) Platelet Morphology (NORMAL) RBC Morph Micro Appear (NORMAL) ESR 53 H (0-15) mm/Hr Sodium (135-145) mmol/L Potassium (3.5-5.0) mmol/L Chloride (101-111) mmol/L Carbon Dioxide (21-32) mmol/L Anion Gap (6-13) BUN (6-20) mg/dL Creatinine (0.6-1.2) mg/dL Estimated GFR (MDRD) (>89) Glucose (70-100) mg/dL Lactic Acid (0.5-2.2) mmol/L Calcium (8.5-10.3) mg/dL Phosphorus 2.5 (2.5-4.6) mg/dL Magnesium 1.7 (1.7-2.8) mg/dL Iron (45-182) ug/dL TIBC (250-450) ug/dL % Saturation (20-50) % Transferrin (180-329) mg/dL Ferritin (23.9-336.2) ng/mL Total Bilirubin (0.2-1.0) mg/dL AST (10-42) IU/L ALT (10-60) IU/L Alkaline Phosphatase (42-121) IU/L Total Creatine Kinase (22-269) IU/L Troponin I High Sens (2.3-19.7) ng/L C-Reactive Protein 29.2 H (0-1.0) mg/dL Total Protein (6.7-8.2) g/dL Albumin (3.2-5.5) g/dL Globulin (2.1-4.2) g/dL Albumin/Globulin Ratio (1.0-2.2) Lipase (22-51) U/L Urine Color YELLOW Urine Clarity CLEAR (CLEAR) Urine pH 6.0 (5.0-7.5) PH Ur Specific [place] >=1.030 H (1.002-1.030) Urine Protein TRACE (NEGATIVE) mg/dL Urine Glucose (UA) NEGATIVE (NEGATIVE) mg/dL Urine Ketones 40 H (NEGATIVE) mg/dL Urine Occult Blood LARGE H (NEGATIVE) Urine Nitrite NEGATIVE (NEGATIVE) Urine Bilirubin NEGATIVE (NEGATIVE) Urine Urobilinogen 0.2 (NORMAL) (NORMAL) E.U./dL Ur Leukocyte Esterase NEGATIVE (NEGATIVE) Urine RBC 6-10 H (0-5) /HPF Urine WBC 0-3 (0-3) /HPF Ur Squamous Epith Cells RARE Squamous (<= Few) Urine Bacteria Rare (None Seen) /HPF Urine Mucus Few Strands Urine Culture Comments NOT INDICATED Nasal Adenovirus (PCR) Nasal B. parapertussis DNA (PCR) Nasal Coronavir 229E PCR Nasal Coronavir HKU1 PCR Nasal Coronavir NL63 PCR Nasal Coronavir OC43 PCR Nasal Enterovir/Rhinovir PCR Nasal Influenza B PCR Nasal Influenza A PCR Nasal Parainfluen 1 PCR Nasal Parainfluen 2 PCR Nasal Parainfluen 3 PCR Nasal Parainfluen 4 PCR Nasal RSV (PCR) Nasal Screen MRSA (PCR) (NEGATIVE) Nasal B.pertussis DNA PCR Nasal C.pneumoniae (PCR) Yan Human Metapneumo PCR Nasal M.pneumoniae (PCR) Nasal SARS-CoV-2 (PCR) Urine Opiates Screen POSITIVE H (NEGATIVE) Ur Oxycodone Screen NEGATIVE (NEGATIVE) Urine Methadone Screen NEGATIVE (NEGATIVE) Ur Propoxyphene Screen NEGATIVE (NEGATIVE) Ur Barbiturates Screen NEGATIVE (NEGATIVE) Ur Tricyclics Screen NEGATIVE (NEGATIVE) Ur Phencyclidine Scrn NEGATIVE (NEGATIVE) Ur Amphetamine Screen POSITIVE H (NEGATIVE) U Methamphetamines Scrn POSITIVE H (NEGATIVE) U Benzodiazepines Scrn NEGATIVE (NEGATIVE) Urine Cocaine Screen NEGATIVE (NEGATIVE) U Cannabinoids Screen NEGATIVE (NEGATIVE) 08/18/20 08/18/20 08/18/20 Range/Units 19:33 19:05 18:13 WBC (4.8-10.8) x10^3/uL RBC (4.70-6.10) 10^6/uL Hgb (14.0-18.0) g/dL Hct (42.0-52.0) % MCV (80.0-94.0) fL MCH (27.0-31.0) pg MCHC (32.0-36.0) g/dL RDW (12.0-15.0) % Plt Count (130-450) 10^3/uL MPV (7.4-11.4) fL Neut # (Auto) (1.5-6.6) 10^3/uL Lymph # (Auto) (1.5-3.5) 10^3/uL [place] # (Auto) (0.0-1.0) 10^3/uL Eos # (Auto) (0.0-0.7) 10^3/uL Baso # (Auto) (0.0-0.1) 10^3/uL Absolute Nucleated RBC x10^3/uL Total Counted Band Neuts % (Manual) (0 - 10) % Abnorm Lymph % (Manual) % Nucleated RBC % /100WBC Neutrophils # (Manual) (1.5-6.6) 10^3/uL Lymphocytes # (Manual) (1.5-3.5) 10^3/uL Monocytes # (Manual) (0.0-1.0) 10^3/uL Eosinophils # (Manual) (0-0.7) 10^3/uL Basophils # (Manual) (0-0.1) 10^3/uL Differential Comment WBC Morphology (NORMAL) Platelet Estimate (NORMAL) Platelet Morphology (NORMAL) RBC Morph Micro Appear (NORMAL) ESR (0-15) mm/Hr Sodium (135-145) mmol/L Potassium (3.5-5.0) mmol/L Chloride (101-111) mmol/L Carbon Dioxide (21-32) mmol/L Anion Gap (6-13) BUN (6-20) mg/dL Creatinine (0.6-1.2) mg/dL Estimated GFR (MDRD) (>89) Glucose (70-100) mg/dL Lactic Acid (0.5-2.2) mmol/L Calcium (8.5-10.3) mg/dL Phosphorus (2.5-4.6) mg/dL Magnesium (1.7-2.8) mg/dL Iron (45-182) ug/dL TIBC (250-450) ug/dL % Saturation (20-50) % Transferrin (180-329) mg/dL Ferritin (23.9-336.2) ng/mL Total Bilirubin (0.2-1.0) mg/dL AST (10-42) IU/L ALT (10-60) IU/L Alkaline Phosphatase (42-121) IU/L Total Creatine Kinase 356 H (22-269) IU/L Troponin I High Sens 79.4 H* (2.3-19.7) ng/L C-Reactive Protein (0-1.0) mg/dL Total Protein (6.7-8.2) g/dL Albumin (3.2-5.5) g/dL Globulin (2.1-4.2) g/dL Albumin/Globulin Ratio (1.0-2.2) Lipase (22-51) U/L Urine Color Urine Clarity (CLEAR) Urine pH (5.0-7.5) PH Ur Specific [place] (1.002-1.030) Urine Protein (NEGATIVE) mg/dL Urine Glucose (UA) (NEGATIVE) mg/dL Urine Ketones (NEGATIVE) mg/dL Urine Occult Blood (NEGATIVE) Urine Nitrite (NEGATIVE) Urine Bilirubin (NEGATIVE) Urine Urobilinogen (NORMAL) E.U./dL Ur Leukocyte Esterase (NEGATIVE) Urine RBC (0-5) /HPF Urine WBC (0-3) /HPF Ur Squamous Epith Cells (<= Few) Urine Bacteria (None Seen) /HPF Urine Mucus Urine Culture Comments Nasal Adenovirus (PCR) NOT DETECTED Nasal B. parapertussis DNA (PCR) NOT DETECTED Nasal Coronavir 229E PCR NOT DETECTED Nasal Coronavir HKU1 PCR NOT DETECTED Nasal Coronavir NL63 PCR NOT DETECTED Nasal Coronavir OC43 PCR NOT DETECTED Nasal Enterovir/Rhinovir PCR NOT DETECTED Nasal Influenza B PCR NOT DETECTED Nasal Influenza A PCR NOT DETECTED Nasal Parainfluen 1 PCR NOT DETECTED Nasal Parainfluen 2 PCR NOT DETECTED Nasal Parainfluen 3 PCR NOT DETECTED Nasal Parainfluen 4 PCR NOT DETECTED Nasal RSV (PCR) NOT DETECTED Nasal Screen MRSA (PCR) (NEGATIVE) Nasal B.pertussis DNA PCR NOT DETECTED Nasal C.pneumoniae (PCR) NOT DETECTED Yan Human Metapneumo PCR NOT DETECTED Nasal M.pneumoniae (PCR) NOT DETECTED Nasal SARS-CoV-2 (PCR) NOT DETECTED Urine Opiates Screen (NEGATIVE) Ur Oxycodone Screen (NEGATIVE) Urine Methadone Screen (NEGATIVE) Ur Propoxyphene Screen (NEGATIVE) Ur Barbiturates Screen (NEGATIVE) Ur Tricyclics Screen (NEGATIVE) Ur Phencyclidine Scrn (NEGATIVE) Ur Amphetamine Screen (NEGATIVE) U Methamphetamines Scrn (NEGATIVE) U Benzodiazepines Scrn (NEGATIVE) Urine Cocaine Screen (NEGATIVE) U Cannabinoids Screen (NEGATIVE) 08/18/20 08/18/20 08/18/20 Range/Units 18:13 18:13 18:13 WBC (4.8-10.8) x10^3/uL RBC (4.70-6.10) 10^6/uL Hgb (14.0-18.0) g/dL Hct (42.0-52.0) % MCV (80.0-94.0) fL MCH (27.0-31.0) pg MCHC (32.0-36.0) g/dL RDW (12.0-15.0) % Plt Count (130-450) 10^3/uL MPV (7.4-11.4) fL Neut # (Auto) (1.5-6.6) 10^3/uL Lymph # (Auto) (1.5-3.5) 10^3/uL [place] # (Auto) (0.0-1.0) 10^3/uL Eos # (Auto) (0.0-0.7) 10^3/uL Baso # (Auto) (0.0-0.1) 10^3/uL Absolute Nucleated RBC x10^3/uL Total Counted Band Neuts % (Manual) (0 - 10) % Abnorm Lymph % (Manual) % Nucleated RBC % /100WBC Neutrophils # (Manual) (1.5-6.6) 10^3/uL Lymphocytes # (Manual) (1.5-3.5) 10^3/uL Monocytes # (Manual) (0.0-1.0) 10^3/uL Eosinophils # (Manual) (0-0.7) 10^3/uL Basophils # (Manual) (0-0.1) 10^3/uL Differential Comment WBC Morphology (NORMAL) Platelet Estimate (NORMAL) Platelet Morphology (NORMAL) RBC Morph Micro Appear (NORMAL) ESR (0-15) mm/Hr Sodium 133 L (135-145) mmol/L Potassium 3.2 L (3.5-5.0) mmol/L Chloride 99 L (101-111) mmol/L Carbon Dioxide 21 (21-32) mmol/L Anion Gap 13.0 (6-13) BUN 14 (6-20) mg/dL Creatinine 0.9 (0.6-1.2) mg/dL Estimated GFR (MDRD) 100 (>89) Glucose 90 (70-100) mg/dL Lactic Acid 0.9 (0.5-2.2) mmol/L Calcium 8.3 L (8.5-10.3) mg/dL Phosphorus (2.5-4.6) mg/dL Magnesium (1.7-2.8) mg/dL Iron (45-182) ug/dL TIBC (250-450) ug/dL % Saturation (20-50) % Transferrin (180-329) mg/dL Ferritin (23.9-336.2) ng/mL Total Bilirubin 1.5 H (0.2-1.0) mg/dL AST 29 (10-42) IU/L ALT 18 (10-60) IU/L Alkaline Phosphatase 73 (42-121) IU/L Total Creatine Kinase (22-269) IU/L Troponin I High Sens 95.2 H* (2.3-19.7) ng/L C-Reactive Protein (0-1.0) mg/dL Total Protein 8.1 (6.7-8.2) g/dL Albumin 3.5 (3.2-5.5) g/dL Globulin 4.6 H (2.1-4.2) g/dL Albumin/Globulin Ratio 0.8 L (1.0-2.2) Lipase 21 L (22-51) U/L Urine Color Urine Clarity (CLEAR) Urine pH (5.0-7.5) PH Ur Specific [place] (1.002-1.030) Urine Protein (NEGATIVE) mg/dL Urine Glucose (UA) (NEGATIVE) mg/dL Urine Ketones (NEGATIVE) mg/dL Urine Occult Blood (NEGATIVE) Urine Nitrite (NEGATIVE) Urine Bilirubin (NEGATIVE) Urine Urobilinogen (NORMAL) E.U./dL Ur Leukocyte Esterase (NEGATIVE) Urine RBC (0-5) /HPF Urine WBC (0-3) /HPF Ur Squamous Epith Cells (<= Few) Urine Bacteria (None Seen) /HPF Urine Mucus Urine Culture Comments Nasal Adenovirus (PCR) Nasal B. parapertussis DNA (PCR) Nasal Coronavir 229E PCR Nasal Coronavir HKU1 PCR Nasal Coronavir NL63 PCR Nasal Coronavir OC43 PCR Nasal Enterovir/Rhinovir PCR Nasal Influenza B PCR Nasal Influenza A PCR Nasal Parainfluen 1 PCR Nasal Parainfluen 2 PCR Nasal Parainfluen 3 PCR Nasal Parainfluen 4 PCR Nasal RSV (PCR) Nasal Screen MRSA (PCR) (NEGATIVE) Nasal B.pertussis DNA PCR Nasal C.pneumoniae (PCR) Yan Human Metapneumo PCR Nasal M.pneumoniae (PCR) Nasal SARS-CoV-2 (PCR) Urine Opiates Screen (NEGATIVE) Ur Oxycodone Screen (NEGATIVE) Urine Methadone Screen (NEGATIVE) Ur Propoxyphene Screen (NEGATIVE) Ur Barbiturates Screen (NEGATIVE) Ur Tricyclics Screen (NEGATIVE) Ur Phencyclidine Scrn (NEGATIVE) Ur Amphetamine Screen (NEGATIVE) U Methamphetamines Scrn (NEGATIVE) U Benzodiazepines Scrn (NEGATIVE) Urine Cocaine Screen (NEGATIVE) U Cannabinoids Screen (NEGATIVE) 08/18/20 Range/Units 18:13 WBC 16.0 H (4.8-10.8) x10^3/uL RBC 4.89 (4.70-6.10) 10^6/uL Hgb 11.7 L (14.0-18.0) g/dL Hct 34.7 L (42.0-52.0) % MCV 71.0 L (80.0-94.0) fL MCH 23.9 L (27.0-31.0) pg MCHC 33.7 (32.0-36.0) g/dL RDW 16.6 H (12.0-15.0) % Plt Count 208 (130-450) 10^3/uL MPV 9.3 (7.4-11.4) fL Neut # (Auto) 14.5 H (1.5-6.6) 10^3/uL Lymph # (Auto) 0.5 L (1.5-3.5) 10^3/uL [place] # (Auto) 0.7 (0.0-1.0) 10^3/uL Eos # (Auto) 0.1 (0.0-0.7) 10^3/uL Baso # (Auto) 0.1 (0.0-0.1) 10^3/uL Absolute Nucleated RBC 0.00 x10^3/uL Total Counted Band Neuts % (Manual) (0 - 10) % Abnorm Lymph % (Manual) % Nucleated RBC % 0.0 /100WBC Neutrophils # (Manual) (1.5-6.6) 10^3/uL Lymphocytes # (Manual) (1.5-3.5) 10^3/uL Monocytes # (Manual) (0.0-1.0) 10^3/uL Eosinophils # (Manual) (0-0.7) 10^3/uL Basophils # (Manual) (0-0.1) 10^3/uL Differential Comment WBC Morphology (NORMAL) Platelet Estimate (NORMAL) Platelet Morphology (NORMAL) RBC Morph Micro Appear (NORMAL) ESR (0-15) mm/Hr Sodium (135-145) mmol/L Potassium (3.5-5.0) mmol/L Chloride (101-111) mmol/L Carbon Dioxide (21-32) mmol/L Anion Gap (6-13) BUN (6-20) mg/dL Creatinine (0.6-1.2) mg/dL Estimated GFR (MDRD) (>89) Glucose (70-100) mg/dL Lactic Acid (0.5-2.2) mmol/L Calcium (8.5-10.3) mg/dL Phosphorus (2.5-4.6) mg/dL Magnesium (1.7-2.8) mg/dL Iron (45-182) ug/dL TIBC (250-450) ug/dL % Saturation (20-50) % Transferrin (180-329) mg/dL Ferritin (23.9-336.2) ng/mL Total Bilirubin (0.2-1.0) mg/dL AST (10-42) IU/L ALT (10-60) IU/L Alkaline Phosphatase (42-121) IU/L Total Creatine Kinase (22-269) IU/L Troponin I High Sens (2.3-19.7) ng/L C-Reactive Protein (0-1.0) mg/dL Total Protein (6.7-8.2) g/dL Albumin (3.2-5.5) g/dL Globulin (2.1-4.2) g/dL Albumin/Globulin Ratio (1.0-2.2) Lipase (22-51) U/L Urine Color Urine Clarity (CLEAR) Urine pH (5.0-7.5) PH Ur Specific [place] (1.002-1.030) Urine Protein (NEGATIVE) mg/dL Urine Glucose (UA) (NEGATIVE) mg/dL Urine Ketones (NEGATIVE) mg/dL Urine Occult Blood (NEGATIVE) Urine Nitrite (NEGATIVE) Urine Bilirubin (NEGATIVE) Urine Urobilinogen (NORMAL) E.U./dL Ur Leukocyte Esterase (NEGATIVE) Urine RBC (0-5) /HPF Urine WBC (0-3) /HPF Ur Squamous Epith Cells (<= Few) Urine Bacteria (None Seen) /HPF Urine Mucus Urine Culture Comments Nasal Adenovirus (PCR) Nasal B. parapertussis DNA (PCR) Nasal Coronavir 229E PCR Nasal Coronavir HKU1 PCR Nasal Coronavir NL63 PCR Nasal Coronavir OC43 PCR Nasal Enterovir/Rhinovir PCR Nasal Influenza B PCR Nasal Influenza A PCR Nasal Parainfluen 1 PCR Nasal Parainfluen 2 PCR Nasal Parainfluen 3 PCR Nasal Parainfluen 4 PCR Nasal RSV (PCR) Nasal Screen MRSA (PCR) (NEGATIVE) Nasal B.pertussis DNA PCR Nasal C.pneumoniae (PCR) Yan Human Metapneumo PCR Nasal M.pneumoniae (PCR) Nasal SARS-CoV-2 (PCR) Urine Opiates Screen (NEGATIVE) Ur Oxycodone Screen (NEGATIVE) Urine Methadone Screen (NEGATIVE) Ur Propoxyphene Screen (NEGATIVE) Ur Barbiturates Screen (NEGATIVE) Ur Tricyclics Screen (NEGATIVE) Ur Phencyclidine Scrn (NEGATIVE) Ur Amphetamine Screen (NEGATIVE) U Methamphetamines Scrn (NEGATIVE) U Benzodiazepines Scrn (NEGATIVE) Urine Cocaine Screen (NEGATIVE) U Cannabinoids Screen (NEGATIVE) - Diagnostic Imaging Diagnostic Imaging Results: positive: Final report reviewed Sepsis Event Note (H) - Evaluation Current Stage of Sepsis: Sepsis Possible source of Sepsis: positive: Skin/soft tissue, Other (Suspect bacteremia and possible endocaraditis) - Sepsis Criteria Sepsis Criteria: Recorded Temperature greater than 38.3C or Less than 36C, Recorded Heart Rate greater than 90 bpm, WBC count greater than 12,000 or less than 4000 Assessment/Plan - Problem List (1) Bacteremia Impression: 29-year-old male with known history of IV drug abuse and known history of MRSA presented with sepsis secondary to left upper extremity cellulitis now found to have positive blood cultures x2 suggestive of MRSA bacteremia. Since admission, on vancomycin, ceftriaxone and azithromycin. Transthoracic echocardiogram is pending. Pending results may need [facility] and or transfer to tertiary facility with infectious disease/thoracic surgery pending results. Fever curve slowly improving. For now, clinically stable, continue IV antibiotics, trend labs. Called anesthesia, requested PICC line placement, they have kindly agreed and will likely have PICC line placed later today. (2) Cellulitis of left upper extremity Impression: As above, given history of IV drug abuse, concern for MRSA cellulitis. On appropriate antibiotics with vancomycin, azithromycin, Ceftriaxone. Seems improved based on reports from admission. CT scan shows no evidence of abscess. Continue to monitor closely. (3) Elevated troponin Impression: Demand ischemia in the setting of sepsis with bacteremia. Peaked at 94.4, now trending down to 87.5. No chest pain. Will monitor.Follow-up echocardiogram. (4) Illicit drug use, continuous Impression: Known history of IV methamphetamine use, with urine tox positive. High risk for outpatient IV antibiotics, so PICC line placed will need inpatient long-term IV antibiotics for at least 2 weeks if not 6 weeks. Monitor for withdrawals. Patient has been provided counseling in the past, will continue to encourage nina patton. (5) Hypokalemia Impression: Jose to infection as well as GI loss from vomiting. Most recent potassium 3.2, replacement ordered. We will continue to monitor. (6) Hyponatremia Impression: Hypokalemia likely secondary to infection No neurological changes. Continue IV fluid resuscitation and monitor labs.
[2020-08-19] MEDS ORDERED: POTASSIUM CHLOR 10 MEQ/100 ML 10 MEQ/100 ML BAG IV ONE ×3 (12:00→13:09)
--- NOTE | 2020-08-19 14:08 | PHARMACY PROGRESS NOTE ---
- Best Possible Medication History Admit Date and Time: 08/18/20 2248 Processed by: Pharmacy Medication History completed: Yes Patient Interview: Pt interview ONLY source As the person ultimately responsible for medication therapy, providers are able to order a medication from an existing home medication list in [facility] via the "Reconcile Routine" prior to Confirmation of that medication by technical support 1 software engineer. Such practice is discouraged except when the physician, in their clinical judgment, deems that a medical need exists for a medication without regard to previous use.
[2020-08-19] MEDS: VANCOMYCIN INJ 1 GM in SODIUM CHLORIDE 0.9% 250 ML IV SCH ×2 (14:12→21:13)
--- NOTE | 2020-08-19 14:37 | ANESTHESIA PROCEDURE NOTE ---
Anesth Central Line Template - Central Line Central Line Preparation: Consent Obtained, Time out completed, Ultrasound used, Sterile prep and drape Central line location: Right Basilic Central line type: PICC Double Lumen Central line catheter tip site resides: Superior vena cava (SVC) Central line aftercare: Secured, Placement confirmed, No complications, Pt tolerated well Other Info/Details: Consent obtained. Sterile prep and drape. Full sterile gown, gloves and mask utilized. Right Basilic vein imaged using ultrasound. Vein accessed and wire advanced with ease. Sheath inserted over wire and wire removed. A #5FR double lumen PICC trimmed to 42cm and inserted. Using VPS tracking, tip directed towards heart. 3CG with p-wave shows tip in correct position (see printout) with 0cm exposed. Line secured. All ports aspirate and flush with ease. Ok to use PICC line.
--- NOTE | 2020-08-19 18:33 | PHARMACY PROGRESS NOTE ---
- Therapy Status Vancomycin regimen day #: 1 Therapy status: Awaiting steady state Basis for treatment: Empirical Treatment indication: Sepsis Trough goal: 15-20 Concurrent antibiotics: Ceftriaxone and azithromycin - FRANCOIS Risk Risk level for Acute Kidney Injury: Moderate Acute Kidney Injury risk factors: IV contrast within 72 hrs, Goal trough >15 - Monitoring and Recommendation Clinical response to treatment: I&O Previous 24 hours 08/17/20 08/18/20 08/19/20 23:59 23:59 23:59 Intake Total 2269.01 2390 Output Total 800 1350 Balance 1469.01 1040 Lab Results 08/19/20 08/18/20 08/18/20 05:30 23:01 18:13 ESR 53 H BUN 13 14 Creatinine 0.8 0.9 Estimated GFR (MDRD) 114 100 Cultures 08/18/20 18:35 Blood Blood Culture - Preliminary 08/18/20 18:13 Blood Blood Culture - Preliminary 08/18/20 18:13 Blood Blood Culture (PCR) - Final Monitoring plan: Daily serum creatinine, Suggest ongoing fluid replacement Next trough due prior to maintenance dose #: 4 Next trough due (date/time): 08/20/20 @ 1330 Areas for additional monitoring: IV to PO when appropriate, Therapy de- escalation based on culture results Pharmacy recommendation: Continue current regime
[2020-08-19] MEDS: NICOTINE 14 MG PATCH TOP SCH (21:08)
[2020-08-20] MEDS: cefTRIAXone 2 GM in SODIUM CHLORIDE 0.9% MINIBAG 100 ML IV SCH ×2
[2020-08-20] MEDS: SODIUM CHLORIDE FLUSH 0.9% 10 ML SYRINGE IVP SCH ×3 (00:01→05:38)
[2020-08-20] MEDS: oxyCODONE 5 MG TABLET PO PRN ×6 (01:18→22:30)
[2020-08-20] MEDS: AZITHROMYCIN INJ 500 MG in SODIUM CHLORIDE 0.9% 250 ML IV SCH (01:24)
[2020-08-20] MEDS: MORPHINE 2 MG/ML CARPUJECT IVP PRN ×2 (03:41→16:54)
[2020-08-20 05:28] LABS: BASOPHILS % (AUTO) 0.1 %; EOSINOPHILS # (AUTO) 0.1 10^3/uL (0.0-0.7); EOSINOPHILS % (AUTO) 0.5 %; HCT - HEMATOCRIT 30.2 % (42.0-52.0); HGB - HEMOGLOBIN 9.9 g/dL (14.0-18.0); LYMPHOCYTES # (AUTO) 1.2 10^3/uL (1.5-3.5); MEAN CORPUSCULAR HGB CONC 32.8 g/dL (32.0-36.0); MEAN CORPUSCULAR VOLUME 73.1 fL (80.0-94.0); MEAN PLATELET VOLUME 9.8 fL (7.4-11.4); MONOCYTES # (AUTO) 0.6 10^3/uL (0.0-1.0); MONOCYTES % (AUTO) 5.4 %; NEUTROPHILS # (AUTO) 9.7 10^3/uL (1.5-6.6); NEUTROPHILS % (AUTO) 83.5 %; PLT - PLATELET COUNT 158 10^3/uL (130-450); RED BLOOD COUNT 4.13 10^6/uL (4.70-6.10); WHITE BLOOD COUNT 11.7 x10^3/uL (4.8-10.8)
[2020-08-20] MEDS: VANCOMYCIN INJ 1 GM in SODIUM CHLORIDE 0.9% 250 ML IV SCH ×2 (05:37→14:12)
[2020-08-20 06:02] LABS: CREATININE 0.6 mg/dL (0.6-1.2); CRP - C-REACTIVE PROTEIN 20.3 mg/dL (0-1.0); MAGNESIUM 1.8 mg/dL (1.7-2.8); PHOSPHORUS 1.5 mg/dL (2.5-4.6); POTASSIUM 3.6 mmol/L (3.5-5.0)
[2020-08-20] MEDS: ENOXAPARIN 40 MG/0.4 ML SYRINGE SUBQ SCH (08:48)
[2020-08-20] MEDS: NICOTINE 14 MG PATCH TOP SCH (09:58)
--- NOTE | 2020-08-20 12:28 | PROVIDER PROGRESS NOTE ---
Subjective - Prog Note Date Prog Note Date: 08/20/20 Prog Note Time: 12:26 - Subjective Pt reports feeling: Improved (Patient reports feeling better, still very tired, but when pressed to answer he does tell me his right arm feels better) Current Medications - Current Medications Current Medications: Current Medications Generic Name Dose Route Start Last Admin Trade Name Freq PRN Reason Stop Dose Admin Enoxaparin Sodium 40 mg 08/19/20 09:00 08/20/20 08:48 Enoxaparin 40 Mg/0.4 Ml Syringe SUBQ Not Given DAILY MICHA Ceftriaxone Sodium 2 gm/ 100 mls @ 200 mls/hr 08/19/20 01:00 08/20/20 00:30 Sodium Chloride IV Infused Q24H MICHA Infusion Azithromycin 500 mg/ Sodium 250 mls @ 250 mls/hr 08/19/20 02:00 08/20/20 02:24 Chloride IV 08/21/20 02:59 Infused Q24H MICHA Infusion Vancomycin HCl 1 gm/ Sodium 250 mls @ 167 mls/hr 08/19/20 14:00 08/20/20 07:30 Chloride IV Infused Q8H MICHA Infusion Morphine Sulfate 2 mg 08/18/20 22:48 08/20/20 03:41 Morphine 2 Mg/Ml Carpuject IVP 2 mg Q2HR PRN Administration Pain 8 to 10 Nicotine 1 patch 08/19/20 20:18 08/20/20 09:58 Nicotine 14 Mg Patch TOP 1 patch DAILY MICHA Administration Ondansetron HCl 4 mg 08/18/20 22:48 08/20/20 01:51 Ondansetron Odt 4 Mg Tablet TL 4 mg Q6HR PRN Administration Nausea / Vomiting Ondansetron HCl 4 mg 08/18/20 22:48 08/19/20 08:38 Ondansetron 4 Mg/2 Ml Vial IVP 4 mg Q6HR PRN Administration Nausea / Vomiting Oxycodone HCl 5 mg 08/18/20 22:48 08/20/20 09:58 Oxycodone 5 Mg Tablet PO 5 mg Q4HR PRN Administration Pain 5 to 7 Sodium Chloride 10 ml 08/19/20 01:00 08/20/20 05:38 Sodium Chloride Flush 0.9% 10 Ml Syringe IVP 10 ml 0100,0900,1700 MICHA Administration Objective - Vital Signs/Intake & Output Reviewed Vital Signs: Yes Vital Signs: Vital Signs x48h Temp Pulse Resp BP Pulse Ox 08/20/20 11:52 37.2 C 85 20 109/45 L 96 08/20/20 07:57 37.2 C 79 20 112/52 L 97 08/20/20 04:26 36.5 C 71 21 108/55 L 97 Intake & Output: Intake & Output 08/17/20 08/18/20 08/19/20 08/20/20 23:59 23:59 23:59 23:59 Intake Total 2269.01 3791 1520 Output Total 800 1350 2050 Balance 1469.01 2441 -530 - Objective General Appearance: positive: No acute distress, Lethargic Eyes Bilateral: positive: Normal inspection ENT: positive: ENT inspection nml Neck: positive: Nml inspection Respiratory: positive: Chest non-tender, No respiratory distress, Breath sounds nml Cardiovascular: positive: Regular rate & rhythm, No murmur, No gallop Abdomen: positive: Non-tender, No organomegaly, Nml bowel sounds, No distention Skin: positive: Other (Left upper extremity circumferential erythema minimal and improving, No discernible tenderness to palpation is obvious though admittedly patient is awakened from sleep for exam. Multiple diffuse generalized Excoriations) Extremities: positive: Nml appearance Neurologic/Psychiatric: positive: CN's nml (2-12). negative: Disoriented to person - Lab Results Fish Bones: 08/20/20 05:17 08/20/20 05:17 Other Labs: Lab Results x24hrs 08/20/20 08/20/20 Range/Units 05:17 05:17 WBC 11.7 H (4.8-10.8) x10^3/uL RBC 4.13 L (4.70-6.10) 10^6/uL Hgb 9.9 L (14.0-18.0) g/dL Hct 30.2 L (42.0-52.0) % MCV 73.1 L (80.0-94.0) fL MCH 24.0 L (27.0-31.0) pg MCHC 32.8 (32.0-36.0) g/dL RDW 17.0 H (12.0-15.0) % Plt Count 158 (130-450) 10^3/uL MPV 9.8 (7.4-11.4) fL Neut # (Auto) 9.7 H (1.5-6.6) 10^3/uL Lymph # (Auto) 1.2 L (1.5-3.5) 10^3/uL [place] # (Auto) 0.6 (0.0-1.0) 10^3/uL Eos # (Auto) 0.1 (0.0-0.7) 10^3/uL Baso # (Auto) 0.0 (0.0-0.1) 10^3/uL Absolute Nucleated RBC 0.00 x10^3/uL Nucleated RBC % 0.0 /100WBC Sodium 133 L (135-145) mmol/L Potassium 3.6 (3.5-5.0) mmol/L Chloride 101 (101-111) mmol/L Carbon Dioxide 25 (21-32) mmol/L Anion Gap 7.0 (6-13) BUN 13 (6-20) mg/dL Creatinine 0.6 (0.6-1.2) mg/dL Estimated GFR (MDRD) 159 (>89) Glucose 144 H (70-100) mg/dL Calcium 8.0 L (8.5-10.3) mg/dL Phosphorus 1.5 L (2.5-4.6) mg/dL Magnesium 1.8 (1.7-2.8) mg/dL C-Reactive Protein 20.3 H (0-1.0) mg/dL - Diagnostic Imaging Diagnostic Imaging Results: positive: Final report reviewed ABX Reporting Has patient been on IV antibiotics over the past 48 hours?: Yes Sepsis Event Note (H) - Evaluation Current Stage of Sepsis: Sepsis Possible source of Sepsis: positive: Skin/soft tissue, Other (Suspect bacteremia and possible endocaraditis) - Sepsis Criteria Sepsis Criteria: Recorded Temperature greater than 38.3C or Less than 36C, Recorded Heart Rate greater than 90 bpm, WBC count greater than 12,000 or less than 4000 Assessment/Plan - Problem List (1) Bacteremia Impression: 29-year-old male with known history of IV drug abuse and known history of MRSA presented with sepsis secondary to left upper extremity cellulitis now found to have positive blood cultures x2 suggestive of MRSA bacteremia. Since admission, on vancomycin, ceftriaxone and azithromycin. Transthoracic echocardiogram does not show definitive evidence of vegetation. LVEF is somewhat diminished at 45 to 50% with mild global hypokinesis. Fever curve improved. For now, clinically stable, continue IV antibiotics, trend labs. Given no definitive evidence of agitation, can stay here for IV antibiotics. We will repeat blood cultures tomorrow morning at 48 hours and follow-up results. If blood culture continues to remain positive, consult infectious disease as patient may require further work-up for infective endocarditis which will require transfer. Otherwise if negative, continue minimum 2 weeks IV antibiotics. Possible swing bed candidate. PICC placed 08/19. (2) Cellulitis of left upper extremity Impression: As above, given history of IV drug abuse, concern for MRSA cellulitis. On appropriate antibiotics with vancomycin, azithromycin, Ceftriaxone. Seems improved based on reports from admission. CT scan shows no evidence of abscess. Continue to monitor closely. (3) Illicit drug use, continuous Impression: Known history of IV methamphetamine use, with urine tox positive. High risk for outpatient IV antibiotics, so PICC line placed will need inpatient long-term IV antibiotics for at least 2 weeks if not 6 weeks. Monitor for withdrawals. Patient has been provided counseling in the past, will continue to encourage cessation. (4) Hypokalemia Impression: Resolved (5) Hyponatremia Impression: Hypokalemia likely secondary to infection. Na up to 133 from 130, appropriate rate of correction. No neurological changes. Continue IV fluid resuscitation and monitor labs.
[2020-08-20 13:53] LABS: VANCOMYCIN,TROUGH 8.7 ug/mL (10.0-20.0)
[2020-08-20] MEDS: VANCOMYCIN INJ 1 GM, VANCOMYCIN INJ 250 MG in SODIUM CHLORIDE 0.9% 250 ML IV SCH (22:32)
[2020-08-21] MEDS: cefTRIAXone 2 GM in SODIUM CHLORIDE 0.9% MINIBAG 100 ML IV SCH (00:17)
[2020-08-21] MEDS: SODIUM CHLORIDE FLUSH 0.9% 10 ML SYRINGE IVP SCH ×3 (00:18→16:20)
[2020-08-21] MEDS: SODIUM CHLORIDE FLUSH 0.9% 10 ML SYRINGE IVP PRN ×2 (00:27→13:28)
[2020-08-21] MEDS: MORPHINE 2 MG/ML CARPUJECT IVP PRN (00:35)
[2020-08-21] MEDS: AZITHROMYCIN INJ 500 MG in SODIUM CHLORIDE 0.9% 250 ML IV SCH (01:58)
[2020-08-21 05:08] LABS: BASOPHILS % (AUTO) 0.2 %; EOSINOPHILS % (AUTO) 0.4 %; HCT - HEMATOCRIT 30.3 % (42.0-52.0); HGB - HEMOGLOBIN 9.9 g/dL (14.0-18.0); LYMPHOCYTES # (AUTO) 1.7 10^3/uL (1.5-3.5); LYMPHOCYTES % (AUTO) 17.7 %; MEAN CORPUSCULAR HEMOGLOBIN 23.7 pg (27.0-31.0); MEAN CORPUSCULAR HGB CONC 32.7 g/dL (32.0-36.0); MEAN CORPUSCULAR VOLUME 72.7 fL (80.0-94.0); MONOCYTES # (AUTO) 0.7 10^3/uL (0.0-1.0); MONOCYTES % (AUTO) 7.1 %; NEUTROPHILS # (AUTO) 6.9 10^3/uL (1.5-6.6); NEUTROPHILS % (AUTO) 74.1 %; PLT - PLATELET COUNT 174 10^3/uL (130-450); RED BLOOD COUNT 4.17 10^6/uL (4.70-6.10); RED CELL DISTRIBUTION WIDTH 17.1 % (12.0-15.0); WHITE BLOOD COUNT 9.3 x10^3/uL (4.8-10.8)
[2020-08-21] MEDS: oxyCODONE 5 MG TABLET PO PRN ×4 (05:22→20:49)
[2020-08-21 05:24] LABS: CALCIUM 8.1 mg/dL (8.5-10.3); CREATININE 0.6 mg/dL (0.6-1.2); CRP - C-REACTIVE PROTEIN 13.9 mg/dL (0-1.0); MAGNESIUM 1.5 mg/dL (1.7-2.8); POTASSIUM 3.3 mmol/L (3.5-5.0)
[2020-08-21] MEDS: VANCOMYCIN INJ 1 GM, VANCOMYCIN INJ 250 MG in SODIUM CHLORIDE 0.9% 250 ML IV SCH ×3 (05:40→21:28)
[2020-08-21] MEDS ORDERED: POTASSIUM CHLORIDE 20 MEQ TABLET PO ONE (07:17)
--- NOTE | 2020-08-21 07:22 | PHARMACY PROGRESS NOTE ---
- Therapy Status Vancomycin regimen day #: 4 Therapy status: Trough subtherapeutic Basis for treatment: Empirical Trough goal: 15-20 - FRANCOIS Risk Risk level for Acute Kidney Injury: Moderate Acute Kidney Injury risk factors: IV contrast within 72 hrs, Goal trough >15 - Monitoring and Recommendation Clinical response to treatment: I&O Previous 24 hours 08/19/20 08/20/20 08/21/20 23:59 23:59 23:59 Intake Total 3791 3180 1172 Output Total 1350 3750 1650 Balance 2768 -167 -535 Lab Results 08/21/20 08/20/20 08/19/20 04:45 05:17 05:30 ESR BUN 8 13 13 Creatinine 0.6 0.6 0.8 Estimated GFR (MDRD) 159 159 114 08/18/20 08/18/20 23:01 18:13 ESR 53 H BUN 14 Creatinine 0.9 Estimated GFR (MDRD) 100 Vancomycin Monitoring 08/20/20 13:38 Vancomycin Trough 8.7 L Cultures 08/18/20 18:13 Blood Blood Culture - Preliminary Staphylococcus Aureus 08/18/20 18:35 Blood Blood Culture - Preliminary Staphylococcus Aureus 08/18/20 18:13 Blood Blood Culture (PCR) - Final Monitoring plan: Daily serum creatinine, Suggest ongoing fluid replacement Next trough due prior to maintenance dose #: 5 Next trough due (date/time): 08/22 @ 1330 Areas for additional monitoring: IV to PO when appropriate, Therapy de- escalation based on culture results Pharmacy recommendation: Increase dose (Trough 8.7.)
[2020-08-21] MEDS: NICOTINE 14 MG PATCH TOP SCH (08:08)
[2020-08-21] MEDS: ENOXAPARIN 40 MG/0.4 ML SYRINGE SUBQ SCH (08:09)
[2020-08-21] MEDS: ACETAMINOPHEN 325 MG TABLET PO PRN (09:29)
--- NOTE | 2020-08-21 10:26 | PROVIDER PROGRESS NOTE ---
Subjective - Prog Note Date Prog Note Date: 08/21/20 Prog Note Time: 10:23 - Subjective Pt reports feeling: No change (Pt very tired, no new complaints. Arm is sore. About the same.) Current Medications - Current Medications Current Medications: Current Medications Generic Name Dose Route Start Last Admin Trade Name Freq PRN Reason Stop Dose Admin Acetaminophen 650 mg 08/18/20 22:48 08/21/20 09:29 Acetaminophen 325 Mg Tablet PO 650 mg Q4HR PRN Administration Pain 1 to 4 Enoxaparin Sodium 40 mg 08/19/20 09:00 08/21/20 08:09 Enoxaparin 40 Mg/0.4 Ml Syringe SUBQ Not Given DAILY MICHA Vancomycin HCl 1 gm/ 250 mls @ 167 mls/hr 08/20/20 22:00 08/21/20 08:45 Vancomycin HCl 250 mg/ Sodium IV Infused Chloride Q8H MICHA Infusion Morphine Sulfate 2 mg 08/18/20 22:48 08/21/20 00:35 Morphine 2 Mg/Ml Carpuject IVP 2 mg Q2HR PRN Administration Pain 8 to 10 Nicotine 1 patch 08/19/20 20:18 08/21/20 08:08 Nicotine 14 Mg Patch TOP 1 patch DAILY MICHA Administration Ondansetron HCl 4 mg 08/18/20 22:48 08/20/20 01:51 Ondansetron Odt 4 Mg Tablet TL 4 mg Q6HR PRN Administration Nausea / Vomiting Ondansetron HCl 4 mg 08/18/20 22:48 08/19/20 08:38 Ondansetron 4 Mg/2 Ml Vial IVP 4 mg Q6HR PRN Administration Nausea / Vomiting Oxycodone HCl 5 mg 08/18/20 22:48 08/21/20 09:29 Oxycodone 5 Mg Tablet PO 5 mg Q4HR PRN Administration Pain 5 to 7 Sodium Chloride 10 ml 08/18/20 22:48 08/21/20 00:27 Sodium Chloride Flush 0.9% 10 Ml Syringe IVP 10 ml PRN PRN Administration NEEDED PER PROVIDER ORDERS Sodium Chloride 10 ml 08/19/20 01:00 08/21/20 00:35 Sodium Chloride Flush 0.9% 10 Ml Syringe IVP 10 ml 0100,0900,1700 MICHA Administration Objective - Vital Signs/Intake & Output Reviewed Vital Signs: Yes Vital Signs: Vital Signs x48h Temp Pulse Resp BP Pulse Ox 08/21/20 07:43 37.4 C 79 24 119/62 98 08/21/20 04:31 37.4 C 80 24 115/58 L 95 Intake & Output: Intake & Output 08/18/20 08/19/20 08/20/20 08/21/20 23:59 23:59 23:59 23:59 Intake Total 2269.01 3791 3180 2642 Output Total 800 1350 3750 2875 Balance 1469.01 2441 -570 -233 - Objective General Appearance: positive: No acute distress, Lethargic Eyes Bilateral: positive: Normal inspection ENT: positive: ENT inspection nml Neck: positive: Nml inspection Respiratory: positive: Chest non-tender, No respiratory distress, Breath sounds nml Cardiovascular: positive: Regular rate & rhythm, No murmur, No gallop Abdomen: positive: Non-tender, No organomegaly, Nml bowel sounds, No distention Skin: positive: Other (Multiple excoriations across upper extremities on both sides. Previously demonstrated erythema improving) Neurologic/Psychiatric: positive: Oriented x3 - Lab Results Fish Bones: 08/21/20 04:45 08/21/20 04:45 Other Labs: Lab Results x24hrs 08/21/20 08/21/20 08/20/20 Range/Units 04:45 04:45 13:38 WBC 9.3 (4.8-10.8) x10^3/uL RBC 4.17 L (4.70-6.10) 10^6/uL Hgb 9.9 L (14.0-18.0) g/dL Hct 30.3 L (42.0-52.0) % MCV 72.7 L (80.0-94.0) fL MCH 23.7 L (27.0-31.0) pg MCHC 32.7 (32.0-36.0) g/dL RDW 17.1 H (12.0-15.0) % Plt Count 174 (130-450) 10^3/uL MPV 10.0 (7.4-11.4) fL Neut # (Auto) 6.9 H (1.5-6.6) 10^3/uL Lymph # (Auto) 1.7 (1.5-3.5) 10^3/uL [place]p # (Auto) 0.7 (0.0-1.0) 10^3/uL Eos # (Auto) 0.0 (0.0-0.7) 10^3/uL Baso # (Auto) 0.0 (0.0-0.1) 10^3/uL Absolute Nucleated RBC 0.00 x10^3/uL Nucleated RBC % 0.0 /100WBC Sodium 134 L (135-145) mmol/L Potassium 3.3 L (3.5-5.0) mmol/L Chloride 102 (101-111) mmol/L Carbon Dioxide 23 (21-32) mmol/L Anion Gap 9.0 (6-13) BUN 8 (6-20) mg/dL Creatinine 0.6 (0.6-1.2) mg/dL Estimated GFR (MDRD) 159 (>89) Glucose 107 H (70-100) mg/dL Calcium 8.1 L (8.5-10.3) mg/dL Phosphorus 3.0 (2.5-4.6) mg/dL Magnesium 1.5 L (1.7-2.8) mg/dL C-Reactive Protein 13.9 H (0-1.0) mg/dL Last Dose Date 08/20/20 Last Dose Time 0730 Vancomycin Trough 8.7 L (10.0-20.0) ug/mL Sepsis Event Note (H) - Evaluation Current Stage of Sepsis: Sepsis Possible source of Sepsis: positive: Skin/soft tissue, Other (Suspect bacteremia and possible endocaraditis) - Sepsis Criteria Sepsis Criteria: Recorded Temperature greater than 38.3C or Less than 36C, Recorded Heart Rate greater than 90 bpm, WBC count greater than 12,000 or less than 4000 Assessment/Plan - Problem List (1) Bacteremia Impression: 29-year-old male with known history of IV drug abuse and known history of MRSA presented with sepsis secondary to left upper extremity cellulitis now found to have positive blood cultures x2 suggestive of MRSA bacteremia. Since admission, on vancomycin, ceftriaxone and azithromycin. Will stop rocephin today. Transthoracic echocardiogram does not show definitive evidence of vegetation. LVEF is somewhat diminished at 45 to 50% with mild global hypokinesis. Fever curve improved. For now, clinically stable, continue IV antibiotics, trend labs. Given no definitive evidence of vegetation can stay here for IV antibiotics. Repeat blood Cx done this am, will follow-up results. If blood culture continues to remain positive, consult infectious disease as patient may require further work-up for infective endocarditis which will require transfer. Otherwise if negative, continue minimum 2 weeks IV antibiotics. Possible swing bed candidate. PICC placed 08/19. (2) Cellulitis of left upper extremity Impression: As above, given history of IV drug abuse, concern for MRSA cellulitis. On appropriate antibiotics with vancomycin. Seems improved based on reports from admission. CT scan shows no evidence of abscess. Continue to monitor closely. (3) Illicit drug use, continuous Impression: Known history of IV methamphetamine use, with urine tox positive. High risk for outpatient IV antibiotics, so PICC line placed will need inpatient long-term IV antibiotics for at least 2 weeks if not 6 weeks. Monitor for withdrawals. Patient has been provided counseling in the past, will continue to encourage ce ssation. (4) Hypokalemia Impression: Mild at 3.3 Likely 2/2 decreased PO intake until today in the setting of infection.Will replace orally. (5) Hyponatremia Impression: Hypokalemia likely secondary to infection. Na up to 134 from 130, appropriate rate of correction. No neurological changes. Continue IV fluid resuscitation and monitor labs.
[2020-08-21] MEDS: polyethylene glycoL 3350 17 GM PACKET PO SCH (16:17)
[2020-08-22] MEDS: oxyCODONE 5 MG TABLET PO PRN ×4 (01:25→16:27)
[2020-08-22] MEDS: SODIUM CHLORIDE FLUSH 0.9% 10 ML SYRINGE IVP PRN ×3 (01:27→06:02)
[2020-08-22] MEDS: SODIUM CHLORIDE FLUSH 0.9% 10 ML SYRINGE IVP SCH ×3 (01:27→20:28)
[2020-08-22] MEDS: MORPHINE 2 MG/ML CARPUJECT IVP PRN ×2 (03:15→20:27)
[2020-08-22] MEDS: ACETAMINOPHEN 325 MG TABLET PO PRN (05:46)
[2020-08-22] MEDS: VANCOMYCIN INJ 1 GM, VANCOMYCIN INJ 250 MG in SODIUM CHLORIDE 0.9% 250 ML IV SCH ×3 (06:00→22:24)
[2020-08-22 06:11] LABS: BASOPHILS # (AUTO) 0.1 10^3/uL (0.0-0.1); BASOPHILS % (AUTO) 0.5 %; EOSINOPHILS # (AUTO) 0.1 10^3/uL (0.0-0.7); EOSINOPHILS % (AUTO) 1.3 %; HCT - HEMATOCRIT 32.1 % (42.0-52.0); HGB - HEMOGLOBIN 10.5 g/dL (14.0-18.0); LYMPHOCYTES # (AUTO) 1.9 10^3/uL (1.5-3.5); LYMPHOCYTES % (AUTO) 20.1 %; MEAN CORPUSCULAR HEMOGLOBIN 23.9 pg (27.0-31.0); MEAN CORPUSCULAR HGB CONC 32.7 g/dL (32.0-36.0); MEAN CORPUSCULAR VOLUME 73.1 fL (80.0-94.0); MEAN PLATELET VOLUME 10.3 fL (7.4-11.4); MONOCYTES # (AUTO) 0.8 10^3/uL (0.0-1.0); MONOCYTES % (AUTO) 8.5 %; NEUTROPHILS # (AUTO) 6.3 10^3/uL (1.5-6.6); NEUTROPHILS % (AUTO) 68.3 %; PLT - PLATELET COUNT 200 10^3/uL (130-450); RED BLOOD COUNT 4.39 10^6/uL (4.70-6.10); RED CELL DISTRIBUTION WIDTH 17.1 % (12.0-15.0); WHITE BLOOD COUNT 9.2 x10^3/uL (4.8-10.8)
[2020-08-22 06:28] LABS: CALCIUM 8.2 mg/dL (8.5-10.3); CREATININE 0.6 mg/dL (0.6-1.2); CRP - C-REACTIVE PROTEIN 13.7 mg/dL (0-1.0); MAGNESIUM 1.8 mg/dL (1.7-2.8); PHOSPHORUS 4.2 mg/dL (2.5-4.6)
[2020-08-22] MEDS: DOCUSATE SODIUM 250 MG CAPSULE PO SCH (08:53)
[2020-08-22] MEDS: polyethylene glycoL 3350 17 GM PACKET PO SCH (08:53)
[2020-08-22] MEDS: SENNA 8.6 MG TABLET PO SCH (08:53)
[2020-08-22] MEDS: NICOTINE 14 MG PATCH TOP SCH (08:55)
[2020-08-22] MEDS: ENOXAPARIN 40 MG/0.4 ML SYRINGE SUBQ SCH (09:00)
--- NOTE | 2020-08-22 09:13 | PROVIDER PROGRESS NOTE ---
Subjective - Prog Note Date Prog Note Date: 08/22/20 Prog Note Time: 09:13 - Subjective Pt reports feeling: Improved (States his left arm is little bit sore but otherwise has no complaints) Current Medications - Current Medications Current Medications: Current Medications Generic Name Dose Route Start Last Admin Trade Name Freq PRN Reason Stop Dose Admin Acetaminophen 650 mg 08/18/20 22:48 08/22/20 05:46 Acetaminophen 325 Mg Tablet PO 650 mg Q4HR PRN Administration Pain 1 to 4 Docusate Sodium 250 - 500 mg 08/22/20 09:00 08/22/20 08:53 Docusate Sodium 250 Mg Capsule PO 250 mg DAILY MICHA Administration Enoxaparin Sodium 40 mg 08/19/20 09:00 08/22/20 09:00 Enoxaparin 40 Mg/0.4 Ml Syringe SUBQ Not Given DAILY MICHA Vancomycin HCl 1 gm/ 250 mls @ 167 mls/hr 08/20/20 22:00 08/22/20 07:50 Vancomycin HCl 250 mg/ Sodium IV Infused Chloride Q8H MICHA Infusion Morphine Sulfate 2 mg 08/18/20 22:48 08/22/20 03:15 Morphine 2 Mg/Ml Carpuject IVP 2 mg Q2HR PRN Administration Pain 8 to 10 Nicotine 1 patch 08/19/20 20:18 08/22/20 08:55 Nicotine 14 Mg Patch TOP 1 patch DAILY MICHA Administration Ondansetron HCl 4 mg 08/18/20 22:48 08/20/20 01:51 Ondansetron Odt 4 Mg Tablet TL 4 mg Q6HR PRN Administration Nausea / Vomiting Ondansetron HCl 4 mg 08/18/20 22:48 08/19/20 08:38 Ondansetron 4 Mg/2 Ml Vial IVP 4 mg Q6HR PRN Administration Nausea / Vomiting Oxycodone HCl 5 mg 08/18/20 22:48 08/22/20 05:46 Oxycodone 5 Mg Tablet PO 5 mg Q4HR PRN Administration Pain 5 to 7 Polyethylene Glycol 17 gm 08/21/20 17:00 08/22/20 08:53 Polyethylene Glycol 3350 17 Gm Packet PO 17 gm DAILY MICHA Administration Senna 8.6 - 17.2 mg 08/22/20 09:00 08/22/20 08:53 Senna 8.6 Mg Tablet PO 8.6 mg DAILY MICHA Administration Sodium Chloride 10 ml 08/18/20 22:48 08/22/20 06:02 Sodium Chloride Flush 0.9% 10 Ml Syringe IVP 10 ml PRN PRN Administration NEEDED PER PROVIDER ORDERS Sodium Chloride 10 ml 08/19/20 01:00 08/22/20 08:04 Sodium Chloride Flush 0.9% 10 Ml Syringe IVP 10 ml 0100,0900,1700 MICHA Administration Objective - Vital Signs/Intake & Output Reviewed Vital Signs: Yes Vital Signs: Vital Signs x48h Temp Pulse Resp BP Pulse Ox 08/22/20 07:42 36.9 C 80 14 123/64 96 08/22/20 05:00 37.3 C 76 19 128/80 99 Intake & Output: Intake & Output 08/19/20 08/20/20 08/21/20 08/22/20 23:59 23:59 23:59 23:59 Intake Total 3791 3180 4042 1230 Output Total 1350 3750 4550 1150 Balance 0979 -237 -247 80 - Objective General Appearance: positive: No acute distress Eyes Bilateral: positive: Normal inspection ENT: positive: ENT inspection nml Neck: positive: Nml inspection, Thyroid nml, No JVD Respiratory: positive: Chest non-tender Cardiovascular: positive: Regular rate & rhythm, No murmur, No gallop, Irregularly irregular Abdomen: positive: Non-tender, No organomegaly, Nml bowel sounds, No distention Skin: positive: Other (Multiple excoriations across upper extremities on both sides. Previously demonstrated erythema improving) Extremities: positive: Non-tender, Full ROM Neurologic/Psychiatric: positive: Oriented x3, CN's nml (2-12), Motor nml - Lab Results Fish Bones: 08/22/20 06:00 08/22/20 06:00 Other Labs: Lab Results x24hrs 08/22/20 08/22/20 Range/Units 06:00 06:00 WBC 9.2 (4.8-10.8) x10^3/uL RBC 4.39 L (4.70-6.10) 10^6/uL Hgb 10.5 L (14.0-18.0) g/dL Hct 32.1 L (42.0-52.0) % MCV 73.1 L (80.0-94.0) fL MCH 23.9 L (27.0-31.0) pg MCHC 32.7 (32.0-36.0) g/dL RDW 17.1 H (12.0-15.0) % Plt Count 200 (130-450) 10^3/uL MPV 10.3 (7.4-11.4) fL Neut # (Auto) 6.3 (1.5-6.6) 10^3/uL Lymph # (Auto) 1.9 (1.5-3.5) 10^3/uL [place] # (Auto) 0.8 (0.0-1.0) 10^3/uL Eos # (Auto) 0.1 (0.0-0.7) 10^3/uL Baso # (Auto) 0.1 (0.0-0.1) 10^3/uL Absolute Nucleated RBC 0.00 x10^3/uL Nucleated RBC % 0.0 /100WBC Sodium 136 (135-145) mmol/L Potassium 4.0 (3.5-5.0) mmol/L Chloride 100 L (101-111) mmol/L Carbon Dioxide 26 (21-32) mmol/L Anion Gap 10.0 (6-13) BUN 10 (6-20) mg/dL Creatinine 0.6 (0.6-1.2) mg/dL Estimated GFR (MDRD) 159 (>89) Glucose 95 (70-100) mg/dL Calcium 8.2 L (8.5-10.3) mg/dL Phosphorus 4.2 (2.5-4.6) mg/dL Magnesium 1.8 (1.7-2.8) mg/dL C-Reactive Protein 13.7 H (0-1.0) mg/dL Sepsis Event Note (H) - Evaluation Current Stage of Sepsis: Sepsis Possible source of Sepsis: positive: Skin/soft tissue, Other (Suspect bacteremia and possible endocaraditis) - Sepsis Criteria Sepsis Criteria: Recorded Temperature greater than 38.3C or Less than 36C, Recorded Heart Rate greater than 90 bpm, WBC count greater than 12,000 or less than 4000 Assessment/Plan - Problem List (1) Bacteremia Impression: Admitted with cellulitis found to have MRSA positive blood cultures. On vancomycin since admission with no fevers, normal WBC, and hemodynamically stable. Blood cultures repeated at 48 hours, yesterday, or so far no growth to date. If repeat blood cultures remain negative can proceed with plan for 2 weeks of IV antibiotics via PICC line. If blood cultures however convert to positive within the next 2 to 3 days, he will need a transesophageal echocardiogram which would require transfer. (2) Cellulitis of left upper extremity Impression: Improving. As above, continue current treatment plan with IV vancomycin. (3) Illicit drug use, continuous Impression: Known history of IV methamphetamine use, with urine tox positive. High risk for outpatient IV antibiotics, so PICC line placed will need inpatient long-term IV antibiotics for at least 2 weeks if not 6 weeks. Monitor for withdrawals. Patient has been provided counseling in the past, will continue to encourage cessation. (4) Hypokalemia Impression: Resolved (5) Hyponatremia Impression: Resolved
[2020-08-22] MEDS: ALTEPLASE 2 MG VIAL IC PRN ×2 (12:59→19:37)
[2020-08-22 13:57] LABS: VANCOMYCIN,TROUGH 12.2 ug/mL (10.0-20.0)
[2020-08-22] MEDS ORDERED: ALTEPLASE 2 MG VIAL IC ONE (14:19)
[2020-08-22] MEDS: MULTIVITAMIN W/MINERALS TABLET PO SCH (14:55)
[2020-08-22] MEDS ORDERED: WATER FOR INJECTION,STERILE 10 ML MC ONE ×2 (19:28→19:29)
[2020-08-23] MEDS: oxyCODONE 5 MG TABLET PO PRN ×4 (00:36→22:13)
[2020-08-23] MEDS: SODIUM CHLORIDE FLUSH 0.9% 10 ML SYRINGE IVP SCH ×3 (02:13→17:47)
[2020-08-23] MEDS: MORPHINE 2 MG/ML CARPUJECT IVP PRN ×3 (04:20→18:46)
[2020-08-23] MEDS: SODIUM CHLORIDE FLUSH 0.9% 10 ML SYRINGE IVP PRN ×3 (05:39→13:47)
[2020-08-23] MEDS: VANCOMYCIN INJ 1 GM, VANCOMYCIN INJ 250 MG in SODIUM CHLORIDE 0.9% 250 ML IV SCH (05:39)
[2020-08-23 06:05] LABS: BASOPHILS # (AUTO) 0.1 10^3/uL (0.0-0.1); BASOPHILS % (AUTO) 0.5 %; EOSINOPHILS # (AUTO) 0.2 10^3/uL (0.0-0.7); EOSINOPHILS % (AUTO) 1.9 %; HCT - HEMATOCRIT 34.8 % (42.0-52.0); HGB - HEMOGLOBIN 11.3 g/dL (14.0-18.0); LYMPHOCYTES # (AUTO) 1.9 10^3/uL (1.5-3.5); LYMPHOCYTES % (AUTO) 18.6 %; MEAN CORPUSCULAR HEMOGLOBIN 23.5 pg (27.0-31.0); MEAN CORPUSCULAR HGB CONC 32.5 g/dL (32.0-36.0); MEAN CORPUSCULAR VOLUME 72.5 fL (80.0-94.0); MEAN PLATELET VOLUME 10.5 fL (7.4-11.4); MONOCYTES # (AUTO) 0.8 10^3/uL (0.0-1.0); MONOCYTES % (AUTO) 7.5 %; NEUTROPHILS # (AUTO) 7.3 10^3/uL (1.5-6.6); NEUTROPHILS % (AUTO) 70.5 %; PLT - PLATELET COUNT 268 10^3/uL (130-450); WHITE BLOOD COUNT 10.4 x10^3/uL (4.8-10.8)
[2020-08-23 06:24] LABS: CALCIUM 8.6 mg/dL (8.5-10.3); CREATININE 0.6 mg/dL (0.6-1.2); CRP - C-REACTIVE PROTEIN 11.3 mg/dL (0-1.0); MAGNESIUM 1.9 mg/dL (1.7-2.8); PHOSPHORUS 3.9 mg/dL (2.5-4.6); POTASSIUM 3.7 mmol/L (3.5-5.0)
--- NOTE | 2020-08-23 08:58 | Ultrasound Report ---
PROCEDURE: Duplex Ext Veins Right INDICATIONS: RUE Pain. PICC in place. TECHNIQUE: Real-time imaging, as well as color and pulse Doppler interrogation, were performed of the lower extr emity deep veins from the inguinal ligament to the popliteal fossa. COMPARISON: None. FINDINGS: The internal jugular vein appears patent and normal. There is a PICC line within the subcl cuate vein and axillary vein extending into the brachial vein, all of which show no evidence of assoc iated thrombus. The basilar can cephalic veins are relatively poorly seen. IMPRESSION: Limited study at clinician request, PICC line in place as noted, no DVT found. The study is somewhat limited by dressing material in place in portions of the area of venous assessment. Reviewed by: Davis Bauman MD on 08/23/2020 8:57 AM PDT Approved by: Davis Bauman MD on 08/23/2020 8:57 AM PDT Station ID: [id number]
[2020-08-23] MEDS: NICOTINE 14 MG PATCH TOP SCH (09:56)
[2020-08-23] MEDS: LACTOBACILLUS RHAMNOSUS GG CAPSULE PO SCH (09:57)
[2020-08-23] MEDS: DOCUSATE SODIUM 250 MG CAPSULE PO SCH (09:57)
[2020-08-23] MEDS: MULTIVITAMIN W/MINERALS TABLET PO SCH (09:57)
[2020-08-23] MEDS: SENNA 8.6 MG TABLET PO SCH (09:57)
[2020-08-23] MEDS: polyethylene glycoL 3350 17 GM PACKET PO SCH (09:58)
[2020-08-23] MEDS: ENOXAPARIN 40 MG/0.4 ML SYRINGE SUBQ SCH (09:59)
--- NOTE | 2020-08-23 11:26 | PHARMACY PROGRESS NOTE ---
- Therapy Status Therapy status: Trough subtherapeutic Basis for treatment: Culture result (Blood cx: MRSA) Treatment indication: Bacteremia, cellulitis Trough goal: 15-20 - FRANCOIS Risk Risk level for Acute Kidney Injury: Moderate Acute Kidney Injury risk factors: IV contrast within 72 hrs, Goal trough >15 - Monitoring and Recommendation Clinical response to treatment: I&O Previous 24 hours 08/21/20 08/22/20 08/23/20 23:59 23:59 23:59 Intake Total 4042 2724 1430 Output Total 8451 8199 1675 [facility] -[phone] Lab Results 08/23/20 08/22/20 08/21/20 05:30 06:00 04:45 ESR BUN 9 10 8 Creatinine 0.6 0.6 0.6 Estimated GFR (MDRD) 159 159 159 08/20/20 08/19/20 08/18/20 05:17 05:30 23:01 ESR 53 H BUN 13 13 Creatinine 0.6 0.8 Estimated GFR (MDRD) 159 114 08/18/20 18:13 ESR BUN 14 Creatinine 0.9 Estimated GFR (MDRD) 100 Vancomycin Monitoring 08/22/20 08/20/20 13:34 13:38 Vancomycin Trough 12.2 8.7 L Cultures 08/21/20 04:45 Blood Blood Culture - Preliminary Methicillin Resist S. Aureus 08/21/20 04:50 Blood Blood Culture - Preliminary NO GROWTH AFTER 2 DAYS 08/18/20 18:13 Blood Blood Culture - Final Methicillin Resist S. Aureus 08/18/20 18:35 Blood Blood Culture - Final Methicillin Resist S. Aureus 08/18/20 18:13 Blood Blood Culture (PCR) - Final Monitoring plan: Daily serum creatinine, Suggest ongoing fluid replacement Next trough due (date/time): 08/24 at 13:30 Areas for additional monitoring: IV to PO when appropriate, Therapy de- escalation based on culture results Pharmacy recommendation: Increase dose (Trough 12.2 - Increase maintenance dose to 1500 mg IV q8h)
[2020-08-23] MEDS: VANCOMYCIN INJ 1 GM, VANCOMYCIN INJ 500 MG in SODIUM CHLORIDE 0.9% 500 ML IV SCH ×2 (13:47→22:06)
--- NOTE | 2020-08-23 14:50 | PROVIDER PROGRESS NOTE ---
Assessment/Plan - Problem List (1) Bacteremia Assessment/Plan: 1 of 2 Blood cultures done on 08/21/20 grew MRSA today 08/23/20. The patient is on vancomycin. He is afebrile and white blood cell counts are n ormal. Blood cultures was repeated x2 today. PICC line was discontinued. I spoke with infectious disease who recommended FAVIOLA despite no vegetation on the TTE on 07/27/20. I have reached out to [facility] and [facility] regarding transfer however this is not possible at the time due to no bed availabilities. We will continue IV antibiotics while attempting to transfer daily for FAVIOLA. (2) Cellulitis of left upper extremity Assessment/Plan: Blood cultures grew MRSA. Patient is on vancomycin. We will continue. (3) Illicit drug use, continuous Assessment/Plan: History of IV amphetamine and heroin use. Tox screen was positive. Patient with likely need inpatient IV antibiotic treatment for 2 all 4 weeks dep ending on FAVIOLA results. He is a high risk for outpatient IV antibiotics Once blood cultures are no growth for 2 days or more, will place PICC line for prolonged IV antibiotic administration. (4) Hypokalemia Assessment/Plan: Resolved. Continue monitoring. (5) Hyponatremia Assessment/Plan: Resolved. Continue monitoring. - Current Meds Current Meds: Current Medications Generic Name Dose Route Start Last Admin Trade Name Freq PRN Reason Stop Dose Admin Acetaminophen 650 mg 08/18/20 22:48 08/22/20 05:46 Acetaminophen 325 Mg Tablet PO 650 mg Q4HR PRN Administration Pain 1 to 4 Alteplase, Recombinant 2 mg 08/22/20 13:00 08/22/20 19:37 Alteplase 2 Mg Vial IC 2 mg BID PRN Administration LINE FLUSHING Docusate Sodium 250 - 500 mg 08/22/20 09:00 08/23/20 09:57 Docusate Sodium 250 Mg Capsule PO 250 mg DAILY MICHA Administration Enoxaparin Sodium 40 mg 08/19/20 09:00 08/23/20 09:59 Enoxaparin 40 Mg/0.4 Ml Syringe SUBQ Not Given DAILY MICHA Vancomycin HCl 1 gm/ 500 mls @ 250 mls/hr 08/23/20 14:00 08/23/20 13:47 Vancomycin HCl 500 mg/ Sodium IV 250 mls/hr Chloride Q8H MICHA Administration Lactobacillus Rhamnosus 1 cap 08/23/20 09:00 08/23/20 09:57 Lactobacillus Rhamnosus Gg Capsule PO 1 cap DAILY MICHA Administration Morphine Sulfate 2 mg 08/18/20 22:48 08/23/20 09:53 Morphine 2 Mg/Ml Carpuject IVP 2 mg Q2HR PRN Administration Pain 8 to 10 Multivitamins/Minerals 1 tab 08/22/20 14:00 08/23/20 09:57 Multivitamin W/Minerals Tablet PO 1 tab DAILYWM MICHA Administration Nicotine 1 patch 08/19/20 20:18 08/23/20 09:56 Nicotine 14 Mg Patch TOP 1 patch DAILY MICHA Administration Ondansetron HCl 4 mg 08/18/20 22:48 08/20/20 01:51 Ondansetron Odt 4 Mg Tablet TL 4 mg Q6HR PRN Administration Nausea / Vomiting Ondansetron HCl 4 mg 08/18/20 22:48 08/19/20 08:38 Ondansetron 4 Mg/2 Ml Vial IVP 4 mg Q6HR PRN Administration Nausea / Vomiting Oxycodone HCl 5 mg 08/18/20 22:48 08/23/20 09:58 Oxycodone 5 Mg Tablet PO 5 mg Q4HR PRN Administration Pain 5 to 7 Polyethylene Glycol 17 gm 08/21/20 17:00 08/23/20 09:58 Polyethylene Glycol 3350 17 Gm Packet PO 17 gm DAILY MICHA Administration Senna 8.6 - 17.2 mg 08/22/20 09:00 08/23/20 09:57 Senna 8.6 Mg Tablet PO 8.6 mg DAILY MICHA Administration Sodium Chloride 10 ml 08/18/20 22:48 08/23/20 13:47 Sodium Chloride Flush 0.9% 10 Ml Syringe IVP 10 ml PRN PRN Administration NEEDED PER PROVIDER ORDERS Sodium Chloride 10 ml 08/19/20 01:00 08/23/20 09:55 Sodium Chloride Flush 0.9% 10 Ml Syringe IVP 10 ml 0100,0900,1700 MICHA Administration - Lab Result Fish Bone Diagrams: 08/23/20 05:30 08/23/20 05:30 - Additional Planning My Orders: My Active Orders 08/23/20 Blood Culture [CULTURE, BLOOD #1] [RM] Routine 08/23/20 09:40 Blood Culture [CULTURE, BLOOD #2] [RM] Routine Subjective - Subjective Patient Reports: Other (Patient complains of musculoskeletal/chest pain which was worse with palpitation and deep inspiration. Initially he seemed jittery and eager to go home. Blood cultures of 08/21 grew MRSA. He does not have any other complaints) Objective Vital Signs: Vital Signs - 24 hr 08/22/20 08/22/20 08/23/20 16:15 22:30 00:38 Temperature 36.4 C L 37.2 C 36.9 C Heart Rate [ 70 78 85 Brachial] Respiratory 20 20 18 Rate Blood Pressure 117/66 130/74 137/79 H [Left Brachial artery] O2 Saturation 98 97 97 08/23/20 08/23/20 08/23/20 04:26 04:30 08:31 Temperature 36.9 C 37.2 C Heart Rate [ 76 85 Brachial] Respiratory 20 18 Rate Blood Pressure 120/66 122/72 [Left Brachial artery] O2 Saturation 97 96 08/23/20 11:30 Temperature 37.2 C Heart Rate [ 82 Brachial] Respiratory 18 Rate Blood Pressure 128/77 [Left Brachial artery] O2 Saturation 97 Oxygen O2 Source Room air I&O (Last 24 Hrs): Intake and Output Totals x24h 08/21/20 08/22/20 08/23/20 23:59 23:59 23:59 Intake Total 4042 2724 1890 Output Total 4550 3450 2325 Balance -508 -726 -435 General: Alert, Oriented x3, Moderate distress, Other (tearful) HEENT: PERRLA, EOMI Neck: Supple, No JVD Neuro: Alert, Non Focal, Oriented Times 3 Cardiovascular: Regular rate, No murmurs Respiratory: Chest non-tender, No respiratory distress, Breath sounds nml Abdomen: Normal bowel sounds, Soft, No tenderness, No masses Extremities: Other (scabs and cuts on extremities at various stages of healing) Skin: No rashes - Results Results: Laboratory Results WBC 10.4 x10^3/uL (4.8-10.8) 08/23/20 05:30 RBC 4.80 10^6/uL (4.70-6.10) 08/23/20 05:30 Hgb 11.3 g/dL (14.0-18.0) L 08/23/20 05:30 Hct 34.8 % (42.0-52.0) L 08/23/20 05:30 MCV 72.5 fL (80.0-94.0) L 08/23/20 05:30 MCH 23.5 pg (27.0-31.0) L 08/23/20 05:30 MCHC 32.5 g/dL (32.0-36.0) 08/23/20 05:30 RDW 17.0 % (12.0-15.0) H 08/23/20 05:30 Plt Count 268 10^3/uL (130-450) 08/23/20 05:30 MPV 10.5 fL (7.4-11.4) 08/23/20 05:30 Neut # (Auto) 7.3 10^3/uL (1.5-6.6) H 08/23/20 05:30 Lymph # (Auto) 1.9 10^3/uL (1.5-3.5) 08/23/20 05:30 [place] # (Auto) 0.8 10^3/uL (0.0-1.0) 08/23/20 05:30 Eos # (Auto) 0.2 10^3/uL (0.0-0.7) 08/23/20 05:30 Baso # (Auto) 0.1 10^3/uL (0.0-0.1) 08/23/20 05:30 Absolute Nucleated RBC 0.00 x10^3/uL 08/23/20 05:30 Total Counted 100 08/19/20 05:49 Band Neuts % (Manual) 6 % (0-10) 08/19/20 05:49 Abnorm Lymph % (Manual) 0 % 08/19/20 05:49 Nucleated RBC % 0.0 /100WBC 08/23/20 05:30 Neutrophils # (Manual) 13.4 10^3/uL (1.5-6.6) H 08/19/20 05:49 Lymphocytes # (Manual) 0.9 10^3/uL (1.5-3.5) L 08/19/20 05:49 Monocytes # (Manual) 0.8 10^3/uL (0.0-1.0) 08/19/20 05:49 Eosinophils # (Manual) 0.0 10^3/uL (0-0.7) 08/19/20 05:49 Basophils # (Manual) 0.0 10^3/uL (0-0.1) 08/19/20 05:49 Differential Comment MANUAL DIFFERENTIAL 08/19/20 05:49 WBC Morphology NORMAL APPEARANCE (NORMAL) 08/19/20 05:49 Platelet Estimate NORMAL (130-450,000) (NORMAL) 08/19/20 05:49 Platelet Morphology NORMAL APPEARANCE (NORMAL) 08/19/20 05:49 RBC Morph Micro Appear NORMAL APPEARANCE (NORMAL) 08/19/20 05:49 ESR 53 mm/Hr (0-15) H 08/18/20 23:01 Sodium 136 mmol/L (135-145) 08/23/20 05:30 Potassium 3.7 mmol/L (3.5-5.0) 08/23/20 05:30 Chloride 103 mmol/L (101-111) 08/23/20 05:30 Carbon Dioxide 25 mmol/L (21-32) 08/23/20 05:30 Anion Gap 8.0 (6-13) 08/23/20 05:30 BUN 9 mg/dL (6-20) 08/23/20 05:30 Creatinine 0.6 mg/dL (0.6-1.2) 08/23/20 05:30 Estimated GFR (MDRD) 159 (>89) 08/23/20 05:30 Glucose 122 mg/dL (70-100) H 08/23/20 05:30 Lactic Acid 0.9 mmol/L (0.5-2.2) 08/18/20 18:13 Calcium 8.6 mg/dL (8.5-10.3) 08/23/20 05:30 Phosphorus 3.9 mg/dL (2.5-4.6) 08/23/20 05:30 Magnesium 1.9 mg/dL (1.7-2.8) 08/23/20 05:30 Iron 10 ug/dL (45-182) L 08/19/20 05:30 TIBC 364 ug/dL (250-450) 08/19/20 05:30 % Saturation 3 % (20-50) L 08/19/20 05:30 Transferrin 260 mg/dL (180-329) 08/19/20 05:30 Ferritin 99.5 ng/mL (23.9-336.2) 08/19/20 05:49 Total Bilirubin 1.5 mg/dL (0.2-1.0) H 08/18/20 18:13 AST 29 IU/L (10-42) 08/18/20 18:13 ALT 18 IU/L (10-60) 08/18/20 18:13 Alkaline Phosphatase 73 IU/L (42-121) 08/18/20 18:13 Total Creatine Kinase 356 IU/L (22-269) H 08/18/20 18:13 Troponin I High Sens 87.5 ng/L (2.3-19.7) H* 08/19/20 05:49 C-Reactive Protein 11.3 mg/dL (0-1.0) H 08/23/20 05:30 Total Protein 8.1 g/dL (6.7-8.2) 08/18/20 18:13 Albumin 3.5 g/dL (3.2-5.5) 08/18/20 18:13 Globulin 4.6 g/dL (2.1-4.2) H 08/18/20 18:13 Albumin/Globulin Ratio 0.8 (1.0-2.2) L 08/18/20 18:13 Lipase 21 U/L (22-51) L 08/18/20 18:13 Urine Color YELLOW 08/18/20 21:32 Urine Clarity CLEAR (CLEAR) 08/18/20 21:32 Urine pH 6.0 PH (5.0-7.5) 08/18/20 21:32 Ur Specific [place] >=1.030 (1.002-1.030) H 08/18/20 21:32 Urine Protein TRACE mg/dL (NEGATIVE) 08/18/20 21:32 Urine Glucose (UA) NEGATIVE mg/dL (NEGATIVE) 08/18/20 21:32 Urine Ketones 40 mg/dL (NEGATIVE) H 08/18/20 21:32 Urine Occult Blood LARGE (NEGATIVE) H 08/18/20 21:32 Urine Nitrite NEGATIVE (NEGATIVE) 08/18/20 21:32 Urine Bilirubin NEGATIVE (NEGATIVE) 08/18/20 21:32 Urine Urobilinogen 0.2 (NORMAL) E.U./dL (NORMAL) 08/18/20 21:32 Ur Leukocyte Esterase NEGATIVE (NEGATIVE) 08/18/20 21:32 Urine RBC 6-10 /HPF (0-5) H 08/18/20 21:32 Urine WBC 0-3 /HPF (0-3) 08/18/20 21:32 Ur Squamous Epith Cells RARE Squamous (<= Few) 08/18/20 21:32 Urine Bacteria Rare /HPF (None Seen) 08/18/20 21:32 Urine Mucus Few Strands 08/18/20 21:32 Urine Culture Comments NOT INDICATED 08/18/20 21:32 Nasal Adenovirus (PCR) NOT DETECTED 08/18/20 19:05 Nasal B. parapertussis DNA (PCR) NOT DETECTED 08/18/20 19:05 Nasal Coronavir 229E PCR NOT DETECTED 08/18/20 19:05 Nasal Coronavir HKU1 PCR NOT DETECTED 08/18/20 19:05 Nasal Coronavir NL63 PCR NOT DETECTED 08/18/20 19:05 Nasal Coronavir OC43 PCR NOT DETECTED 08/18/20 19:05 Nasal Enterovir/Rhinovir PCR NOT DETECTED 08/18/20 19:05 Nasal Influenza B PCR NOT DETECTED 08/18/20 19:05 Nasal Influenza A PCR NOT DETECTED 08/18/20 19:05 Nasal Parainfluen 1 PCR NOT DETECTED 08/18/20 19:05 Nasal Parainfluen 2 PCR NOT DETECTED 08/18/20 19:05 Nasal Parainfluen 3 PCR NOT DETECTED 08/18/20 19:05 Nasal Parainfluen 4 PCR NOT DETECTED 08/18/20 19:05 Nasal RSV (PCR) NOT DETECTED 08/18/20 19:05 Nasal Screen MRSA (PCR) POSITIVE (NEGATIVE) A* 08/19/20 06:12 Nasal B.pertussis DNA PCR NOT DETECTED 08/18/20 19:05 Nasal C.pneumoniae (PCR) NOT DETECTED 08/18/20 19:05 Yan Human Metapneumo PCR NOT DETECTED 08/18/20 19:05 Nasal M.pneumoniae (PCR) NOT DETECTED 08/18/20 19:05 Nasal SARS-CoV-2 (PCR) NOT DETECTED 08/18/20 19:05 Last Dose Date NA 08/22/20 13:34 Last Dose Time NA 08/22/20 13:34 Vancomycin Trough 12.2 ug/mL (10.0-20.0) 08/22/20 13:34 Urine Opiates Screen POSITIVE (NEGATIVE) H 08/18/20 21:32 Ur Oxycodone Screen NEGATIVE (NEGATIVE) 08/18/20 21:32 Urine Methadone Screen NEGATIVE (NEGATIVE) 08/18/20 21:32 Ur Propoxyphene Screen NEGATIVE (NEGATIVE) 08/18/20 21:32 Ur Barbiturates Screen NEGATIVE (NEGATIVE) 08/18/20 21:32 Ur Tricyclics Screen NEGATIVE (NEGATIVE) 08/18/20 21:32 Ur Phencyclidine Scrn NEGATIVE (NEGATIVE) 08/18/20 21:32 Ur Amphetamine Screen POSITIVE (NEGATIVE) H 08/18/20 21:32 U Methamphetamines Scrn POSITIVE (NEGATIVE) H 08/18/20 21:32 U Benzodiazepines Scrn NEGATIVE (NEGATIVE) 08/18/20 21:32 Urine Cocaine Screen NEGATIVE (NEGATIVE) 08/18/20 21:32 U Cannabinoids Screen NEGATIVE (NEGATIVE) 08/18/20 21:32 - Procedures Procedures: Procedures EXCISION OF L HAND SUBCU/FASCIA, OPEN APPROACH (09/20/16) Sepsis Event Note (H) - Evaluation Current Stage of Sepsis: Sepsis Possible source of Sepsis: positive: Skin/soft tissue, Other (Suspect bacteremia and possible endocaraditis) - Sepsis Criteria Sepsis Criteria: Recorded Temperature greater than 38.3C or Less than 36C, Recorded Heart Rate greater than 90 bpm, WBC count greater than 12,000 or less than 4000 ABX Reporting Has patient been on IV antibiotics over the past 48 hours?: Yes
[2020-08-24] MEDS: MORPHINE 2 MG/ML CARPUJECT IVP PRN (01:40)
[2020-08-24] MEDS: SODIUM CHLORIDE FLUSH 0.9% 10 ML SYRINGE IVP SCH ×4 (01:41→23:54)
[2020-08-24 05:25] LABS: BASOPHILS # (AUTO) 0.1 10^3/uL (0.0-0.1); BASOPHILS % (AUTO) 0.7 %; EOSINOPHILS # (AUTO) 0.3 10^3/uL (0.0-0.7); EOSINOPHILS % (AUTO) 2.5 %; HGB - HEMOGLOBIN 11.4 g/dL (14.0-18.0); LYMPHOCYTES # (AUTO) 2.3 10^3/uL (1.5-3.5); LYMPHOCYTES % (AUTO) 21.8 %; MEAN CORPUSCULAR HEMOGLOBIN 23.1 pg (27.0-31.0); MEAN CORPUSCULAR HGB CONC 31.7 g/dL (32.0-36.0); MEAN PLATELET VOLUME 9.7 fL (7.4-11.4); MONOCYTES # (AUTO) 0.7 10^3/uL (0.0-1.0); MONOCYTES % (AUTO) 6.9 %; NEUTROPHILS # (AUTO) 7.1 10^3/uL (1.5-6.6); NEUTROPHILS % (AUTO) 67.1 %; PLT - PLATELET COUNT 301 10^3/uL (130-450); RED BLOOD COUNT 4.93 10^6/uL (4.70-6.10); RED CELL DISTRIBUTION WIDTH 17.2 % (12.0-15.0); WHITE BLOOD COUNT 10.6 x10^3/uL (4.8-10.8)
[2020-08-24] MEDS: oxyCODONE 5 MG TABLET PO PRN ×4 (05:26→21:34)
[2020-08-24 05:27] LABS: CALCIUM 8.9 mg/dL (8.5-10.3); CREATININE 0.6 mg/dL (0.6-1.2); POTASSIUM 4.5 mmol/L (3.5-5.0)
[2020-08-24] MEDS: SODIUM CHLORIDE FLUSH 0.9% 10 ML SYRINGE IVP PRN ×2 (05:27→14:23)
[2020-08-24] MEDS: VANCOMYCIN INJ 1 GM, VANCOMYCIN INJ 500 MG in SODIUM CHLORIDE 0.9% 500 ML IV SCH ×3 (05:35→21:35)
--- NOTE | 2020-08-24 07:21 | PROVIDER PROGRESS NOTE ---
Assessment/Plan - Problem List (1) Bacteremia Assessment/Plan: Patient remains afebrile. White blood cell count 10.6. Blood cultures drawn yesterday are no growth to date. Continue vancomycin. Will attempt to transfer patient for a FAVIOLA, then he can return for continued IV antibiotics. (2) Cellulitis of left upper extremity Assessment/Plan: Blood cultures off 08/21/2020 grew MRSA. Repeat blood cultures done on 08/23/20 pending. Patient is on vancomycin. (3) Illicit drug use, continuous Assessment/Plan: History of IV amphetamine and heroin use. Tox screen was positive. Patient with likely need inpatient IV antibiotic treatment for 2 or 4 weeks depending on FAVIOLA results. He is a high risk for outpatient IV antibiotics Once blood cultures are no growth for 2 days or more, will place PICC line for prolonged IV antibiotic administration. (4) Hyponatremia Assessment/Plan: Resolved. (5) Hypokalemia Assessment/Plan: Resolved. - Current Meds Current Meds: Current Medications Generic Name Dose Route Start Last Admin Trade Name Freq PRN Reason Stop Dose Admin Acetaminophen 650 mg 08/18/20 22:48 08/22/20 05:46 Acetaminophen 325 Mg Tablet PO 650 mg Q4HR PRN Administration Pain 1 to 4 Alteplase, Recombinant 2 mg 08/22/20 13:00 08/22/20 19:37 Alteplase 2 Mg Vial IC 2 mg BID PRN Administration LINE FLUSHING Docusate Sodium 250 - 500 mg 08/22/20 09:00 08/23/20 09:57 Docusate Sodium 250 Mg Capsule PO 250 mg DAILY MICHA Administration Enoxaparin Sodium 40 mg 08/19/20 09:00 08/23/20 09:59 Enoxaparin 40 Mg/0.4 Ml Syringe SUBQ Not Given DAILY MICHA Vancomycin HCl 1 gm/ 500 mls @ 250 mls/hr 08/23/20 14:00 08/24/20 05:35 Vancomycin HCl 500 mg/ Sodium IV 250 mls/hr Chloride Q8H MICHA Administration Lactobacillus Rhamnosus 1 cap 08/23/20 09:00 08/23/20 09:57 Lactobacillus Rhamnosus Gg Capsule PO 1 cap DAILY MICHA Administration Morphine Sulfate 2 mg 08/18/20 22:48 08/24/20 01:40 Morphine 2 Mg/Ml Carpuject IVP 2 mg Q2HR PRN Administration Pain 8 to 10 Multivitamins/Minerals 1 tab 08/22/20 14:00 08/23/20 09:57 Multivitamin W/Minerals Tablet PO 1 tab DAILYWM MICHA Administration Nicotine 1 patch 08/19/20 20:18 08/23/20 09:56 Nicotine 14 Mg Patch TOP 1 patch DAILY MICHA Administration Ondansetron HCl 4 mg 08/18/20 22:48 08/20/20 01:51 Ondansetron Odt 4 Mg Tablet TL 4 mg Q6HR PRN Administration Nausea / Vomiting Ondansetron HCl 4 mg 08/18/20 22:48 08/19/20 08:38 Ondansetron 4 Mg/2 Ml Vial IVP 4 mg Q6HR PRN Administration Nausea / Vomiting Oxycodone HCl 5 mg 08/18/20 22:48 08/24/20 05:26 Oxycodone 5 Mg Tablet PO 5 mg Q4HR PRN Administration Pain 5 to 7 Polyethylene Glycol 17 gm 08/21/20 17:00 08/23/20 09:58 Polyethylene Glycol 3350 17 Gm Packet PO 17 gm DAILY MICHA Administration Senna 8.6 - 17.2 mg 08/22/20 09:00 08/23/20 09:57 Senna 8.6 Mg Tablet PO 8.6 mg DAILY MICHA Administration Sodium Chloride 10 ml 08/18/20 22:48 08/24/20 05:27 Sodium Chloride Flush 0.9% 10 Ml Syringe IVP 10 ml PRN PRN Administration NEEDED PER PROVIDER ORDERS Sodium Chloride 10 ml 08/19/20 01:00 08/24/20 01:41 Sodium Chloride Flush 0.9% 10 Ml Syringe IVP 10 ml 0100,0900,1700 MICHA Administration - Lab Result Fish Bone Diagrams: 08/24/20 05:00 08/24/20 05:00 - Additional Planning My Orders: My Active Orders 08/23/20 08:30 Blood Culture [CULTURE, BLOOD #1] [] Routine 08/23/20 09:40 Blood Culture [CULTURE, BLOOD #2] [] Routine 08/23/20 19:23 Vancomycin: Pharmacy To Dose [Vancomycin-Pharmacy To Dose] 1 each MC ONCE PRN 08/25/20 05:00 BMP - BASIC METABOLIC PANEL [CHEM] DAILYLAB CBC - COMP BLD CT W/AUTO DIFF [HEME] DAILYLAB 08/26/20 05:00 BMP - BASIC METABOLIC PANEL [CHEM] DAILYLAB CBC - COMP BLD CT W/AUTO DIFF [HEME] DAILYLAB 08/27/20 05:00 BMP - BASIC METABOLIC PANEL [CHEM] DAILYLAB CBC - COMP BLD CT W/AUTO DIFF [HEME] DAILYLAB 08/28/20 05:00 BMP - BASIC METABOLIC PANEL [CHEM] DAILYLAB CBC - COMP BLD CT W/AUTO DIFF [HEME] DAILYLAB Subjective - Subjective Patient Reports: Other (Patient resting in bed. His pain appears improved compared to yesterday. Denies any other complain. He has been afebrile) Objective Vital Signs: Vital Signs - 24 hr 08/23/20 08/23/20 08/23/20 08:31 11:30 16:58 Temperature 37.2 C 37.2 C 36.9 C Heart Rate [ 85 82 84 Brachial] Respiratory 18 18 18 Rate Blood Pressure 122/72 128/77 117/67 [Left Brachial artery] O2 Saturation 96 97 96 08/23/20 08/24/20 08/24/20 20:50 00:25 05:35 Temperature 36.8 C 36.6 C 36.9 C Heart Rate [ 103 H 83 79 Brachial] Respiratory 21 20 18 Rate Blood Pressure 113/78 120/61 130/77 [Left Brachial artery] O2 Saturation 95 97 97 Oxygen O2 Source Room air I&O (Last 24 Hrs): Intake and Output Totals x24h 08/22/20 08/23/20 08/24/20 23:59 23:59 23:59 Intake Total 2726 1675 720 Output Total 3453 6565 1300 Balance -726 -860 -580 General: Alert, Oriented x3, Moderate distress HEENT: PERRLA, EOMI Neck: Supple, No JVD Neuro: Alert, Non Focal, Oriented Times 3 Cardiovascular: Regular rate, No murmurs Respiratory: Chest non-tender, No respiratory distress, Breath sounds nml Abdomen: Normal bowel sounds, Soft, No tenderness, No masses Extremities: No clubbing, No edema Skin: No rashes - Results Results: Laboratory Results WBC 10.6 x10^3/uL (4.8-10.8) 08/24/20 05:00 RBC 4.93 10^6/uL (4.70-6.10) 08/24/20 05:00 Hgb 11.4 g/dL (14.0-18.0) L 08/24/20 05:00 Hct 36.0 % (42.0-52.0) L 08/24/20 05:00 MCV 73.0 fL (80.0-94.0) L 08/24/20 05:00 MCH 23.1 pg (27.0-31.0) L 08/24/20 05:00 MCHC 31.7 g/dL (32.0-36.0) L 08/24/20 05:00 RDW 17.2 % (12.0-15.0) H 08/24/20 05:00 Plt Count 301 10^3/uL (130-450) 08/24/20 05:00 MPV 9.7 fL (7.4-11.4) 08/24/20 05:00 Neut # (Auto) 7.1 10^3/uL (1.5-6.6) H 08/24/20 05:00 Lymph # (Auto) 2.3 10^3/uL (1.5-3.5) 08/24/20 05:00 [place] # (Auto) 0.7 10^3/uL (0.0-1.0) 08/24/20 05:00 Eos # (Auto) 0.3 10^3/uL (0.0-0.7) 08/24/20 05:00 Baso # (Auto) 0.1 10^3/uL (0.0-0.1) 08/24/20 05:00 Absolute Nucleated RBC 0.00 x10^3/uL 08/24/20 05:00 Total Counted 100 08/19/20 05:49 Band Neuts % (Manual) 6 % (0-10) 08/19/20 05:49 Abnorm Lymph % (Manual) 0 % 08/19/20 05:49 Nucleated RBC % 0.0 /100WBC 08/24/20 05:00 Neutrophils # (Manual) 13.4 10^3/uL (1.5-6.6) H 08/19/20 05:49 Lymphocytes # (Manual) 0.9 10^3/uL (1.5-3.5) L 08/19/20 05:49 Monocytes # (Manual) 0.8 10^3/uL (0.0-1.0) 08/19/20 05:49 Eosinophils # (Manual) 0.0 10^3/uL (0-0.7) 08/19/20 05:49 Basophils # (Manual) 0.0 10^3/uL (0-0.1) 08/19/20 05:49 Differential Comment MANUAL DIFFERENTIAL 08/19/20 05:49 WBC Morphology NORMAL APPEARANCE (NORMAL) 08/19/20 05:49 Platelet Estimate NORMAL (130-450,000) (NORMAL) 08/19/20 05:49 Platelet Morphology NORMAL APPEARANCE (NORMAL) 08/19/20 05:49 RBC Morph Micro Appear NORMAL APPEARANCE (NORMAL) 08/19/20 05:49 ESR 53 mm/Hr (0-15) H 08/18/20 23:01 Sodium 137 mmol/L (135-145) 08/24/20 05:00 Potassium 4.5 mmol/L (3.5-5.0) 08/24/20 05:00 Chloride 101 mmol/L (101-111) 08/24/20 05:00 Carbon Dioxide 26 mmol/L (21-32) 08/24/20 05:00 Anion Gap 10.0 (6-13) 08/24/20 05:00 BUN 10 mg/dL (6-20) 08/24/20 05:00 Creatinine 0.6 mg/dL (0.6-1.2) 08/24/20 05:00 Estimated GFR (MDRD) 159 (>89) 08/24/20 05:00 Glucose 98 mg/dL (70-100) 08/24/20 05:00 Lactic Acid 0.9 mmol/L (0.5-2.2) 08/18/20 18:13 Calcium 8.9 mg/dL (8.5-10.3) 08/24/20 05:00 Phosphorus 3.9 mg/dL (2.5-4.6) 08/23/20 05:30 Magnesium 1.9 mg/dL (1.7-2.8) 08/23/20 05:30 Iron 10 ug/dL (45-182) L 08/19/20 05:30 TIBC 364 ug/dL (250-450) 08/19/20 05:30 % Saturation 3 % (20-50) L 08/19/20 05:30 Transferrin 260 mg/dL (180-329) 08/19/20 05:30 Ferritin 99.5 ng/mL (23.9-336.2) 08/19/20 05:49 Total Bilirubin 1.5 mg/dL (0.2-1.0) H 08/18/20 18:13 AST 29 IU/L (10-42) 08/18/20 18:13 ALT 18 IU/L (10-60) 08/18/20 18:13 Alkaline Phosphatase 73 IU/L (42-121) 08/18/20 18:13 Total Creatine Kinase 356 IU/L (22-269) H 08/18/20 18:13 Troponin I High Sens 87.5 ng/L (2.3-19.7) H* 08/19/20 05:49 C-Reactive Protein 11.3 mg/dL (0-1.0) H 08/23/20 05:30 Total Protein 8.1 g/dL (6.7-8.2) 08/18/20 18:13 Albumin 3.5 g/dL (3.2-5.5) 08/18/20 18:13 Globulin 4.6 g/dL (2.1-4.2) H 08/18/20 18:13 Albumin/Globulin Ratio 0.8 (1.0-2.2) L 08/18/20 18:13 Lipase 21 U/L (22-51) L 08/18/20 18:13 Urine Color YELLOW 08/18/20 21:32 Urine Clarity CLEAR (CLEAR) 08/18/20 21:32 Urine pH 6.0 PH (5.0-7.5) 08/18/20 21:32 Ur Specific [place] >=1.030 (1.002-1.030) H 08/18/20 21:32 Urine Protein TRACE mg/dL (NEGATIVE) 08/18/20 21:32 Urine Glucose (UA) NEGATIVE mg/dL (NEGATIVE) 08/18/20 21:32 Urine Ketones 40 mg/dL (NEGATIVE) H 08/18/20 21:32 Urine Occult Blood LARGE (NEGATIVE) H 08/18/20 21:32 Urine Nitrite NEGATIVE (NEGATIVE) 08/18/20 21:32 Urine Bilirubin NEGATIVE (NEGATIVE) 08/18/20 21:32 Urine Urobilinogen 0.2 (NORMAL) E.U./dL (NORMAL) 08/18/20 21:32 Ur Leukocyte Esterase NEGATIVE (NEGATIVE) 08/18/20 21:32 Urine RBC 6-10 /HPF (0-5) H 08/18/20 21:32 Urine WBC 0-3 /HPF (0-3) 08/18/20 21:32 Ur Squamous Epith Cells RARE Squamous (<= Few) 08/18/20 21:32 Urine Bacteria Rare /HPF (None Seen) 08/18/20 21:32 Urine Mucus Few Strands 08/18/20 21:32 Urine Culture Comments NOT INDICATED 08/18/20 21:32 Nasal Adenovirus (PCR) NOT DETECTED 08/18/20 19:05 Nasal B. parapertussis DNA (PCR) NOT DETECTED 08/18/20 19:05 Nasal Coronavir 229E PCR NOT DETECTED 08/18/20 19:05 Nasal Coronavir HKU1 PCR NOT DETECTED 08/18/20 19:05 Nasal Coronavir NL63 PCR NOT DETECTED 08/18/20 19:05 Nasal Coronavir OC43 PCR NOT DETECTED 08/18/20 19:05 Nasal Enterovir/Rhinovir PCR NOT DETECTED 08/18/20 19:05 Nasal Influenza B PCR NOT DETECTED 08/18/20 19:05 Nasal Influenza A PCR NOT DETECTED 08/18/20 19:05 Nasal Parainfluen 1 PCR NOT DETECTED 08/18/20 19:05 Nasal Parainfluen 2 PCR NOT DETECTED 08/18/20 19:05 Nasal Parainfluen 3 PCR NOT DETECTED 08/18/20 19:05 Nasal Parainfluen 4 PCR NOT DETECTED 08/18/20 19:05 Nasal RSV (PCR) NOT DETECTED 08/18/20 19:05 Nasal Screen MRSA (PCR) POSITIVE (NEGATIVE) A* 08/19/20 06:12 Nasal B.pertussis DNA PCR NOT DETECTED 08/18/20 19:05 Nasal C.pneumoniae (PCR) NOT DETECTED 08/18/20 19:05 Yan Human Metapneumo PCR NOT DETECTED 08/18/20 19:05 Nasal M.pneumoniae (PCR) NOT DETECTED 08/18/20 19:05 Nasal SARS-CoV-2 (PCR) NOT DETECTED 08/18/20 19:05 Last Dose Date NA 08/22/20 13:34 Last Dose Time NA 06/28/21 13:34 Vancomycin Trough 12.2 ug/mL (10.0-20.0) 08/22/20 13:34 Urine Opiates Screen POSITIVE (NEGATIVE) H 08/18/20 21:32 Ur Oxycodone Screen NEGATIVE (NEGATIVE) 08/18/20 21:32 Urine Methadone Screen NEGATIVE (NEGATIVE) 08/18/20 21:32 Ur Propoxyphene Screen NEGATIVE (NEGATIVE) 08/18/20 21:32 Ur Barbiturates Screen NEGATIVE (NEGATIVE) 08/18/20 21:32 Ur Tricyclics Screen NEGATIVE (NEGATIVE) 08/18/20 21:32 Ur Phencyclidine Scrn NEGATIVE (NEGATIVE) 08/18/20 21:32 Ur Amphetamine Screen POSITIVE (NEGATIVE) H 08/18/20 21:32 U Methamphetamines Scrn POSITIVE (NEGATIVE) H 08/18/20 21:32 U Benzodiazepines Scrn NEGATIVE (NEGATIVE) 08/18/20 21:32 Urine Cocaine Screen NEGATIVE (NEGATIVE) 08/18/20 21:32 U Cannabinoids Screen NEGATIVE (NEGATIVE) 08/18/20 21:32 - Procedures Procedures: Procedures EXCISION OF L HAND SUBCU/FASCIA, OPEN APPROACH (09/20/16) Sepsis Event Note (H) - Evaluation Current Stage of Sepsis: Sepsis Possible source of Sepsis: positive: Skin/soft tissue, Other (Suspect bacteremia and possible endocaraditis) - Sepsis Criteria Sepsis Criteria: Recorded Temperature greater than 38.3C or Less than 36C, Recorded Heart Rate greater than 90 bpm, WBC count greater than 12,000 or less than 4000 ABX Reporting Has patient been on IV antibiotics over the past 48 hours?: Yes
[2020-08-24] MEDS: NICOTINE 14 MG PATCH TOP SCH (08:48)
[2020-08-24] MEDS: polyethylene glycoL 3350 17 GM PACKET PO SCH (08:48)
[2020-08-24] MEDS: SENNA 8.6 MG TABLET PO SCH (08:48)
[2020-08-24] MEDS: MULTIVITAMIN W/MINERALS TABLET PO SCH (08:49)
[2020-08-24] MEDS: LACTOBACILLUS RHAMNOSUS GG CAPSULE PO SCH (08:49)
[2020-08-24] MEDS: DOCUSATE SODIUM 250 MG CAPSULE PO SCH (08:49)
[2020-08-24] MEDS: ENOXAPARIN 40 MG/0.4 ML SYRINGE SUBQ SCH (08:49)
[2020-08-24] MEDS: ACETAMINOPHEN 325 MG TABLET PO PRN ×2 (12:27→21:34)
[2020-08-24 13:24] LABS: VANCOMYCIN,TROUGH 16.7 ug/mL (10.0-20.0)
[2020-08-25 05:18] LABS: BASOPHILS # (AUTO) 0.1 10^3/uL (0.0-0.1); BASOPHILS % (AUTO) 0.5 %; EOSINOPHILS # (AUTO) 0.3 10^3/uL (0.0-0.7); HCT - HEMATOCRIT 36.5 % (42.0-52.0); HGB - HEMOGLOBIN 11.2 g/dL (14.0-18.0); LYMPHOCYTES % (AUTO) 19.7 %; MEAN CORPUSCULAR HEMOGLOBIN 22.7 pg (27.0-31.0); MEAN CORPUSCULAR HGB CONC 30.7 g/dL (32.0-36.0); MONOCYTES # (AUTO) 0.7 10^3/uL (0.0-1.0); NEUTROPHILS % (AUTO) 68.1 %; PLT - PLATELET COUNT 351 10^3/uL (130-450); RED BLOOD COUNT 4.93 10^6/uL (4.70-6.10); RED CELL DISTRIBUTION WIDTH 17.6 % (12.0-15.0); WHITE BLOOD COUNT 10.3 x10^3/uL (4.8-10.8)
[2020-08-25 05:24] LABS: CALCIUM 8.9 mg/dL (8.5-10.3); CREATININE 0.7 mg/dL (0.6-1.2); POTASSIUM 4.4 mmol/L (3.5-5.0)
[2020-08-25] MEDS: MORPHINE 2 MG/ML CARPUJECT IVP PRN ×3 (05:30→14:41)
[2020-08-25] MEDS: VANCOMYCIN INJ 1 GM, VANCOMYCIN INJ 500 MG in SODIUM CHLORIDE 0.9% 500 ML IV SCH ×3 (05:30→21:19)
[2020-08-25] MEDS: SODIUM CHLORIDE FLUSH 0.9% 10 ML SYRINGE IVP PRN (05:30)
--- NOTE | 2020-08-25 07:50 | PROVIDER PROGRESS NOTE ---
Assessment/Plan - Problem List (1) Bacteremia Assessment/Plan: Patient remains afebrile. White blood cell count 10.3. Blood cultures drawn 08/23/20 are no growth to date X2 days. Continue vancomycin. Will transfer patient to [facility] for a FAVIOLA once there is availability on cardiology's schedule, then he can return for continued IV antibiotics. Will also discuss with ID for further recommendations. (2) Cellulitis of left upper extremity Assessment/Plan: Patient remains afebrile. White blood cell count 10.3. Blood cultures drawn 08/23/20 are no growth to date X2 days. Continue vancomycin. Will transfer patient to [facility] or [place] for a FAVIOLA once there is availability on cardiology's schedule, then he can return for continued IV antibiotics. Will also discuss with ID for further recommendations. (3) Illicit drug use, continuous Assessment/Plan: History of IV amphetamine and heroin use. Tox screen was positive. Patient with likely need inpatient IV antibiotic treatment for 2 or 4 weeks depending on FAVIOLA results. He is a high risk for outpatient IV antibiotics Once blood cultures are no growth for 2 days or more, will place PICC line for prolonged IV antibiotic administration. - Current Meds Current Meds: Current Medications Generic Name Dose Route Start Last Admin Trade Name Freq PRN Reason Stop Dose Admin Acetaminophen 650 mg 08/18/20 22:48 08/24/20 21:34 Acetaminophen 325 Mg Tablet PO 650 mg Q4HR PRN Administration Pain 1 to 4 Alteplase, Recombinant 2 mg 08/22/20 13:00 08/22/20 19:37 Alteplase 2 Mg Vial IC 2 mg BID PRN Administration LINE FLUSHING Docusate Sodium 250 - 500 mg 08/22/20 09:00 08/24/20 08:49 Docusate Sodium 250 Mg Capsule PO 500 mg DAILY MICHA Administration Enoxaparin Sodium 40 mg 08/19/20 09:00 08/24/20 08:49 Enoxaparin 40 Mg/0.4 Ml Syringe SUBQ Not Given DAILY MICHA Vancomycin HCl 1 gm/ 500 mls @ 250 mls/hr 08/23/20 14:00 08/25/20 05:30 Vancomycin HCl 500 mg/ Sodium IV 250 mls/hr Chloride Q8H MICHA Administration Lactobacillus Rhamnosus 1 cap 08/23/20 09:00 08/24/20 08:49 Lactobacillus Rhamnosus Gg Capsule PO 1 cap DAILY MICHA Administration Morphine Sulfate 2 mg 08/18/20 22:48 08/25/20 05:30 Morphine 2 Mg/Ml Carpuject IVP 2 mg Q2HR PRN Administration Pain 8 to 10 Multivitamins/Minerals 1 tab 08/22/20 14:00 08/24/20 08:49 Multivitamin W/Minerals Tablet PO 1 tab DAILYWM MICHA Administration Nicotine 1 patch 08/19/20 20:18 08/24/20 08:48 Nicotine 14 Mg Patch TOP 1 patch DAILY MICHA Administration Ondansetron HCl 4 mg 08/18/20 22:48 08/20/20 01:51 Ondansetron Odt 4 Mg Tablet TL 4 mg Q6HR PRN Administration Nausea / Vomiting Ondansetron HCl 4 mg 08/18/20 22:48 08/19/20 08:38 Ondansetron 4 Mg/2 Ml Vial IVP 4 mg Q6HR PRN Administration Nausea / Vomiting Oxycodone HCl 5 mg 08/18/20 22:48 08/24/20 21:34 Oxycodone 5 Mg Tablet PO 5 mg Q4HR PRN Administration Pain 5 to 7 Polyethylene Glycol 17 gm 08/21/20 17:00 08/24/20 08:48 Polyethylene Glycol 3350 17 Gm Packet PO 17 gm DAILY MICHA Administration Senna 8.6 - 17.2 mg 08/22/20 09:00 08/24/20 08:48 Senna 8.6 Mg Tablet PO 17.2 mg DAILY MICHA Administration Sodium Chloride 10 ml 08/18/20 22:48 08/25/20 05:30 Sodium Chloride Flush 0.9% 10 Ml Syringe IVP 10 ml PRN PRN Administration NEEDED PER PROVIDER ORDERS Sodium Chloride 10 ml 08/19/20 01:00 08/24/20 23:54 Sodium Chloride Flush 0.9% 10 Ml Syringe IVP 10 ml 0100,0900,1700 MICHA Administration - Lab Result Fish Bone Diagrams: 08/25/20 04:52 08/25/20 04:52 - Additional Planning My Orders: My Active Orders 08/26/20 05:00 BMP - BASIC METABOLIC PANEL [CHEM] DAILYLAB CBC - COMP BLD CT W/AUTO DIFF [HEME] DAILYLAB 08/27/20 05:00 BMP - BASIC METABOLIC PANEL [CHEM] DAILYLAB CBC - COMP BLD CT W/AUTO DIFF [HEME] DAILYLAB 08/28/20 05:00 BMP - BASIC METABOLIC PANEL [CHEM] DAILYLAB CBC - COMP BLD CT W/AUTO DIFF [HEME] DAILYLAB Subjective - Subjective Patient Reports: Other (Patient resting comfortably in bed. He denied any new complaints.) Objective Vital Signs: Vital Signs - 24 hr 08/24/20 08/24/20 08/24/20 12:29 16:05 20:03 Temperature 37.0 C 36.6 C 36.5 C Heart Rate [ 78 74 Brachial] Heart Rate [ 85 Monitoring electrodes] Respiratory 20 16 24 Rate Blood Pressure [Left Brachial artery] Blood Pressure 135/78 H 126/73 130/69 [Right Brachial artery] O2 Saturation 98 98 97 08/25/20 08/25/20 00:20 04:57 Temperature 36.5 C 36.5 C Heart Rate [ 79 Brachial] Heart Rate [ Monitoring electrodes] Respiratory 18 19 Rate Blood Pressure 115/67 [Left Brachial artery] Blood Pressure 128/61 [Right Brachial artery] O2 Saturation 98 98 Oxygen O2 Source Room air I&O (Last 24 Hrs): Intake and Output Totals x24h 08/23/20 08/24/20 08/25/20 23:59 23:59 23:59 Intake Total 2615 4138 Output Total 3475 6175 700 Balance -860 1463 -700 General: Alert, Oriented x3, Mild distress HEENT: PERRLA, EOMI Neck: Supple, No JVD Neuro: Alert, Non Focal, Oriented Times 3 Cardiovascular: Regular rate, No murmurs Respiratory: No respiratory distress, Breath sounds nml Abdomen: Normal bowel sounds, Soft, No tenderness Extremities: No clubbing, No cyanosis, No edema, No tenderness/swelling Comments/Notes: Wounds on extremities healing - Results Results: Laboratory Results WBC 10.3 x10^3/uL (4.8-10.8) 08/25/20 04:52 RBC 4.93 10^6/uL (4.70-6.10) 08/25/20 04:52 Hgb 11.2 g/dL (14.0-18.0) L 08/25/20 04:52 Hct 36.5 % (42.0-52.0) L 08/25/20 04:52 MCV 74.0 fL (80.0-94.0) L 08/25/20 04:52 MCH 22.7 pg (27.0-31.0) L 08/25/20 04:52 MCHC 30.7 g/dL (32.0-36.0) L 08/25/20 04:52 RDW 17.6 % (12.0-15.0) H 08/25/20 04:52 Plt Count 351 10^3/uL (130-450) 08/25/20 04:52 MPV 10.0 fL (7.4-11.4) 08/25/20 04:52 Neut # (Auto) 7.0 10^3/uL (1.5-6.6) H 08/25/20 04:52 Lymph # (Auto) 2.0 10^3/uL (1.5-3.5) 08/25/20 04:52 [place] # (Auto) 0.7 10^3/uL (0.0-1.0) 08/25/20 04:52 Eos # (Auto) 0.3 10^3/uL (0.0-0.7) 08/25/20 04:52 Baso # (Auto) 0.1 10^3/uL (0.0-0.1) 08/25/20 04:52 Absolute Nucleated RBC 0.00 x10^3/uL 08/25/20 04:52 Total Counted 100 08/19/20 05:49 Band Neuts % (Manual) 6 % (0-10) 08/19/20 05:49 Abnorm Lymph % (Manual) 0 % 08/19/20 05:49 Nucleated RBC % 0.0 /100WBC 08/25/20 04:52 Neutrophils # (Manual) 13.4 10^3/uL (1.5-6.6) H 08/19/20 05:49 Lymphocytes # (Manual) 0.9 10^3/uL (1.5-3.5) L 08/19/20 05:49 Monocytes # (Manual) 0.8 10^3/uL (0.0-1.0) 08/19/20 05:49 Eosinophils # (Manual) 0.0 10^3/uL (0-0.7) 08/19/20 05:49 Basophils # (Manual) 0.0 10^3/uL (0-0.1) 08/19/20 05:49 Differential Comment MANUAL DIFFERENTIAL 08/19/20 05:49 WBC Morphology NORMAL APPEARANCE (NORMAL) 08/19/20 05:49 Platelet Estimate NORMAL (130-450,000) (NORMAL) 08/19/20 05:49 Platelet Morphology NORMAL APPEARANCE (NORMAL) 08/19/20 05:49 RBC Morph Micro Appear NORMAL APPEARANCE (NORMAL) 08/19/20 05:49 ESR 53 mm/Hr (0-15) H 08/18/20 23:01 Sodium 138 mmol/L (135-145) 08/25/20 04:52 Potassium 4.4 mmol/L (3.5-5.0) 08/25/20 04:52 Chloride 102 mmol/L (101-111) 08/25/20 04:52 Carbon Dioxide 27 mmol/L (21-32) 08/25/20 04:52 Anion Gap 9.0 (6-13) 08/25/20 04:52 BUN 12 mg/dL (6-20) 08/25/20 04:52 Creatinine 0.7 mg/dL (0.6-1.2) 08/25/20 04:52 Estimated GFR (MDRD) 133 (>89) 08/25/20 04:52 Glucose 104 mg/dL (70-100) H 08/25/20 04:52 Lactic Acid 0.9 mmol/L (0.5-2.2) 08/18/20 18:13 Calcium 8.9 mg/dL (8.5-10.3) 08/25/20 04:52 Phosphorus 3.9 mg/dL (2.5-4.6) 08/23/20 05:30 Magnesium 1.9 mg/dL (1.7-2.8) 08/23/20 05:30 Iron 10 ug/dL (45-182) L 08/19/20 05:30 TIBC 364 ug/dL (250-450) 08/19/20 05:30 % Saturation 3 % (20-50) L 08/19/20 05:30 Transferrin 260 mg/dL (180-329) 08/19/20 05:30 Ferritin 99.5 ng/mL (23.9-336.2) 08/19/20 05:49 Total Bilirubin 1.5 mg/dL (0.2-1.0) H 08/18/20 18:13 AST 29 IU/L (10-42) 08/18/20 18:13 ALT 18 IU/L (10-60) 08/18/20 18:13 Alkaline Phosphatase 73 IU/L (42-121) 08/18/20 18:13 Total Creatine Kinase 356 IU/L (22-269) H 08/18/20 18:13 Troponin I High Sens 87.5 ng/L (2.3-19.7) H* 08/19/20 05:49 C-Reactive Protein 11.3 mg/dL (0-1.0) H 08/23/20 05:30 Total Protein 8.1 g/dL (6.7-8.2) 08/18/20 18:13 Albumin 3.5 g/dL (3.2-5.5) 08/18/20 18:13 Globulin 4.6 g/dL (2.1-4.2) H 08/18/20 18:13 Albumin/Globulin Ratio 0.8 (1.0-2.2) L 08/18/20 18:13 Lipase 21 U/L (22-51) L 08/18/20 18:13 Urine Color YELLOW 08/18/20 21:32 Urine Clarity CLEAR (CLEAR) 08/18/20 21:32 Urine pH 6.0 PH (5.0-7.5) 08/18/20 21:32 Ur Specific [place] >=1.030 (1.002-1.030) H 08/18/20 21:32 Urine Protein TRACE mg/dL (NEGATIVE) 08/18/20 21:32 Urine Glucose (UA) NEGATIVE mg/dL (NEGATIVE) 08/18/20 21:32 Urine Ketones 40 mg/dL (NEGATIVE) H 08/18/20 21:32 Urine Occult Blood LARGE (NEGATIVE) H 08/18/20 21:32 Urine Nitrite NEGATIVE (NEGATIVE) 08/18/20 21:32 Urine Bilirubin NEGATIVE (NEGATIVE) 08/18/20 21:32 Urine Urobilinogen 0.2 (NORMAL) E.U./dL (NORMAL) 08/18/20 21:32 Ur Leukocyte Esterase NEGATIVE (NEGATIVE) 08/18/20 21:32 Urine RBC 6-10 /HPF (0-5) H 08/18/20 21:32 Urine WBC 0-3 /HPF (0-3) 08/18/20 21:32 Ur Squamous Epith Cells RARE Squamous (<= Few) 08/18/20 21:32 Urine Bacteria Rare /HPF (None Seen) 08/18/20 21:32 Urine Mucus Few Strands 08/18/20 21:32 Urine Culture Comments NOT INDICATED 08/18/20 21:32 Nasal Adenovirus (PCR) NOT DETECTED 08/18/20 19:05 Nasal B. parapertussis DNA (PCR) NOT DETECTED 08/18/20 19:05 Nasal Coronavir 229E PCR NOT DETECTED 08/18/20 19:05 Nasal Coronavir HKU1 PCR NOT DETECTED 08/18/20 19:05 Nasal Coronavir NL63 PCR NOT DETECTED 08/18/20 19:05 Nasal Coronavir OC43 PCR NOT DETECTED 08/18/20 19:05 Nasal Enterovir/Rhinovir PCR NOT DETECTED 08/18/20 19:05 Nasal Influenza B PCR NOT DETECTED 08/18/20 19:05 Nasal Influenza A PCR NOT DETECTED 08/18/20 19:05 Nasal Parainfluen 1 PCR NOT DETECTED 08/18/20 19:05 Nasal Parainfluen 2 PCR NOT DETECTED 08/18/20 19:05 Nasal Parainfluen 3 PCR NOT DETECTED 08/18/20 19:05 Nasal Parainfluen 4 PCR NOT DETECTED 08/18/20 19:05 Nasal RSV (PCR) NOT DETECTED 08/18/20 19:05 Nasal Screen MRSA (PCR) POSITIVE (NEGATIVE) A* 08/19/20 06:12 Nasal B.pertussis DNA PCR NOT DETECTED 08/18/20 19:05 Nasal C.pneumoniae (PCR) NOT DETECTED 08/18/20 19:05 Yan Human Metapneumo PCR NOT DETECTED 08/18/20 19:05 Nasal M.pneumoniae (PCR) NOT DETECTED 08/18/20 19:05 Nasal SARS-CoV-2 (PCR) NOT DETECTED 08/18/20 19:05 Last Dose Date 08/24/20 08/24/20 13:11 Last Dose Time 81908/24/20 13:11 Vancomycin Trough 16.7 ug/mL (10.0-20.0) 08/24/20 13:11 Urine Opiates Screen POSITIVE (NEGATIVE) H 08/18/20 21:32 Ur Oxycodone Screen NEGATIVE (NEGATIVE) 08/18/20 21:32 Urine Methadone Screen NEGATIVE (NEGATIVE) 08/18/20 21:32 Ur Propoxyphene Screen NEGATIVE (NEGATIVE) 08/18/20 21:32 Ur Barbiturates Screen NEGATIVE (NEGATIVE) 08/18/20 21:32 Ur Tricyclics Screen NEGATIVE (NEGATIVE) 08/18/20 21:32 Ur Phencyclidine Scrn NEGATIVE (NEGATIVE) 08/18/20 21:32 Ur Amphetamine Screen POSITIVE (NEGATIVE) H 08/18/20 21:32 U Methamphetamines Scrn POSITIVE (NEGATIVE) H 08/18/20 21:32 U Benzodiazepines Scrn NEGATIVE (NEGATIVE) 08/18/20 21:32 Urine Cocaine Screen NEGATIVE (NEGATIVE) 08/18/20 21:32 U Cannabinoids Screen NEGATIVE (NEGATIVE) 08/18/20 21:32 - Procedures Procedures: Procedures EXCISION OF L HAND SUBCU/FASCIA, OPEN APPROACH (09/20/16) Sepsis Event Note (H) - Evaluation Current Stage of Sepsis: Sepsis Possible source of Sepsis: positive: Skin/soft tissue, Other (Suspect bacteremia and possible endocaraditis) - Sepsis Criteria Sepsis Criteria: Recorded Temperature greater than 38.3C or Less than 36C, Recorded Heart Rate greater than 90 bpm, WBC count greater than 12,000 or less than 4000 ABX Reporting Has patient been on IV antibiotics over the past 48 hours?: Yes
[2020-08-25] MEDS: ENOXAPARIN 40 MG/0.4 ML SYRINGE SUBQ SCH (08:49)
[2020-08-25] MEDS: ACETAMINOPHEN 325 MG TABLET PO PRN ×2 (08:50→16:02)
[2020-08-25] MEDS: oxyCODONE 5 MG TABLET PO PRN ×4 (08:50→23:51)
[2020-08-25] MEDS: LACTOBACILLUS RHAMNOSUS GG CAPSULE PO SCH (08:50)
[2020-08-25] MEDS: MULTIVITAMIN W/MINERALS TABLET PO SCH (08:50)
[2020-08-25] MEDS: DOCUSATE SODIUM 250 MG CAPSULE PO SCH (08:50)
[2020-08-25] MEDS: NICOTINE 14 MG PATCH TOP SCH (08:51)
[2020-08-25] MEDS: polyethylene glycoL 3350 17 GM PACKET PO SCH (08:51)
[2020-08-25] MEDS: SENNA 8.6 MG TABLET PO SCH (08:51)
[2020-08-25] MEDS: SODIUM CHLORIDE FLUSH 0.9% 10 ML SYRINGE IVP SCH ×3 (08:52→23:51)
[2020-08-26] MEDS: oxyCODONE 5 MG TABLET PO PRN ×4 (03:37→19:30)
[2020-08-26] MEDS: MORPHINE 2 MG/ML CARPUJECT IVP PRN ×2 (04:07→15:54)
[2020-08-26] MEDS: VANCOMYCIN INJ 1 GM, VANCOMYCIN INJ 500 MG in SODIUM CHLORIDE 0.9% 500 ML IV SCH ×3 (05:35→22:15)
[2020-08-26 05:42] LABS: BASOPHILS # (AUTO) 0.1 10^3/uL (0.0-0.1); BASOPHILS % (AUTO) 0.5 %; EOSINOPHILS # (AUTO) 0.3 10^3/uL (0.0-0.7); EOSINOPHILS % (AUTO) 2.7 %; HCT - HEMATOCRIT 35.5 % (42.0-52.0); HGB - HEMOGLOBIN 11.3 g/dL (14.0-18.0); LYMPHOCYTES % (AUTO) 18.7 %; MEAN CORPUSCULAR HEMOGLOBIN 23.3 pg (27.0-31.0); MEAN CORPUSCULAR HGB CONC 31.8 g/dL (32.0-36.0); MEAN CORPUSCULAR VOLUME 73.2 fL (80.0-94.0); MEAN PLATELET VOLUME 9.5 fL (7.4-11.4); MONOCYTES # (AUTO) 0.6 10^3/uL (0.0-1.0); MONOCYTES % (AUTO) 5.9 %; NEUTROPHILS # (AUTO) 7.7 10^3/uL (1.5-6.6); PLT - PLATELET COUNT 402 10^3/uL (130-450); RED BLOOD COUNT 4.85 10^6/uL (4.70-6.10); RED CELL DISTRIBUTION WIDTH 17.3 % (12.0-15.0); WHITE BLOOD COUNT 10.9 x10^3/uL (4.8-10.8)
[2020-08-26 05:55] LABS: CALCIUM 8.5 mg/dL (8.5-10.3); CREATININE 0.6 mg/dL (0.6-1.2)
--- NOTE | 2020-08-26 07:18 | PROVIDER PROGRESS NOTE ---
Assessment/Plan - Problem List (1) Bacteremia Assessment/Plan: Patient remains afebrile. White blood cell count 10.9. Blood cultures drawn 08/23/20 are no growth to date X2 days. Continue vancomycin. I spoke with infectious disease specialist through [facility] at who advised that the patient would need 2 weeks of antibiotics from 08/23/20 if the FAVIOLA is negative for vegetation and 6 week if positive I spoke with Dr. Wood (fruit harvest worker) at [place] who is agreeable to do a FAVIOLA on 08/30/20 at 10 am. Could not be done today because of transportation issues getting him the and time. (2) Cellulitis of left upper extremity Assessment/Plan: Patient remains afebrile. White blood cell count 10.9. Blood cultures drawn 08/23/20 are no growth to date X2 days. Continue vancomycin. I spoke with infectious disease specialist through [facility] at who advised that the patient would need 2 weeks of antibiotics from 08/23/20 if the FAVIOLA is negative for vegetation and 6 week if positive I spoke with Dr. Wood (fruit harvest worker) at [place] who is agreeable to do a FAVIOLA on 08/30/20 at 10 am. Could not be done today because of transportation issues getting him the and time. (3) Pneumonia Qualifiers: Pneumonia type: due to unspecified organism Laterality: right Lung location: middle lobe of lung Qualified Code(s): J18.9 - Pneumonia, unspe cified organism Assessment/Plan: Chest x-ray done today 08/26/20 showed increased right lower lobe opacification compatible with atelectasis versus pneumonia. As a result azithromycin 500 mg IV daily x3 days and Flagyl 500 mg IV 3 times daily ordered. (4) Illicit drug use, continuous Assessment/Plan: History of IV amphetamine and heroin use. Tox screen was positive. Patient with likely need inpatient IV antibiotic treatment for 2 or 6 weeks depending on FAVIOLA results. He is a high risk for outpatient IV antibiotics Once blood cultures are no growth for 2 days or more, will place PICC line for prolonged IV antibiotic administration. - Current Meds Current Meds: Current Medications Generic Name Dose Route Start Last Admin Trade Name Freq PRN Reason Stop Dose Admin Acetaminophen 650 mg 08/18/20 22:48 08/25/20 16:02 Acetaminophen 325 Mg Tablet PO 650 mg Q4HR PRN Administration Pain 1 to 4 Alteplase, Recombinant 2 mg 08/22/20 13:00 08/22/20 19:37 Alteplase 2 Mg Vial IC 2 mg BID PRN Administration LINE FLUSHING Docusate Sodium 250 - 500 mg 08/22/20 09:00 08/25/20 08:50 Docusate Sodium 250 Mg Capsule PO Not Given DAILY MICHA Enoxaparin Sodium 40 mg 08/19/20 09:00 08/25/20 08:49 Enoxaparin 40 Mg/0.4 Ml Syringe SUBQ Not Given DAILY MICHA Vancomycin HCl 1 gm/ 500 mls @ 250 mls/hr 08/23/20 14:00 08/26/20 05:35 Vancomycin HCl 500 mg/ Sodium IV 250 mls/hr Chloride Q8H MICHA Administration Lactobacillus Rhamnosus 1 cap 08/23/20 09:00 08/25/20 08:50 Lactobacillus Rhamnosus Gg Capsule PO 1 cap DAILY MICHA Administration Morphine Sulfate 2 mg 08/18/20 22:48 08/26/20 04:07 Morphine 2 Mg/Ml Carpuject IVP 2 mg Q2HR PRN Administration Pain 8 to 10 Multivitamins/Minerals 1 tab 08/22/20 14:00 08/25/20 08:50 Multivitamin W/Minerals Tablet [facility] Nicotine 1 patch 08/19/20 20:18 08/25/20 08:51 Nicotine 14 Mg Patch TOP 1 patch DAILY MICHA Administration Ondansetron HCl 4 mg 08/18/20 22:48 08/20/20 01:51 Ondansetron Odt 4 Mg Tablet TL 4 mg Q6HR PRN Administration Nausea / Vomiting Ondansetron HCl 4 mg 08/18/20 22:48 08/19/20 08:38 Ondansetron 4 Mg/2 Ml Vial IVP 4 mg Q6HR PRN Administration Nausea / Vomiting Oxycodone HCl 5 mg 08/18/20 22:48 08/26/20 03:37 Oxycodone 5 Mg Tablet PO 5 mg Q4HR PRN Administration Pain 5 to 7 Polyethylene Glycol 17 gm 08/21/20 17:00 08/25/20 08:51 Polyethylene Glycol 3350 17 Gm Packet PO Not Given DAILY MICHA Senna 8.6 - 17.2 mg 08/22/20 09:00 08/25/20 08:51 Senna 8.6 Mg Tablet PO Not Given DAILY MICHA Sodium Chloride 10 ml 08/18/20 22:48 08/25/20 05:30 Sodium Chloride Flush 0.9% 10 Ml Syringe IVP 10 ml PRN PRN Administration NEEDED PER PROVIDER ORDERS Sodium Chloride 10 ml 08/19/20 01:00 08/25/20 23:51 Sodium Chloride Flush 0.9% 10 Ml Syringe IVP 10 ml 0100,0900,1700 MICHA Administration - Lab Result Fish Bone Diagrams: 08/26/20 04:57 08/26/20 04:57 - Additional Planning My Orders: My Active Orders 08/27/20 05:00 BMP - BASIC METABOLIC PANEL [CHEM] DAILYLAB CBC - COMP BLD CT W/AUTO DIFF [HEME] DAILYLAB 08/28/20 05:00 BMP - BASIC METABOLIC PANEL [CHEM] DAILYLAB CBC - COMP BLD CT W/AUTO DIFF [HEME] DAILYLAB Subjective - Subjective Patient Reports: Other (Patient complained of chest pain. Chest xray showed worsening right opacity. He is afebrile) Objective Vital Signs: Vital Signs - 24 hr 08/25/20 08/25/20 08/25/20 08:36 12:19 15:31 Temperature 36.5 C 36.2 C L 36.3 C L Heart Rate [ 79 86 78 Brachial] Respiratory 18 16 20 Rate Blood Pressure 118/59 L [Left Brachial artery] Blood Pressure 134/63 H 120/80 [Right Brachial artery] O2 Saturation 97 93 96 08/25/20 08/25/20 08/26/20 20:09 23:53 03:39 Temperature 36.6 C 36.6 C 36.5 C Heart Rate [ 81 74 82 Brachial] Respiratory 24 16 18 Rate Blood Pressure [Left Brachial artery] Blood Pressure 109/62 140/75 H 129/72 [Right Brachial artery] O2 Saturation 97 98 97 Oxygen O2 Source Room air I&O (Last 24 Hrs): Intake and Output Totals x24h 08/24/20 08/25/20 08/26/20 23:59 23:59 23:59 Intake Total 4138 3216.000 Output Total 2675 3075 500 Balance 1463 141.000 -500 General: Alert, Oriented x3, Mild distress, Moderate distress HEENT: PERRLA, EOMI Neck: Supple, No JVD Neuro: Alert, Non Focal, Oriented Times 3 Cardiovascular: Regular rate, No murmurs Respiratory: Rhonchi (right lower lobe), Other (chest wall tenderness/pain) Abdomen: Normal bowel sounds, Soft, No tenderness Extremities: No clubbing, No cyanosis, No edema, No tenderness/swelling Skin: No rashes, No breakdown - Results Results: Laboratory Results WBC 10.9 x10^3/uL (4.8-10.8) H 08/26/20 04:57 RBC 4.85 10^6/uL (4.70-6.10) 08/26/20 04:57 Hgb 11.3 g/dL (14.0-18.0) L 08/26/20 04:57 Hct 35.5 % (42.0-52.0) L 08/26/20 04:57 MCV 73.2 fL (80.0-94.0) L 08/26/20 04:57 MCH 23.3 pg (27.0-31.0) L 08/26/20 04:57 MCHC 31.8 g/dL (32.0-36.0) L 08/26/20 04:57 RDW 17.3 % (12.0-15.0) H 08/26/20 04:57 Plt Count 402 10^3/uL (130-450) 08/26/20 04:57 MPV 9.5 fL (7.4-11.4) 08/26/20 04:57 Neut # (Auto) 7.7 10^3/uL (1.5-6.6) H 08/26/20 04:57 Lymph # (Auto) 2.0 10^3/uL (1.5-3.5) 08/26/20 04:57 [place] # (Auto) 0.6 10^3/uL (0.0-1.0) 08/26/20 04:57 Eos # (Auto) 0.3 10^3/uL (0.0-0.7) 08/26/20 04:57 Baso # (Auto) 0.1 10^3/uL (0.0-0.1) 08/26/20 04:57 Absolute Nucleated RBC 0.00 x10^3/uL 08/26/20 04:57 Total Counted 100 08/19/20 05:49 Band Neuts % (Manual) 6 % (0-10) 08/19/20 05:49 Abnorm Lymph % (Manual) 0 % 08/19/20 05:49 Nucleated RBC % 0.0 /100WBC 08/26/20 04:57 Neutrophils # (Manual) 13.4 10^3/uL (1.5-6.6) H 08/19/20 05:49 Lymphocytes # (Manual) 0.9 10^3/uL (1.5-3.5) L 08/19/20 05:49 Monocytes # (Manual) 0.8 10^3/uL (0.0-1.0) 08/19/20 05:49 Eosinophils # (Manual) 0.0 10^3/uL (0-0.7) 08/19/20 05:49 Basophils # (Manual) 0.0 10^3/uL (0-0.1) 08/19/20 05:49 Differential Comment MANUAL DIFFERENTIAL 08/19/20 05:49 WBC Morphology NORMAL APPEARANCE (NORMAL) 08/19/20 05:49 Platelet Estimate NORMAL (130-450,000) (NORMAL) 08/19/20 05:49 Platelet Morphology NORMAL APPEARANCE (NORMAL) 08/19/20 05:49 RBC Morph Micro Appear NORMAL APPEARANCE (NORMAL) 08/19/20 05:49 ESR 53 mm/Hr (0-15) H 08/18/20 23:01 Sodium 135 mmol/L (135-145) 08/26/20 04:57 Potassium 4.0 mmol/L (3.5-5.0) 08/26/20 04:57 Chloride 99 mmol/L (101-111) L 08/26/20 04:57 Carbon Dioxide 25 mmol/L (21-32) 08/26/20 04:57 Anion Gap 11.0 (6-13) 08/26/20 04:57 BUN 11 mg/dL (6-20) 08/26/20 04:57 Creatinine 0.6 mg/dL (0.6-1.2) 08/26/20 04:57 Estimated GFR (MDRD) 159 (>89) 08/26/20 04:57 Glucose 113 mg/dL (70-100) H 08/26/20 04:57 Lactic Acid 0.9 mmol/L (0.5-2.2) 08/18/20 18:13 Calcium 8.5 mg/dL (8.5-10.3) 08/26/20 04:57 Phosphorus 3.9 mg/dL (2.5-4.6) 08/23/20 05:30 Magnesium 1.9 mg/dL (1.7-2.8) 08/23/20 05:30 Iron 10 ug/dL (45-182) L 08/19/20 05:30 TIBC 364 ug/dL (250-450) 08/19/20 05:30 % Saturation 3 % (20-50) L 08/19/20 05:30 Transferrin 260 mg/dL (180-329) 08/19/20 05:30 Ferritin 99.5 ng/mL (23.9-336.2) 08/19/20 05:49 Total Bilirubin 1.5 mg/dL (0.2-1.0) H 08/18/20 18:13 AST 29 IU/L (10-42) 08/18/20 18:13 ALT 18 IU/L (10-60) 08/18/20 18:13 Alkaline Phosphatase 73 IU/L (42-121) 08/18/20 18:13 Total Creatine Kinase 356 IU/L (22-269) H 08/18/20 18:13 Troponin I High Sens 87.5 ng/L (2.3-19.7) H* 08/19/20 05:49 C-Reactive Protein 11.3 mg/dL (0-1.0) H 08/23/20 05:30 Total Protein 8.1 g/dL (6.7-8.2) 08/18/20 18:13 Albumin 3.5 g/dL (3.2-5.5) 08/18/20 18:13 Globulin 4.6 g/dL (2.1-4.2) H 08/18/20 18:13 Albumin/Globulin Ratio 0.8 (1.0-2.2) L 08/18/20 18:13 Lipase 21 U/L (22-51) L 08/18/20 18:13 Urine Color YELLOW 08/18/20 21:32 Urine Clarity CLEAR (CLEAR) 08/18/20 21:32 Urine pH 6.0 PH (5.0-7.5) 08/18/20 21:32 Ur Specific [place] >=1.030 (1.002-1.030) H 08/18/20 21:32 Urine Protein TRACE mg/dL (NEGATIVE) 08/18/20 21:32 Urine Glucose (UA) NEGATIVE mg/dL (NEGATIVE) 08/18/20 21:32 Urine Ketones 40 mg/dL (NEGATIVE) H 08/18/20 21:32 Urine Occult Blood LARGE (NEGATIVE) H 08/18/20 21:32 Urine Nitrite NEGATIVE (NEGATIVE) 08/18/20 21:32 Urine Bilirubin NEGATIVE (NEGATIVE) 08/18/20 21:32 Urine Urobilinogen 0.2 (NORMAL) E.U./dL (NORMAL) 08/18/20 21:32 Ur Leukocyte Esterase NEGATIVE (NEGATIVE) 08/18/20 21:32 Urine RBC 6-10 /HPF (0-5) H 08/18/20 21:32 Urine WBC 0-3 /HPF (0-3) 08/18/20 21:32 Ur Squamous Epith Cells RARE Squamous (<= Few) 08/18/20 21:32 Urine Bacteria Rare /HPF (None Seen) 08/18/20 21:32 Urine Mucus Few Strands 08/18/20 21:32 Urine Culture Comments NOT INDICATED 08/18/20 21:32 Nasal Adenovirus (PCR) NOT DETECTED 08/18/20 19:05 Nasal B. parapertussis DNA (PCR) NOT DETECTED 08/18/20 19:05 Nasal Coronavir 229E PCR NOT DETECTED 08/18/20 19:05 Nasal Coronavir HKU1 PCR NOT DETECTED 08/18/20 19:05 Nasal Coronavir NL63 PCR NOT DETECTED 08/18/20 19:05 Nasal Coronavir OC43 PCR NOT DETECTED 08/18/20 19:05 Nasal Enterovir/Rhinovir PCR NOT DETECTED 08/18/20 19:05 Nasal Influenza B PCR NOT DETECTED 08/18/20 19:05 Nasal Influenza A PCR NOT DETECTED 08/18/20 19:05 Nasal Parainfluen 1 PCR NOT DETECTED 08/18/20 19:05 Nasal Parainfluen 2 PCR NOT DETECTED 08/18/20 19:05 Nasal Parainfluen 3 PCR NOT DETECTED 08/18/20 19:05 Nasal Parainfluen 4 PCR NOT DETECTED 08/18/20 19:05 Nasal RSV (PCR) NOT DETECTED 08/18/20 19:05 Nasal Screen MRSA (PCR) POSITIVE (NEGATIVE) A* 08/19/20 06:12 Nasal B.pertussis DNA PCR NOT DETECTED 08/18/20 19:05 Nasal C.pneumoniae (PCR) NOT DETECTED 08/18/20 19:05 Yan Human Metapneumo PCR NOT DETECTED 08/18/20 19:05 Nasal M.pneumoniae (PCR) NOT DETECTED 08/18/20 19:05 Nasal SARS-CoV-2 (PCR) NOT DETECTED 08/18/20 19:05 Last Dose Date 08/24/20 08/24/20 13:11 Last Dose Time 81908/24/20 13:11 Vancomycin Trough 16.7 ug/mL (10.0-20.0) 08/24/20 13:11 Urine Opiates Screen POSITIVE (NEGATIVE) H 08/18/20 21:32 Ur Oxycodone Screen NEGATIVE (NEGATIVE) 08/18/20 21:32 Urine Methadone Screen NEGATIVE (NEGATIVE) 08/18/20 21:32 Ur Propoxyphene Screen NEGATIVE (NEGATIVE) 08/18/20 21:32 Ur Barbiturates Screen NEGATIVE (NEGATIVE) 08/18/20 21:32 Ur Tricyclics Screen NEGATIVE (NEGATIVE) 08/18/20 21:32 Ur Phencyclidine Scrn NEGATIVE (NEGATIVE) 08/18/20 21:32 Ur Amphetamine Screen POSITIVE (NEGATIVE) H 08/18/20 21:32 U Methamphetamines Scrn POSITIVE (NEGATIVE) H 08/18/20 21:32 U Benzodiazepines Scrn NEGATIVE (NEGATIVE) 08/18/20 21:32 Urine Cocaine Screen NEGATIVE (NEGATIVE) 08/18/20 21:32 U Cannabinoids Screen NEGATIVE (NEGATIVE) 08/18/20 21:32 - Procedures Procedures: Procedures EXCISION OF L HAND SUBCU/FASCIA, OPEN APPROACH (09/20/16) Sepsis Event Note (H) - Evaluation Current Stage of Sepsis: Sepsis Possible source of Sepsis: positive: Skin/soft tissue, Other (Suspect bacteremia and possible endocaraditis) - Sepsis Criteria Sepsis Criteria: Recorded Temperature greater than 38.3C or Less than 36C, Recorded Heart Rate greater than 90 bpm, WBC count greater than 12,000 or less than 4000 ABX Reporting Has patient been on IV antibiotics over the past 48 hours?: Yes
[2020-08-26] MEDS: MULTIVITAMIN W/MINERALS TABLET PO SCH (07:57)
[2020-08-26] MEDS: NICOTINE 14 MG PATCH TOP SCH (08:00)
[2020-08-26] MEDS: SODIUM CHLORIDE FLUSH 0.9% 10 ML SYRINGE IVP SCH ×2 (08:00→15:55)
[2020-08-26] MEDS: LACTOBACILLUS RHAMNOSUS GG CAPSULE PO SCH (08:00)
[2020-08-26] MEDS: polyethylene glycoL 3350 17 GM PACKET PO SCH (08:01)
[2020-08-26] MEDS: ENOXAPARIN 40 MG/0.4 ML SYRINGE SUBQ SCH (08:01)
[2020-08-26] MEDS: DOCUSATE SODIUM 250 MG CAPSULE PO SCH (08:01)
[2020-08-26] MEDS: SENNA 8.6 MG TABLET PO SCH (08:01)
--- NOTE | 2020-08-26 11:24 | XRAY Report ---
PROCEDURE: Chest 1 View X-Ray INDICATIONS: rhonchi. worse on RLL. chest pain TECHNIQUE: One view of the chest was acquired. COMPARISON: 08/18/2020 FINDINGS: Surgical changes and devices: None. Lungs and pleura: No pleural effusions or pneumothorax. Increased desiccation right lung base which could represent atelectasis or pneumonia. Mediastinum: Mediastinal contours appear normal. Heart size is normal. Bones and chest wall: No suspicious bony lesions. Overlying soft tissues appear unremarkable. IMPRESSION: Increased right lower lobe opacification compatible with atelectasis versus pneumonia. Reviewed by: Mendy Evans MD, PhD on 08/26/2020 11:23 AM PDT Approved by: Mendy Evans MD, PhD on 08/26/2020 11:23 AM PDT Station ID: [id number]
[2020-08-26 12:26] LABS: B. PARAPERTUSSIS- RESP PCR PAN NOT DETECTED; B. PERTUSSIS- RESP PCR PANEL NOT DETECTED; C. PNEUMONIAE- RESP PCR PANEL NOT DETECTED; CORONAVIRUS 229E-RESP PCR NOT DETECTED; CORONAVIRUS HKU1-RESP PCR NOT DETECTED; CORONAVIRUS NL63-RESP PCR NOT DETECTED; CORONAVIRUS OC43-RESP PCR NOT DETECTED; HUMAN METAPNEUMOVIRUS NOT DETECTED; INFLUENZA A- RESP PCR PANEL NOT DETECTED; INFLUENZA B - RESP PCR PANEL NOT DETECTED; M. PNEUMONIAE- RESP PCR PANEL NOT DETECTED; PARAINFLUENZA VIRUS 1 NOT DETECTED; PARAINFLUENZA VIRUS 2 NOT DETECTED; PARAINFLUENZA VIRUS 3 NOT DETECTED; PARAINFLUENZA VIRUS 4 NOT DETECTED; RHINOVIRUS/ENTEROVIRUS NOT DETECTED; RSV- RESP PCR PANEL NOT DETECTED; SARS-CoV-2 -RESP PCR PANEL NOT DETECTED
[2020-08-26] MEDS: metroNIDAZOLE 500 MG/100 ML 500 MG/100 ML BAG IV SCH (13:50)
[2020-08-27] MEDS: MORPHINE 2 MG/ML CARPUJECT IVP PRN ×3 (00:35→19:10)
[2020-08-27] MEDS: metroNIDAZOLE 500 MG/100 ML 500 MG/100 ML BAG IV SCH ×3 (00:40→16:57)
[2020-08-27] MEDS: SODIUM CHLORIDE FLUSH 0.9% 10 ML SYRINGE IVP SCH ×3 (02:04→16:57)
[2020-08-27] MEDS: oxyCODONE 5 MG TABLET PO PRN ×3 (04:28→20:51)
[2020-08-27 05:27] LABS: BASOPHILS # (AUTO) 0.1 10^3/uL (0.0-0.1); BASOPHILS % (AUTO) 0.5 %; EOSINOPHILS # (AUTO) 0.2 10^3/uL (0.0-0.7); EOSINOPHILS % (AUTO) 1.5 %; HCT - HEMATOCRIT 36.9 % (42.0-52.0); HGB - HEMOGLOBIN 11.9 g/dL (14.0-18.0); LYMPHOCYTES # (AUTO) 1.9 10^3/uL (1.5-3.5); LYMPHOCYTES % (AUTO) 19.1 %; MEAN CORPUSCULAR HEMOGLOBIN 23.6 pg (27.0-31.0); MEAN CORPUSCULAR HGB CONC 32.2 g/dL (32.0-36.0); MEAN CORPUSCULAR VOLUME 73.2 fL (80.0-94.0); MONOCYTES # (AUTO) 0.6 10^3/uL (0.0-1.0); MONOCYTES % (AUTO) 6.4 %; NEUTROPHILS % (AUTO) 71.3 %; PLT - PLATELET COUNT 428 10^3/uL (130-450); RED BLOOD COUNT 5.04 10^6/uL (4.70-6.10); RED CELL DISTRIBUTION WIDTH 17.6 % (12.0-15.0); WHITE BLOOD COUNT 9.8 x10^3/uL (4.8-10.8)
[2020-08-27 05:38] LABS: CREATININE 0.6 mg/dL (0.6-1.2); POTASSIUM 4.2 mmol/L (3.5-5.0)
--- NOTE | 2020-08-27 08:03 | PROVIDER PROGRESS NOTE ---
Assessment/Plan - Problem List (1) Bacteremia Assessment/Plan: Patient remains afebrile. White blood cell count 9.8 Blood cultures drawn 08/23/20 are no growth to date X2 days. Continue vancomycin. I spoke with infectious disease specialist through [facility] at who advised that the patient would need 2 weeks of antibiotics from 08/23/20 if the FAVIOLA is negative for vegetation and 6 week if positive I spoke with Dr. Wood (grease refining supervisor) at [place] who is agreeable to do a FAVIOLA on 08/30/20 at 10 am. (2) Cellulitis of left upper extremity Assessment/Plan: Patient remains afebrile. White blood cell count 9.8 Blood cultures drawn 08/23/20 are no growth to date X2 days. Continue vancomycin. I spoke with infectious disease specialist through [facility] at who advised that the patient would need 2 weeks of antibiotics from 08/23/20 if the FAVIOLA is negative for vegetation and 6 week if positive I spoke with Dr. Wood (grease refining supervisor) at [place] who is agreeable to do a FAVIOLA on 08/30/20 at 10 am. (3) Pneumonia Qualifiers: Pneumonia type: due to unspecified organism Laterality: right Lung location: middle lobe of lung Qualified Code(s): J18.9 - Pneumonia, unspecified organism Assessment/Plan: Chest x-ray done today 08/26/20 showed increased right lower lobe opacification compatible with atelectasis versus pneumonia. As a result azithromycin 500 mg IV daily x3 days and Flagyl 500 mg IV 3 times daily ordered. Will d/c on 08/28/20 (4) Illicit drug use, continuous Assessment/Plan: Assessment/Plan: History of IV amphetamine and heroin use. Tox screen was positive. Patient with likely need inpatient IV antibiotic treatment for 2 or 6 weeks depending on FAVIOLA results. He is a high risk for outpatient IV antibiotics - Current Meds Current Meds: Current Medications Generic Name Dose Route Start Last Admin Trade Name Freq PRN Reason Stop Dose Admin Acetaminophen 650 mg 08/18/20 22:48 08/25/20 16:02 Acetaminophen 325 Mg Tablet PO 650 mg Q4HR PRN Administration Pain 1 to 4 Alteplase, Recombinant 2 mg 08/22/20 13:00 08/22/20 19:37 Alteplase 2 Mg Vial IC 2 mg BID PRN Administration LINE FLUSHING Docusate Sodium 250 - 500 mg 08/22/20 09:00 08/26/20 08:01 Docusate Sodium 250 Mg Capsule PO Not Given DAILY [facility] Enoxaparin Sodium 40 mg 08/19/20 09:00 08/26/20 08:01 Enoxaparin 40 Mg/0.4 Ml Syringe SUBQ Not Given DAILY MICHA Vancomycin HCl 1 gm/ 500 mls @ 250 mls/hr 08/23/20 14:00 08/27/20 00:15 Vancomycin HCl 500 mg/ Sodium IV Infused Chloride Q8H MICHA Infusion Metronidazole 500 mg in 100 mls @ 100 mls/hr 08/26/20 14:00 08/27/20 01:40 Flagyl 500 Mg/100 Ml IV Infused Q8H MICHA Infusion Lactobacillus Rhamnosus 1 cap 08/23/20 09:00 08/26/20 08:00 Lactobacillus Rhamnosus Gg Capsule PO 1 cap DAILY MICHA Administration Morphine Sulfate 2 mg 08/18/20 22:48 08/27/20 00:35 Morphine 2 Mg/Ml Carpuject IVP 2 mg Q2HR PRN Administration Pain 8 to 10 Multivitamins/Minerals 1 tab 08/22/20 14:00 08/26/20 07:57 Multivitamin W/Minerals Tablet PO 1 tab DAILYWM MICHA Administration Nicotine 1 patch 08/19/20 20:18 08/26/20 08:00 Nicotine 14 Mg Patch TOP 1 patch DAILY MICHA Administration Ondansetron HCl 4 mg 08/18/20 22:48 08/20/20 01:51 Ondansetron Odt 4 Mg Tablet TL 4 mg Q6HR PRN Administration Nausea / Vomiting Ondansetron HCl 4 mg 08/18/20 22:48 08/19/20 08:38 Ondansetron 4 Mg/2 Ml Vial IVP 4 mg Q6HR PRN Administration Nausea / Vomiting Oxycodone HCl 5 mg 08/18/20 22:48 08/27/20 04:28 Oxycodone 5 Mg Tablet PO 5 mg Q4HR PRN Administration Pain 5 to 7 Polyethylene Glycol 17 gm 08/21/20 17:00 08/26/20 08:01 Polyethylene Glycol 3350 17 Gm Packet PO Not Given DAILY MICHA Senna 8.6 - 17.2 mg 08/22/20 09:00 08/26/20 08:01 Senna 8.6 Mg Tablet PO Not Given DAILY MICHA Sodium Chloride 10 ml 08/18/20 22:48 08/25/20 05:30 Sodium Chloride Flush 0.9% 10 Ml Syringe IVP 10 ml PRN PRN Administration NEEDED PER PROVIDER ORDERS Sodium Chloride 10 ml 08/19/20 01:00 08/27/20 02:04 Sodium Chloride Flush 0.9% 10 Ml Syringe IVP 10 ml 0100,0900,1700 MICHA Administration - Lab Result Fish Bone Diagrams: 08/27/20 05:15 08/27/20 05:15 - Additional Planning My Orders: My Active Orders 08/26/20 14:00 metroNIDAZOLE 500 MG/100 ML [Flagyl 500 mg/100 ml] 500 mg in 100 ml IV Q8H 08/27/20 09:00 Azithromycin Inj [Zithromax Inj] 500 mg Sodium Chloride 0.9% [Normal Saline 0.9%] 250 ml IV DAILY 08/28/20 05:00 BMP - BASIC METABOLIC PANEL [CHEM] DAILYLAB CBC - COMP BLD CT W/AUTO DIFF [HEME] DAILYLAB Subjective - Subjective Patient Reports: Other (Patient resting comfortably in bed. He denies any new complaints.) Objective Vital Signs: Vital Signs - 24 hr 08/26/20 08/26/20 08/26/20 11:26 15:46 21:00 Temperature 36.4 C L 36.8 C 36.8 C Heart Rate [ 90 72 125 H Brachial] Respiratory 20 18 18 Rate Blood Pressure 122/46 L 115/71 131/81 H [Right Brachial artery] O2 Saturation 96 97 96 08/27/20 08/27/20 08/27/20 00:44 00:45 04:48 Temperature 36.7 C 36.6 C Heart Rate [ 82 76 Brachial] Respiratory 18 24 Rate Blood Pressure 142/78 H 136/74 H [Right Brachial artery] O2 Saturation 98 98 Oxygen O2 Source Room air I&O (Last 24 Hrs): Intake and Output Totals x24h 08/25/20 08/26/20 08/27/20 23:59 23:59 23:59 Intake Total 3216.000 2190 600 Output Total 3075 3500 900 Balance 141.000 -1310 -300 General: Alert, Oriented x3, No acute distress HEENT: PERRLA, EOMI Neck: Supple, No JVD Neuro: Alert, Non Focal, Oriented Times 3 Cardiovascular: Regular rate, Normal S1, Normal S2 Respiratory: No respiratory distress, Breath sounds nml Abdomen: Normal bowel sounds, Soft, No tenderness, No masses Extremities: No clubbing, No edema, No tenderness/swelling Skin: No rashes - Results Results: Laboratory Results WBC 9.8 x10^3/uL (4.8-10.8) 08/27/20 05:15 RBC 5.04 10^6/uL (4.70-6.10) 08/27/20 05:15 Hgb 11.9 g/dL (14.0-18.0) L 08/27/20 05:15 Hct 36.9 % (42.0-52.0) L 08/27/20 05:15 MCV 73.2 fL (80.0-94.0) L 08/27/20 05:15 MCH 23.6 pg (27.0-31.0) L 08/27/20 05:15 MCHC 32.2 g/dL (32.0-36.0) 08/27/20 05:15 RDW 17.6 % (12.0-15.0) H 08/27/20 05:15 Plt Count 428 10^3/uL (130-450) 08/27/20 05:15 MPV 9.0 fL (7.4-11.4) 08/27/20 05:15 Neut # (Auto) 7.0 10^3/uL (1.5-6.6) H 08/27/20 05:15 Lymph # (Auto) 1.9 10^3/uL (1.5-3.5) 08/27/20 05:15 [place] # (Auto) 0.6 10^3/uL (0.0-1.0) 08/27/20 05:15 Eos # (Auto) 0.2 10^3/uL (0.0-0.7) 08/27/20 05:15 Baso # (Auto) 0.1 10^3/uL (0.0-0.1) 08/27/20 05:15 Absolute Nucleated RBC 0.00 x10^3/uL 08/27/20 05:15 Total Counted 100 08/19/20 05:49 Band Neuts % (Manual) 6 % (0-10) 08/19/20 05:49 Abnorm Lymph % (Manual) 0 % 08/19/20 05:49 Nucleated RBC % 0.0 /100WBC 08/27/20 05:15 Neutrophils # (Manual) 13.4 10^3/uL (1.5-6.6) H 08/19/20 05:49 Lymphocytes # (Manual) 0.9 10^3/uL (1.5-3.5) L 08/19/20 05:49 Monocytes # (Manual) 0.8 10^3/uL (0.0-1.0) 08/19/20 05:49 Eosinophils # (Manual) 0.0 10^3/uL (0-0.7) 08/19/20 05:49 Basophils # (Manual) 0.0 10^3/uL (0-0.1) 08/19/20 05:49 Differential Comment MANUAL DIFFERENTIAL 08/19/20 05:49 WBC Morphology NORMAL APPEARANCE (NORMAL) 08/19/20 05:49 Platelet Estimate NORMAL (130-450,000) (NORMAL) 08/19/20 05:49 Platelet Morphology NORMAL APPEARANCE (NORMAL) 08/19/20 05:49 RBC Morph Micro Appear NORMAL APPEARANCE (NORMAL) 08/19/20 05:49 ESR 53 mm/Hr (0-15) H 08/18/20 23:01 Sodium 139 mmol/L (135-145) 08/27/20 05:15 Potassium 4.2 mmol/L (3.5-5.0) 08/27/20 05:15 Chloride 104 mmol/L (101-111) 08/27/20 05:15 Carbon Dioxide 26 mmol/L (21-32) 08/27/20 05:15 Anion Gap 9.0 (6-13) 08/27/20 05:15 BUN 11 mg/dL (6-20) 08/27/20 05:15 Creatinine 0.6 mg/dL (0.6-1.2) 08/27/20 05:15 Estimated GFR (MDRD) 159 (>89) 08/27/20 05:15 Glucose 107 mg/dL (70-100) H 08/27/20 05:15 Lactic Acid 0.9 mmol/L (0.5-2.2) 08/18/20 18:13 Calcium 9.0 mg/dL (8.5-10.3) 08/27/20 05:15 Phosphorus 3.9 mg/dL (2.5-4.6) 08/23/20 05:30 Magnesium 1.9 mg/dL (1.7-2.8) 08/23/20 05:30 Iron 10 ug/dL (45-182) L 08/19/20 05:30 TIBC 364 ug/dL (250-450) 08/19/20 05:30 % Saturation 3 % (20-50) L 08/19/20 05:30 Transferrin 260 mg/dL (180-329) 08/19/20 05:30 Ferritin 99.5 ng/mL (23.9-336.2) 08/19/20 05:49 Total Bilirubin 1.5 mg/dL (0.2-1.0) H 08/18/20 18:13 AST 29 IU/L (10-42) 08/18/20 18:13 ALT 18 IU/L (10-60) 08/18/20 18:13 Alkaline Phosphatase 73 IU/L (42-121) 08/18/20 18:13 Total Creatine Kinase 356 IU/L (22-269) H 08/18/20 18:13 Troponin I High Sens 87.5 ng/L (2.3-19.7) H* 08/19/20 05:49 C-Reactive Protein 11.3 mg/dL (0-1.0) H 08/23/20 05:30 Total Protein 8.1 g/dL (6.7-8.2) 08/18/20 18:13 Albumin 3.5 g/dL (3.2-5.5) 08/18/20 18:13 Globulin 4.6 g/dL (2.1-4.2) H 08/18/20 18:13 Albumin/Globulin Ratio 0.8 (1.0-2.2) L 08/18/20 18:13 Lipase 21 U/L (22-51) L 08/18/20 18:13 Urine Color YELLOW 08/18/20 21:32 Urine Clarity CLEAR (CLEAR) 08/18/20 21:32 Urine pH 6.0 PH (5.0-7.5) 08/18/20 21:32 Ur Specific [place] >=1.030 (1.002-1.030) H 08/18/20 21:32 Urine Protein TRACE mg/dL (NEGATIVE) 08/18/20 21:32 Urine Glucose (UA) NEGATIVE mg/dL (NEGATIVE) 08/18/20 21:32 Urine Ketones 40 mg/dL (NEGATIVE) H 08/18/20 21:32 Urine Occult Blood LARGE (NEGATIVE) H 08/18/20 21:32 Urine Nitrite NEGATIVE (NEGATIVE) 08/18/20 21:32 Urine Bilirubin NEGATIVE (NEGATIVE) 08/18/20 21:32 Urine Urobilinogen 0.2 (NORMAL) E.U./dL (NORMAL) 08/18/20 21:32 Ur Leukocyte Esterase NEGATIVE (NEGATIVE) 08/18/20 21:32 Urine RBC 6-10 /HPF (0-5) H 08/18/20 21:32 Urine WBC 0-3 /HPF (0-3) 08/18/20 21:32 Ur Squamous Epith Cells RARE Squamous (<= Few) 08/18/20 21:32 Urine Bacteria Rare /HPF (None Seen) 08/18/20 21:32 Urine Mucus Few Strands 08/18/20 21:32 Urine Culture Comments NOT INDICATED 08/18/20 21:32 Nasal Adenovirus (PCR) NOT DETECTED 08/26/20 11:17 Nasal B. parapertussis DNA (PCR) NOT DETECTED 08/26/20 11:17 Nasal Coronavir 229E PCR NOT DETECTED 08/26/20 11:17 Nasal Coronavir HKU1 PCR NOT DETECTED 08/26/20 11:17 Nasal Coronavir NL63 PCR NOT DETECTED 08/26/20 11:17 Nasal Coronavir OC43 PCR NOT DETECTED 08/26/20 11:17 Nasal Enterovir/Rhinovir PCR NOT DETECTED 08/26/20 11:17 Nasal Influenza B PCR NOT DETECTED 08/26/20 11:17 Nasal Influenza A PCR NOT DETECTED 08/26/20 11:17 Nasal Parainfluen 1 PCR NOT DETECTED 08/26/20 11:17 Nasal Parainfluen 2 PCR NOT DETECTED 08/26/20 11:17 Nasal Parainfluen 3 PCR NOT DETECTED 08/26/20 11:17 Nasal Parainfluen 4 PCR NOT DETECTED 08/26/20 11:17 Nasal RSV (PCR) NOT DETECTED 08/26/20 11:17 Nasal Screen MRSA (PCR) POSITIVE (NEGATIVE) A* 08/19/20 06:12 Nasal B.pertussis DNA PCR NOT DETECTED 08/26/20 11:17 Nasal C.pneumoniae (PCR) NOT DETECTED 08/26/20 11:17 Yan Human Metapneumo PCR NOT DETECTED 08/26/20 11:17 Nasal M.pneumoniae (PCR) NOT DETECTED 08/26/20 11:17 Nasal SARS-CoV-2 (PCR) NOT DETECTED 08/26/20 11:17 Last Dose Date 08/24/20 08/24/20 13:11 Last Dose Time 81908/24/20 13:11 Vancomycin Trough 16.7 ug/mL (10.0-20.0) 08/24/20 13:11 Urine Opiates Screen POSITIVE (NEGATIVE) H 08/18/20 21:32 Ur Oxycodone Screen NEGATIVE (NEGATIVE) 08/18/20 21:32 Urine Methadone Screen NEGATIVE (NEGATIVE) 08/18/20 21:32 Ur Propoxyphene Screen NEGATIVE (NEGATIVE) 08/18/20 21:32 Ur Barbiturates Screen NEGATIVE (NEGATIVE) 08/18/20 21:32 Ur Tricyclics Screen NEGATIVE (NEGATIVE) 08/18/20 21:32 Ur Phencyclidine Scrn NEGATIVE (NEGATIVE) 08/18/20 21:32 Ur Amphetamine Screen POSITIVE (NEGATIVE) H 08/18/20 21:32 U Methamphetamines Scrn POSITIVE (NEGATIVE) H 08/18/20 21:32 U Benzodiazepines Scrn NEGATIVE (NEGATIVE) 08/18/20 21:32 Urine Cocaine Screen NEGATIVE (NEGATIVE) 08/18/20 21:32 U Cannabinoids Screen NEGATIVE (NEGATIVE) 08/18/20 21:32 - Procedures Procedures: Procedures EXCISION OF L HAND SUBCU/FASCIA, OPEN APPROACH (09/20/16) Sepsis Event Note (H) - Evaluation Current Stage of Sepsis: Sepsis Possible source of Sepsis: positive: Skin/soft tissue, Other (Suspect bacteremia and possible endocaraditis) - Sepsis Criteria Sepsis Criteria: Recorded Temperature greater than 38.3C or Less than 36C, Recorded Heart Rate greater than 90 bpm, WBC count greater than 12,000 or less than 4000 ABX Reporting Has patient been on IV antibiotics over the past 48 hours?: Yes
[2020-08-27] MEDS: VANCOMYCIN INJ 1 GM, VANCOMYCIN INJ 500 MG in SODIUM CHLORIDE 0.9% 500 ML IV SCH ×3 (08:34→22:08)
[2020-08-27] MEDS: MULTIVITAMIN W/MINERALS TABLET PO SCH (09:32)
[2020-08-27] MEDS: ENOXAPARIN 40 MG/0.4 ML SYRINGE SUBQ SCH (09:32)
[2020-08-27] MEDS: DOCUSATE SODIUM 250 MG CAPSULE PO SCH (09:32)
[2020-08-27] MEDS: LACTOBACILLUS RHAMNOSUS GG CAPSULE PO SCH (09:32)
[2020-08-27] MEDS: ACETAMINOPHEN 325 MG TABLET PO PRN (09:32)
[2020-08-27] MEDS: SENNA 8.6 MG TABLET PO SCH (09:33)
[2020-08-27] MEDS: NICOTINE 14 MG PATCH TOP SCH (09:33)
[2020-08-27] MEDS: polyethylene glycoL 3350 17 GM PACKET PO SCH (09:33)
[2020-08-27] MEDS: AZITHROMYCIN INJ 500 MG in SODIUM CHLORIDE 0.9% 250 ML IV SCH (12:24)
[2020-08-27] MEDS: SODIUM CHLORIDE FLUSH 0.9% 10 ML SYRINGE IVP PRN (12:37)
[2020-08-27] MEDS ORDERED: ethyl alcohoL 62% SWAB AMPULE NAS ONE (12:37)
[2020-08-27] MEDS: ethyl alcohoL 62% SWAB AMPULE NAS SCH ×2 (12:39→22:08)
[2020-08-28] MEDS: MORPHINE 2 MG/ML CARPUJECT IVP PRN ×3 (00:13→21:50)
[2020-08-28] MEDS: SODIUM CHLORIDE FLUSH 0.9% 10 ML SYRINGE IVP SCH ×3 (00:14→17:12)
[2020-08-28] MEDS: metroNIDAZOLE 500 MG/100 ML 500 MG/100 ML BAG IV SCH ×3 (00:17→17:12)
[2020-08-28] MEDS: oxyCODONE 5 MG TABLET PO PRN ×4 (03:06→17:11)
[2020-08-28 04:51] LABS: BASOPHILS # (AUTO) 0.1 10^3/uL (0.0-0.1); BASOPHILS % (AUTO) 0.5 %; EOSINOPHILS # (AUTO) 0.2 10^3/uL (0.0-0.7); EOSINOPHILS % (AUTO) 1.6 %; HCT - HEMATOCRIT 35.2 % (42.0-52.0); HGB - HEMOGLOBIN 10.9 g/dL (14.0-18.0); LYMPHOCYTES # (AUTO) 1.9 10^3/uL (1.5-3.5); LYMPHOCYTES % (AUTO) 16.8 %; MEAN CORPUSCULAR HEMOGLOBIN 23.4 pg (27.0-31.0); MEAN CORPUSCULAR VOLUME 75.5 fL (80.0-94.0); MEAN PLATELET VOLUME 9.3 fL (7.4-11.4); MONOCYTES # (AUTO) 0.7 10^3/uL (0.0-1.0); MONOCYTES % (AUTO) 6.1 %; NEUTROPHILS # (AUTO) 8.2 10^3/uL (1.5-6.6); NEUTROPHILS % (AUTO) 73.8 %; PLT - PLATELET COUNT 426 10^3/uL (130-450); RED BLOOD COUNT 4.66 10^6/uL (4.70-6.10); RED CELL DISTRIBUTION WIDTH 17.9 % (12.0-15.0); WHITE BLOOD COUNT 11.1 x10^3/uL (4.8-10.8)
[2020-08-28 05:06] LABS: CALCIUM 8.8 mg/dL (8.5-10.3); CREATININE 0.6 mg/dL (0.6-1.2)
[2020-08-28] MEDS: VANCOMYCIN INJ 1 GM, VANCOMYCIN INJ 500 MG in SODIUM CHLORIDE 0.9% 500 ML IV SCH ×3 (05:27→21:50)
[2020-08-28] MEDS: SODIUM CHLORIDE FLUSH 0.9% 10 ML SYRINGE IVP PRN (06:02)
[2020-08-28] MEDS: MULTIVITAMIN W/MINERALS TABLET PO SCH (07:36)
--- NOTE | 2020-08-28 07:55 | PROVIDER PROGRESS NOTE ---
Assessment/Plan - Problem List (1) Bacteremia Assessment/Plan: Patient remains afebrile. White blood cell count 11.1 Blood cultures drawn 08/23/20 are no growth to date X2 days. Continue vancomycin. I spoke with infectious disease specialist through [facility] at who advised that the patient would need 2 weeks of antibiotics from 08/23/20 if the FAVIOLA is negative for vegetation and 6 week if positive I spoke with Dr. Wood (dross skimmer) at [place] who is agreeable to do a FAVIOLA on 08/30/20 at 10 am. (2) Cellulitis of left upper extremity Assessment/Plan: Patient remains afebrile. White blood cell count 11.1 Blood cultures drawn 08/23/20 are no growth to date X2 days. Continue vancomycin. I spoke with infectious disease specialist through [facility] at who advised that the patient would need 2 weeks of antibiotics from 08/23/20 if the FAVIOLA is negative for vegetation and 6 week if positive I spoke with Dr. Wood (dross skimmer) at [place] who is agreeable to do a FAVIOLA on 08/30/20 at 10 am. (3) Pneumonia Assessment/Plan: Chest x-ray done today 08/26/20 showed increased right lower lobe opacification compatible with atelectasis versus pneumonia. As a result azithromycin 500 mg IV daily x3 days and Flagyl 500 mg IV 3 times daily ordered. Will d/c on 08/28/20 (4) Illicit drug use, continuous Assessment/Plan: History of IV amphetamine and heroin use. Tox screen was positive. Patient with likely need inpatient IV antibiotic treatment for 2 or 6 weeks depending on FAVIOLA results. He is a high risk for outpatient IV antibiotics - Current Meds Current Meds: Current Medications Generic Name Dose Route Start Last Admin Trade Name Freq PRN Reason Stop Dose Admin Acetaminophen 650 mg 08/18/20 22:48 08/27/20 09:32 Acetaminophen 325 Mg Tablet PO 650 mg Q4HR PRN Administration Pain 1 to 4 Alcohol 1 amp 08/27/20 13:00 08/27/20 22:08 Ethyl Alcohol 62% Swab Ampule DONTRELL 1 amp BID MICHA Administration Alteplase, Recombinant 2 mg 08/22/20 13:00 08/22/20 19:37 Alteplase 2 Mg Vial IC 2 mg BID PRN Administration LINE FLUSHING Docusate Sodium 250 - 500 mg 08/22/20 09:00 08/27/20 09:32 Docusate Sodium 250 Mg Capsule PO Not Given DAILY MICHA Enoxaparin Sodium 40 mg 08/19/20 09:00 08/27/20 09:32 Enoxaparin 40 Mg/0.4 Ml Syringe SUBQ Not Given DAILY MICHA Vancomycin HCl 1 gm/ 500 mls @ 250 mls/hr 08/23/20 14:00 08/28/20 07:30 Vancomycin HCl 500 mg/ Sodium IV Infused Chloride Q8H MICHA Infusion Azithromycin 500 mg/ Sodium 250 mls @ 250 mls/hr 08/27/20 09:00 08/27/20 13:30 Chloride IV 08/29/20 09:59 Infused DAILY MICHA Infusion Metronidazole 500 mg in 100 mls @ 100 mls/hr 08/26/20 14:00 08/28/20 07:37 Flagyl 500 Mg/100 Ml IV 100 mls/hr Q8H MICHA Administration Lactobacillus Rhamnosus 1 cap 08/23/20 09:00 08/27/20 09:32 Lactobacillus Rhamnosus Gg Capsule PO 1 cap DAILY MICHA Administration Morphine Sulfate 2 mg 08/18/20 22:48 08/28/20 06:02 Morphine 2 Mg/Ml Carpuject IVP 2 mg Q2HR PRN Administration Pain 8 to 10 Multivitamins/Minerals 1 tab 08/22/20 14:00 08/28/20 07:36 Multivitamin W/Minerals Tablet PO 1 tab DAILYWM MICHA Administration Nicotine 1 patch 08/19/20 20:18 08/27/20 09:33 Nicotine 14 Mg Patch TOP 1 patch DAILY MICHA Administration Ondansetron HCl 4 mg 08/18/20 22:48 08/20/20 01:51 Ondansetron Odt 4 Mg Tablet TL 4 mg Q6HR PRN Administration Nausea / Vomiting Ondansetron HCl 4 mg 08/18/20 22:48 08/19/20 08:38 Ondansetron 4 Mg/2 Ml Vial IVP 4 mg Q6HR PRN Administration Nausea / Vomiting Oxycodone HCl 5 mg 08/18/20 22:48 08/28/20 03:06 Oxycodone 5 Mg Tablet PO 5 mg Q4HR PRN Administration Pain 5 to 7 Polyethylene Glycol 17 gm 08/21/20 17:00 08/27/20 09:33 Polyethylene Glycol 3350 17 Gm Packet PO Not Given DAILY MICHA Senna 8.6 - 17.2 mg 08/22/20 09:00 08/27/20 09:33 Senna 8.6 Mg Tablet PO Not Given DAILY MICHA Sodium Chloride 10 ml 08/18/20 22:48 08/28/20 06:02 Sodium Chloride Flush 0.9% 10 Ml Syringe IVP 10 ml PRN PRN Administration NEEDED PER PROVIDER ORDERS Sodium Chloride 10 ml 08/19/20 01:00 08/28/20 00:14 Sodium Chloride Flush 0.9% 10 Ml Syringe IVP 10 ml 0100,0900,1700 MICHA Administration - Lab Result Fish Bone Diagrams: 08/28/20 04:15 08/28/20 04:15 - Additional Planning My Orders: My Active Orders 08/27/20 09:00 Azithromycin Inj [Zithromax Inj] 500 mg Sodium Chloride 0.9% [Normal Saline 0.9%] 250 ml IV DAILY 08/27/20 13:00 ethyl alcohoL 62% swab [NoZin] 1 amp DONTRELL BID Subjective - Subjective Patient Reports: Other (He is resting comfortably in bed and denies any new complaints.) Objective Vital Signs: Vital Signs - 24 hr 08/27/20 08/27/20 08/27/20 08:29 12:09 16:53 Temperature 36.1 C L 37.5 C 36.5 C Heart Rate [ 83 79 89 Brachial] Respiratory 20 18 18 Rate Blood Pressure 151/73 H 134/64 H 138/63 H [Right Brachial artery] O2 Saturation 96 97 98 08/27/20 08/27/20 08/28/20 20:04 23:42 03:02 Temperature 36.8 C 36.7 C 36.7 C Heart Rate [ 97 73 75 Brachial] Respiratory 18 18 16 Rate Blood Pressure 139/70 H 115/68 144/62 H [Right Brachial artery] O2 Saturation 96 98 96 08/28/20 07:35 Temperature 37 C Heart Rate [ 75 Brachial] Respiratory 16 Rate Blood Pressure 136/65 H [Right Brachial artery] O2 Saturation 98 Oxygen O2 Source Room air I&O (Last 24 Hrs): Intake and Output Totals x24h 08/26/20 08/27/20 08/28/20 23:59 23:59 23:59 Intake Total 2190 3380 1100 Output Total 3500 3125 350 Balance -1310 255 750 General: Alert, Oriented x3, No acute distress HEENT: PERRLA, EOMI Neck: Supple, No JVD Neuro: Alert, Non Focal, Oriented Times 3 Cardiovascular: Regular rate, Normal S1, Normal S2 Respiratory: No respiratory distress, Breath sounds nml, Rales (faint/mild rales in right lower lung base), Other (Pleuritic pain) Abdomen: Normal bowel sounds, No tenderness, No masses Extremities: No clubbing, No edema Skin: No rashes - Results Results: Laboratory Results WBC 11.1 x10^3/uL (4.8-10.8) H 08/28/20 04:15 RBC 4.66 10^6/uL (4.70-6.10) L 08/28/20 04:15 Hgb 10.9 g/dL (14.0-18.0) L 08/28/20 04:15 Hct 35.2 % (42.0-52.0) L 08/28/20 04:15 MCV 75.5 fL (80.0-94.0) L 08/28/20 04:15 MCH 23.4 pg (27.0-31.0) L 08/28/20 04:15 MCHC 31.0 g/dL (32.0-36.0) L 08/28/20 04:15 RDW 17.9 % (12.0-15.0) H 08/28/20 04:15 Plt Count 426 10^3/uL (130-450) 08/28/20 04:15 MPV 9.3 fL (7.4-11.4) 08/28/20 04:15 Neut # (Auto) 8.2 10^3/uL (1.5-6.6) H 08/28/20 04:15 Lymph # (Auto) 1.9 10^3/uL (1.5-3.5) 08/28/20 04:15 [place] # (Auto) 0.7 10^3/uL (0.0-1.0) 08/28/20 04:15 Eos # (Auto) 0.2 10^3/uL (0.0-0.7) 08/28/20 04:15 Baso # (Auto) 0.1 10^3/uL (0.0-0.1) 08/28/20 04:15 Absolute Nucleated RBC 0.00 x10^3/uL 08/28/20 04:15 Total Counted 100 08/19/20 05:49 Band Neuts % (Manual) 6 % (0-10) 08/19/20 05:49 Abnorm Lymph % (Manual) 0 % 08/19/20 05:49 Nucleated RBC % 0.0 /100WBC 08/28/20 04:15 Neutrophils # (Manual) 13.4 10^3/uL (1.5-6.6) H 08/19/20 05:49 Lymphocytes # (Manual) 0.9 10^3/uL (1.5-3.5) L 08/19/20 05:49 Monocytes # (Manual) 0.8 10^3/uL (0.0-1.0) 08/19/20 05:49 Eosinophils # (Manual) 0.0 10^3/uL (0-0.7) 08/19/20 05:49 Basophils # (Manual) 0.0 10^3/uL (0-0.1) 08/19/20 05:49 Differential Comment MANUAL DIFFERENTIAL 08/19/20 05:49 WBC Morphology NORMAL APPEARANCE (NORMAL) 08/19/20 05:49 Platelet Estimate NORMAL (130-450,000) (NORMAL) 08/19/20 05:49 Platelet Morphology NORMAL APPEARANCE (NORMAL) 08/19/20 05:49 RBC Morph Micro Appear NORMAL APPEARANCE (NORMAL) 08/19/20 05:49 ESR 53 mm/Hr (0-15) H 08/18/20 23:01 Sodium 140 mmol/L (135-145) 08/28/20 04:15 Potassium 4.0 mmol/L (3.5-5.0) 08/28/20 04:15 Chloride 105 mmol/L (101-111) 08/28/20 04:15 Carbon Dioxide 26 mmol/L (21-32) 08/28/20 04:15 Anion Gap 9.0 (6-13) 08/28/20 04:15 BUN 10 mg/dL (6-20) 08/28/20 04:15 Creatinine 0.6 mg/dL (0.6-1.2) 08/28/20 04:15 Estimated GFR (MDRD) 159 (>89) 08/28/20 04:15 Glucose 89 mg/dL (70-100) 08/28/20 04:15 Lactic Acid 0.9 mmol/L (0.5-2.2) 08/18/20 18:13 Calcium 8.8 mg/dL (8.5-10.3) 08/28/20 04:15 Phosphorus 3.9 mg/dL (2.5-4.6) 08/23/20 05:30 Magnesium 1.9 mg/dL (1.7-2.8) 08/23/20 05:30 Iron 10 ug/dL (45-182) L 08/19/20 05:30 TIBC 364 ug/dL (250-450) 08/19/20 05:30 % Saturation 3 % (20-50) L 08/19/20 05:30 Transferrin 260 mg/dL (180-329) 08/19/20 05:30 Ferritin 99.5 ng/mL (23.9-336.2) 08/19/20 05:49 Total Bilirubin 1.5 mg/dL (0.2-1.0) H 08/18/20 18:13 AST 29 IU/L (10-42) 08/18/20 18:13 ALT 18 IU/L (10-60) 08/18/20 18:13 Alkaline Phosphatase 73 IU/L (42-121) 08/18/20 18:13 Total Creatine Kinase 356 IU/L (22-269) H 08/18/20 18:13 Troponin I High Sens 87.5 ng/L (2.3-19.7) H* 08/19/20 05:49 C-Reactive Protein 11.3 mg/dL (0-1.0) H 08/23/20 05:30 Total Protein 8.1 g/dL (6.7-8.2) 08/18/20 18:13 Albumin 3.5 g/dL (3.2-5.5) 08/18/20 18:13 Globulin 4.6 g/dL (2.1-4.2) H 08/18/20 18:13 Albumin/Globulin Ratio 0.8 (1.0-2.2) L 08/18/20 18:13 Lipase 21 U/L (22-51) L 08/18/20 18:13 Urine Color YELLOW 08/18/20 21:32 Urine Clarity CLEAR (CLEAR) 08/18/20 21:32 Urine pH 6.0 PH (5.0-7.5) 08/18/20 21:32 Ur Specific [place] >=1.030 (1.002-1.030) H 08/18/20 21:32 Urine Protein TRACE mg/dL (NEGATIVE) 08/18/20 21:32 Urine Glucose (UA) NEGATIVE mg/dL (NEGATIVE) 08/18/20 21:32 Urine Ketones 40 mg/dL (NEGATIVE) H 08/18/20 21:32 Urine Occult Blood LARGE (NEGATIVE) H 08/18/20 21:32 Urine Nitrite NEGATIVE (NEGATIVE) 08/18/20 21:32 Urine Bilirubin NEGATIVE (NEGATIVE) 08/18/20 21:32 Urine Urobilinogen 0.2 (NORMAL) E.U./dL (NORMAL) 08/18/20 21:32 Ur Leukocyte Esterase NEGATIVE (NEGATIVE) 08/18/20 21:32 Urine RBC 6-10 /HPF (0-5) H 08/18/20 21:32 Urine WBC 0-3 /HPF (0-3) 08/18/20 21:32 Ur Squamous Epith Cells RARE Squamous (<= Few) 08/18/20 21:32 Urine Bacteria Rare /HPF (None Seen) 08/18/20 21:32 Urine Mucus Few Strands 08/18/20 21:32 Urine Culture Comments NOT INDICATED 08/18/20 21:32 Nasal Adenovirus (PCR) NOT DETECTED 08/26/20 11:17 Nasal B. parapertussis DNA (PCR) NOT DETECTED 08/26/20 11:17 Nasal Coronavir 229E PCR NOT DETECTED 08/26/20 11:17 Nasal Coronavir HKU1 PCR NOT DETECTED 08/26/20 11:17 Nasal Coronavir NL63 PCR NOT DETECTED 08/26/20 11:17 Nasal Coronavir OC43 PCR NOT DETECTED 08/26/20 11:17 Nasal Enterovir/Rhinovir PCR NOT DETECTED 08/26/20 11:17 Nasal Influenza B PCR NOT DETECTED 08/26/20 11:17 Nasal Influenza A PCR NOT DETECTED 08/26/20 11:17 Nasal Parainfluen 1 PCR NOT DETECTED 08/26/20 11:17 Nasal Parainfluen 2 PCR NOT DETECTED 08/26/20 11:17 Nasal Parainfluen 3 PCR NOT DETECTED 08/26/20 11:17 Nasal Parainfluen 4 PCR NOT DETECTED 08/26/20 11:17 Nasal RSV (PCR) NOT DETECTED 08/26/20 11:17 Nasal Screen MRSA (PCR) POSITIVE (NEGATIVE) A* 08/19/20 06:12 Nasal B.pertussis DNA PCR NOT DETECTED 08/26/20 11:17 Nasal C.pneumoniae (PCR) NOT DETECTED 08/26/20 11:17 Dontrell Human Metapneumo PCR NOT DETECTED 08/26/20 11:17 Nasal M.pneumoniae (PCR) NOT DETECTED 08/26/20 11:17 Nasal SARS-CoV-2 (PCR) NOT DETECTED 08/26/20 11:17 Last Dose Date 08/24/20 08/24/20 13:11 Last Dose Time 81908/24/20 13:11 Vancomycin Trough 16.7 ug/mL (10.0-20.0) 08/24/20 13:11 Urine Opiates Screen POSITIVE (NEGATIVE) H 08/18/20 21:32 Ur Oxycodone Screen NEGATIVE (NEGATIVE) 08/18/20 21:32 Urine Methadone Screen NEGATIVE (NEGATIVE) 08/18/20 21:32 Ur Propoxyphene Screen NEGATIVE (NEGATIVE) 08/18/20 21:32 Ur Barbiturates Screen NEGATIVE (NEGATIVE) 08/18/20 21:32 Ur Tricyclics Screen NEGATIVE (NEGATIVE) 08/18/20 21:32 Ur Phencyclidine Scrn NEGATIVE (NEGATIVE) 08/18/20 21:32 Ur Amphetamine Screen POSITIVE (NEGATIVE) H 08/18/20 21:32 U Methamphetamines Scrn POSITIVE (NEGATIVE) H 08/18/20 21:32 U Benzodiazepines Scrn NEGATIVE (NEGATIVE) 08/18/20 21:32 Urine Cocaine Screen NEGATIVE (NEGATIVE) 08/18/20 21:32 U Cannabinoids Screen NEGATIVE (NEGATIVE) 08/18/20 21:32 - Procedures Procedures: Procedures EXCISION OF L HAND SUBCU/FASCIA, OPEN APPROACH (09/20/16) Sepsis Event Note (H) - Evaluation Current Stage of Sepsis: Sepsis Possible source of Sepsis: positive: Skin/soft tissue, Other (Suspect bacteremia and possible endocaraditis) - Sepsis Criteria Sepsis Criteria: Recorded Temperature greater than 38.3C or Less than 36C, Recorded Heart Rate greater than 90 bpm, WBC count greater than 12,000 or less than 4000 ABX Reporting Has patient been on IV antibiotics over the past 48 hours?: Yes
[2020-08-28] MEDS: polyethylene glycoL 3350 17 GM PACKET PO SCH (08:38)
[2020-08-28] MEDS: LACTOBACILLUS RHAMNOSUS GG CAPSULE PO SCH (08:39)
[2020-08-28] MEDS: DOCUSATE SODIUM 250 MG CAPSULE PO SCH (08:39)
[2020-08-28] MEDS: NICOTINE 14 MG PATCH TOP SCH (08:39)
[2020-08-28] MEDS: ethyl alcohoL 62% SWAB AMPULE NAS SCH ×2 (08:39→21:50)
[2020-08-28] MEDS: AZITHROMYCIN INJ 500 MG in SODIUM CHLORIDE 0.9% 250 ML IV SCH (08:40)
[2020-08-28] MEDS: ENOXAPARIN 40 MG/0.4 ML SYRINGE SUBQ SCH (08:40)
[2020-08-28] MEDS: SENNA 8.6 MG TABLET PO SCH (08:41)
[2020-08-29] MEDS: oxyCODONE 5 MG TABLET PO PRN ×4 (00:20→23:06)
[2020-08-29] MEDS: metroNIDAZOLE 500 MG/100 ML 500 MG/100 ML BAG IV SCH ×3 (00:21→15:52)
[2020-08-29] MEDS: MORPHINE 2 MG/ML CARPUJECT IVP PRN ×3 (04:20→19:05)
[2020-08-29] MEDS: SODIUM CHLORIDE FLUSH 0.9% 10 ML SYRINGE IVP SCH ×3 (04:21→15:52)
[2020-08-29] MEDS: SODIUM CHLORIDE FLUSH 0.9% 10 ML SYRINGE IVP PRN ×2 (05:24→23:10)
[2020-08-29] MEDS: VANCOMYCIN INJ 1 GM, VANCOMYCIN INJ 500 MG in SODIUM CHLORIDE 0.9% 500 ML IV SCH ×3 (05:31→23:07)
[2020-08-29] MEDS: MULTIVITAMIN W/MINERALS TABLET PO SCH (07:39)
[2020-08-29] MEDS: LACTOBACILLUS RHAMNOSUS GG CAPSULE PO SCH (08:26)
[2020-08-29] MEDS: ethyl alcohoL 62% SWAB AMPULE NAS SCH ×2 (08:27→23:06)
[2020-08-29] MEDS: DOCUSATE SODIUM 250 MG CAPSULE PO SCH (08:27)
[2020-08-29] MEDS: SENNA 8.6 MG TABLET PO SCH (08:27)
[2020-08-29] MEDS: ENOXAPARIN 40 MG/0.4 ML SYRINGE SUBQ SCH (08:27)
[2020-08-29] MEDS: NICOTINE 14 MG PATCH TOP SCH (08:28)
[2020-08-29] MEDS: polyethylene glycoL 3350 17 GM PACKET PO SCH (08:28)
[2020-08-29] MEDS: AZITHROMYCIN INJ 500 MG in SODIUM CHLORIDE 0.9% 250 ML IV SCH (08:51)
--- NOTE | 2020-08-29 19:21 | PROVIDER PROGRESS NOTE ---
Assessment/Plan - Problem List (1) Bacteremia Assessment/Plan: Patient remains afebrile. White blood cell count 11.1 Blood cultures drawn 08/23/20 are no growth to date X2 days. Continue vancomycin. I spoke with infectious disease specialist through [employer] at who advised that the patient would need 2 weeks of antibiotics from 08/23/20 if the FAVIOLA is negative for vegetation and 6 week if positive I spoke with Dr. Wood (box gluer) at [place] who is agreeable to do a FAVIOLA on 08/30/20 at 10 am. (2) Cellulitis of left upper extremity Assessment/Plan: Patient remains afebrile. White blood cell count 11.1 Blood cultures drawn 08/23/20 are no growth to date X2 days. Continue vancomycin. I spoke with infectious disease specialist through [employer] at who advised that the patient would need 2 weeks of antibiotics from 08/23/20 if the FAVIOLA is negative for vegetation and 6 week if positive I spoke with Dr. Wood (box gluer) at [place] who is agreeable to do a FAVIOLA on 08/30/20 at 10 am. (3) Pneumonia Qualifiers: Pneumonia type: due to unspecified organism Laterality: right Lung location: middle lobe of lung Qualified Code(s): J18.9 - Pneumonia, unspecified organism Assessment/Plan: Chest x-ray done today 08/26/20 showed increased right lower lobe opacification compatible with atelectasis versus pneumonia. As a result azithromycin 500 mg IV daily x3 days and Flagyl 500 mg IV 3 times d aily ordered. Will d/c on 08/28/20 (4) Illicit drug use, continuous Assessment/Plan: History of IV amphetamine and heroin use. Tox screen was positive. Patient with likely need inpatient IV antibiotic treatment for 2 or 6 weeks depending on FAVIOLA results. He is a high risk for outpatient IV antibiotics - Current Meds Current Meds: Current Medications Generic Name Dose Route Start Last Admin Trade Name Freq PRN Reason Stop Dose Admin Acetaminophen 650 mg 08/18/20 22:48 08/27/20 09:32 Acetaminophen 325 Mg Tablet PO 650 mg Q4HR PRN Administration Pain 1 to 4 Alcohol 1 amp 08/27/20 13:00 08/29/20 08:27 Ethyl Alcohol 62% Swab Ampule DONTRELL 1 amp BID MICHA Administration Alteplase, Recombinant 2 mg 08/22/20 13:00 08/22/20 19:37 Alteplase 2 Mg Vial IC 2 mg BID PRN Administration LINE FLUSHING Docusate Sodium 250 - 500 mg 08/22/20 09:00 08/29/20 08:27 Docusate Sodium 250 Mg Capsule PO 250 mg DAILY MICHA Administration Enoxaparin Sodium 40 mg 08/19/20 09:00 08/29/20 08:27 Enoxaparin 40 Mg/0.4 Ml Syringe SUBQ Not Given DAILY MICHA Vancomycin HCl 1 gm/ 500 mls @ 250 mls/hr 08/23/20 14:00 08/29/20 15:40 Vancomycin HCl 500 mg/ Sodium IV Infused Chloride Q8H MICHA Infusion Metronidazole 500 mg in 100 mls @ 100 mls/hr 08/26/20 14:00 08/29/20 17:00 Flagyl 500 Mg/100 Ml IV Infused Q8H MICHA Infusion Lactobacillus Rhamnosus 1 cap 08/23/20 09:00 08/29/20 08:26 Lactobacillus Rhamnosus Gg Capsule PO 1 cap DAILY MICHA Administration Morphine Sulfate 2 mg 08/18/20 22:48 08/29/20 19:05 Morphine 2 Mg/Ml Carpuject IVP 2 mg Q2HR PRN Administration Pain 8 to 10 Multivitamins/Minerals 1 tab 08/22/20 14:00 08/29/20 07:39 Multivitamin W/Minerals Tablet PO 1 tab DAILYWM MICHA Administration Nicotine 1 patch 08/19/20 20:18 08/29/20 08:28 Nicotine 14 Mg Patch TOP 1 patch DAILY MICHA Administration Ondansetron HCl 4 mg 08/18/20 22:48 08/20/20 01:51 Ondansetron Odt 4 Mg Tablet TL 4 mg Q6HR PRN Administration Nausea / Vomiting Ondansetron HCl 4 mg 08/18/20 22:48 08/19/20 08:38 Ondansetron 4 Mg/2 Ml Vial IVP 4 mg Q6HR PRN Administration Nausea / Vomiting Oxycodone HCl 5 mg 08/18/20 22:48 08/29/20 13:37 Oxycodone 5 Mg Tablet PO 5 mg Q4HR PRN Administration Pain 5 to 7 Polyethylene Glycol 17 gm 08/21/20 17:00 08/29/20 08:28 Polyethylene Glycol 3350 17 Gm Packet PO 17 gm DAILY MICHA Administration Senna 8.6 - 17.2 mg 08/22/20 09:00 08/29/20 08:27 Senna 8.6 Mg Tablet PO 8.6 mg DAILY MICHA Administration Sodium Chloride 10 ml 08/18/20 22:48 08/29/20 05:24 Sodium Chloride Flush 0.9% 10 Ml Syringe IVP 10 ml PRN PRN Administration NEEDED PER PROVIDER ORDERS Sodium Chloride 10 ml 08/19/20 01:00 08/29/20 15:52 Sodium Chloride Flush 0.9% 10 Ml Syringe IVP 10 ml 0100,0900,1700 MICHA Administration - Lab Result Fish Bone Diagrams: 08/28/20 04:15 08/28/20 04:15 Subjective - Subjective Patient Reports: Other (Patient resting comfortably in bed. He denied any complaints.) Objective Vital Signs: Vital Signs - 24 hr 08/28/20 08/29/20 08/29/20 20:07 01:00 05:00 Temperature 36.5 C 36.6 C 36.6 C Heart Rate [ 82 71 76 Brachial] Respiratory 18 18 18 Rate Blood Pressure 131/71 H 125/76 131/63 H [Right Brachial artery] O2 Saturation 96 97 97 08/29/20 08/29/20 08/29/20 07:37 13:00 16:28 Temperature 36.6 C 36.4 C L 36.4 C L Heart Rate [ 77 75 77 Brachial] Respiratory 18 17 18 Rate Blood Pressure 134/78 H 130/68 120/64 [Right Brachial artery] O2 Saturation 97 96 96 Oxygen O2 Source Room air I&O (Last 24 Hrs): Intake and Output Totals x24h 08/27/20 08/28/20 08/29/20 23:59 23:59 23:59 Intake Total 3380 4040 3720 Output Total 3125 2250 2300 Balance 255 1790 1420 Comments/Notes: General: Alert, Oriented x3, No acute distress HEENT: PERRLA, EOMI Neck: Supple, No JVD Neuro: Alert, Non Focal, Oriented Times 3 Cardiovascular: Regular rate, Normal S1, Normal S2 Respiratory: No respiratory distress, Breath sounds nml, Rales (faint/mild rales in right lower lung base), Other (Pleuritic pain) Abdomen: Normal bowel sounds, No tenderness, No masses Extremities: No clubbing, No edema Skin: No rashes - Results Results: Laboratory Results WBC 11.1 x10^3/uL (4.8-10.8) H 08/28/20 04:15 RBC 4.66 10^6/uL (4.70-6.10) L 08/28/20 04:15 Hgb 10.9 g/dL (14.0-18.0) L 08/28/20 04:15 Hct 35.2 % (42.0-52.0) L 08/28/20 04:15 MCV 75.5 fL (80.0-94.0) L 08/28/20 04:15 MCH 23.4 pg (27.0-31.0) L 08/28/20 04:15 MCHC 31.0 g/dL (32.0-36.0) L 08/28/20 04:15 RDW 17.9 % (12.0-15.0) H 08/28/20 04:15 Plt Count 426 10^3/uL (130-450) 08/28/20 04:15 MPV 9.3 fL (7.4-11.4) 08/28/20 04:15 Neut # (Auto) 8.2 10^3/uL (1.5-6.6) H 08/28/20 04:15 Lymph # (Auto) 1.9 10^3/uL (1.5-3.5) 08/28/20 04:15 [place] # (Auto) 0.7 10^3/uL (0.0-1.0) 08/28/20 04:15 Eos # (Auto) 0.2 10^3/uL (0.0-0.7) 08/28/20 04:15 Baso # (Auto) 0.1 10^3/uL (0.0-0.1) 08/28/20 04:15 Absolute Nucleated RBC 0.00 x10^3/uL 08/28/20 04:15 Total Counted 100 08/19/20 05:49 Band Neuts % (Manual) 6 % (0-10) 08/19/20 05:49 Abnorm Lymph % (Manual) 0 % 08/19/20 05:49 Nucleated RBC % 0.0 /100WBC 08/28/20 04:15 Neutrophils # (Manual) 13.4 10^3/uL (1.5-6.6) H 08/19/20 05:49 Lymphocytes # (Manual) 0.9 10^3/uL (1.5-3.5) L 08/19/20 05:49 Monocytes # (Manual) 0.8 10^3/uL (0.0-1.0) 08/19/20 05:49 Eosinophils # (Manual) 0.0 10^3/uL (0-0.7) 08/19/20 05:49 Basophils # (Manual) 0.0 10^3/uL (0-0.1) 08/19/20 05:49 Differential Comment MANUAL DIFFERENTIAL 08/19/20 05:49 WBC Morphology NORMAL APPEARANCE (NORMAL) 08/19/20 05:49 Platelet Estimate NORMAL (130-450,000) (NORMAL) 08/19/20 05:49 Platelet Morphology NORMAL APPEARANCE (NORMAL) 08/19/20 05:49 RBC Morph Micro Appear NORMAL APPEARANCE (NORMAL) 08/19/20 05:49 ESR 53 mm/Hr (0-15) H 08/18/20 23:01 Sodium 140 mmol/L (135-145) 08/28/20 04:15 Potassium 4.0 mmol/L (3.5-5.0) 08/28/20 04:15 Chloride 105 mmol/L (101-111) 08/28/20 04:15 Carbon Dioxide 26 mmol/L (21-32) 08/28/20 04:15 Anion Gap 9.0 (6-13) 08/28/20 04:15 BUN 10 mg/dL (6-20) 08/28/20 04:15 Creatinine 0.6 mg/dL (0.6-1.2) 08/28/20 04:15 Estimated GFR (MDRD) 159 (>89) 08/28/20 04:15 Glucose 89 mg/dL (70-100) 08/28/20 04:15 Lactic Acid 0.9 mmol/L (0.5-2.2) 08/18/20 18:13 Calcium 8.8 mg/dL (8.5-10.3) 08/28/20 04:15 Phosphorus 3.9 mg/dL (2.5-4.6) 08/23/20 05:30 Magnesium 1.9 mg/dL (1.7-2.8) 08/23/20 05:30 Iron 10 ug/dL (45-182) L 08/19/20 05:30 TIBC 364 ug/dL (250-450) 08/19/20 05:30 % Saturation 3 % (20-50) L 08/19/20 05:30 Transferrin 260 mg/dL (180-329) 08/19/20 05:30 Ferritin 99.5 ng/mL (23.9-336.2) 08/19/20 05:49 Total Bilirubin 1.5 mg/dL (0.2-1.0) H 08/18/20 18:13 AST 29 IU/L (10-42) 08/18/20 18:13 ALT 18 IU/L (10-60) 08/18/20 18:13 Alkaline Phosphatase 73 IU/L (42-121) 08/18/20 18:13 Total Creatine Kinase 356 IU/L (22-269) H 08/18/20 18:13 Troponin I High Sens 87.5 ng/L (2.3-19.7) H* 08/19/20 05:49 C-Reactive Protein 11.3 mg/dL (0-1.0) H 08/23/20 05:30 Total Protein 8.1 g/dL (6.7-8.2) 08/18/20 18:13 Albumin 3.5 g/dL (3.2-5.5) 08/18/20 18:13 Globulin 4.6 g/dL (2.1-4.2) H 08/18/20 18:13 Albumin/Globulin Ratio 0.8 (1.0-2.2) L 08/18/20 18:13 Lipase 21 U/L (22-51) L 08/18/20 18:13 Urine Color YELLOW 08/18/20 21:32 Urine Clarity CLEAR (CLEAR) 08/18/20 21:32 Urine pH 6.0 PH (5.0-7.5) 08/18/20 21:32 Ur Specific [place] >=1.030 (1.002-1.030) H 08/18/20 21:32 Urine Protein TRACE mg/dL (NEGATIVE) 08/18/20 21:32 Urine Glucose (UA) NEGATIVE mg/dL (NEGATIVE) 08/18/20 21:32 Urine Ketones 40 mg/dL (NEGATIVE) H 08/18/20 21:32 Urine Occult Blood LARGE (NEGATIVE) H 08/18/20 21:32 Urine Nitrite NEGATIVE (NEGATIVE) 08/18/20 21:32 Urine Bilirubin NEGATIVE (NEGATIVE) 08/18/20 21:32 Urine Urobilinogen 0.2 (NORMAL) E.U./dL (NORMAL) 08/18/20 21:32 Ur Leukocyte Esterase NEGATIVE (NEGATIVE) 08/18/20 21:32 Urine RBC 6-10 /HPF (0-5) H 08/18/20 21:32 Urine WBC 0-3 /HPF (0-3) 08/18/20 21:32 Ur Squamous Epith Cells RARE Squamous (<= Few) 08/18/20 21:32 Urine Bacteria Rare /HPF (None Seen) 08/18/20 21:32 Urine Mucus Few Strands 08/18/20 21:32 Urine Culture Comments NOT INDICATED 08/18/20 21:32 Nasal Adenovirus (PCR) NOT DETECTED 08/26/20 11:17 Nasal B. parapertussis DNA (PCR) NOT DETECTED 08/26/20 11:17 Nasal Coronavir 229E PCR NOT DETECTED 08/26/20 11:17 Nasal Coronavir HKU1 PCR NOT DETECTED 08/26/20 11:17 Nasal Coronavir NL63 PCR NOT DETECTED 08/26/20 11:17 Nasal Coronavir OC43 PCR NOT DETECTED 08/26/20 11:17 Nasal Enterovir/Rhinovir PCR NOT DETECTED 08/26/20 11:17 Nasal Influenza B PCR NOT DETECTED 08/26/20 11:17 Nasal Influenza A PCR NOT DETECTED 08/26/20 11:17 Nasal Parainfluen 1 PCR NOT DETECTED 08/26/20 11:17 Nasal Parainfluen 2 PCR NOT DETECTED 08/26/20 11:17 Nasal Parainfluen 3 PCR NOT DETECTED 08/26/20 11:17 Nasal Parainfluen 4 PCR NOT DETECTED 08/26/20 11:17 Nasal RSV (PCR) NOT DETECTED 08/26/20 11:17 Nasal Screen MRSA (PCR) POSITIVE (NEGATIVE) A* 08/19/20 06:12 Nasal B.pertussis DNA PCR NOT DETECTED 08/26/20 11:17 Nasal C.pneumoniae (PCR) NOT DETECTED 08/26/20 11:17 Dontrell Human Metapneumo PCR NOT DETECTED 08/26/20 11:17 Nasal M.pneumoniae (PCR) NOT DETECTED 08/26/20 11:17 Nasal SARS-CoV-2 (PCR) NOT DETECTED 08/26/20 11:17 Last Dose Date 08/24/20 08/24/20 13:11 Last Dose Time 81908/24/20 13:11 Vancomycin Trough 16.7 ug/mL (10.0-20.0) 08/24/20 13:11 Urine Opiates Screen POSITIVE (NEGATIVE) H 08/18/20 21:32 Ur Oxycodone Screen NEGATIVE (NEGATIVE) 08/18/20 21:32 Urine Methadone Screen NEGATIVE (NEGATIVE) 08/18/20 21:32 Ur Propoxyphene Screen NEGATIVE (NEGATIVE) 08/18/20 21:32 Ur Barbiturates Screen NEGATIVE (NEGATIVE) 08/18/20 21:32 Ur Tricyclics Screen NEGATIVE (NEGATIVE) 08/18/20 21:32 Ur Phencyclidine Scrn NEGATIVE (NEGATIVE) 08/18/20 21:32 Ur Amphetamine Screen POSITIVE (NEGATIVE) H 08/18/20 21:32 U Methamphetamines Scrn POSITIVE (NEGATIVE) H 08/18/20 21:32 U Benzodiazepines Scrn NEGATIVE (NEGATIVE) 08/18/20 21:32 Urine Cocaine Screen NEGATIVE (NEGATIVE) 08/18/20 21:32 U Cannabinoids Screen NEGATIVE (NEGATIVE) 08/18/20 21:32 - Procedures Procedures: Procedures EXCISION OF L HAND SUBCU/FASCIA, OPEN APPROACH (09/20/16) Sepsis Event Note (H) - Evaluation Current Stage of Sepsis: Sepsis Possible source of Sepsis: positive: Skin/soft tissue, Other (Suspect bacteremia and possible endocaraditis) - Sepsis Criteria Sepsis Criteria: Recorded Temperature greater than 38.3C or Less than 36C, Recorded Heart Rate greater than 90 bpm, WBC count greater than 12,000 or less than 4000 ABX Reporting Has patient been on IV antibiotics over the past 48 hours?: Yes
[2020-08-29] MEDS: ACETAMINOPHEN 325 MG TABLET PO PRN (23:06)
[2020-08-30] MEDS: metroNIDAZOLE 500 MG/100 ML 500 MG/100 ML BAG IV SCH ×2 (01:29→09:37)
[2020-08-30] MEDS: SODIUM CHLORIDE FLUSH 0.9% 10 ML SYRINGE IVP SCH ×2 (01:30→09:38)
[2020-08-30] MEDS: VANCOMYCIN INJ 1 GM, VANCOMYCIN INJ 500 MG in SODIUM CHLORIDE 0.9% 500 ML IV SCH ×2 (06:52→14:02)
[2020-08-30] MEDS: oxyCODONE 5 MG TABLET PO PRN (06:53)
[2020-08-30] MEDS: ACETAMINOPHEN 325 MG TABLET PO PRN (06:53)
[2020-08-30] MEDS: NICOTINE 14 MG PATCH TOP SCH (09:36)
[2020-08-30] MEDS: ENOXAPARIN 40 MG/0.4 ML SYRINGE SUBQ SCH (09:37)
[2020-08-30] MEDS: LACTOBACILLUS RHAMNOSUS GG CAPSULE PO SCH (09:37)
[2020-08-30] MEDS: MULTIVITAMIN W/MINERALS TABLET PO SCH (09:37)
[2020-08-30] MEDS: DOCUSATE SODIUM 250 MG CAPSULE PO SCH (09:37)
[2020-08-30] MEDS: polyethylene glycoL 3350 17 GM PACKET PO SCH (09:38)
[2020-08-30] MEDS: SENNA 8.6 MG TABLET PO SCH (09:38)
[2020-08-30] MEDS: ethyl alcohoL 62% SWAB AMPULE NAS SCH (09:38)
[2020-08-30 13:58] VITALS: BP 134/67
--- NOTE | 2020-08-30 14:04 | PROVIDER PROGRESS NOTE ---
Subjective - Prog Note Date Prog Note Date: 08/30/20 Objective - Vital Signs/Intake & Output Vital Signs: Vital Signs x48h Temp Pulse Resp BP Pulse Ox 08/30/20 09:00 36.4 C L 78 18 134/67 H 98 Intake & Output: Intake & Output 08/27/20 08/28/20 08/29/20 08/30/20 23:59 23:59 23:59 23:59 Intake Total 3380 4040 3720 1620 Output Total 3125 2250 2700 1675 Balance 255 1790 1020 -55 - Lab Results Fish Bones: 08/28/20 04:15 08/28/20 04:15 Sepsis Event Note (H) - Evaluation Current Stage of Sepsis: Sepsis Possible source of Sepsis: positive: Skin/soft tissue, Other (Suspect bacteremia and possible endocaraditis) - Sepsis Criteria Sepsis Criteria: Recorded Temperature greater than 38.3C or Less than 36C, Recorded Heart Rate greater than 90 bpm, WBC count greater than 12,000 or less than 4000 Assessment/Plan - Problem List (1) MRSA bacteremia Impression: Initial blood cultures grew MRSA bacteremia and repeat cultures 2 days later grew MRSA in one of the sets. Repeat cultures from have been negative to date. He has remained on vancomycin. Infectious disease at [facility] through [facility] recommended a FAVIOLA and he will be going to [facility] today to have this performed. He will be transferred back to our facility after the FAVIOLA. Based off of these results, he will either need 2 weeks of IV antibiotics since the if there is no vegetation or 6 weeks if there is a vegetation. We will look to discharge him tomorrow to swing bed status if his FAVIOLA is negative for vegetation and continue vancomycin. (2) Cellulitis of left upper extremity Impression: This is resolved. He does remain on vancomycin given the MRSA bacteremia. Plan as mentioned above. (3) CAP (community acquired pneumonia) Impression: There is initial concern for community-acquired pneumonia and so he was she was ceftriaxone and azithromycin. Repeat imaging on August 26 was concerning for right lower lobe infiltrate which could be Roger or pneumonia. He received azithromycin and Flagyl for this. Given lack of clinical evidence of pneumonia we will discontinue antibiotics today but continue the vancomycin for the MRSA bacteremia. (4) IVDU (intravenous drug user) Impression: He has a history of methamphetamine and heroin use. Unfortunate cannot be discharged with PICC line due to his high risk behavior and plan will be to admit him to swing bed for IV antibiotics once we have the FAVIOLA results. (5) Sepsis Impression: This was secondary to the MRSA bacteremia and left arm cellulitis. This has since resolved. Qualifiers: Sepsis type: sepsis due to unspecified organism Sepsis acute organ dysfunction status: without acute organ dysfunction Qualified Code(s): A41.9 - Sepsis, unspecified organism (6) Elevated troponin Impression: This was demand ischemia.
--- NOTE | 2020-08-30 18:08 | DISCHARGE SUMMARY ---
"Discharge Summary Admit Date: 08/18/20 Discharge Date: 08/30/20 Discharging Provider: Hussein Sood Code Status: Attempt Resuscitation Condition at Discharge: Poor Discharge Disposition: 07 Against Medical Advice - DIAGNOSES Admission Diagnoses: Sepsis Cellulitis of left upper extremity Community-acquired pneumonia Elevated troponin Intravenous drug user Discharge Diagnoses with Status of Each Condition: MRSA bacteremia - ongoing. Cellulitis of left upper extremity - resolved. Community-acquired pneumonia - resolved. Intravenous drug user - stable. Sepsis - resolved. Elevated troponin - resolved. - HPI History of Present Illness: This is a 29-year-old male with a past medical history significant for hepatitis C, heroin and methamphetamine use who presents today complaining of chest pain after he was found by EMS passed out. He states his chest pain began today and it is a pressure like in nature. He reports his chest is tender to palpation. He admits to using heroin yesterday. He states that about 85% of the time he will use a dirty needle. He last injected in his left upper extremity above the elbow. He complains of left wrist pain that he believes began today. He is able to move his fingers but does have pain on palpation. He is also noticed some erythema over the wrist. He denies any shortness of breath or cough. He does complain of some abdominal pain but no nausea or vomiting. He reports no fevers or chills. Just feels very fatigued. He does complain of lower back pain. Denies any weakness in his lower extremities In the emergency department, he was found to be febrile with a temperature of 39.1. He was tachycardic with a heart rate in the 110s. Hypertensive with systolic in the 150s. He was tachypneic with respiratory rate in the low 20s but was saturating well on room air. Labs were significant for white count of 16,000 with a left shift. Sodium was 133. Potassium was 3.2. He had a normal lactic acid. Initial troponin was 95.2 and recheck an hour later had decreased to 79.4. His CKs were mildly elevated in the 300s. His chest x-ray is unremarkable. CT of the chest was concerning for multifocal pneumonia. CT of the abdomen and pelvis was unremarkable. CT the left upper extremity revealed no fluid collection or evidence necrotizing fasciitis. He received vancomycin in the emergency department. Given the concern for sepsis secondary to left upp er extremity cellulitis, medicine was consulted for admission. - CONSULTS | PROCEDURES Consultations: Cardiology at [facility] - HOSPITAL COURSE Hospital Course: The patient was admitted for sepsis secondary to left upper extremity cellulitis. CT revealed no evidence of abscess or air/gas to suggest necrotiz ing fasciitis. He was initially treated with vancomycin and ceftriaxone. His blood cultures came back positive for MRSA. The ceftriaxone was discontinued but he remained on vancomycin. A PICC line had been placed shortly after admission and repeat cultures were obtained which grew MRSA in 1 out of the 4 sets. He remained on vancomycin and these blood culture repeated once again on which has since been negative to date. He did have a TTE which showed no obvious vegetation. This was discussed with infectious disease the [facility] who felt that a FAVIOLA would be necessary. This took a few days to initiate but ultimately [facility] was willing to perform a FAVIOLA. This was scheduled for August 30 and the patient was transferred there for a FAVIOLA but unfortunately is noted that he had breakfast and therefore not n.p.o. so the procedure was canceled. He was then brought back to our facility where the patient decided to leave AGAINST MEDICAL ADVICE. I did discuss with him the importance of continued IV antibiotics and the need for FAVIOLA as this can help decide how long to treat him for. I asked him if it anything we can help with to make his state more comfortable but he stated he was just fed up and wants to go home at this point. We did discuss the risks including worsening infection and if he were to have endocarditis this could cause to significant valvular damage and ultimately . He understood these risks but still preferred to go home. I did prescribe him oral Zyvox 600 mg twice a day to take for 1 more week which would be approximately 14 days of total treatment. He was agreeable to this. This was sent to [facility]. I did ask him to return to the emergency department if he develops any fevers, chills, chest pain, difficulty breathing. - ALLERGIES Allergies/Adverse Reactions: Allergies Allergy/AdvReac Type Severity Reaction Status Date / Time hydrocodone bitartrate * AdvReac Nausea Verified 08/18/20 17:56 [From Vicodin] - MEDICATIONS Home Medications: Ambulatory Orders Medication Instructions Recorded Confirmed Linezolid [Zyvox] 600 mg PO BID #14 tablet 08/30/20 - PHYSICAL EXAM AT DISCHARGE General Appearance: positive: No acute distress, Alert Eyes Bilateral: positive: Normal inspection, Conjunctivae nml ENT: positive: ENT inspection nml, Other (Poor dentition.) Neck: positive: Nml inspection Respiratory: positive: No respiratory distress. negative: Wheezes, Rales Cardiovascular: positive: Regular rate & rhythm, No murmur. negative: Tachycar sangita, Systolic murmur Abdomen: positive: Non-tender, No distention. negative: Tenderness Skin: positive: Warm, Dry Extremities: positive: Full ROM, No pedal edema Neurologic/Psychiatric: positive: Motor nml. negative: Disoriented to person, Disoriented to place, Disoriented to time - LABS Result Diagrams: 08/28/20 04:15 08/28/20 04:15 - SEPSIS Current Stage of Sepsis: Sepsis Possible source of Sepsis: Skin/soft tissue, Other (Suspect bacteremia and possible endocaraditis) Sepsis Criteria: Recorded Temperature greater than 38.3C or Less than 36C, Recorded Heart Rate greater than 90 bpm, WBC count greater than 12,000 or less than 4000 - FOLLOW UP Follow Up: He has no primary care provider but I asked him to find one as soon as possible and to return to the emergency department if you develop any fevers, chills, chest pain or dyspnea. - TIME SPENT Time Spent in Discharge (Minutes): 32"
--- NOTE | 2020-08-30 18:30 | Discharge Plan ---
Discharge Plan Problem Reviewed?: Yes Disposition: Against Medical Advice Condition: Poor Prescriptions: Linezolid [Zyvox] 600 mg PO BID #14 tablet Health Concerns: You were admitted to the hospital because of a left arm infection likely due to the IV drug use. This infection spread to your blood and you had bacteria called methicillin-resistant staph aureus growing in your blood. You were treated with IV antibiotics with clearance of the bacteria. We did try to do a special ultrasound of your heart to make sure there is no bacteria stuck on your heart valves. Unfortunately, you have decided to leave AGAINST MEDICAL ADVICE. I have prescribed you an antibiotic called linezolid which you should take twice a day for another week. [facility]. It is encouraged that you try and get a primary care physician. Please return to the emergency department if you develop any fevers, chills or feel ill. No Smoking: If you smoke, Please STOP! Call for help.
== END 2020-08-30 18:15 | disposition left against medical advice (07) | DRG 871 ==
LOC: EDUNIT# → ED 17:47 → MS2 22:48
PROVIDERS: ADMIT Internal Medicine; ATTEND Internal Medicine
PROC: 02HV33Z Insertion of Infusion Device into Superior Vena Cava, Percutaneous Approach (ICD-10-PCS; principal; 2020-08-19)
DX: A41.02 Sepsis due to Methicillin resistant Staphylococcus aureus (principal); J18.9 Pneumonia, unspecified organism; I33.0 Acute and subacute infective endocarditis; L03.114 Cellulitis of left upper limb; I24.8 Other forms of acute ischemic heart disease; E87.1 Hypo-osmolality and hyponatremia; F15.20 Other stimulant dependence, uncomplicated; F11.20 Opioid dependence, uncomplicated; E87.6 Hypokalemia; F17.210 Nicotine dependence, cigarettes, uncomplicated; R77.8 Other specified abnormalities of plasma proteins; J45.909 Unspecified asthma, uncomplicated; F32.9 Major depressive disorder, single episode, unspecified; G89.29 Other chronic pain; M54.9 Dorsalgia, unspecified; Z53.29 Procedure and treatment not carried out because of patient's decision for other reasons; Z59.0 Homelessness; Z86.718 Personal history of other venous thrombosis and embolism; Z86.19 Personal history of other infectious and parasitic diseases; Z20.822 Contact with and (suspected) exposure to COVID-19
CPT/HCPCS: 0202U; 36415; 71045; 71250; 73100; 73201; 74176; 80048; 80053; 80202; 80306; 81001; 82550; 82728; 83540; 83605; 83690; 83735; 84100; 84466; 84484; 85025; 85651; 86140; 87040; 87150; 87181; 87640; 93005; 93306; 93971; 96365; 96366; 99283; 99285; A9270; J2997; J3370; J7120; Q0162; Q9967; 87086

== ENCOUNTER 2020-08-30 11:00 | Outpatient (CLI) | payer MEDICAID | END 2020-08-30 11:01 | disposition short-term general hospital (02) | LOC: EMS 11:00 | PROVIDERS: ATTEND Internal Medicine | DX: L03.90 Cellulitis, unspecified (principal); R78.81 Bacteremia; F19.11 Other psychoactive substance abuse, in remission | CPT/HCPCS: A0425; A0428 ==

== ENCOUNTER 2020-08-30 14:42 | Outpatient (CLI) | payer MEDICAID | END 2020-08-30 14:43 | disposition critical access hospital (66) | LOC: EMS 14:42 | PROVIDERS: ATTEND Internal Medicine | DX: L03.90 Cellulitis, unspecified (principal); R78.81 Bacteremia; F19.21 Other psychoactive substance dependence, in remission | CPT/HCPCS: A0425; A0428 ==

== ENCOUNTER 2020-12-23 13:57 | Outpatient (CLI) | payer MEDICAID | END 2020-12-23 13:58 | disposition critical access hospital (66) | LOC: EMS 13:57 | DX: T40.1X1A Poisoning by heroin, accidental (unintentional), initial encounter (principal) | CPT/HCPCS: A0425; A0429; A0999 ==

== ENCOUNTER 2020-12-23 14:10 | Emergency (ER) | payer MEDICAID ==
--- NOTE | 2020-12-23 14:19 | ED Physician Documentation ---
PD HPI OVERDOSE - Stated complaint Stated Complaint: OD - Chief complaint Chief Complaint: Neuro - History obtained from History obtained from: Patient, EMS - History of Present Illness Timing - onset: Today Subtance(s) ingested: Single, Narcotic Associated symptoms: Resp depression Contributing factors: Substance abuse Treatment [employer] CONSULTANT: Narcan Similar symptoms before: Diagnosis (narcotic overdose) Recently seen: Not recently seen - Additional information Additional information: 30-year-old male with problems with substance abuse states that he took a hit of heroin and the next thing he remembers people standing around him. He states that he had friends who had Narcan and they rescued him. He is now brought to the hospital by ambulance. I did discuss with the patient whether he was interested in detox and rehabilitation and he was affirmative in this. The patient has had overdosed twice previously. Review of Systems Constitutional: denies: Fever Eyes: denies: Decreased vision Ears: denies: Ear pain Nose: denies: Congestion Throat: denies: Sore throat Cardiac: denies: Chest pain / pressure, Palpitations Respiratory: denies: Dyspnea, Cough GI: denies: Nausea, Vomiting, Diarrhea : denies: Dysuria PD PAST MEDICAL HISTORY - Past Medical History Cardiovascular: Deep vein thrombosis Respiratory: Asthma Neuro: Other Endocrine/Autoimmune: None GI: Hepatitis : None HEENT: None Psych: Depression Musculoskeletal: Chronic back pain Derm: None - Past Surgical History Past Surgical History: Yes General: Other Ortho: Other (I&D of left hand in August 2016.) - Present Medications Home Medications: Ambulatory Orders Medication Instructions Recorded Confirmed Linezolid [Zyvox] 600 mg PO BID #14 tablet 08/30/20 - Allergies Allergies/Adverse Reactions: Allergies Allergy/AdvReac Type Severity Reaction Status Date / Time hydrocodone bitartrate * AdvReac Nausea Verified 08/18/20 17:56 [From Vicodin] - Social History Does the pt smoke?: Yes Smoking Status: Current every day smoker Does the pt drink ETOH?: No Does the pt have substance abuse?: Yes - Immunizations Immunizations are current?: Yes Immunizations: TDAP current <10years, Other immun not current - POLST Patient has POLST: No POLST Status: Full Code PD ED PE NORMAL - Vitals Vital signs reviewed: Yes - General General: No acute distress, Well developed/nourished, Other (Hat stooped over the eyes with poor eye contact. Looks like he has been living outdoors) - HEENT HEENT: Atraumatic, PERRL, EOMI - Neck Neck: Supple, no meningeal sign, No bony TTP - Cardiac Cardiac: No murmur, Other (tachy to 100) - Respiratory Respiratory: No respiratory distress, Other (diminished breath sounds) - Abdomen Abdomen: Soft, Non tender - Back Back: No CVA TTP, No spinal TTP - Derm Derm: Normal color, Warm and dry, No rash - Extremities Extremities: No deformity, No edema - Neuro Neuro: physician pediatrician 2-12 intact, No motor deficit, No sensory deficit, Normal speech Eye Opening: Spontaneous Motor: Obeys Commands Verbal: Oriented GCS Score: 15 - Psych Psych: Normal mood, Normal affect Results - Vitals Vitals: Vital Signs - 24 hr 12/23/20 12/23/20 12/23/20 14:15 14:47 15:17 Temperature 37.0 C Heart Rate 95 83 73 Respiratory 17 17 13 Rate Blood Pressure 164/91 H 126/78 110/73 O2 Saturation 100 98 99 12/23/20 12/23/20 12/23/20 15:48 16:16 16:30 Temperature Heart Rate 74 91 71 Respiratory 19 19 13 Rate Blood Pressure 110/66 112/68 113/60 O2 Saturation 97 97 97 12/23/20 12/23/20 12/23/20 17:10 17:32 18:00 Temperature Heart Rate 72 65 71 Respiratory 15 16 14 Rate Blood Pressure 110/65 121/65 118/66 O2 Saturation 99 96 92 12/23/20 12/23/20 18:30 19:00 Temperature Heart Rate 70 70 Respiratory 16 12 Rate Blood Pressure 116/67 110/64 O2 Saturation 92 96 Oxygen O2 Source Room air - Labs Labs: Laboratory Tests 12/23/20 12/23/20 12/23/20 14:23 14:23 14:23 WBC 13.1 H RBC 5.24 Hgb 12.6 L Hct 40.4 L MCV 77.1 L MCH 24.0 L MCHC 31.2 L RDW 16.6 H Plt Count 311 MPV 9.4 Neut # (Auto) 11.6 H Lymph # (Auto) 0.9 L Island # (Auto) 0.4 Eos # (Auto) 0.1 Baso # (Auto) 0.0 Absolute Nucleated RBC 0.00 Nucleated RBC % 0.0 Sodium 137 Potassium 4.5 Chloride 97 L Carbon Dioxide 28 Anion Gap 12.0 BUN 18 Creatinine 1.0 Estimated GFR (MDRD) 88 L Glucose 218 H Calcium 9.0 Total Bilirubin 0.7 AST 60 H ALT 29 Alkaline Phosphatase 79 Total Protein 7.9 Albumin 3.9 Globulin 4.0 Albumin/Globulin Ratio 1.0 Lipase 34 TSH 0.45 Salicylates < 6.0 Acetaminophen < 10 L Ethyl Alcohol < 5.0 PD MEDICAL DECISION MAKING - ED course Complexity details: reviewed old records, reviewed results, re-evaluated patient, considered differential, d/w patient ED course: 30-year-old male with yet another heroin overdose arrives to the emergency department sleepy but with adequate respirations and he was evaluated by neonatal social worker for potential placement into detox treatment. There were no beds available [facility]. The patient was apparently too sleepy to interact with the neonatal social worker adequately. He will need to metabolize in order to make his decisions. At shift change his care is turned over to Dr. Ferrer. Departure - Departure Clinical Impression: Heroin addiction Heroin overdose Qualifiers: Encounter type: initial encounter Injury intent: accidental or unintentional Qualified Code(s): T40.1X1A - Poisoning by heroin, accidental (unintentional), initial encounter
[2020-12-23 14:28] LABS: BASOPHILS % (AUTO) 0.3 %; EOSINOPHILS # (AUTO) 0.1 10^3/uL (0.0-0.7); EOSINOPHILS % (AUTO) 0.4 %; HCT - HEMATOCRIT 40.4 % (42.0-52.0); HGB - HEMOGLOBIN 12.6 g/dL (14.0-18.0); LYMPHOCYTES # (AUTO) 0.9 10^3/uL (1.5-3.5); LYMPHOCYTES % (AUTO) 7.1 %; MEAN CORPUSCULAR HGB CONC 31.2 g/dL (32.0-36.0); MEAN CORPUSCULAR VOLUME 77.1 fL (80.0-94.0); MEAN PLATELET VOLUME 9.4 fL (7.4-11.4); MONOCYTES # (AUTO) 0.4 10^3/uL (0.0-1.0); MONOCYTES % (AUTO) 3.2 %; NEUTROPHILS # (AUTO) 11.6 10^3/uL (1.5-6.6); NEUTROPHILS % (AUTO) 88.2 %; PLT - PLATELET COUNT 311 10^3/uL (130-450); RED BLOOD COUNT 5.24 10^6/uL (4.70-6.10); RED CELL DISTRIBUTION WIDTH 16.6 % (12.0-15.0); WHITE BLOOD COUNT 13.1 x10^3/uL (4.8-10.8)
[2020-12-23 14:43] LABS: ACETAMINOPHEN < 10 ug/mL (10-30); ALBUMIN 3.9 g/dL (3.2-5.5); ALKALINE PHOSPHATASE 79 IU/L (42-121); ALT ALANINE AMINOTRANSFERASE 29 IU/L (10-60); AST ASPARTATE AMINOTRANSFERASE 60 IU/L (10-42); BILIRUBIN,TOTAL 0.7 mg/dL (0.2-1.0); BUN - BLOOD UREA NITROGEN 18 mg/dL (6-20); CARBON DIOXIDE - CO2 28 mmol/L (21-32); CHLORIDE 97 mmol/L (101-111); ETOH - ETHANOL < 5.0 mg/dL; GFR - MDRD 88 (>89); GLUCOSE 218 mg/dL (70-100); LIPASE 34 U/L (22-51); POTASSIUM 4.5 mmol/L (3.5-5.0); SALICYLATE < 6.0 mg/dL; SODIUM 137 mmol/L (135-145); TOTAL PROTEIN 7.9 g/dL (6.7-8.2)
[2020-12-24 00:05] LABS: MUDS CUTOFF CONCENTRATIONS CUTOFF CONC BELOW:
[2020-12-24 00:10] LABS: BILIRUBIN,URINE NEGATIVE (NEGATIVE); CLARITY,URINE CLEAR (CLEAR); GLUCOSE, URINE (UA) 250 mg/dL (NEGATIVE); KETONES,URINE (UA) NEGATIVE (NEGATIVE); LEUKOCYTE ESTERASE, URINE NEGATIVE (NEGATIVE); NITRITE,URINE NEGATIVE (NEGATIVE); OCCULT BLOOD,URINE TRACE-INTA (NEGATIVE); PH,URINE 5.5 PH (5.0-7.5); PROTEIN,URINE TRACE mg/dL (NEGATIVE); UROBILINOGEN,URINE 0.2 (NORMAL) E.U./dL (NORMAL)
[2020-12-24 00:20] LABS: AMPHETAMINE SCREEN,URINE POSITIVE (NEGATIVE); BARBITURATE SCREEN,UR NEGATIVE (NEGATIVE); BENZODIAZEPINES SCREEN, URINE NEGATIVE (NEGATIVE); COCAINE SCREEN URINE NEGATIVE (NEGATIVE); METHADONE SCREEN, URINE NEGATIVE (NEGATIVE); METHAMPHETAMINES SCREEN, URINE POSITIVE (NEGATIVE); OPIATE SCREEN, URINE POSITIVE (NEGATIVE); OXYCODONE SCREEN, URINE NEGATIVE (NEGATIVE); PROPOXYPHENE SCREEN, URINE NEGATIVE (NEGATIVE); THC CANNABINOID SCREEN, URINE NEGATIVE (NEGATIVE); TRICYCLIC ANTIDEPRESSANT,URINE NEGATIVE (NEGATIVE)
--- NOTE | 2020-12-24 06:31 | ED Physician Documentation ---
ED Addendum - Addendum Addendum: 12/24/20 06:30The patient had slept much of the time since the change of shift. He roused just shortly ago and talked with the nursing. He is still interested in substance abuse treatment acutely and will wait for social work to arrive to discuss and look for detox facility. No symptoms of withdrawal or other problems at this time.
[2020-12-24 11:31] LABS: B. PARAPERTUSSIS- RESP PCR PAN NOT DETECTED; B. PERTUSSIS- RESP PCR PANEL NOT DETECTED; C. PNEUMONIAE- RESP PCR PANEL NOT DETECTED; CORONAVIRUS 229E-RESP PCR NOT DETECTED; CORONAVIRUS HKU1-RESP PCR NOT DETECTED; CORONAVIRUS NL63-RESP PCR NOT DETECTED; CORONAVIRUS OC43-RESP PCR NOT DETECTED; HUMAN METAPNEUMOVIRUS NOT DETECTED; INFLUENZA A- RESP PCR PANEL NOT DETECTED; INFLUENZA B - RESP PCR PANEL NOT DETECTED; M. PNEUMONIAE- RESP PCR PANEL NOT DETECTED; PARAINFLUENZA VIRUS 1 NOT DETECTED; PARAINFLUENZA VIRUS 2 NOT DETECTED; PARAINFLUENZA VIRUS 3 NOT DETECTED; PARAINFLUENZA VIRUS 4 NOT DETECTED; RHINOVIRUS/ENTEROVIRUS NOT DETECTED; RSV- RESP PCR PANEL NOT DETECTED; SARS-CoV-2 -RESP PCR PANEL NOT DETECTED
[2020-12-24 12:09] VITALS: BP 141/84
[2020-12-24 12:46] LABS: BASOPHILS # (AUTO) 0.1 10^3/uL (0.0-0.1); BASOPHILS % (AUTO) 0.4 %; EOSINOPHILS # (AUTO) 0.1 10^3/uL (0.0-0.7); EOSINOPHILS % (AUTO) 1.1 %; HCT - HEMATOCRIT 41.8 % (42.0-52.0); HGB - HEMOGLOBIN 13.2 g/dL (14.0-18.0); LYMPHOCYTES # (AUTO) 2.4 10^3/uL (1.5-3.5); MEAN CORPUSCULAR HGB CONC 31.6 g/dL (32.0-36.0); MEAN PLATELET VOLUME 9.3 fL (7.4-11.4); MONOCYTES # (AUTO) 0.8 10^3/uL (0.0-1.0); NEUTROPHILS # (AUTO) 9.8 10^3/uL (1.5-6.6); NEUTROPHILS % (AUTO) 74.2 %; PLT - PLATELET COUNT 344 10^3/uL (130-450); RED CELL DISTRIBUTION WIDTH 16.8 % (12.0-15.0); WHITE BLOOD COUNT 13.2 x10^3/uL (4.8-10.8)
--- NOTE | 2020-12-24 14:24 | ED Physician Documentation ---
ED Addendum - Addendum Addendum: 12/24/20 14:24 30-year-old gentleman signed out to me by the overnight physician. He had overdosed on heroin. His mental status is now normal. Seen by social work and arranged for him to go to the detox center. I wrote a prescription for Narcan nasal spray. Disposition: Discharged to detox Condition: Stable Discharge diagnosis: 1. Heroin overdose
== END 2020-12-24 14:30 | disposition home or self-care (01) ==
LOC: EDUNIT# → ED 14:10
DX: T40.1X1A Poisoning by heroin, accidental (unintentional), initial encounter (principal); R40.0 Somnolence; F11.20 Opioid dependence, uncomplicated; F17.200 Nicotine dependence, unspecified, uncomplicated; Z20.822 Contact with and (suspected) exposure to COVID-19
CPT/HCPCS: 0202U; 36415; 80053; 80306; 80307; 80320; 80329; 81003; 83690; 84443; 85025; 99283; 99284; 81001; 87086